=== PATIENT | female | born 1975 | race Caucasian/White ===

== ENCOUNTER → 2021-11-03 18:01 | Outpatient (CLI) | payer OTHER, SELFPAY ==
[2021-11-03 18:42] LABS: Amphetamine/Metha Screen,Urine Negative ng/ml (<1000)
[2021-11-03 18:45] LABS: Barbiturates Screen,Urine Negative ng/ml (<200); Benzodiazepines Screen,Urine Negative ng/ml (<200)
[2021-11-03 18:46] LABS: Cannabinoid Screen,Urine Positive ng/ml (<50)
[2021-11-03 18:47] LABS: Cocaine Screen,Urine Negative ng/ml (<300)
[2021-11-03 18:48] LABS: Alanine Aminotransferase 31 U/L (12-78); Albumin Level 4.3 g/dl (3.5-5.0); Albumin/Globulin Ratio 1.5 (1.1-1.8); Alkaline Phosphatase 75 U/L (38-126); Anion Gap 14.6 mEq/L (5-15); Aspartate Amino Transferase 37 U/L (14-36); Bilirubin,Total 0.3 mg/dl (0.2-1.3); Blood Urea Nitrogen 6 mg/dl (7-17); Calcium 9.2 mg/dl (8.4-10.2); Carbon Dioxide 29 mmol/L (22.0-30.0); Chloride 100 mmol/L (98-107); Chol/HDL Ratio 5.5 (1-3.5); Cholesterol 264 mg/dl (140-200); Estimated Glomerular Filt Rate 171 ml/min (>60); GFR (African American) 207 ML/MIN (>60); Globulin 2.9 g/dL (1.3-3.2); Glucose 158 mg/dl (74-100); HDL Cholesterol 48 mg/dl (40-60); Methadone Screen,Urine Negative ng/ml (<300); Potassium 3.6 mmoL/L (3.5-5.1); Sodium 140 mmol/L (136-145); Total Protein,Serum 7.2 g/dl (6.3-8.2); Triglycerides 273 mg/dl (30-150); VLDL Cholesterol 55 mg/dL (0-40)
[2021-11-03 18:49] LABS: Opiate Screen,Urine Negative ng/ml (<300); Phencyclidine Screen,Urine Negative ng/ml (<25)
[2021-11-03 18:50] LABS: Basophils # 0.1 K/mm3 (0-0.2); Basophils % 1.1 % (0.1-2.0); Eosinophils # 0.3 K/mm3 (0.0-0.4); Eosinophils % 3.3 % (0.1-12.0); Hematocrit 49.5 % (37.0-47.0); Hemoglobin 16.6 g/dL (12.2-16.2); Lymphocytes % 24.6 % (10-50); Mean Corpuscular HGB Conc 33.5 g/dL (31.8-35.4); Mean Corpuscular Hemoglobin 31.2 pg (27.0-31.2); Mean Corpuscular Volume 93.1 fl (81-99); Mean Platelet Volume 10.1 fl (7.4-10.4); Monocytes # 0.4 K/mm3 (0.1-1.0); Monocytes % 4.6 % (1.7-9.3); Neutrophils # 5.3 K/mm3 (1.8-7.8); Neutrophils % 66.3 % (37.0-80.0); Platelet Count 345 K/mm3 (142-424); Red Blood Count 5.31 M/mm3 (4.20-5.40); Red Cell Distribution Width 13.5 % (11.5-17.5)
[2021-11-03 19:00] LABS: Direct LDL Cholesterol 184.13 mg/dL (100-129)
[2021-11-03 19:06] LABS: 25-OH Vitamin D, Total 37.6 ng/mL (30-100)
[2021-11-03 19:07] LABS: T4 (Thyroxine) 9.2 ug/dl (5.53-11.0)
[2021-11-03 19:20] LABS: Thyroid Stimulating Hormone 1.43 uIU/mL (0.465-4.68)
[2021-11-03 19:44] LABS: Hemoglobin A1C 8.4 % (4.0-6.0)
[2021-11-05 11:18] LABS: C-Peptide 4.1 ng/mL (1.1-4.4)
== END ==
PROVIDERS: Visit Provider Nurse Practitioner Family
DX: E11.9 Type 2 diabetes mellitus without complications (principal); M79.2 Neuralgia and neuritis, unspecified; F32.A Depression, unspecified; Z79.4 Long term (current) use of insulin; Z79.899 Other long term (current) drug therapy; E66.9 Obesity, unspecified; Z68.33 Body mass index [BMI] 33.0-33.9, adult
CPT/HCPCS: 80053; 80061; 80305; 82043; 82306; 83036; 84436; 84443; 84681; 85025

== ENCOUNTER → 2021-12-02 06:23 | Outpatient (CLI) | payer OTHER, SELFPAY ==
--- NOTE | 2021-12-02 06:25 | CA_ITS ---
APPROVED REPORT EXAM: Comprehensive 2D, Doppler, and color-flow Echocardiogram Correctional Case Records Supervisor: Dawn Mcmillan RVT Ht: 5 ft 3 in Wt: 193lbs BSA: 1.90 BP: 145/98 mmHg Indications: CP,CAD,ABN EKG,DM,HERNANDEZ,FATIGUE,HLD,HTN,HX COVID 07/29 TDS 2D Dimensions LVOT 2.00 cm (M/F) 1.5-2.5 LA Volume 53.30 mL LA Volume Index 28.05 mL/m2 (M/F) 16-34 M-Mode Dimensions LA Diam 4.54 cm (1.9-4.0) LVDd 5.21 cm (3.5-5.7) Ao Diam 2.99 cm (2.0-3.7) LVDs 3.04 cm (3.5-5.7) IVSd 0.95 cm (0.6-1.1) PWd 1.41 cm (0.6-1.1) EF (Teich) 72.20% FS 41.70% EDV (Teich) 130.10 mL TAPSE 2.06 (<1.7) ESV (Teich) 36.20 mL LV Diastology E Decel Time 213.00 (160-240 msec) E/A Ratio 2.1 MED E' 5.40 (< 7 cm/sec) E'/MED E' Ratio 19.98 (>14) LAT E' 8.40 (<10 cm/sec) E/LAT E' Ratio 12.85 (>14) Aortic Valve AO Peak GR. 7.10 mmHg Mitral Valve MV E Max Cash. 108.00 (40-130 cm/s) MV A Velocity 51.00 (40-130 cm/s) E/A Ratio 2.10 MV Decel. Time 213.00 (160-240 ms) MV PHT 62.00 ms Pulmonary Valve PV Peak Velocity 93.00 (50-150 cm/s) Left Ventricle Left atrium is moderately enlarged, left ventricle is normal size, mild concentric left ventricular hypertrophy, there is reduced left ventricular systolic function, visually estimated ejection fraction approximately 30 to 35%, there is marked hypokinesis involving mid to distal septum, anterior, anterior apical and apical wall, endocardial surfaces are poorly visualized, grade 2 diastolic dysfunction seen with tissue Doppler evidence of raise left atrial pressure. Right Ventricle Right atrium and right ventricle are qualitatively mildly enlarged with normal contractility. Aortic Valve Aortic valve is minimally thickened and fibrosed, there is no aortic stenosis or aortic insufficiency. Mitral Valve Mitral valve leaflets are minimally thickened, there is mild mitral regurgitation. Tricuspid Valve Tricuspid grossly normal, there is mild tricuspid regurgitation. Tricuspid regurgitation jet velocity is inadequate for calculation of the right ventricular systolic pressure. Pulmonic Valve Pulmonic valve is poorly visualized. Great Vessels Aortic root is normal size. Inferior vena cava is mildly dilated without significant inspiratory collapse. Pericardium No significant pericardial effusion noted. Conclusion 1. Moderately enlarged left atrium, normal left ventricular size, mild concentric left ventricular hypertrophy, visually estimated ejection fraction approximately 30 to 35% with multiple segmental wall motion abnormality described above, grade 2 diastolic dysfunction seen with tissue Doppler evidence of raise left atrial pressure. 2. Mild mitral and tricuspid regurgitation. 3. No significant pericardial effusion noted. 4. Inferior vena cava is mildly dilated without significant inspiratory collapse. Electronically signed by : Kenneth Blandon MD 12/03/2021 15:03:30
--- NOTE | 2021-12-02 06:25 | NM_ITS ---
APPROVED REPORT Exam: Nuclear Stress Test Indication: CAD, 2 STENTS, H/O PR, HTN, D.M., HYPERLIPIDEMIA, TOB USE, FM HX., C.P., SOB, FATIGUE Patient Location: Outpatient Stress Tech: Paige Jesus NE Tech:Taniya Wang, CONGT RT(R)(N) Ht: 5 ft 3 in Wt: 190 lbs Bra Size: 40D HR: 79 bpm BP: 142/91 mmHg BSA: 1.89 m2 BMI: 33.6 History: CAD, 2 STENTS, H/O PR, HTN, D.M., HYPERLIPIDEMIA, TOB USE, FM HX., C.P., SOB, FATIGUE Procedure: Patient received a 0.4 mg of intravenous Lexiscan, resting heart rate 79 bpm, resting blood pressure 142/91 mmHg, with Lexiscan maximum heart rate achived was 112 bpm which is Less than 85 % of the maximum predicted heart rate and blood pressure was 163/105 mmHg. CHEST TIGHTNESS Electrocardiogram Resting electrocardiogram shows sinus rhythm, with Lexiscan there is less than 1.[address] segment depression noted from the baseline EKG. The EKG portion of the Lexiscan is nondiagnostic. Cardiac Stress and Resting SPECT Images: Cardiac Stress and Resting SPECT images were obtained using technetium 99m Myoview 30.8 mCi stress and 10.07 mCi at rest. Gated SPECT for analysis of segmental wall motion and calculation of the ejection fraction also done. Prone images were also obtained. Cardiac stress and resting SPECT images show a large area of fixed defect involving the anterior, anterior apical, apical and anteroseptal wall in a fixed pattern consistent with extensive area of myocardial scarring without significant arina-infarct ischemia. Computer derived ejection fraction of 35% with marked hypokinesis involving the anterior, anterior apical, apex and anteroseptal wall. Right ventricle is mildly enlarged with normal contractility. Conclusion: 1. The EKG portion of the Lexiscan is nondiagnostic. 2. Scintigraphic evidence of extensive myocardial scarring as described above, without significant arina-infarct ischemia, computer derived ejection fraction 35% with segmental wall motion abnormality described above, right ventricle is mildly enlarged with normal contractility. 3. Abnormal Lexiscan Myoview study. Electronically signed by : Kenneth Blandon MD 12/03/2021 09:38:35
--- NOTE | 2021-12-02 06:25 | CA_ITS ---
APPROVED REPORT Exam: Pharmacologic Technologist: Tanika Trujillo, Ht: 5 ft 3 in Wt: 193 lbs BSA: 1.90 m2 HR: 79 bpm BP: 142/91 mmHg Rhythm: NSR, OLD SEPTAL LA, ST-T ABN INFERIORLY AND LATERALLY Medical History Medical History: HTN, Hyperlipidemia, Diabetes Medications: Amlodipine,,,,, Aspirin,,,,, Metformin,,,,, Trazadone,,,,, Gabapentin,,,,, SyMBICORT,,,,, CloPIdogrel,,,,, PaROXETINE,,,,, Tizanidine,,,,, Atrovent,,,,, Ergocalciferol,,,,, ICOSAPENT,,,,, Allergies: ATORVASTATIN, PRAVASTATIN, ROSUVASTATIN Cardiac Risk Factors: HTN, Hyperlipidemia, Diabetes , FHX of CAD, Smoking Stress Test Details Test: LEXISCAN HR Resting HR: 83 bpm Max Heart Rate (APMHR): 172.040410 bpm Max HR Achieved: 113 bpm Target HR (85% APMHR): 146.470172 bpm % of APMHR: 65.70 Recovery HR: 90 bpm BP Resting BP: 142/91 mmHg Max BP: 168/106 mmHg Recovery BP: 145.0/91.0 mmHg ECG Resting ECG: NSR, OLD SEPTAL LA, ST-T ABN INFERIORLY AND LATERALLY Clinical Exercise duration: 04:02 min Highest Stage Achieved: Stress ECG Conclusion PT HAD SOA, AND CHEST TIGHTNESS, MALAISE AND NAUSEA. AMINOPHYLLINE 100 MG SLOW IV. PT FEELING BETTER AT 3 MINUTE RECOVERY. BACK TO BASELINE AT 7 MINUTE RECOVERY. MILD EXAGGERATION OF BASELINE ABNS. NON-DIAGNOSTIC LEXISCAN STRESS. MYOVIEW IMAGES REPORTED SEPARATELY. Test Summary RECOVERY 05:00 . . 85 . . . . Stage 1 01:00 . . 107 . . . . Stage 2 01:00 . . 113 . 163/105 . . Stage 3 01:00 . . 102 . . . . Stage 4 01:00 . . 102 . 168/105 . . Stage 4 01:02 . . 102 . 168/105 . Stop exercise at 04:02 RECOVERY 01:00 . . 95 . . . . RECOVERY 02:00 . . 96 . . . . RECOVERY 03:00 . . 82 . . . . RECOVERY 04:00 . . 88 . . . . RECOVERY 05:00 . . 85 . . . . RECOVERY 06:00 . . 79 . 142/ 95 . . RECOVERY 07:00 . . 90 . 145/ 91 . . RECOVERY 07:22 . . 76 . 145/ 91 . . Electronically signed by : Kenneth Blandon MD 12/03/2021 09:22:50
== END ==
PROVIDERS: PCP Nurse Practitioner Family; Visit Provider Urology
DX: R06.00 Dyspnea, unspecified (principal); I25.10 Atherosclerotic heart disease of native coronary artery without angina pectoris; I10 Essential (primary) hypertension; E11.9 Type 2 diabetes mellitus without complications; E78.5 Hyperlipidemia, unspecified; J44.9 Chronic obstructive pulmonary disease, unspecified; F17.200 Nicotine dependence, unspecified, uncomplicated; R94.31 Abnormal electrocardiogram [ECG] [EKG]; Z78.9 Other specified health status; Z79.4 Long term (current) use of insulin
CPT/HCPCS: 78452; 93017; 93306; A9502; J0280; J2785

== ENCOUNTER → 2021-12-08 09:41 | Outpatient (CLI) | payer OTHER, SELFPAY | PROVIDERS: PCP Nurse Practitioner Family; Visit Provider Physician Assistant | DX: R00.2 Palpitations (principal) | CPT/HCPCS: 93270 ==

== ENCOUNTER → 2021-12-20 12:29 | Outpatient (CLI) | payer OTHER, SELFPAY ==
[2021-12-20 12:45] LABS: Microscopic, Urine URINE MICROSCOPIC (MICROSCOPIC)
[2021-12-20 13:15] LABS: Basophils # 0.1 K/mm3 (0-0.2); Basophils % 1.5 % (0.1-2.0); Eosinophils # 0.3 K/mm3 (0.0-0.4); Eosinophils % 3.8 % (0.1-12.0); Hematocrit 42.9 % (37.0-47.0); Hemoglobin 14.5 g/dL (12.2-16.2); Lymphocytes # 1.9 K/mm3 (0.7-4.5); Lymphocytes % 25.9 % (10-50); Mean Corpuscular HGB Conc 33.7 g/dL (31.8-35.4); Mean Corpuscular Hemoglobin 31.3 pg (27.0-31.2); Mean Corpuscular Volume 92.8 fl (81-99); Mean Platelet Volume 8.6 fl (7.4-10.4); Monocytes # 0.3 K/mm3 (0.1-1.0); Monocytes % 4.2 % (1.7-9.3); Neutrophils # 4.7 K/mm3 (1.8-7.8); Neutrophils % 64.6 % (37.0-80.0); Platelet Count 291 K/mm3 (142-424); Red Blood Count 4.62 M/mm3 (4.20-5.40); Red Cell Distribution Width 14.5 % (11.5-17.5); White Blood Count 7.3 K/mm3 (4.8-10.8)
[2021-12-20 13:54] LABS: Appearance,Urine CLEAR (Clear); Bilirubin,Urine Negative (Negative); Blood, Urine Negative (Negative); Color,Urine YELLOW (Yellow); Glucose,Urine (UA) Negative (Negative); Ketones,Urine Negative (Negative); Leukocyte Esterase,Urine Negative (Negative); Nitrate,Urine Negative (Negative); Protein,Urine 2+ (Negative); Specific Gravity, Urine >= 1.030 (1.005-1.030); Urobilinogen,Urine 0.2 EU/dl (0.2)
[2021-12-20 14:05] LABS: Creatinine,Urine Random 109 mg/dL (Not Estab.)
[2021-12-20 14:07] LABS: Albumin Level 3.8 g/dl (3.5-5.0); Anion Gap 12.1 mEq/L (5-15); Blood Urea Nitrogen 9 mg/dl (7-17); Carbon Dioxide 26 mmol/L (22.0-30.0); Chloride 104 mmol/L (98-107); Estimated Glomerular Filt Rate 170 ml/min (>60); GFR (African American) 206 ML/MIN (>60); Glucose 173 mg/dl (74-100); Phosphorous 4.3 mg/dl (2.5-4.5); Potassium 4.1 mmoL/L (3.5-5.1); Sodium 138 mmol/L (136-145)
[2021-12-20 14:08] LABS: Anion Gap 10.1 mEq/L (5-15); Blood Urea Nitrogen 9 mg/dl (7-17); Calcium 8.9 mg/dl (8.4-10.2); Carbon Dioxide 26 mmol/L (22.0-30.0); Chloride 105 mmol/L (98-107); Estimated Glomerular Filt Rate 170 ml/min (>60); GFR (African American) 206 ML/MIN (>60); Glucose 174 mg/dl (74-100); Potassium 4.1 mmoL/L (3.5-5.1); Sodium 137 mmol/L (136-145)
[2021-12-20 14:19] LABS: Intact Parathyroid Hormone 45.4 pg/mL (7.5-53.5)
[2021-12-20 14:25] LABS: 25-OH Vitamin D, Total 42.2 ng/mL (30-100)
[2021-12-20 16:27] LABS: Bacteria,Urine Trace /lpf
== END ==
PROVIDERS: PCP Internal Medicine Nephrology; Visit Provider Physician Assistant
DX: R06.00 Dyspnea, unspecified (principal); I25.10 Atherosclerotic heart disease of native coronary artery without angina pectoris; I10 Essential (primary) hypertension; E11.9 Type 2 diabetes mellitus without complications; E78.5 Hyperlipidemia, unspecified; F17.200 Nicotine dependence, unspecified, uncomplicated; R94.31 Abnormal electrocardiogram [ECG] [EKG]; Z72.0 Tobacco use; Z95.5 Presence of coronary angioplasty implant and graft; Z79.4 Long term (current) use of insulin
CPT/HCPCS: 36415; 80048; 80069; 81001; 82043; 82306; 82570; 83970; 84155; 85025

== ENCOUNTER → 2021-12-22 10:56 | Outpatient (CLI) | payer OTHER, SELFPAY ==
--- NOTE | 2021-12-22 10:57 | CA_ITS ---
FINAL REPORT TECHNIQUE: Color Doppler, duplex Doppler and compression sonography of the right lower extremity venous system was performed. CLINICAL HISTORY: pain and swelling right lower leg. Patient states she was walking 12/19/21 when she heard a pop. She states the pain started in her lower calf but has moved to her right groin. She notes edema when it's not elevated. Diabetes, HTN, hx PR, smoker. FINDINGS: There is no evidence of deep venous thrombosis from the level of the groin to the calf. The veins are patent and compressible. Note is made of a moderate right popliteal cyst measuring 3.1 x 1.1 cm. IMPRESSION: No evidence of deep venous thrombosis right lower extremity. Moderate right popliteal cyst. Reviewed, Interpreted and Dictated by Jose Knox III, MD Transcribed by Kriss Nguyen Authenticated by Jose Knox III, MD on 12/22/2021 01:24:15 PM [facility]
--- NOTE | 2021-12-22 11:09 | XR_ITS ---
FINAL REPORT CLINICAL HISTORY: pain swelling right lower leg FINDINGS: Two views of the right tibia-fibula demonstrate no acute fracture or dislocation. The joint spaces appear normal. The visualized bony structures are well aligned. There is soft tissue swelling of the ankle. IMPRESSION: Swelling with no acute bony abnormality. Reviewed, Interpreted and Dictated by Jose Knox III, MD Transcribed by Chay Hoover Authenticated by Jose Knox III, MD on 12/22/2021 12:23:53 PM [facility]
== END ==
PROVIDERS: PCP Nurse Practitioner Family; Visit Provider Physician Assistant
DX: M79.604 Pain in right leg (principal); M79.89 Other specified soft tissue disorders
CPT/HCPCS: 73590; 93971

== ENCOUNTER → 2021-12-27 12:33 | Outpatient (POV) | payer OTHER, SELFPAY | PROVIDERS: Visit Provider Internal Medicine Nephrology | DX: Z00.00 Encounter for general adult medical examination without abnormal findings (principal) ==

== ENCOUNTER 2021-12-29 13:15 | Observation (INO) | payer OTHER, SELFPAY ==
--- NOTE | 2021-12-29 13:38 | P.PN_ITS ---
Subjective Date: 12/29/21 Time: 13:38 Interval history: Patient was seen in cardiology clinic today and admitted to the hospital. Progress Note: A&P (1) Dyspnea Status: Acute (2) LV dysfunction Status: Acute (3) Angina pectoris Status: Acute (4) Systolic CHF Status: Acute (5) Abnormal electrocardiography Status: Chronic (6) CAD (coronary artery disease) Status: Chronic (7) Stented coronary artery Status: Chronic (8) Tobacco dependence syndrome Status: Chronic (9) Hyperlipidemia Status: Chronic (10) Hypertension Status: Chronic (11) Diabetes mellitus Status: Chronic (12) Abnormal stress test Status: Acute (13) Ischemic cardiomyopathy Status: Acute Assessment and Plan for All Diagnoses:: Pt here for 2-3 wk fu on CAD. Event monitor showed SR with PVCs. Has had cp & pressure with activity. improves with rest. see HPI. CP occurs multiples times a day. she states she does not feel well. extremely fatigued. SOB with activity. improved with rest CAD is present. had stents placed in 2017 at [facility]. states she worse a life vest and EF improved. she took life vest off once EF improved. BP is high today. COPD is present. Managed by PCP LDL in 10/2021 was 184. LDL goal<55. No statin therapy. intolerant to statins. She has tried lipitor, crestor and pravastatin. Joint pain/muscle. ZAIRA is present and doesn't use her CPAP. Tobacco user. tobacco cessation advised. Cardiomyopathy is present 30-35% on recent echo. DM is present. A1c: 8.4. Uncontrolled. Managed by PCP. EKG is NSR, septal infarct, age undetermined, rate is 75 bpm. Plan: Admit to the hospital for [facility]. C in the morning. Better BP control. Increase Coreg to 12.5 mg PO BIID for better BP control. Stop Lisinopril. Start Entresto 97/103 PO BID for CHF. Start Jardiance 10 mg daily for CHF. Life vest due to severe LV dysfunction. Pt is at increased risk for sudden cardiac due to severe LV dysfunction. Will order life vest. CXR Full labs
--- NOTE | 2021-12-29 13:42 | XR_ITS ---
FINAL REPORT CLINICAL HISTORY: chest pain FINDINGS: The heart size is normal. The mediastinum is normal. There is mild scarring in the lung bases. There is subtle density in the right lung base. There are no pleural effusions. There is no pneumothorax. There is no osseous abnormality. IMPRESSION: Subtle density in the right lung base could be due to a small focus of pneumonia. Recommend follow-up PA and lateral chest x-ray. Reviewed, Interpreted and Dictated by López Dick MD Transcribed by Chay Hoover Authenticated by López Dick MD on 12/29/2021 03:52:45 PM [facility]
[2021-12-29 13:47] VITALS: BP 186/112; PULSE 80; RESP 14; TEMP 36.7; O2SAT 96; BMI 35.1
[2021-12-29 14:10] LABS: Basophils # 0.1 K/mm3 (0-0.2); Basophils % 1.4 % (0.1-2.0); Eosinophils # 0.4 K/mm3 (0.0-0.4); Eosinophils % 4.9 % (0.1-12.0); Hematocrit 42.9 % (37.0-47.0); Hemoglobin 14.2 g/dL (12.2-16.2); Lymphocytes # 1.9 K/mm3 (0.7-4.5); Lymphocytes % 21.8 % (10-50); Mean Corpuscular HGB Conc 33.2 g/dL (31.8-35.4); Mean Corpuscular Hemoglobin 31.4 pg (27.0-31.2); Mean Corpuscular Volume 94.7 fl (81-99); Mean Platelet Volume 8.7 fl (7.4-10.4); Monocytes # 0.3 K/mm3 (0.1-1.0); Monocytes % 3.8 % (1.7-9.3); Neutrophils % 68.1 % (37.0-80.0); Platelet Count 289 K/mm3 (142-424); Red Blood Count 4.53 M/mm3 (4.20-5.40); Red Cell Distribution Width 14.7 % (11.5-17.5); White Blood Count 8.9 K/mm3 (4.8-10.8)
[2021-12-29 14:27] LABS: Chloride 105 mmol/L (98-107); Potassium 3.8 mmoL/L (3.5-5.1); Sodium 137 mmol/L (136-145)
[2021-12-29 14:29] LABS: Coronavirus 19, PCR Not Detected (NotDetected); Influenza A, PCR Not Detected (NotDetected); Influenza B, PCR Not Detected (NotDetected)
[2021-12-29 14:29] LABS: Alanine Aminotransferase 25 U/L (12-78); Aspartate Amino Transferase 29 U/L (14-36); Bilirubin,Unconjugated 0.2 mg/dL (0.0-1.1); Blood Urea Nitrogen 8 mg/dl (7-17); Creatinine Clearance Estimated 244 mL/min (50-200); Estimated Glomerular Filt Rate 170 ml/min (>60); GFR (African American) 206 ML/MIN (>60)
[2021-12-29 14:30] LABS: Albumin Level 3.6 g/dl (3.5-5.0); Alkaline Phosphatase 71 U/L (38-126); Anion Gap 9.8 mEq/L (5-15); Bilirubin,Direct 0.2 mg/dl (0.0-0.4); Bilirubin,Indirect 0.3 mg/dL (0.0-0.9); Bilirubin,Total 0.5 mg/dl (0.2-1.3); Calcium 8.1 mg/dl (8.4-10.2); Carbon Dioxide 26 mmol/L (22.0-30.0); Glucose 157 mg/dl (74-100); Total Protein,Serum 6.3 g/dl (6.3-8.2)
--- NOTE | 2021-12-29 14:42 | P.CONPHA_ITS ---
[facility] Pharmacy VTE Monitoring - Patient Demographics Admission date: 12/29/21 Report Date: 12/29/21 Time: 14:42 Allergies/Adverse Reactions: Patient Allergies atorvastatin [From Lipitor] Adverse Reaction (Severe, Verified 12/29/21 12:03) pravastatin Adverse Reaction (Severe, Verified 12/29/21 12:03) rosuvastatin [From Crestor] Adverse Reaction (Severe, Verified 12/29/21 12:03) Height: 1.6 m Weight: 89.896 kg Patient Problems: Current Active Problems Abnormal stress test (Acute) Ischemic cardiomyopathy (Acute) LV dysfunction (Acute) Angina pectoris (Acute) Systolic CHF (Acute) Dyspnea (Acute) Abnormal electrocardiography (Chronic) CAD (coronary artery disease) (Chronic) Stented coronary artery (Chronic) Tobacco dependence syndrome (Chronic) Hyperlipidemia (Chronic) Hypertension (Chronic) Diabetes mellitus (Chronic) - VTE Risk Labs: VTE Related Lab Results Hgb 14.2 g/dL (12.2-16.2) 12/29/21 13:56 Hct 42.9 % (37.0-47.0) 12/29/21 13:56 Plt Count 289 K/mm3 (142-424) 12/29/21 13:56 BUN 8 mg/dl (7-17) 12/29/21 13:56 Creatinine 0.40 mg/dl (0.52-1.04) L 12/29/21 13:56 Estimated Creat Clear 244 mL/min (50-200) 12/29/21 13:56 - Prophylaxis VTE Prophylaxis Ordered?: Yes Types of VTE Prophylaxis: TEDS Knee High Location of Applied Device: Bilateral Lower Extremeties
[2021-12-29 14:45] LABS: Troponin I < 0.01 ng/ml (0.00-0.034)
[2021-12-29 15:01] LABS: Thyroid Stimulating Hormone 1.86 uIU/mL (0.465-4.68)
[2021-12-29 15:02] VITALS: PULSE 80
[2021-12-29 15:56] LABS: Free T4 (Free Thyroxine) 0.96 ng/dl (0.78-2.19)
[2021-12-29 16:00] VITALS: BP 159/111; PULSE 78; RESP 16; TEMP 36.7; O2SAT 96
[2021-12-29 20:00] VITALS: BP 138/91; PULSE 60; PULSE 67; RESP 16; TEMP 36.7; O2SAT 97
--- NOTE | 2021-12-29 20:15 | HMH.HP ---
*Admission Date: 12/29/21 *Chief complaint: Chest Pain *History of present illness: 46-year-old female patient admitted from cardiology clinic with reports of chest pain several times a day occurring for several weeks. She is also complaining of extreme fatigue shortness of breath with activity that improves with rest and a history of coronary artery disease and COPD. She also carries a diagnosis of ZAIRA but does not use a CPAP she is a smoker and tobacco cessation has been discussed multiple times and stressed. She did have stents placed in 2017 at [facility] in [facility] she also reports wearing a LifeVest for decreased ejection fraction and wanted improved LifeVest was discontinued. [facility] History I have reviewed the patient's past medical history: Yes Medical History: Reports:: Anxiety, Asthma, Congestive Heart Failure, Depression, Diabetes Mellitus Type 2, Hyperlipidemia, Hypertension, Myocardial Infarction Denies:: Cancer, Diabetes Mellitus Type 1, MRSA *Have you ever received a pneumonia vaccine?: No *Have you received a flu vaccine this season?: No Other Medical History: Reports: Other Laterality Cases: Right: Other Other Surgeries: Yes: Cardiac Surgery, Coronary Stent, Hernia Repair, Other Amputation: No Fractures: No - *Social History Last grade of school completed: Advanced degree Smoking Status: Current every day smoker Tobacco Type: cigarettes # Packs/Day (cigarettes): 1 Alcohol Intake: never Alcohol Intake Frequency:: holidays/special occasions only *Occupational Status:: unemployed Housing: house Household Members: family, children *Travel in the last 8 weeks: None - Psychiatric History Pschychiatric History:: Reports:: Anxiety, Depression Family Hx:: No significant family history Review of Systems - Review of Systems Review of systems:: pertinent systems reviewed and negative unless documented below - Constitutional Reports fatigue, Denies body ache(s) - Eyes Denies blurry vision, Denies double vision - ENT Denies ear discharge, Denies facial pain - *Cardiovascular Reports chest pain, Reports chest pain at rest, Reports chest pain with activity, Reports shortness of breath, Reports shortness of breath with activity - *Respiratory Reports shortness of breath, Reports shortness of breath with activity - *Gastrointestinal Reports abdominal pain, Denies change in bowel habits - *Musculoskeletal Denies abnormal walking, Denies body aches - Integumentary/Breasts Denies excessive hair growth, Denies yellowing of the skin - *Neurologic Reports dizziness, Denies confusion, Denies seizure-like activity - Psychiatric Denies lack of enjoyment, Denies confusion - Endocrine Denies cold intolerance, Denies excessive sweating - Hematologic/Lymphatic Denies easy bleeding, Denies easy bruising - Allergic/Immunologic Denies GI upset with certain foods, Denies wheezing Meds Home Medications Medication Instructions Recorded Confirmed Type budesonide-formoterol HFA 160 2 puff INHALATION BID 11/03/21 12/29/21 History mcg-4.5 mcg/actuation aerosol inhaler cetirizine 10 mg tablet 10 mg PO DAILY tab 11/03/21 12/29/21 History clopidogrel 75 mg tablet 75 mg PO DAILY 11/03/21 12/29/21 History ergocalciferol (vitamin D2) 1,250 1,250 mcg PO WEEKLY cap 11/03/21 12/29/21 History mcg (50,000 unit) capsule insulin glargine 100 unit/mL 15 ml SQ HS 11/03/21 12/29/21 History subcutaneous solution trazodone 100 mg tablet 150 mg PO HSP PRN tab 11/03/21 12/29/21 History aspirin 81 mg tablet,delayed 81 mg PO DAILY #30 tab 11/11/21 12/29/21 Rx release icosapent ethyl 1 gram capsule 2 g PO BID 11/24/21 12/29/21 History furosemide 20 mg tablet 20 mg PO DAILY #30 tab 12/08/21 12/29/21 Rx spironolactone 25 mg tablet 25 mg PO DAILY #30 tab 12/08/21 12/29/21 Rx gabapentin 300 mg capsule 300 mg PO BID #60 cap 12/10/21 12/29/21 Rx tiotropium bromide 18 mcg capsule 1 cap INHA
[2021-12-30] VITALS (23 sets, daily range): BP systolic 130–159; BP diastolic 81–101; PULSE 70–90; RESP 14–18; TEMP 36.9–37.1; O2SAT 88–98; BMI 34.6
--- NOTE | 2021-12-30 | IR_ITS ---
APPROVED REPORT Patient Location: Inpatient [employer]s Sales Associate: VAISHNAVI Danielson RT (R) PROCEDURES Left heart catheterization Left ventriculogram Selective coronary INDICATION Coronary artery disease, History of coronary stenting, Unstable angina Informed consent was obtained prior to the procedure. COMPLICATIONS None Estimated Blood Loss: Less than 10 mls TECHNIQUE One percent lidocaine was used to anesthetize the left groin. The left femoral artery was accessed via the Seldinger technique. A 4-Botswanan sheath was placed in the left femoral artery. The JL-4 and JR-4 catheter was also used to perform left heart catheterization left ventriculogram and selective coronary angiogram. At the end of the procedure the patient was transferred to the post-op holding area in stable condition for arterial sheath removal. ANGIOGRAPHIC RESULTS The left main artery Normal The left anterior descending artery Has a stent in the proximal segment which is widely patent free of in-stent restenosis with excellent proximal distal transitioning. A large diagonal artery is widely patent The circumflex artery Is a non-dominant system has proximal 10 to 20% stenosis followed by a long 20% stenosis which extends into a large first obtuse marginal artery. The second obtuse marginal artery is 2 mm in diameter and has an ostial 60% stenosis The right coronary artery Is a dominant vessel and has mild ostial luminal irregularities and distal 10% luminal regularities The ASHER ventriculogram reveals Preserved at 55-60 The left ventricular end-diastolic pressure 20 mmHg IMPRESSION Patent coronary arteries as described above Preserved ejection fraction Borderline elevated LVEDP PLAN 1. Medical management Electronically signed by : Sean Pina MD 12/30/2021 13:25:37
--- NOTE | 2021-12-30 05:40 | PC.NURSE ---
pt has rested well throughout shift, no complaints of pain or discomfort, no episodes of chest pain, no change from previous assessment, pt is ambulatory independently in room SOb does occur with exertion but normal respiratory effort returns with rest, vss, will continue to monitor at this time
[2021-12-30 06:44] LABS: Basophils # 0.1 K/mm3 (0-0.2); Eosinophils # 0.4 K/mm3 (0.0-0.4)
[2021-12-30 06:49] LABS: Anion Gap 10.8 mEq/L (5-15); Blood Urea Nitrogen 9 mg/dl (7-17); Carbon Dioxide 30 mmol/L (22.0-30.0); Chloride 103 mmol/L (98-107); Chol/HDL Ratio 8.7 (1-3.5); Cholesterol 297 mg/dl (140-200); Creatinine Clearance Estimated 241 mL/min (50-200); Estimated Glomerular Filt Rate 170 ml/min (>60); GFR (African American) 206 ML/MIN (>60); Glucose 220 mg/dl (74-100); HDL Cholesterol 34 mg/dl (40-60); Potassium 3.8 mmoL/L (3.5-5.1); Sodium 140 mmol/L (136-145)
[2021-12-30 07:00] LABS: Direct LDL Cholesterol 141.33 mg/dL (100-129)
[2021-12-30 07:14] LABS: Triglycerides 716 mg/dl (30-150)
[2021-12-30 07:22] LABS: Eosinophils % 4.9 % (0.1-12.0); Lymphocytes # 1.8 K/mm3 (0.7-4.5); Lymphocytes % 24.4 % (10-50); Mean Corpuscular HGB Conc 32.5 g/dL (31.8-35.4); Mean Corpuscular Hemoglobin 30.8 pg (27.0-31.2); Mean Corpuscular Volume 94.7 fl (81-99); Mean Platelet Volume 8.9 fl (7.4-10.4); Monocytes # 0.3 K/mm3 (0.1-1.0); Monocytes % 4.5 % (1.7-9.3); Neutrophils # 4.9 K/mm3 (1.8-7.8); Neutrophils % 65.1 % (37.0-80.0); Platelet Count 314 K/mm3 (142-424); Red Blood Count 5.39 M/mm3 (4.20-5.40); Red Cell Distribution Width 14.6 % (11.5-17.5); White Blood Count 7.5 K/mm3 (4.8-10.8)
[2021-12-30 09:13] LABS: Hemoglobin 16.6 g/dL (12.2-16.2)
--- NOTE | 2021-12-30 09:27 | HMH.PHAINT ---
home medication list verified using list from cardiology office and outpatient pharmacy
--- NOTE | 2021-12-30 10:26 | HMH.PNCARD ---
Subjective Date: 12/30/21 Time: 10:26 Principal diagnosis: Angina, Cardiomyopathy Interval history: 46-year-old white female in bed in no acute distress. Denies any further chest pain, pressure or tightness overnight. Questions regarding cardiac cath and LifeVest answered. Exam Vital signs and Labs for Last 24 Hours: Temp Pulse Resp BP Pulse Ox 98.5 F 78 16 135/86 94 L 12/30/21 08:00 12/30/21 08:00 12/30/21 08:00 12/30/21 08:00 12/30/21 08:00 Laboratory Results - last 24 hr 12/29/21 13:56: WBC 8.9, RBC 4.53, Hgb 14.2, Hct 42.9, MCV 94.7, MCH 31.4 H, MCHC 33.2, RDW 14.7, Plt Count 289, MPV 8.7, Neut % (Auto) 68.1, Lymph % (Auto) 21.8, Hickman % (Auto) 3.8, Eos % (Auto) 4.9, Baso % (Auto) 1.4, Neut # (Auto) 6.0, Lymph # (Auto) 1.9, Hickman # (Auto) 0.3, Eos # (Auto) 0.4, Baso # (Auto) 0.1 12/29/21 13:56: Sodium 137, Potassium 3.8, Chloride 105, Carbon Dioxide 26, Anion Gap 9.8, BUN 8, Creatinine 0.40 L, Estimated Creat Clear 244, Estimated GFR 170, Est GFR ( Amer) 206, Glucose 157 H, Calcium 8.1 L, Total Bilirubin 0.5, Direct Bilirubin 0.2, Conjugated Bilirubin 0.0, Indirect Bilirubin 0.3, Unconjugated Bilirubin 0.2, AST 29, ALT 25, Alkaline Phosphatase 71, Troponin I < 0.01, Total Protein 6.3, Albumin 3.6, TSH 1.86 12/29/21 13:56: Free T4 0.96 12/29/21 14:15: SARS-CoV-2 (PCR) Not detected, Influenza A Untype (PCR) Not detected, Influenza Type B (PCR) Not detected 12/30/21 06:20: WBC 7.5, RBC 5.39, Hgb 16.6 H D, Hct 51.0 H, MCV 94.7, MCH 30.8, MCHC 32.5, RDW 14.6, Plt Count 314, MPV 8.9, Neut % (Auto) 65.1, Lymph % (Auto) 24.4, Hickman % (Auto) 4.5, Eos % (Auto) 4.9, Baso % (Auto) 1.0, Neut # (Auto) 4.9, Lymph # (Auto) 1.8, Hickman # (Auto) 0.3, Eos # (Auto) 0.4, Baso # (Auto) 0.1 12/30/21 06:20: Sodium 140, Potassium 3.8, Chloride 103, Carbon Dioxide 30, Anion Gap 10.8, BUN 9, Creatinine 0.40 L, Estimated Creat Clear 241, Estimated GFR 170, Est GFR ( Amer) 206, Glucose 220 H D, Calcium 9.0, Triglycerides 716 H, Cholesterol 297 H, LDL Cholesterol Direct 141.33 H, HDL Cholesterol 34 L, Cholesterol/HDL Ratio 8.7 H I & O for Last 24 hours: Intake & Output 12/27/21 12/28/21 12/29/21 12/30/21 11:59 11:59 11:59 11:59 Intake Total 240 / 240 Output Total 100 / 100 Balance 140 / 140 Weight 195 lb 6 oz - Constitutional no acute distress - *Routine Respiratory Exam Present: CTA bilaterally - *Routine Cardiovascular Exam Present: RRR Progress Note: A&P (1) Dyspnea Status: Acute (2) LV dysfunction Status: Acute (3) Angina pectoris Status: Acute (4) Systolic CHF Status: Acute (5) Abnormal electrocardiography Status: Chronic (6) CAD (coronary artery disease) Status: Chronic (7) Stented coronary artery Status: Chronic (8) Tobacco dependence syndrome Status: Chronic (9) Hyperlipidemia Status: Chronic (10) Hypertension Status: Chronic (11) Diabetes mellitus Status: Chronic (12) Abnormal stress test Status: Acute (13) Ischemic cardiomyopathy Status: Acute Assessment and Plan for All Diagnoses:: 1. Angina pectoris with known prior HI and ischemic cardiomyopathy, will proceed with left heart catheterization today. Continue aspirin and Plavix 2. Ischemic cardiomyopathy with ejection fraction of 30-35%, LifeVest ordered. Continue Coreg, Entresto, Lasix and spironolactone. 3. Hypertension 4. Hyperlipidemia, on Repatha therapy as patient is intolerant to statin therapy. LDL still 141 with triglycerides over 700. 5. Diabetes mellitus, per PCP Further recommendations pending cardiac cath results.
--- NOTE | 2021-12-30 16:34 | PC.NURSE ---
maico has done well. dressing to groin and r wrist are c/d/i. no complaints. slightly drowsy. per md may go home after life vest
--- NOTE | 2021-12-30 17:28 | HMH.DCSUM ---
General - General Admission date:: 12/29/21 Discharge date: 12/30/21 HPI HPI: 46-year-old female patient admitted from cardiology clinic with reports of chest pain several times a day occurring for several weeks. She is also complaining of extreme fatigue shortness of breath with activity that improves with rest and a history of coronary artery disease and COPD. She also carries a diagnosis of ZAIRA but does not use a CPAP she is a smoker and tobacco cessation has been discussed multiple times and stressed. She did have stents placed in 2017 at [facility] in [facility] she also reports wearing a LifeVest for decreased ejection fraction and wanted improved LifeVest was discontinued. Hospital Course Hospital Course: 12/30/2021 cardiac catheterization: ANGIOGRAPHIC RESULTS The left main artery Normal The left anterior descending artery Has a stent in the proximal segment which is widely patent free of in-stent restenosis with excellent proximal distal transitioning. A large diagonal artery is widely patent The circumflex artery Is a non-dominant system has proximal 10 to 20% stenosis followed by a long 20% stenosis which extends into a large first obtuse marginal artery. The second obtuse marginal artery is 2 mm in diameter and has an ostial 60% stenosis The right coronary artery Is a dominant vessel and has mild ostial luminal irregularities and distal 10% luminal regularities The ASHER ventriculogram reveals Preserved at 55-60 The left ventricular end-diastolic pressure 20 mmHg IMPRESSION Patent coronary arteries as described above Preserved ejection fraction Borderline elevated LVEDP PLAN 1. Medical management Electronically signed by : Sean Pina MD Cardiology seen and recommends: Will proceed with Life Vest for cardiomyopathy. Continue GDMT with entresto 24/26 mg 4 tabs twice daily, coreg 12.5 mg twice daily, lasix 20 mg daily, spironolactone 25 mg daily and jardiance 10 mg daily. Continue dual antiplatelet therapy with aspirin 81 mg daily and Plavix 75 mg daily OK for discharge home when Life Vest has been approved and fitted. Follow-up in our office in 1 to 2 weeks. 46-year-old female patient sitting up in bed resting quietly after some minor chest pain earlier this morning she has been pain-free the rest of the day and denies shortness of breath. Discussed discharge home patient is agreement with this and denies any further questions/complaints/concerns. Current oxygenation 96% on room air PLAN: 1. We will discharge home today 2. LifeVest fitting 3. Follow-up in cardiology in 1 week 4. Follow-up with PCP in 1 week Objective Vital signs: Temp Pulse Resp BP Pulse Ox 98.7 F 70 18 159/101 H 97 12/30/21 14:10 12/30/21 16:55 12/30/21 16:55 12/30/21 16:55 12/30/21 16:55 no acute distress - *Routine HEENT Exam Head: Present: normocephalic Eye: Present: EOMI ENT: Present: mucous membranes moist - *Routine Neck Exam Present: trachea midline. Absent: tracheal deviation - *Routine Respiratory Exam Present: CTA bilaterally. Absent: accessory muscle use - *Routine Cardiovascular Exam Present: RRR - *Routine Abdominal Exam Present: soft, normoactive bowel sounds. Absent: tenderness, firm - *Routine Extremities Exam Present: edema, full ROM, pulses intact. Absent: cyanosis, clubbing - *Routine Skin Exam Present: intact, dry. Absent: cyanosis, erythema - *Routine Neurological Exam Present: alert, oriented X3. Absent: motor deficit - Routine Psychiatric Exam Present: normal affect, normal thought process. Absent: auditory hallucinations Results Labs on day of discharge: Labs from last 24 hours 12/30/21 12/30/21 06:20 06:20 WBC 7.5 RBC 5.39 Hgb 16.6 H D Hct 51.0 H MCV 94.7 MCH 30.8 MCHC 32.5 RDW 14.6 Plt Count 314 MPV 8.9 Neut % (Auto) 65.1 Lymph % (Auto) 24.4 Mon
[2021-12-30 20:34] LABS: POC Glucose,Bedside 165 (70-110)
[2021-12-30 20:34] LABS: POC Glucose,Bedside 172 (70-110)
== END 2021-12-30 18:20 | disposition home or self-care (01) ==
PROVIDERS: Admitting Provider Internal Medicine; PCP Emergency Medicine; Visit Provider Emergency Medicine
DX: I50.22 Chronic systolic (congestive) heart failure (principal); Z20.822 Contact with and (suspected) exposure to COVID-19; I25.110 Atherosclerotic heart disease of native coronary artery with unstable angina pectoris; Z95.5 Presence of coronary angioplasty implant and graft; J44.9 Chronic obstructive pulmonary disease, unspecified; I11.0 Hypertensive heart disease with heart failure; E78.5 Hyperlipidemia, unspecified; F17.210 Nicotine dependence, cigarettes, uncomplicated; E11.9 Type 2 diabetes mellitus without complications; Z79.4 Long term (current) use of insulin; Z79.899 Other long term (current) drug therapy; I25.5 Ischemic cardiomyopathy
CPT/HCPCS: G0379; 36415; 71045; 80048; 80061; 80076; 82962; 84439; 84443; 84484; 85025; 93458; 99152; C1725; C1769; C9803; G0378; J1644; Q9967; U0003; U0005

== ENCOUNTER 2022-01-12 14:14 | Outpatient (RCR) | payer OTHER, SELFPAY | END 2022-01-12 15:00 | disposition home or self-care (01) | LOC: PT 14:14 | PROVIDERS: PCP Nurse Practitioner Family; Visit Provider Orthopaedic Surgery | DX: M25.561 Pain in right knee (principal); M23.91 Unspecified internal derangement of right knee | CPT/HCPCS: 97760 ==

== ENCOUNTER 2022-01-24 09:49 | Outpatient (RCR) | payer OTHER, SELFPAY ==
--- NOTE | 2022-01-24 11:03 | HMH.PTOPEV ---
PT Outpatient Evaluation Rehab PT Outpatient Evaluation Start: 01/24/22 09:59 Freq: Status: Active Protocol: Document 01/24/22 10:43 MARIA DEL ROSARIO (Rec: 01/24/22 11:02 PHORMARIA D [id number]) Electronically Signed By Eliu Monk, PT 01/24/22 10:43 Outpatient Therapy Subjective History Subjective History Pt is 46 yowf who presents with c/o R knee pain x ~ 1 mo. She reports, I was walking at home and I felt a pop all of a sudden and it hurt so bad I couldn't hardly walk anymore. She also c/o pain throughout the R LE from posterior hip distally prior to this episode. She c/o increased swelling, although there is minimal edema today. She reports pain is worse with any WBing and towards the end of the day. She has PMH of anxiety, depression, asthma, CHF, CAD with stents, MS, HTN, HL. ZAIRA. Chief Complaint Pain,Stiff,Swelling,Gives out/ Unstable Symptom Type Ache,Sharp,Stabbing Symptoms Relieved By Rest/Positioning,Ice Symptoms Aggravated By Physical Activity,Twisting Prior Functional Limitations None Current Functional Limitations Sleeping,Standing,Sitting, Squatting,Recreation Activity, Walking,Stairs,Bending/ Stooping Symptom Description Constant but Variable Level of pain today (0-10) 4 Pain scale - at its worst (0-10) 10 Hip/Knee Eval Gait Observation General Gait Pattern Observation Antalgic Gait,Decrease Stride Lngth (R) Palpation Tenderness right Knee Palpation Finding Tenderness Knee Palpation Overall Comment tendern throughout 3/4, worse popliteal and medial jt 4/4 MMT Hip Flexion Strength Grade 3 Fair Hip Abduction Strength Grade 3 Fair Hip Adduction Strength Grade 3 Fair Hip Extension Strength Grade 3 Fair Knee Extension Strength Grade 3 Fair Knee Flexion Strength Grade 3 Fair ROM Knee Extension Active Range of Motion ( 0 degrees) Knee Extension Passive Range of Motion ( 0 degrees) Knee Flexion Active Range of Motion ( 0-70 degrees) Knee Flexion Passive Range of Motion ( 0-135 degrees) Knee
== END 2022-01-24 09:55 | disposition home or self-care (01) ==
LOC: PT 09:49
PROVIDERS: PCP Nurse Practitioner Family; Visit Provider Orthopaedic Surgery
DX: M25.561 Pain in right knee (principal)
CPT/HCPCS: 97010; 97014; 97110; 97163; G0283

== ENCOUNTER → 2022-01-24 13:33 | Outpatient (CLI) | payer OTHER, SELFPAY ==
--- NOTE | 2022-01-24 13:37 | MR_ITS ---
FINAL REPORT CLINICAL HISTORY: knee pain. medial sided knee pain [id number]. bakers cyst. knee instability. no recent injury or trauma. FINDINGS: Multiplanar MR imaging of the right knee was performed without contrast. The medial and lateral menisci are intact without evidence of meniscal tear. The anterior and posterior cruciate ligaments are intact. The medial collateral ligament and lateral ligamentous complex are intact. The patellar and quadriceps tendons are intact. There is no evidence of fracture. There is mild medial compartment chondromalacia. A small joint effusion is seen. The musculature is intact. There is a moderate popliteal cyst. IMPRESSION: Mild medial compartment chondromalacia. Small joint effusion with moderate popliteal cyst. Reviewed, Interpreted and Dictated by Jose Knox III, MD Transcribed by Chay Hoover Authenticated by Jose Knox III, MD on 01/24/2022 04:05:58 PM [facility]
== END ==
PROVIDERS: PCP Nurse Practitioner Family; Visit Provider Orthopaedic Surgery
DX: M25.569 Pain in unspecified knee (principal)
CPT/HCPCS: 73721

== ENCOUNTER → 2022-04-26 13:27 | Outpatient (CLI) | payer OTHER, SELFPAY ==
--- NOTE | 2022-04-26 13:28 | CA_ITS ---
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: Annamarie Manrique CRT Ht: 5 ft 3 in Wt: 199lbs BSA: 1.93 BP: 131/85 mmHg Indications: Diabetes, Dyspnea, CAD, Hyperlipidemia, Hypertension/HDD, stent, chf, cm 2D Dimensions LVOT 1.73 cm (M/F) 1.5-2.5 LA Volume 41.90 mL LA Volume Index 21.70 mL/m2 (M/F) 16-34 M-Mode Dimensions RVDd 2.81 cm (0.9-2.6) LA Diam 4.38 cm (1.9-4.0) LVDd 6.02 cm (3.5-5.7) Ao Diam 3.41 cm (2.0-3.7) LVDs 4.43 cm (3.5-5.7) IVSd 1.12 cm (0.6-1.1) PWd 0.69 cm (0.6-1.1) EF (Teich) 50.90% FS 26.40% EDV (Teich) 181.40 mL TAPSE 1.88 (<1.7) ESV (Teich) 89.10 mL LV Diastology E Decel Time 170.00 (160-240 msec) E/A Ratio 1.41 MED E' 6.40 (< 7 cm/sec) MED A' 6.40 cm/s E'/MED E' Ratio 14.03 (>14) LAT E' 6.00 (<10 cm/sec) LAT A' 6.00 cm/s E/LAT E' Ratio 14.97 (>14) Aortic Valve AO Peak GR. 6.50 mmHg Mitral Valve MV A Velocity 64.00 (40-130 cm/s) E/A Ratio 1.41 MV Decel. Time 170.00 (160-240 ms) Pulmonary Valve PV Peak Velocity 202.00 (50-150 cm/s) Tricuspid Valve TR P. Velocity 255.00 cm/s RAP Estimate 10.00 mmHg RVSP 36.10 mmHg Left Ventricle Left atrium is mildly enlarged, left ventricle is normal size mild concentric left ventricular hypertrophy, estimated ejection fraction approximately 40%, there is marked hypokinesis involving mid to distal septum anterior, anterior apical wall. Grade 2 diastolic dysfunction seen with tissue Doppler evidence of raise left atrial pressure. Right Ventricle Right atrium and right ventricle are normal size and contractility. Aortic Valve Aortic valve is thickened and calcified without aortic stenosis or aortic insufficiency. Mitral Valve Mitral valve grossly normal, there is trace mitral regurgitation. Tricuspid Valve Tricuspid valve grossly normal, there is trace tricuspid regurgitation, tricuspid regurgitation jet velocity is inadequate for calculation of the right ventricular systolic pressure. Pulmonic Valve Pulmonic valve is poorly visualized. Great Vessels Aortic root is normal size. Inferior vena cava is poorly visualized. Pericardium No significant pericardial effusion noted. Conclusion 1. Mildly enlarged atrium, normal left ventricular size, mild concentric left ventricular hypertrophy, estimated ejection fraction 40% with segmental wall motion abnormality described above, grade 2 diastolic dysfunction seen with tissue Doppler evidence of raise left atrial pressure. 2. Trace mitral and tricuspid regurgitation. 3. No significant pericardial effusion. 4. Inferior vena cava is poorly visualized. Electronically signed by : Kenneth Blandon MD 04/26/2022 20:55:59
== END ==
PROVIDERS: PCP Internal Medicine; Visit Provider Nurse Practitioner Family
DX: R06.00 Dyspnea, unspecified (principal); I50.22 Chronic systolic (congestive) heart failure; I11.0 Hypertensive heart disease with heart failure; E11.9 Type 2 diabetes mellitus without complications; E78.2 Mixed hyperlipidemia; I25.118 Atherosclerotic heart disease of native coronary artery with other forms of angina pectoris; I25.5 Ischemic cardiomyopathy; F17.200 Nicotine dependence, unspecified, uncomplicated; R94.31 Abnormal electrocardiogram [ECG] [EKG]; Z95.5 Presence of coronary angioplasty implant and graft
CPT/HCPCS: 93306

== ENCOUNTER → 2022-09-12 12:17 | Outpatient (POV) | payer OTHER, SELFPAY | PROVIDERS: Visit Provider Internal Medicine Nephrology | DX: Z00.00 Encounter for general adult medical examination without abnormal findings (principal) ==

== ENCOUNTER → 2022-09-12 13:10 | Outpatient (CLI) | payer OTHER, SELFPAY ==
[2022-09-12 14:03] LABS: Creatinine,Urine Random 93 mg/dL (Not Estab.)
[2022-09-12 14:19] LABS: Microalbumin/Creatinine Ratio 255.5
[2022-09-12 15:13] LABS: Alanine Aminotransferase 20 U/L (12-78); Albumin Level 4.3 g/dl (3.5-5.0); Alkaline Phosphatase 76 U/L (38-126); Aspartate Amino Transferase 26 U/L (14-36); Bilirubin,Direct 0.1 mg/dl (0.0-0.4); Bilirubin,Indirect 0.2 mg/dL (0.0-0.9); Bilirubin,Total 0.3 mg/dl (0.2-1.3); Bilirubin,Unconjugated 0.2 mg/dL (0.0-1.1); Chol/HDL Ratio 7.2 (1-3.5); Cholesterol 273 mg/dl (140-200); HDL Cholesterol 38 mg/dl (40-60); Total Protein,Serum 7.1 g/dl (6.3-8.2); Triglycerides 364 mg/dl (30-150); VLDL Cholesterol 73 mg/dL (0-40)
[2022-09-12 15:16] LABS: Anion Gap 13.7 mEq/L (5-15); Blood Urea Nitrogen 7 mg/dl (7-17); Carbon Dioxide 27 mmol/L (22.0-30.0); Chloride 101 mmol/L (98-107); Estimated Glomerular Filt Rate 107 ml/min (>60); GFR (African American) 129 ML/MIN (>60); Glucose 126 mg/dl (74-100); Phosphorous 4.1 mg/dl (2.5-4.5); Potassium 3.7 mmoL/L (3.5-5.1); Sodium 138 mmol/L (136-145)
[2022-09-12 15:24] LABS: Direct LDL Cholesterol 169.27 mg/dL (100-129)
== END ==
PROVIDERS: Internal Medicine Nephrology; PCP Nurse Practitioner Family; Visit Provider Physician Assistant
DX: R55 Syncope and collapse (principal); I25.118 Atherosclerotic heart disease of native coronary artery with other forms of angina pectoris; I10 Essential (primary) hypertension; I25.5 Ischemic cardiomyopathy; E78.2 Mixed hyperlipidemia; F17.200 Nicotine dependence, unspecified, uncomplicated; Z95.5 Presence of coronary angioplasty implant and graft
CPT/HCPCS: 36415; 80048; 80061; 80069; 80076; 82043; 82570; 84100

== ENCOUNTER 2022-10-19 09:27 | Outpatient (RCR) | payer OTHER, SELFPAY | END 2022-10-19 09:30 | disposition home or self-care (01) | LOC: PT 09:27 | PROVIDERS: PCP Nurse Practitioner Family; Visit Provider Nurse Practitioner Family | DX: M62.81 Muscle weakness (generalized) (principal) | CPT/HCPCS: 97163 ==

== ENCOUNTER → 2022-10-20 09:50 | Outpatient (CLI) | payer OTHER, SELFPAY ==
--- NOTE | 2022-10-20 09:54 | US_ITS ---
FINAL REPORT CLINICAL HISTORY: CLAUDICATION,REST PAIN,DM,HLD,HTN,CAD,EX SMOKER FINDINGS: COMPLETE ANKLE/BRACHIAL INDICES BILATERAL Ankle brachial indices were obtained. The right RICHARD is 1.2. The left RICHARD is 1.2. IMPRESSION: ABIs are within normal limits bilaterally. Reviewed, Interpreted and Dictated by Jose Knox III, MD Transcribed by Daisy Workman Authenticated and [facility]
== END ==
PROVIDERS: PCP Nurse Practitioner Family; Visit Provider Nurse Practitioner
DX: I25.118 Atherosclerotic heart disease of native coronary artery with other forms of angina pectoris (principal); I10 Essential (primary) hypertension; E11.9 Type 2 diabetes mellitus without complications; E78.2 Mixed hyperlipidemia; F17.200 Nicotine dependence, unspecified, uncomplicated; I25.5 Ischemic cardiomyopathy; Z79.4 Long term (current) use of insulin; Z95.5 Presence of coronary angioplasty implant and graft; I70.213 Atherosclerosis of native arteries of extremities with intermittent claudication, bilateral legs
CPT/HCPCS: 93923

== ENCOUNTER 2022-11-07 10:00 | Outpatient (RCR) | payer OTHER, SELFPAY ==
--- NOTE | 2022-10-26 10:57 | HMH.OTOPEV ---
OT Inpatient Evaluation Rehab OT Outpatient Eval Start: 10/26/22 10:40 Freq: Status: Active Protocol: Document 10/26/22 10:40 RMARSHALL (Rec: 10/26/22 10:57 [id number] E-signed By Tyler Hidalgo, OT Outpatient Therapy Subjective History Subjective History Pt is a 46 year old female who reports to therapy for initial evaluation to right UE . Pt reports she injured her right elbow in 2011 by falling down a flight of stairs. She is unable to recall the specific injury, but she reports it was not fractured. The injury required surgery immediately after. Since this injury, pt has had pain, weakness, and numbness down right arm into her hand that has progressivley become worse . Pt is right hand dominant. Recently her right hand has began preet into a fist at night time and she is only able to extend digis completely in normal range of motion with wrist in flexion. 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 She has full range of motion of all joints, but observable atrophy of muscle in hand and forearm. Pt also showed a decrease in fine motor coordination/skills after completion of 9 hole peg test. Pt will continue to be seen by OT in order to address all deficits in RUE. 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
== END 2022-11-07 10:05 | disposition home or self-care (01) ==
LOC: OT 10:00
PROVIDERS: PCP Nurse Practitioner Family; Visit Provider Nurse Practitioner Family
DX: M62.81 Muscle weakness (generalized) (principal); M79.601 Pain in right arm
CPT/HCPCS: 97110; 97140; 97166; 97530

== ENCOUNTER → 2022-12-19 08:41 | Outpatient (CLI) | payer OTHER, SELFPAY ==
--- NOTE | 2022-12-19 09:06 | XR_ITS ---
FINAL REPORT CLINICAL HISTORY: ulcer FINDINGS: RIGHT FOOT 3 views of the right foot were obtained. There is no acute fracture or dislocation. There are mild degenerative changes. Visualized joint spaces are normally aligned. Soft tissues are unremarkable. Calcaneal spurs are noted. IMPRESSION: No acute bony abnormality. Reviewed, Interpreted and Dictated by Jose Knox III, MD Transcribed by Sierra Rossi Authenticated and [facility]
--- NOTE | 2022-12-19 09:06 | XR_ITS ---
FINAL REPORT CLINICAL HISTORY: ulcer of foot FINDINGS: LEFT FOOT Three views of the left foot demonstrate no acute fracture or dislocation. The visualized joint spaces are normally aligned. There are calcaneal spurs. The soft tissues are unremarkable. IMPRESSION: No acute bony abnormality. Reviewed, Interpreted and Dictated by Jose Knox III, MD Transcribed by Sierra Rossi Authenticated and [facility]
[2022-12-19 09:35] LABS: Basophils # 0.1 K/mm3 (0-0.2); Basophils % 0.7 % (0.1-2.0); Eosinophils # 0.4 K/mm3 (0.0-0.4); Eosinophils % 3.6 % (0.1-12.0); Hematocrit 47.1 % (37.0-47.0); Hemoglobin 15.3 g/dL (12.2-16.2); Lymphocytes # 2.2 K/mm3 (0.7-4.5); Lymphocytes % 22.3 % (10-50); Mean Corpuscular HGB Conc 32.4 g/dL (31.8-35.4); Mean Corpuscular Hemoglobin 30.5 pg (27.0-31.2); Mean Platelet Volume 8.4 fl (7.4-10.4); Monocytes # 0.5 K/mm3 (0.1-1.0); Monocytes % 5.2 % (1.7-9.3); Neutrophils # 6.7 K/mm3 (1.8-7.8); Neutrophils % 68.2 % (37.0-80.0); Platelet Count 354 K/mm3 (142-424); Red Blood Count 5.01 M/mm3 (4.20-5.40); Red Cell Distribution Width 14.5 % (11.5-17.5); White Blood Count 9.8 K/mm3 (4.8-10.8)
[2022-12-19 09:54] LABS: Alanine Aminotransferase 17 U/L (12-78); Albumin Level 4.1 g/dl (3.5-5.0); Albumin/Globulin Ratio 1.6 (1.1-1.8); Alkaline Phosphatase 63 U/L (38-126); Anion Gap 9.5 mEq/L (5-15); Aspartate Amino Transferase 20 U/L (14-36); Bilirubin,Total 0.4 mg/dl (0.2-1.3); Blood Urea Nitrogen 13 mg/dl (7-17); Calcium 8.9 mg/dl (8.4-10.2); Carbon Dioxide 34 mmol/L (22.0-30.0); Chloride 99 mmol/L (98-107); Estimated Glomerular Filt Rate 131 ml/min (>60); GFR (African American) 159 ML/MIN (>60); Globulin 2.6 g/dL (1.3-3.2); Glucose 126 mg/dl (74-100); Potassium 3.5 mmoL/L (3.5-5.1); Sodium 139 mmol/L (136-145); Total Protein,Serum 6.7 g/dl (6.3-8.2)
[2022-12-19 09:59] LABS: C-Reactive Protein 3.5 mg/L (0-4)
[2022-12-19 12:57] LABS: Erythrocyte Sedimentation Rate 18 mm/hr (0-20)
== END ==
PROVIDERS: PCP Nurse Practitioner Family; Visit Provider Nurse Practitioner Family
DX: Z79.4 Long term (current) use of insulin; E11.621 Type 2 diabetes mellitus with foot ulcer; L97.529 Non-pressure chronic ulcer of other part of left foot with unspecified severity; L97.519 Non-pressure chronic ulcer of other part of right foot with unspecified severity
CPT/HCPCS: 36415; 73630; 80053; 85025; 85651; 86140

== ENCOUNTER → 2022-12-20 08:40 | Outpatient (CLI) | payer OTHER, SELFPAY ==
--- NOTE | 2022-12-20 08:49 | XR_ITS ---
FINAL REPORT CLINICAL HISTORY: left 3rd toe callus, wound FINDINGS: Multiple views of the left toes were obtained. There is no acute fracture. There is no dislocation. There are no acute soft tissue abnormalities. IMPRESSION: No acute process. Reviewed, Interpreted and Dictated by Jose Knox III, MD Transcribed by Chay Hoover Authenticated and [facility]
== END ==
PROVIDERS: PCP Nurse Practitioner Family; Visit Provider Nurse Practitioner Family
DX: E11.628 Type 2 diabetes mellitus with other skin complications; L97.529 Non-pressure chronic ulcer of other part of left foot with unspecified severity
CPT/HCPCS: 73660

== ENCOUNTER 2023-01-03 14:00 | Outpatient (RCR) | payer OTHER, SELFPAY | END 2023-01-03 15:00 | disposition home or self-care (01) | LOC: OT 14:00 | PROVIDERS: PCP Nurse Practitioner Family; Visit Provider Nurse Practitioner Family | DX: G83.21 Monoplegia of upper limb affecting right dominant side (principal) | CPT/HCPCS: 97110; 97140; 97166; 97530 ==

== ENCOUNTER → 2023-04-06 14:36 | Outpatient (CLI) | payer OTHER, SELFPAY | PROVIDERS: PCP Nurse Practitioner Family; Visit Provider Nurse Practitioner Family | DX: R06.02 Shortness of breath (principal) | CPT/HCPCS: 94060; 94618; 94726; 94729 ==

== ENCOUNTER → 2023-04-24 09:31 | Outpatient (CLI) | payer OTHER, SELFPAY ==
[2023-04-24 09:45] LABS: Microscopic, Urine URINE MICROSCOPIC (MICROSCOPIC)
[2023-04-24 10:02] LABS: Basophils % 0.4 % (0.1-2.0); Eosinophils # 0.4 K/mm3 (0.0-0.4); Eosinophils % 5.2 % (0.1-12.0); Hematocrit 44.3 % (37.0-47.0); Hemoglobin 14.5 g/dL (12.2-16.2); Lymphocytes # 1.8 K/mm3 (0.7-4.5); Lymphocytes % 23.6 % (10-50); Mean Corpuscular HGB Conc 32.6 g/dL (31.8-35.4); Mean Corpuscular Hemoglobin 30.2 pg (27.0-31.2); Mean Corpuscular Volume 92.7 fl (81-99); Mean Platelet Volume 8.8 fl (7.4-10.4); Monocytes # 0.3 K/mm3 (0.1-1.0); Monocytes % 4.2 % (1.7-9.3); Neutrophils # 5.2 K/mm3 (1.8-7.8); Neutrophils % 66.8 % (37.0-80.0); Platelet Count 316 K/mm3 (142-424); Red Blood Count 4.78 M/mm3 (4.20-5.40); Red Cell Distribution Width 13.2 % (11.5-17.5); White Blood Count 7.8 K/mm3 (4.8-10.8)
[2023-04-24 10:26] LABS: Microalbumin/Creatinine Ratio 75.3
[2023-04-24 10:28] LABS: Creatinine,Urine Random 145 mg/dL (Not Estab.)
[2023-04-24 10:49] LABS: Appearance,Urine CLEAR (Clear); Bacteria,Urine Trace /lpf; Bilirubin,Urine Negative (Negative); Blood, Urine Negative (Negative); Color,Urine YELLOW (Yellow); Glucose,Urine (UA) Negative (Negative); Ketones,Urine Negative (Negative); Leukocyte Esterase,Urine Negative (Negative); Nitrate,Urine Negative (Negative); PH,Urine 5.5 (5.0-8.5); Protein,Urine TRACE (Negative); Specific Gravity, Urine >= 1.030 (1.005-1.030); Squamous Epithelial Cell,Urine Occasional #/hpf (0-5); Urobilinogen,Urine 0.2 EU/dl (0.2); WBC,Urine Occasional #/hpf (0-3)
[2023-04-24 10:51] LABS: Albumin Level 4.3 g/dl (3.5-5.0); Anion Gap 10.9 mEq/L (5-15); Blood Urea Nitrogen 16 mg/dl (7-17); Calcium 9.4 mg/dl (8.4-10.2); Carbon Dioxide 31 mmol/L (22.0-30.0); Chloride 101 mmol/L (98-107); Estimated Glomerular Filt Rate 106 ml/min (>60); GFR (African American) 129 ML/MIN (>60); Glucose 179 mg/dl (74-100); Potassium 3.9 mmoL/L (3.5-5.1); Sodium 139 mmol/L (136-145)
[2023-04-24 11:08] LABS: 25-OH Vitamin D, Total 44.4 ng/mL (30-100)
[2023-04-24 11:27] LABS: Intact Parathyroid Hormone 49.9 pg/mL (7.5-53.5)
== END ==
PROVIDERS: PCP Nurse Practitioner Family; Visit Provider Nurse Practitioner
DX: R80.9 Proteinuria, unspecified (principal)
CPT/HCPCS: 36415; 80069; 81001; 82043; 82306; 82570; 83970; 84155; 85025

== ENCOUNTER → 2023-04-24 12:28 | Outpatient (POV) | payer OTHER, SELFPAY | PROVIDERS: Visit Provider Nurse Practitioner | DX: Z00.00 Encounter for general adult medical examination without abnormal findings (principal) ==

== ENCOUNTER → 2023-06-29 10:15 | Outpatient (CLI) | payer OTHER, SELFPAY ==
--- NOTE | 2023-06-29 10:24 | XR_ITS ---
FINAL REPORT CLINICAL HISTORY: Low back pain COMPARISON: None FINDINGS: 3 views of the lumbar spine were obtained. There is no evidence of fracture or dislocation. There is minimal anterior osteophyte formation. Disc spaces are preserved. Vertebrae are normal in height. There is moderate facet sclerosis in the lower lumbar spine. IMPRESSION: No acute bony abnormality. Reviewed, Interpreted and Dictated by López Dick MD Transcribed by Janessa Rm Authenticated and [facility]
--- NOTE | 2023-06-29 10:50 | XR_ITS ---
FINAL REPORT CLINICAL HISTORY: Right ankle pain COMPARISON: None FINDINGS: RIGHT ANKLE 3 views of the right ankle were obtained. There is no acute fracture or dislocation. There is a moderate plantar spur. The mortise is intact. Visualized joint spaces are normally aligned. Soft tissues are unremarkable. IMPRESSION: No acute bony abnormality. Reviewed, Interpreted and Dictated by López Dick MD Transcribed by Janessa Rm Authenticated and [facility]
[2023-06-29 14:16] LABS: Thyroid Stimulating Hormone 2.26 uIU/mL (0.465-4.68)
[2023-06-29 14:51] LABS: Vitamin B12 491 pg/mL (239-931)
[2023-06-29 14:55] LABS: Folate 8.73 ng/mL
== END ==
PROVIDERS: PCP Nurse Practitioner Family; Visit Provider Nurse Practitioner Family
DX: E11.9 Type 2 diabetes mellitus without complications (principal); E66.9 Obesity, unspecified; M21.371 Foot drop, right foot; M54.50 Low back pain, unspecified; R29.6 Repeated falls; G89.29 Other chronic pain; M25.371 Other instability, right ankle; M25.571 Pain in right ankle and joints of right foot; Z68.34 Body mass index [BMI] 34.0-34.9, adult; Z79.4 Long term (current) use of insulin
CPT/HCPCS: 36415; 72100; 73610; 82607; 82746; 84443

== ENCOUNTER → 2023-07-06 10:05 | Outpatient (CLI) | payer OTHER, SELFPAY ==
[2023-07-06 11:16] LABS: Anion Gap 14.2 mEq/L (5-15); Blood Urea Nitrogen 14 mg/dl (7-17); Calcium 9.6 mg/dl (8.4-10.2); Carbon Dioxide 28 mmol/L (22.0-30.0); Chloride 100 mmol/L (98-107); Estimated Glomerular Filt Rate 106 ml/min (>60); GFR (African American) 129 ML/MIN (>60); Glucose 136 mg/dl (74-100); Potassium 4.2 mmoL/L (3.5-5.1); Sodium 138 mmol/L (136-145)
== END ==
PROVIDERS: PCP Nurse Practitioner Family; Visit Provider Nurse Practitioner Family
DX: R06.09 Other forms of dyspnea (principal); R60.9 Edema, unspecified; R07.89 Other chest pain
CPT/HCPCS: 36415; 80048

== ENCOUNTER → 2023-07-25 13:21 | Outpatient (CLI) | payer MEDICARE, OTHER, SELFPAY ==
[2023-07-25 14:21] LABS: Basophils # 0.1 K/mm3 (0-0.2); Basophils % 0.8 % (0.1-2.0); Eosinophils # 0.5 K/mm3 (0.0-0.4); Eosinophils % 5.8 % (0.1-12.0); Hematocrit 43.7 % (37.0-47.0); Hemoglobin 15.1 g/dL (12.2-16.2); Lymphocytes # 2.6 K/mm3 (0.7-4.5); Lymphocytes % 29.3 % (10-50); Mean Corpuscular HGB Conc 34.5 g/dL (31.8-35.4); Mean Corpuscular Hemoglobin 33.7 pg (27.0-31.2); Mean Corpuscular Volume 97.6 fl (81-99); Mean Platelet Volume 9.1 fl (7.4-10.4); Monocytes # 0.4 K/mm3 (0.1-1.0); Monocytes % 4.2 % (1.7-9.3); Neutrophils # 5.4 K/mm3 (1.8-7.8); Neutrophils % 59.9 % (37.0-80.0); Platelet Count 290 K/mm3 (142-424); Red Blood Count 4.48 M/mm3 (4.20-5.40); Red Cell Distribution Width 13.4 % (11.5-17.5)
[2023-07-25 14:34] LABS: Chloride 100 mmol/L (98-107); Sodium 141 mmol/L (136-145)
[2023-07-25 14:37] LABS: Alanine Aminotransferase 31 U/L (12-78); Albumin Level 4.1 g/dl (3.5-5.0); Alkaline Phosphatase 59 U/L (38-126); Aspartate Amino Transferase 29 U/L (14-36); Bilirubin,Direct 0.2 mg/dl (0.0-0.4); Bilirubin,Total 0.2 mg/dl (0.2-1.3); Blood Urea Nitrogen 13 mg/dl (7-17); Calcium 9.5 mg/dl (8.4-10.2); Carbon Dioxide 29 mmol/L (22.0-30.0); Cholesterol 228 mg/dl (140-200); Estimated Glomerular Filt Rate 106 ml/min (>60); GFR (African American) 129 ML/MIN (>60); Glucose 214 mg/dl (74-100); Total Protein,Serum 6.9 g/dl (6.3-8.2)
[2023-07-25 14:38] LABS: Chol/HDL Ratio 6.2 (1-3.5); HDL Cholesterol 37 mg/dl (40-60); Magnesium 1.7 mg/dl (1.6-2.3)
[2023-07-25 14:43] LABS: Triglycerides 520 mg/dl (30-150)
[2023-07-25 14:49] LABS: Direct LDL Cholesterol 109.64 mg/dL (100-129)
[2023-07-25 15:09] LABS: Thyroid Stimulating Hormone 0.75 uIU/mL (0.465-4.68)
[2023-07-25 18:25] LABS: Free T4 (Free Thyroxine) 0.87 ng/dl (0.78-2.19)
== END ==
PROVIDERS: PCP Nurse Practitioner Family; Visit Provider Internal Medicine
DX: I10 Essential (primary) hypertension (principal)
CPT/HCPCS: 36415; 80048; 80061; 80076; 83735; 84439; 84443; 85025

== ENCOUNTER 2023-08-24 15:00 | Outpatient (RCR) | payer MEDICARE, OTHER, SELFPAY ==
--- NOTE | 2023-07-26 16:26 | HMH.PTOPEV ---
PT Outpatient Evaluation Rehab PT Outpatient Evaluation Start: 07/25/23 14:24 Freq: Status: Active Protocol: Document 07/25/23 14:29 ANAY (Rec: 07/25/23 14:44 ANAY [id number]) E-signed By Luke Carreon, PT Outpatient Therapy Subjective History Subjective History Patient is a 47 year old female presenting to outpatient PT with reports of R foot/ankle pain with associated foot drop. 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 Symptom onset progressive since 2018. She reports approx 15 falls over the past 6 months secondary to foot drop. She ambulates into clinic with ankle brace providing DF support. Patient is lacking volitional movement in eversion, with trace volitional movement in DF. Comorbidities include hx of AL, diabetes, HTN, HL and multipl hernias. New diagnosis of cancer in past 12 No months? Chief Complaint Pain,Stiff,Gives out/Unstable, Paresthesia,Weakness Symptom Type Ache,Sharp,Numbness,Tingling Symptoms Relieved By Rest/Positioning,Prescription Meds Symptoms Aggravated By Standing,Physical Activity, Walking Prior Functional Limitations None Current Functional Limitations Housework,Dressing,Driving, Standing,Recreation Activity, Walking,Stairs,Balance Symptom Description Intermittent Level of pain today (0-10) 0 Pain scale - at its best (0-10) 0 Pain scale - at its worst (0-10) 5 Ankle/Foot Eval Gait Observation General Gait Pattern Observation Decrease Weight Bear (R) Palpation Tenderness right Ankle/Foot Palpation Findings Tenderness Ankle/Foot Palpation Overall Comment peroneal and anterior tib mm 2 /4 ROM Ankle/Foot Dorsiflexion w/Knee Extended -6 Active Range Motion (degrees) Ankle/Foot Plantar Flexion Active Range WNL of Motion (degrees) Ankle/Foot Eversion Active Range of -15-0--10 Motion (degrees) Ankle/Foot Inversion Active Range of WNL Motion (degrees) Great Toe Metatarsophalangeal Extension WNL Active Range Motion (degrees) Great Toe Metatarsophalangeal Flexion -15 Active Range of Motion (degrees) Great Toe ROM Limitations Soft Tissue Tightness,Muscle Weakness MMT Ankle Dorsiflexion Strength Grade 3- Fair- Ankle Plantarflexion Strength Grade 4- Good- Foot Eversion Strength Grade 2 Poor Foot Inversion Strength Grade 4- Good- Special Tests Ankle Anterior Drawer Test Negative Right Talar Tilt Test Negative Right Foot Interdigital Neuroma Test Negative Right Neuro tests decrease sensation to monofilament Yes Lower Extremity Functional Index Activities Today, do you or would you have any difficulty at all with: a.Any of your usual work, housework or Quite a bit of difficulty school activities b. Your usual hobbies, recreational or Quite a bit of difficulty sporting activities c. Getting into or out of the bath Quite a bit of difficulty d. Walking between rooms Moderate difficulty e. Putting on your shoes or socks Moderate difficulty f. Squatting Moderate difficulty g. Lifting an object, like a bag of Extreme difficulty or unable groceries from the floor to perform activity h. Performing light activities around Moderate difficulty your home i. Performing heavy activities around Quite a bit of difficulty your home j. Getting into or out of a car Moderate difficulty k. Walking 2 blocks Extreme difficulty or unable to perform activity l. Walking a mile Extreme difficulty or unable to perform activity m. Going up or down 10 stairs (about 1 Extreme difficulty or unable flight of stairs) to perform activity n. Standing for 1 hour Extreme difficulty or unable to perform activity o. Sitting for 1 hour No difficulty p. Running on even ground Extreme difficulty or unable to perform activity q. Running on uneven ground Extreme difficulty or unable to perform activity r. Making sharp turns while running fast Extreme difficulty or unable to perform activity s. Hopping Extreme difficulty or unable to perform activity t. Rolling over in bed No difficulty LEFI Score Lower Extremity Functional Index Score 22 Outpatient Therapy Assessment Impairments Problems/Impairmments Palpation Tenderness,Impaired Range of Motion,Impaired Strength,Impaired Gait Pattern ,Impaired Walking,Impaired Standing,Impaired Driving, Impaired Household Care, Impaired Stair Climbing, Impaired Incline Stepping, Impaired Stepping on Uneven Surface,Impaired Balance, Subjective C/O Pain Prognosis Rehab Potential Fair Clinical Impression Consistent with Diagnosis Yes Consistent with R foot drop Short Term Goals Number of Weeks 2 Decrease Subjective C/O Pain Yes: 12/16 at worst Patient to be Ind w/ HEP Yes Linotypist Goals Number of Weeks 4-6 Decreased Palpation Tenderness Yes: 1/ Increase Range of Motion Yes: 50% WNL DF/EV Increase Strength Yes: 3+/5 DF/EV Increase Ability to Walk Yes: 30 min without difficulty Increase Ability to Stand Yes: Improve Ability For Household Care Yes Improve Balance Yes: 10 sec SLS Decrease Subjective C/O Pain Yes: 1 at worst Outpatient Therapy Plan of Care Treatment Plan May Include Therapeutic Exercise Including Home Yes Exercise Program Manual Therapy Techniques Yes Neuromuscular Re-education Yes Therapeutic Activities to Return to Yes Previous Functional/Work Level Gait Training Yes ADL/Self Care Education Yes Dry Needling Yes Thermal Modalities Yes Electrical Stimulation Yes Ultrasound/Phonophoresis Yes Iontophoresis Yes Orthotics/Bracing/Splinting Yes Vasopneumatic Compression Pump Yes Massage Yes Eval/Re-Eval Yes Aquatic Therapy Yes Frequency Times per week 2 Duration Number of Weeks 4-6 Addendums This patient is a candidate for social No or vocational rehab? Patient/Guardian verbally acknowledges Yes understanding of treatment program and consents to further treatment? Patient/Guardian verbally acknowledges Yes understanding of diagnosis, prognosis and goals for treatment? Eval Complexity PT Charges 04320 - Moderate Complexity Shoulder/Elbow Eval Shoulder Objective Measurements Elbow Objective Measurements PHYSICIAN CERTIFICATION: I certify the specified therapy services for Sondra Yanes are required, authorized, and reviewed every 30 days.
== END 2023-08-24 16:15 | disposition home or self-care (01) ==
LOC: PT 15:00
PROVIDERS: PCP Nurse Practitioner Family; Visit Provider Nurse Practitioner Family
DX: M21.371 Foot drop, right foot (principal); M25.571 Pain in right ankle and joints of right foot; M25.371 Other instability, right ankle; R29.898 Other symptoms and signs involving the musculoskeletal system
CPT/HCPCS: 97110; 97163; 97530; 97535

== ENCOUNTER 2023-09-24 20:29 | Emergency (ER) | payer MEDICARE, OTHER, SELFPAY ==
[2023-09-24 20:42] VITALS: BP 117/71; PULSE 64; RESP 16; TEMP 36.8; O2SAT 97; BMI 32.5
--- NOTE | 2023-09-24 20:48 | XR_ITS ---
PROCEDURE INFORMATION: Exam: XR Right Foot Exam date and time: 09/24/2023 9:06 PM Age: 47 years old Clinical indication: Pain; Foot; Right; Additional info: Fall with injury to lateral foot TECHNIQUE: Imaging protocol: Radiologic exam of the right foot. Views: 3 or more views. COMPARISON: CR XR FOOT WT BEARING RT 3V 12/19/2022 9:15 AM FINDINGS: Bones/joints: Normal. No acute fracture identified. Heel spurs re-identified. Soft tissues: Normal. IMPRESSION: No acute findings.
[2023-09-24 21:00] LABS: Basophils # 0.1 K/mm3 (0-0.2); Basophils % 0.8 % (0.1-2.0); Eosinophils # 0.4 K/mm3 (0.0-0.4); Eosinophils % 4.1 % (0.1-12.0); Hematocrit 43.3 % (37.0-47.0); Hemoglobin 14.3 g/dL (12.2-16.2); Lymphocytes # 2.8 K/mm3 (0.7-4.5); Lymphocytes % 28.6 % (10-50); Mean Corpuscular HGB Conc 33.1 g/dL (31.8-35.4); Mean Corpuscular Hemoglobin 31.7 pg (27.0-31.2); Mean Corpuscular Volume 95.8 fl (81-99); Mean Platelet Volume 8.8 fl (7.4-10.4); Monocytes # 0.5 K/mm3 (0.1-1.0); Neutrophils # 5.9 K/mm3 (1.8-7.8); Neutrophils % 61.5 % (37.0-80.0); Platelet Count 299 K/mm3 (142-424); Red Blood Count 4.52 M/mm3 (4.20-5.40); Red Cell Distribution Width 13.4 % (11.5-17.5); White Blood Count 9.6 K/mm3 (4.8-10.8)
[2023-09-24 21:01] LABS: Chloride 104 mmol/L (98-107); Sodium 137 mmol/L (136-145)
[2023-09-24 21:02] LABS: Potassium 4.5 mmoL/L (3.5-5.1)
[2023-09-24 21:04] LABS: Alanine Aminotransferase 28 U/L (12-78); Alkaline Phosphatase 65 U/L (38-126); Aspartate Amino Transferase 33 U/L (14-36); Bilirubin,Total 0.4 mg/dl (0.2-1.3); Blood Urea Nitrogen 15 mg/dl (7-17); Creatinine Clearance Estimated 149 mL/min (50-200); Estimated Glomerular Filt Rate 106 ml/min (>60); GFR (African American) 129 ML/MIN (>60)
[2023-09-24 21:05] LABS: Albumin Level 4.2 g/dl (3.5-5.0); Albumin/Globulin Ratio 1.3 (1.1-1.8); Anion Gap 10.5 mEq/L (5-15); Calcium 8.9 mg/dl (8.4-10.2); Carbon Dioxide 27 mmol/L (22.0-30.0); Globulin 3.3 g/dL (1.3-3.2); Glucose 182 mg/dl (74-100); Total Protein,Serum 7.5 g/dl (6.3-8.2)
[2023-09-24 21:30] VITALS: BP 104/60; PULSE 61; O2SAT 97
--- NOTE | 2023-09-24 21:32 | XR_ITS ---
PROCEDURE INFORMATION: Exam: XR Right Tibia and Fibula Exam date and time: 09/24/2023 9:36 PM Age: 47 years old Clinical indication: Pain; Lower leg; Right; Additional info: Proximal fib apin after fall TECHNIQUE: Imaging protocol: Radiologic exam of the right tibia and fibula. Views: 2 views. COMPARISON: CR XR TIBIA FIBULA RT 2V 12/22/2021 11:11 AM FINDINGS: Bones/joints: Normal. No acute fracture identified. Soft tissues: Normal. IMPRESSION: No acute findings.
--- NOTE | 2023-09-24 21:32 | XR_ITS ---
PROCEDURE INFORMATION: Exam: XR Right Ankle Exam date and time: 09/24/2023 9:35 PM Age: 47 years old Clinical indication: Pain; Ankle; Right; Additional info: Lateral mal pain TECHNIQUE: Imaging protocol: Radiologic exam of the right ankle. Views: 3 or more views. COMPARISON: CR XR ANKLE WT BEARING RT MIN 3V 06/29/2023 10:51 AM FINDINGS: Bones/joints: Normal. No acute fracture identified. Soft tissues: Normal. IMPRESSION: No acute findings.
--- NOTE | 2023-09-24 21:34 | HMH.EDGENADL ---
Discharge Plan Disposition Patient Disposition: Home, Self-Care Chief Complaint: Extremity Injury, Lower Prescriptions Prescriptions: No Action budesonide-formoterol [Symbicort] 160-4.5 mcg/actuation HFA aerosol inhaler 2 puff INHALATION BID Qty: 10.2 0RF omeprazole 20 mg capsule,delayed release(DR/EC) 20 mg PO DAILY Patient Comments: TAKE 1 CAPSULE BY MOUTH EVERY DAY Rexulti 1 mg tablet 1 mg PO DAILY furosemide 40 mg tablet 40 mg PO DAILY Qty: 90 3RF spironolactone 50 mg tablet 50 mg PO DAILY Qty: 90 3RF ranolazine 1,000 mg tablet extended release 12 hr 1,000 mg PO BID Qty: 180 3RF ergocalciferol (vitamin D2) 1,250 mcg (50,000 unit) capsule 1,250 mcg PO .TWICE A WEEK Patient Comments: TAKE ONE (1) CAPSULE (50 000 UNIT) BY ORAL ROUTE TWICE WEEKLY cetirizine 10 mg tablet 10 mg PO DAILY Lantus U-100 Insulin 100 unit/mL solution 40 units SQ HS clopidogrel 75 mg tablet 75 mg PO DAILY Qty: 90 3RF Ozempic 0.25 mg or 0.5 mg(2 mg/1.5 mL) pen injector 0.5 mg SQ WEEKLY Patient Comments: INJECT 0.25 MG EVERY WEEK FOR FOUR (4) WEEKS BY SUBCUTANEOUS ROUTE THEN INCREASE TO 0.5 MG WEEKLY vilazodone 40 mg tablet 40 mg PO DAILY gabapentin 300 mg capsule 400 mg PO TID cyanocobalamin (vitamin B-12) 1,000 mcg/mL solution 1,000 mcg IM QMONTH Rexulti 0.5 mg tablet 1 mg PO DAILY evolocumab 140 mg/mL pen injector 140 mg SQ .[id number] Nexlizet 180-10 mg tablet 1 tab PO DAILY trazodone 150 mg tablet 150 mg PO Patient Comments: TAKE ONE (1) TABLET EVERY DAY BY ORAL ROUTE AT BEDTIME. Linzess 145 mcg capsule 145 mcg PO DAILY Spiriva with HandiHaler 18 mcg capsule, w/inhalation device See Rx Instructions .ROUTE .COMPLEX Qty: 30 0RF Dose Instruction: INHALE CONTENTS OF ONE CAPSULE VIA HANDIHALER ONCE DAILY FOR COPD Rx Instructions: INHALE CONTENTS OF ONE CAPSULE VIA HANDIHALER ONCE DAILY FOR COPD carvedilol 25 mg tablet See Rx Instructions .ROUTE .COMPLEX Qty: 180 1RF Dose Instruction: TAKE 1 TABLET BY MOUTH TWICE DAILY GIVE WITH FOOD (MEAL/SNACK) Rx Instructions: TAKE 1 TABLET BY MOUTH TWICE DAILY GIVE WITH FOOD (MEAL/SNACK) Entresto 97-103 mg tablet See Rx Instructions .ROUTE .COMPLEX Qty: 180 1RF Dose Instruction: Take 1 tablet by mouth twice daily Rx Instructions: Take 1 tablet by mouth twice daily metformin 500 MG tablet extended release 24 hr 500 mg PO BID Referrals Follow up/Referrals: Jaden Cheek APRN [Primary Care Provider] - See instructions Activity Restrictions/Add. Instructions Additional Instructions/Restrictions: Call your family doctor to establish care for this visit to the emergency department and schedule follow-up within 48 hours to ensure improvement. If you have any worsening of your condition or any other concerning signs or symptoms, return to the emergency department or your primary care doctor for further evaluation. Clinical Impressions Clinical Impression: Inversion sprain of right ankle Qualifiers: Encounter type: initial encounter Qualified Code(s): S93.401A - Sprain of unspecified ligament of right ankle, initial encounter Discharge ED Provider: Robert Howard General Adult HPI General Chief complaint: Extremity Injury, Lower Stated complaint: 09/21/2023 fell ao Right foot pain Time Seen by Provider: 09/24/23 21:11 Mode of Arrival: Wheelchair Source of Information: Patient Limitations: No Limitations Description of Symptoms (Recalled from ER Triage Doc. by RN): 47 yo female with recent history of drop foot to RLE states that she fell morning, injuring her right foot. Noted bruising present to lateral side of foot, and an abrasion that is now scabbed. History of Present Illness HPI narrative: 47-year-old female no relevant medical history presenting with ankle pain afte
--- NOTE | 2023-09-24 22:22 | PC.NURSE ---
Applied ZACHARY wrap to right ankle per provider. Attempted to ambulate patient. Patient was able to stand, with minimal weight bearing. Patient reports that the pain increases and she is concerned she will fall attempting to ambulate.
[2023-09-24 22:42] VITALS: BP 110/70; PULSE 70; RESP 17; TEMP 36.7; O2SAT 96
== END 2023-09-24 22:44 | disposition home or self-care (01) ==
PROVIDERS: Emergency Provider Emergency Medicine; PCP Nurse Practitioner Family
DX: S93.401A Sprain of unspecified ligament of right ankle, initial encounter (principal); W10.8XXA Fall (on) (from) other stairs and steps, initial encounter; I25.10 Atherosclerotic heart disease of native coronary artery without angina pectoris; E11.621 Type 2 diabetes mellitus with foot ulcer; E78.5 Hyperlipidemia, unspecified; I10 Essential (primary) hypertension; L97.501 Non-pressure chronic ulcer of other part of unspecified foot limited to breakdown of skin
CPT/HCPCS: 73590; 73610; 73630; 80053; 85025; 90471; 90714; 96374; 99285

== ENCOUNTER 2023-10-31 14:29 | Outpatient (CLI) | payer MEDICARE, OTHER, SELFPAY ==
--- NOTE | 2023-10-31 14:29 | MR_ITS ---
FINAL REPORT CLINICAL HISTORY: Ankle Sprain/Instability. LATERAL SIDED ANKLE PAIN COMPARISON: None FINDINGS: Multiplanar MR imaging of the right ankle was performed without contrast. The bony structures are intact without evidence of fracture, bone bruise or marrow edema. No osteochondral lesion is identified. The ligaments are intact without evidence of injury. The flexor and extensor tendons are intact. The posterior plantar aponeurosis is intact. A moderate plantar calcaneal spur is present. No significant joint effusion is seen. The musculature is intact. There is mild soft tissue swelling surrounding the ankle. IMPRESSION: Moderate sized plantar calcaneal spur. Mild soft tissue swelling ankle. Reviewed, Interpreted and Dictated by López Dick MD Transcribed by Ksenia Miller Authenticated and [facility]
== END 2023-10-31 23:59 ==
LOC: RAD 14:29
PROVIDERS: PCP Nurse Practitioner Family; Visit Provider Podiatrist
DX: G89.29 Other chronic pain (principal); M21.371 Foot drop, right foot; M25.371 Other instability, right ankle; M25.571 Pain in right ankle and joints of right foot; S93.401A Sprain of unspecified ligament of right ankle, initial encounter
CPT/HCPCS: 73721

== ENCOUNTER 2023-11-27 08:38 | Outpatient (CLI) | payer MEDICARE, OTHER, SELFPAY ==
[2023-11-27 08:46] LABS: Microscopic, Urine URINE MICROSCOPIC (MICROSCOPIC)
[2023-11-27 09:02] LABS: Hematocrit 41.7 % (37.0-47.0); Hemoglobin 13.9 g/dL (12.2-16.2); Mean Corpuscular HGB Conc 33.5 g/dL (31.8-35.4); Mean Corpuscular Hemoglobin 32.3 pg (27.0-31.2); Mean Corpuscular Volume 96.6 fl (81-99); Platelet Count 278 K/mm3 (142-424); Red Blood Count 4.32 M/mm3 (4.20-5.40); White Blood Count 8.9 K/mm3 (4.8-10.8)
[2023-11-27 09:50] LABS: Chloride 100 mmol/L (98-107); Sodium 139 mmol/L (136-145)
[2023-11-27 09:51] LABS: Albumin Level 3.9 g/dl (3.5-5.0); Sodium 139 mmol/L (136-145)
[2023-11-27 09:53] LABS: Blood Urea Nitrogen 7 mg/dl (7-17); Carbon Dioxide 37 mmol/L (22.0-30.0); Estimated Glomerular Filt Rate 131 ml/min (>60); GFR (African American) 158 ML/MIN (>60); Phosphorous 4.4 mg/dl (2.5-4.5)
[2023-11-27 09:54] LABS: Blood Urea Nitrogen 7 mg/dl (7-17); Calcium 8.9 mg/dl (8.4-10.2); Calcium 9.1 mg/dl (8.4-10.2); Carbon Dioxide 37 mmol/L (22.0-30.0); Estimated Glomerular Filt Rate 131 ml/min (>60); GFR (African American) 158 ML/MIN (>60); Glucose 140 mg/dl (74-100)
[2023-11-27 10:29] LABS: Appearance,Urine CLEAR (Clear); Bilirubin,Urine Negative (Negative); Blood, Urine Negative (Negative); Color,Urine YELLOW (Yellow); Glucose,Urine (UA) Negative (Negative); Ketones,Urine Negative (Negative); Leukocyte Esterase,Urine Negative (Negative); Nitrate,Urine Negative (Negative); Protein,Urine 1+ (Negative); Specific Gravity, Urine >= 1.030 (1.005-1.030); Urobilinogen,Urine 0.2 EU/dl (0.2)
[2023-11-27 10:32] LABS: Microalbumin/Creatinine Ratio 58.2
[2023-11-27 10:50] LABS: Creatinine,Urine Random 261 mg/dL (Not Estab.)
[2023-11-27 12:07] LABS: Bacteria,Urine Trace /lpf
== END 2023-11-27 23:59 ==
PROVIDERS: Nurse Practitioner; PCP Nurse Practitioner Family; Visit Provider Nurse Practitioner Family
DX: R42 Dizziness and giddiness (principal); R80.9 Proteinuria, unspecified
CPT/HCPCS: 36415; 80048; 80069; 81001; 82043; 82570; 84155; 85014; 85018; 85048; 85049

== ENCOUNTER 2023-12-01 12:20 | Outpatient (POV) | payer MEDICARE, OTHER, SELFPAY | END 2023-12-01 23:59 | disposition home or self-care (01) | LOC: SC 12:21 | PROVIDERS: Visit Provider Nurse Practitioner | DX: Z00.00 Encounter for general adult medical examination without abnormal findings (principal) ==

== ENCOUNTER 2023-12-04 08:38 | Outpatient (CLI) | payer MEDICARE, OTHER, SELFPAY ==
[2023-12-04 09:48] LABS: Chloride 102 mmol/L (98-107); Potassium 3.6 mmoL/L (3.5-5.1); Sodium 139 mmol/L (136-145)
[2023-12-04 09:51] LABS: Blood Urea Nitrogen 7 mg/dl (7-17); Estimated Glomerular Filt Rate 131 ml/min (>60); GFR (African American) 158 ML/MIN (>60)
[2023-12-04 09:52] LABS: Anion Gap 2.6 mEq/L (5-15); Calcium 9.3 mg/dl (8.4-10.2); Carbon Dioxide 38 mmol/L (22.0-30.0); Glucose 142 mg/dl (74-100)
== END 2023-12-04 23:59 ==
LOC: LAB 08:40
PROVIDERS: Internal Medicine; PCP Nurse Practitioner Family; Visit Provider Physician Assistant
DX: R06.00 Dyspnea, unspecified (principal)
CPT/HCPCS: 36415; 80048

== ENCOUNTER 2024-01-16 09:18 | Outpatient (CLI) | payer MEDICARE, OTHER, SELFPAY ==
--- NOTE | 2024-01-16 09:18 | NM_ITS ---
FINAL REPORT TECHNIQUE: Sequential anterior images were obtained after the ingestion of 2 whole eggs, 2 pieces of toast, and water radiolabeled with 0.54 mCi technetium 99M sulfur colloid. CLINICAL HISTORY: evaluate cause of nausea and bloating 9:30AM 0.54 MCI TC SULFUR COLLOID INJ INTO 2 WHOLE EGGS, 2 PC OF TOAST AND WATER COMPARISON: None FINDINGS: GASTRIC EMPTYING SCAN Static images show normal emptying of the stomach into the small bowel. Based on the time activity curve, the estimated half-emptying time is abnormally prolonged at 157 minutes. IMPRESSION: Abnormally prolonged gastric emptying study which can be seen with gastroparesis or gastric outlet obstruction. Reviewed, Interpreted and Dictated by Jose Knox III, MD Transcribed by Janessa Rm Authenticated and [facility]
[2024-01-16] MEDS: TC99M SULF.COLLOID;1 DOSE (UP TO 20 MCI) IV (09:33)
== END 2024-01-16 23:59 ==
LOC: RAD 09:18
PROVIDERS: PCP Nurse Practitioner Family; Visit Provider Nurse Practitioner
DX: R11.14 Bilious vomiting; R10.13 Epigastric pain; R14.0 Abdominal distension (gaseous)
CPT/HCPCS: 78264; A9541

== ENCOUNTER 2024-01-18 12:29 | Outpatient (CLI) | payer MEDICARE, OTHER, SELFPAY ==
--- NOTE | 2024-01-18 | CA_ITS ---
APPROVED REPORT EXAM: Comprehensive 2D, Doppler, and color-flow Echocardiogram Brick Pointer: Frida Singh RT(R) Ht: 5 ft 3 in Wt: 173lbs BSA: 1.82 BP: 145/83 mmHg Indications: SOB, CAD, Abn EKG, HTN, hyperlipidemia, frequent falls, ischemic CM, EF 40% 04/2022, CHF Echo Enhancing Agent Indication: Endocardial border delineation Agent(s) / Amount(s) Used: Definity 2 cc 2D Dimensions LA Volume 37.90 mL LA Volume Index 20.82 mL/m2 (M/F) 16-34 EF AP4 56.20 % GL Strain -18.2 % M-Mode Dimensions RVDd 2.11 cm (0.9-2.6) LA Diam 4.20 cm (1.9-4.0) LVDd 5.58 cm (3.5-5.7) LVDs 4.19 cm (3.5-5.7) IVSd 1.22 cm (0.6-1.1) PWd 1.00 cm (0.6-1.1) EF (Teich) 48.80% FS 24.90% EDV (Teich) 152.40 mL ESV (Teich) 78.10 mL LV Diastology E Decel Time 243 (160-240 msec) E/A Ratio 1.2 Mitral Valve MV E Max Cash. 96.0 (40-130 cm/s) MV A Velocity 83.0 (40-130 cm/s) E/A Ratio 1.15 MV PHT 71.0 ms Left Ventricle The left ventricle is normal size. Left ventricular systolic function is mildly reduced. There is normal left ventricular wall thickness. There is severe hypokinesis of the mid to distal inferior septal, septal, and anteroseptal LV zhang, as well as the LV apex. Diastolic function is indeterminate. LVEF is 40-45%. Right Ventricle The right ventricle is normal size. The right ventricular systolic function is normal. Atria The left atrium size is normal. The right atrium size is normal. There is no Doppler evidence of interatrial shunt. Aortic Valve The aortic valve is mildly thickened. There is no aortic valvular stenosis. No aortic regurgitation is present. Mitral Valve The mitral valve is mildly thickened. No evidence of mitral valve stenosis. Mild mitral regurgitation. Tricuspid Valve The tricuspid valve leaflets are thin and pliable. Trace tricuspid regurgitation. RVSP is normal. Pulmonic Valve The pulmonary valve is normal in structure. Trace pulmonic regurgitation. Great Vessels The aortic root is normal in size. The ascending aorta is normal in size. The IVC is not well-visualized. Pericardium There is no pericardial effusion. Other Information Study Quality: Fair Conclusion Mild reduction in LV systolic function (LVEF 40-45%). Severe hypokinesis of the mid to distal inferior septal, septal, and anteroseptal LV zhang, as well as the LV apex. Mild MR. Electronically signed by : Emma Duarte MD 01/21/2024 01:39:46
[2024-01-18] MEDS: DEFINITY US ECHO CONTRAST 2ML INJ 2 MG IV (13:20)
== END 2024-01-18 23:59 ==
LOC: RT 12:29
PROVIDERS: PCP Nurse Practitioner Family; Visit Provider Physician Assistant
DX: R06.02 Shortness of breath (principal); I25.10 Atherosclerotic heart disease of native coronary artery without angina pectoris
CPT/HCPCS: 93306; Q9957

== ENCOUNTER 2024-02-08 10:50 | Outpatient (CLI) | payer MEDICARE, OTHER, SELFPAY ==
[2024-02-08 11:31] LABS: Basophils # 0.1 K/mm3 (0-0.2); Basophils % 0.9 % (0.1-2.0); Eosinophils # 0.8 K/mm3 (0.0-0.4); Eosinophils % 10.1 % (0.1-12.0); Hematocrit 43.5 % (37.0-47.0); Hemoglobin 14.4 g/dL (12.2-16.2); Lymphocytes # 2.1 K/mm3 (0.7-4.5); Lymphocytes % 25.2 % (10-50); Mean Corpuscular HGB Conc 33.1 g/dL (31.8-35.4); Mean Corpuscular Hemoglobin 31.7 pg (27.0-31.2); Mean Corpuscular Volume 95.9 fl (81-99); Mean Platelet Volume 8.9 fl (7.4-10.4); Monocytes # 0.3 K/mm3 (0.1-1.0); Neutrophils % 59.9 % (37.0-80.0); Platelet Count 272 K/mm3 (142-424); Red Blood Count 4.54 M/mm3 (4.20-5.40); Red Cell Distribution Width 14.1 % (11.5-17.5); White Blood Count 8.3 K/mm3 (4.8-10.8)
[2024-02-08 12:18] LABS: Alanine Aminotransferase 14 U/L (12-78); Albumin Level 3.9 g/dl (3.5-5.0); Alkaline Phosphatase 64 U/L (38-126); Anion Gap 5.3 mEq/L (5-15); Aspartate Amino Transferase 22 U/L (14-36); Bilirubin,Direct 0.1 mg/dl (0.0-0.4); Bilirubin,Indirect 0.2 mg/dL (0.0-0.9); Bilirubin,Total 0.3 mg/dl (0.2-1.3); Bilirubin,Unconjugated 0.2 mg/dL (0.0-1.1); Blood Urea Nitrogen 10 mg/dl (7-17); Calcium 9.5 mg/dl (8.4-10.2); Carbon Dioxide 33 mmol/L (22.0-30.0); Chloride 105 mmol/L (98-107); Chol/HDL Ratio 5.5 (1-3.5); Cholesterol 289 mg/dl (140-200); Estimated Glomerular Filt Rate 131 ml/min (>60); GFR (African American) 158 ML/MIN (>60); Glucose 107 mg/dl (74-100); HDL Cholesterol 53 mg/dl (40-60); Magnesium 1.8 mg/dl (1.6-2.3); Potassium 4.3 mmoL/L (3.5-5.1); Sodium 139 mmol/L (136-145); Total Protein,Serum 6.4 g/dl (6.3-8.2)
[2024-02-08 12:29] LABS: Direct LDL Cholesterol 153.09 mg/dL (100-129); Triglycerides 607 mg/dl (30-150)
[2024-02-08 12:35] LABS: Free T4 (Free Thyroxine) 0.89 ng/dl (0.78-2.19)
[2024-02-08 12:48] LABS: Thyroid Stimulating Hormone 1.67 uIU/mL (0.465-4.68)
== END 2024-02-08 23:59 | disposition home or self-care (01) ==
LOC: LAB 10:51
PROVIDERS: PCP Nurse Practitioner Family; Visit Provider Physician Assistant
DX: E11.9 Type 2 diabetes mellitus without complications (principal); Z79.4 Long term (current) use of insulin; I10 Essential (primary) hypertension; E78.2 Mixed hyperlipidemia; I25.118 Atherosclerotic heart disease of native coronary artery with other forms of angina pectoris; I50.22 Chronic systolic (congestive) heart failure; I25.5 Ischemic cardiomyopathy; Z79.899 Other long term (current) drug therapy
CPT/HCPCS: 36415; 80048; 80061; 80076; 83735; 84439; 84443; 85025

== ENCOUNTER 2024-04-10 07:32 | Day surgery (SDC) | payer MEDICARE, MEDICAID, SELFPAY ==
[2024-04-05 10:37] VITALS: BMI 30.5
[2024-04-10 08:02] VITALS: BP 106/71; PULSE 70; RESP 18; TEMP 36.1; O2SAT 97
--- NOTE | 2024-04-10 08:08 | P.PNANES_ITS ---
[facility] Disclaimer: The information contained in this section may have been updated after the patient was seen, as this information can be updated by other users. Medical History Edema Obesity Frequent falls Right foot drop Low back pain Diabetic ulcer of foot associated with diabetes mellitus due to underlying condition, limited to breakdown of skin Hypertriglyceridemia Dyspnea Abnormal electrocardiography CAD (coronary artery disease) Tobacco dependence syndrome Hyperlipidemia Nerve pain Tobacco use Hypertension Diabetes mellitus Fatigue Anxiety Depression Surgical History History of hernia surgery History of tubal ligation Stented coronary artery Family History Other No significant family history Social History Smoking Status: Unknown if ever smoked alcohol intake: never substance use type: marijuana current occupational status: disabled Travel in the last 8 weeks: None household members: family and children housing: house caffeine: No [facility] Anesthesia Checklist Patient Identification Patient Identification: Arm Band and Verbal (Name & ) Structural Data Admitted From: Home Planned Operative Procedure/s: EGD Consent for Planned Operative Procedure(s) Verified: Yes Verified Documents: Surgical Consent NPO Status Verified Time NPO: 00:00 Additional verifications Anesthesia Reactions: No Airway Assessment Mallampati Score:: Class II C-Spine Mobility Assessed: Yes TMJ Mobility Assessed: Yes Dentition: Poor Dentition Neurological Assessment Level of Consciousness: Awake Hx Seizures: No Numbness or tingling in extremities: No Anesthesia Plan Anesthesia Risk discussed: Yes Anesthesia Plan: Verified ASA Class: III Anesthesia Type: MAC
[2024-04-10 08:19] LABS: POC Glucose,Bedside 128 (70-110)
[2024-04-10 09:18] VITALS: O2SAT 97
--- NOTE | 2024-04-10 09:33 | HMH.SCOPE ---
Procedure: Date: 04/10/24 Patient Date of :: 1975 Procedure Performed:: EGD,Bx's and dilation Indications:: Nausea/vomiting, history of ulcer, dysphagia Performing Provider:: Archana Campbell MD Referring Provider:: Hue Campbell APRN Sedation:: Propofol Procedure:: The gastroscope was gently passed through the incisoral orifice into the oral cavity and under direct visualization the esophagus was intubated. The endoscope was passed down the esophagus, through the stomach, and into the duodenum. Color, texture, mucosa, and anatomy of the esophagus, stomach, and duodenum were carefully examined with the scope. Findings:: Oropharynx: normal Esophagus: normal, dilated with 56F bougie EG Junction: intact at 40 cm Cardia: normal Fundus: normal Body: Large amount of retained food material noted, biopsied for h.pylori Antrum: normal Duodenal bulb: normal Duodenum (second and third portion): normal Impression: Severe gastroparesis with large amount of retained food material Empiric therapy for dysphagia performed Specimens:: Gastric Recommendations:: May benefit from gastric pacing therapy or evaluation at a speciality center Complications:: None Estimated blood obtained (mL): 0 Colonoscopy Component Colonoscopy Component Was a colonoscopy performed during today's procedure?: No
[2024-04-10 09:38] VITALS: BP 100/60; PULSE 64; RESP 16; TEMP 36.1; O2SAT 93
[2024-04-10 09:48] VITALS: BP 80/50; PULSE 61; RESP 16; O2SAT 96
[2024-04-10 09:58] VITALS: BP 91/61; PULSE 62; RESP 16; O2SAT 98
[2024-04-10 10:08] VITALS: BP 93/57; PULSE 63; RESP 16; O2SAT 98
== END 2024-04-10 10:15 | disposition home or self-care (01) ==
LOC: OUTP 07:35
PROVIDERS: PCP Nurse Practitioner Family; Visit Provider Internal Medicine Gastroenterology
PROC: 0DJ08ZZ Inspection of Upper Intestinal Tract, Via Natural or Artificial Opening Endoscopic (ICD-10-PCS; CPT 43235; principal; 2024-04-10 09:00)
DX: R13.10 Dysphagia, unspecified (principal); E11.8 Type 2 diabetes mellitus with unspecified complications; Z79.84 Long term (current) use of oral hypoglycemic drugs; R11.2 Nausea with vomiting, unspecified; K31.84 Gastroparesis; Z87.11 Personal history of peptic ulcer disease
CPT/HCPCS: 43239; 43450; 82962; 88305

== ENCOUNTER 2024-07-09 13:21 | Outpatient (CLI) | payer MEDICARE, MEDICAID, SELFPAY ==
[2024-07-09 15:09] VITALS: BMI 32.3
== END 2024-07-09 23:59 | disposition home or self-care (01) ==
LOC: DIETICIAN 13:21
PROVIDERS: PCP Nurse Practitioner Family; Visit Provider Nurse Practitioner Family
DX: M79.671 Pain in right foot (principal)
CPT/HCPCS: 97802

== ENCOUNTER 2024-08-10 11:18 | Outpatient (CLI) | payer MEDICARE, MEDICAID, SELFPAY ==
[2024-08-10 11:33] LABS: Basophils # 0.1 K/mm3 (0-0.2); Eosinophils # 0.5 K/mm3 (0.0-0.4); Eosinophils % 5.4 % (0.1-12.0); Hematocrit 43.3 % (37.0-47.0); Hemoglobin 14.5 g/dL (12.2-16.2); Lymphocytes # 2.1 K/mm3 (0.7-4.5); Lymphocytes % 24.3 % (10-50); Mean Corpuscular HGB Conc 33.4 g/dL (31.8-35.4); Mean Corpuscular Hemoglobin 32.1 pg (27.0-31.2); Mean Corpuscular Volume 96.1 fl (81-99); Monocytes # 0.5 K/mm3 (0.1-1.0); Monocytes % 6.2 % (1.7-9.3); Neutrophils # 5.5 K/mm3 (1.8-7.8); Platelet Count 228 K/mm3 (142-424); Red Cell Distribution Width 13.5 % (11.5-17.5); White Blood Count 8.7 K/mm3 (4.8-10.8)
[2024-08-10 11:56] LABS: Albumin Level 4.3 g/dl (3.5-5.0); Chloride 108 mmol/L (98-107)
[2024-08-10 11:57] LABS: Potassium 4.9 mmoL/L (3.5-5.1); Sodium 140 mmol/L (136-145)
[2024-08-10 11:59] LABS: Alanine Aminotransferase 21 U/L (12-78); Alkaline Phosphatase 46 U/L (38-126); Anion Gap 11.9 mEq/L (5-15); Aspartate Amino Transferase 23 U/L (14-36); Bilirubin,Direct 0.2 mg/dl (0.0-0.4); Bilirubin,Indirect 0.3 mg/dL (0.0-0.9); Bilirubin,Total 0.5 mg/dl (0.2-1.3); Bilirubin,Unconjugated 0.2 mg/dL (0.0-1.1); Blood Urea Nitrogen 15 mg/dl (7-17); Carbon Dioxide 25 mmol/L (22.0-30.0); Cholesterol 237 mg/dl (140-200); Estimated Glomerular Filt Rate 106 ml/min (>60); GFR (African American) 128 ML/MIN (>60); Total Protein,Serum 7.2 g/dl (6.3-8.2)
[2024-08-10 12:00] LABS: Calcium 9.6 mg/dl (8.4-10.2); Chol/HDL Ratio 5.4 (1-3.5); Glucose 164 mg/dl (74-100); HDL Cholesterol 44 mg/dl (40-60); Magnesium 1.8 mg/dl (1.6-2.3)
[2024-08-10 12:02] LABS: Triglycerides 443 mg/dl (30-150)
[2024-08-10 12:11] LABS: Direct LDL Cholesterol 117.65 mg/dL (100-129)
[2024-08-10 12:17] LABS: Free T4 (Free Thyroxine) 0.75 ng/dl (0.78-2.19)
[2024-08-10 12:30] LABS: Thyroid Stimulating Hormone 0.59 uIU/mL (0.465-4.68)
== END 2024-08-10 23:59 | disposition home or self-care (01) ==
LOC: LAB 11:20
PROVIDERS: PCP Nurse Practitioner Family; Visit Provider Physician Assistant
DX: I25.5 Ischemic cardiomyopathy (principal); I25.118 Atherosclerotic heart disease of native coronary artery with other forms of angina pectoris; E78.2 Mixed hyperlipidemia; I10 Essential (primary) hypertension; E11.9 Type 2 diabetes mellitus without complications; Z79.4 Long term (current) use of insulin; Z72.0 Tobacco use
CPT/HCPCS: 36415; 80048; 80061; 80076; 83735; 84439; 84443; 85025

== ENCOUNTER 2024-09-26 17:34 | Emergency (ER) | payer MEDICARE, MEDICAID, SELFPAY ==
[2024-09-26 18:03] LABS: Microscopic, Urine URINE MICROSCOPIC (MICROSCOPIC)
--- NOTE | 2024-09-26 18:03 | CT_ITS ---
PROCEDURE INFORMATION: Exam: CT Abdomen And Pelvis With Contrast Exam date and time: 09/26/2024 6:50 PM Age: 48 years old Clinical indication: Abdominal pain; Generalized; Additional info: Abdominal pain pain/flank pain hematuria TECHNIQUE: Imaging protocol: Computed tomography of the abdomen and pelvis with contrast. Radiation optimization: All CT scans at this facility use at least one of these dose optimization techniques: automated exposure control; mA and/or kV adjustment per patient size (includes targeted exams where dose is matched to clinical indication); or iterative reconstruction. Contrast material: ISOVUE; Contrast volume: 75 ml; Contrast route: IV; COMPARISON: NM GASTRIC EMPTYING STUDY 01/16/2024 9:30 AM FINDINGS: Liver: Hepatomegaly, measuring 20.0 cm in craniocaudal axis. No focal liver lesions. Gallbladder and biliary ducts: Status post cholecystectomy. No intra- or extra-hepatic biliary ductal dilatation. Pancreas: Unremarkable. Spleen: Punctate calcifications in the spleen compatible with chronic sequelae of prior granulomatous disease. No splenomegaly. Adrenal glands: Well-circumscribed 1.2 cm left adrenal nodule composed entirely of macroscopic fat consistent with benign myelolipoma. No follow-up necessary. Kidneys and ureters: Single non-obstructing stone in the left kidney. No other renal or ureteral stones. No hydronephrosis. Non-specific bilateral symmetric perinephric fat stranding noted. Renal nephrograms are normal and symmetric. Stomach and bowel: Unremarkable. Appendix: Appendix is visualized and is normal. Intraperitoneal space: Large volume intraperitoneal fat. No evidence of encapsulated intraperitoneal mass head no free fluid. No pneumoperitoneum. Vasculature: Unremarkable. Lymph nodes: Unremarkable. Urinary bladder: Bladder is decompressed, limiting evaluation. Reproductive: Unremarkable. Bones/joints: Variant transitional lumbosacral anatomy with partial sacralization of L5. No evidence of acute osseous abnormality. Soft tissues: Unremarkable. IMPRESSION: 1. No acute findings in the abdomen or pelvis. 2. Single non-obstructing stone in the left kidney. 3. Hepatomegaly. 4. 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
--- NOTE | 2024-09-26 18:05 | ED_ITS ---
Discharge Plan Disposition Patient Disposition: Home, Self-Care Condition: Good Prescriptions Prescriptions: New nitrofurantoin monohyd/m-cryst [Macrobid] 100 mg capsule 100 mg PO BID 5 Days Qty: 10 0RF Rx Instructions: must administer with a meal/food No Action budesonide-formoterol [Symbicort] 160-4.5 mcg/actuation HFA aerosol inhaler 2 puff INHALATION BID Qty: 10.2 0RF spironolactone 50 mg tablet 50 mg PO DAILY Qty: 90 3RF buspirone 15 mg tablet 15 mg PO BID Patient Comments: TAKE 1/2 TABLET BY MOUTH TWICE DAILY metoclopramide HCl [Reglan] 5 mg tablet 5 mg PO QACHS Qty: 120 0RF Atrovent HFA 17 mcg/actuation HFA aerosol inhaler 2 puff inhalation QID Patient Comments: INHALE TWO (2) PUFFS BY MOUTH FOUR (4) TIMES DAILY Linzess 145 mcg capsule 145 mcg PO DAILY Patient Comments: TAKE ONE (1) CAPSULE EVERY DAY BY ORAL ROUTE FOR 30 DAYS. dapagliflozin propanediol [Farxiga] 5 mg tablet 5 mg PO ONCE Patient Comments: TAKE ONE (1) TABLET EVERY DAY BY ORAL ROUTE. ergocalciferol (vitamin D2) 1,250 mcg (50,000 unit) capsule 1,250 mcg PO .TWICE A WEEK Patient Comments: TAKE ONE (1) CAPSULE (50 000 UNIT) BY ORAL ROUTE TWICE WEEKLY cetirizine 10 mg tablet 10 mg PO DAILY cyanocobalamin (vitamin B-12) 1,000 mcg/mL solution 1,000 mcg IM QMONTH trazodone 150 mg tablet 150 mg PO NEEDED PRN (Reason: Sleep) Patient Comments: TAKE ONE (1) TABLET EVERY DAY BY ORAL ROUTE AT BEDTIME. gabapentin 400 mg capsule 400 mg PO DAILY escitalopram oxalate 20 mg tablet 20 mg PO DAILY bacitracin 500 unit/gram ointment topical Patient Comments: APPLY ONE (1) APPLICATION TWICE A DAY BY TOPICAL ROUTE FOR 7 DAYS. Acidophilus-Pectin 75 million cell -100 mg capsule PO Patient Comments: TAKE ONE (1) TABLET EVERY DAY BY ORAL ROUTE FOR 10 DAYS. Spiriva with HandiHaler 18 mcg capsule, w/inhalation device See Rx Instructions .ROUTE .COMPLEX Qty: 30 0RF Dose Instruction: INHALE CONTENTS OF ONE CAPSULE VIA HANDIHALER ONCE DAILY FOR COPD Rx Instructions: INHALE CONTENTS OF ONE CAPSULE VIA HANDIHALER ONCE DAILY FOR COPD Entresto 97-103 mg tablet See Rx Instructions .ROUTE .COMPLEX Qty: 180 1RF Dose Instruction: Take 1 tablet by mouth twice daily Rx Instructions: Take 1 tablet by mouth twice daily clopidogrel 75 mg tablet See Rx Instructions .ROUTE .COMPLEX Qty: 90 3RF Dose Instruction: Take 1 tablet by mouth once daily Rx Instructions: Take 1 tablet by mouth once daily carvedilol 25 mg tablet See Rx Instructions .ROUTE .COMPLEX Qty: 180 3RF Dose Instruction: TAKE 1 TABLET BY MOUTH TWICE DAILY GIVE WITH FOOD (MEAL/SNACK) Rx Instructions: TAKE 1 TABLET BY MOUTH TWICE DAILY GIVE WITH FOOD (MEAL/SNACK) amlodipine 5 mg tablet See Rx Instructions .ROUTE .COMPLEX Qty: 90 3RF Dose Instruction: Take 1 tablet by mouth once daily Rx Instructions: Take 1 tablet by mouth once daily furosemide 40 mg tablet 40 mg PO DAILY Qty: 90 3RF ranolazine 1,000 mg tablet extended release 12 hr 1,000 mg PO BID Qty: 180 3RF Patient Comments: TAKE 1 TABLET BY MOUTH TWICE DAILY Repatha SureClick 140 mg/mL pen injector See Rx Instructions .ROUTE .COMPLEX Qty: 2 2RF Dose Instruction: INJECT 140 MG SUBCUTANEOUSLY ONCE EVERY 2 WEEKS Rx Instructions: INJECT 140 MG SUBCUTANEOUSLY ONCE EVERY 2 WEEKS metformin 500 MG tablet extended release 24 hr 500 mg PO BID Referrals Follow up/Referrals: Jaden Cheek APRN [Primary Care Provider] - See instructions Activity Restrictions/Add. Instructions Additional Instructions/Restrictions: Return to the emergency department any worsening signs or symptoms follow-up with primary care provider. Please take antibiotic as prescribed. For chronic lumbar spine pain utilize at home pain medications. Clinical Impressions Clinical Impression: Hematuria, Back pain Instructions Patient Instructions: DI for Low Back Pain, DI for Urinary Tract Infection (UTI) Print Language Print Language: Welsh Discharge ED Provider: Victor Hugo Renteria General Adult HPI <LIDA Potter - Last Filed: 09/26/24 20:33> General Chief complaint: Back Pain/Injury Stated complaint: sent by phy-blood in urine Time Seen by Provider: 09/26/24 17:57 Mode of Arrival: Ambulatory Source of Information: Patient Limitations: No Limitations History of Present Illness HPI narrative: 48-year-old female presents to the emergency department with some lower back pain/flank pain that started this morning accompanied with some hematuria that started this morning. Accompanied with some decreased urination, patient was seen by her family doctor today and was instructed to come to the emergency department for CT scan and blood work to make sure I do not have a kidney stone . Patient denies any fever, chest pain, shortness of breath, cough congestion sore throat, admits to nausea no vomiting, denies any constipation diarrhea, denies any other urinary type symptomatology. Other past medical history consistent with hypertension, hyperlipidemia, vitamin B12 deficiency, type 2 diabetes, coronary artery disease, CHF, gastroparesis, diabetic peripheral neuropathy. She denies any history of tobacco use, uses occasional marijuana, denies any alcohol or other drug use Onset (ago): hour(s) Related Data Home Medications ?Medication ?Instructions ?Recorded ?Confirmed cetirizine 10 mg tablet 10 mg PO DAILY allergies 11/03/21 08/14/24 ergocalciferol (vitamin D2) 1,250 1,250 mcg PO .TWICE A WEEK 11/03/21 08/14/24 mcg (50,000 unit) capsule Supplement metformin 500 mg tablet,extended 500 mg PO BID Diabetes 12/29/21 08/14/24 release 24 hr cyanocobalamin (vitamin B-12) 1,000 mcg IM QMONTH 05/11/23 08/14/24 1,000 mcg/mL injection solution trazodone 150 mg tablet 150 mg PO NEEDED PRN Sleep 06/27/23 08/14/24 escitalopram oxalate 20 mg tablet 20 mg PO DAILY 12/28/23 08/14/24 gabapentin 400 mg capsule 400 mg PO DAILY 12/28/23 08/14/24 Lactobacillus acidophilus 75 cap PO 05/09/24 08/14/24 million cell-pectin 100 mg capsule (Acidophilus-Pectin) bacitracin 500 unit/gram topical topical 05/09/24 08/14/24 ointment buspirone 15 mg tablet 15 mg PO BID 07/01/24 08/14/24 dapagliflozin propanediol 5 mg 5 mg PO ONCE 08/12/24 08/14/24 tablet (Farxiga) ipratropium bromide 17 2 puff inhalation QID 08/12/24 08/14/24 mcg/actuation HFA aerosol inhaler (Atrovent HFA) linaclotide 145 mcg capsule 145 mcg PO DAILY 08/12/24 08/14/24 (Linzess) Previous Rx's ?Medication ?Instructions ?Recorded budesonide-formoterol HFA 160 2 puff inhalation BID COPD #10.2 01/10/22 mcg-4.5 mcg/actuation aerosol grams inhaler (Symbicort) tiotropium bromide 18 mcg capsule See Rx Instructions .Route 01/31/22 with inhalation device (Spiriva .COMPLEX #30 caps with HandiHaler) sacubitril 97 mg-valsartan 103 mg See Rx Instructions .Route 10/04/23 tablet (Entresto) .COMPLEX #180 tabs clopidogrel 75 mg tablet See Rx Instructions .Route 11/09/23 .COMPLEX #90 tabs carvedilol 25 mg tablet See Rx Instructions .Route 11/30/23 .COMPLEX #180 tabs spironolactone 50 mg tablet 50 mg PO DAILY #90 tabs 02/08/24 amlodipine 5 mg tablet See Rx Instructions .Route 04/03/24 .COMPLEX #90 tabs furosemide 40 mg tablet 40 mg PO DAILY #90 tabs 06/25/24 ranolazine 1,000 mg 1,000 mg PO BID #180 tabs 06/25/24 tablet,extended release,12 hr metoclopramide HCl 5 mg tablet 5 mg PO QACHS #120 tabs 07/01/24 (Reglan) evolocumab 140 mg/mL subcutaneous See Rx Instructions .Route 07/24/24 pen injector (Repjackiea Zaid) .COMPLEX #2 mL nitrofurantoin 100 mg PO BID 5 days #10 caps 09/26/24 monohydrate/macrocrystals 100 mg capsule (Macrobid) Allergies Allergy/AdvReac Type Severity Reaction Status Date / Time atorvastatin (From Lipitor) AdvReac Severe Verified 08/14/24 09:52 isosorbide AdvReac Severe Headache Verified 08/14/24 09:52 pravastatin AdvReac Severe Verified 08/14/24 09:52 rosuvastatin (From Crestor) AdvReac Severe Verified 08/14/24 09:52 semaglutide (From Ozempic) AdvReac Severe Verified 08/14/24 09:52 COUNT INCLUDES THE [facility] <LIDA Potter - Last Filed: 09/26/24 20:33> COUNT INCLUDES THE [facility] Disclaimer: The information contained in this section may have been updated after the patient was seen, as this information can be updated by other users. Medical History Gastroparesis Edema Obesity Frequent falls 10/31/23- recent fall, was seen in ER and had MRI Right foot, no fx, only soft tissue swelling noted. Right foot drop Low back pain Diabetic ulcer of foot associated with diabetes mellitus due to underlying condition, limited to breakdown of skin Hypertriglyceridemia Dyspnea Abnormal electrocardiography CAD (coronary artery disease) Tobacco dependence syndrome Hyperlipidemia Nerve pain Tobacco use Hypertension Diabetes mellitus Fatigue Anxiety Depression Surgical History History of hernia surgery History of tubal ligation Stented coronary artery Family History Other No significant family history Social History Smoking Status: Current some day smoker tobacco type: cigarettes packs per day: 1 alcohol intake: never substance use type: marijuana current occupational status: disabled Travel in the last 8 weeks: None household members: family and children housing: house caffeine: No Have you lived/traveled outside US in past 30 days?: No Contact w/someone who lives/traveled outside US past 30 days?: No Exposure to someone with infectious disease in past 14 days?: No Do you have a fever (greater than 100.4 F or 38 C)?: No Have you tested positive for COVID-19: No Exposed to someone with COVID-19 in past 14 days?: No Do you have a sore throat?: No Do you have a cough?: No Do you have any weakness?: No Do you have any diarrhea?: No Are you experiencing any unusual bleeding?: No Do you have any muscle aches/pain?: No Do you have any abdominal pain?: No Are you experiencing loss of taste or smell?: No Other Medical History Have you received the Flu Vaccine for this season: No Have you received the Pneumonia Vaccine: Yes <LIDA Potter - Last Filed: 09/26/24 20:33> ROS Obtained: Yes All systems reviewed & no additional complaints except as documented Physical Exam <LIDA Potter - Last Filed: 09/26/24 20:33> General General appearance: alert and in no apparent distress Head Head exam: atraumatic and normocephalic Eye Eye exam: Present PERRL and EOMI ENT ENT exam: Present mucous membranes moist Neck Neck exam: Present normal inspection Chest Chest inspection: Present normal inspection and symmetric chest wall rise Respiratory Respiratory exam: Present normal lung sounds bilaterally; Absent respiratory distress, wheezes or stridor Cardiovascular Cardiovascular exam: Present regular rate and normal rhythm Abdominal Exam Abdominal exam: Present soft, distention, tenderness and normal bowel sounds; Absent guarding, rebound or rigidity Extremities Exam Extremities exam: Present normal inspection Back Exam Back exam: Present CVA tenderness (R) and CVA tenderness (L) Comment: Mild CVA tenderness noted bilaterally Neurological Exam Neurological exam: Present alert and oriented X3 Psychiatric Psychiatric exam: Present normal affect Skin Skin exam: Present warm and dry Medical Decision Making <LIDA Potter - Last Filed: 09/26/24 20:33> Medical Records Medical records reviewed: Yes I reviewed the patient's medical records. Screening: Per USPSTF and CDC recommendations, given the prevalence of disease in our region, it is our hospital?s policy to screen for HIV and viral Hepatitis for all patients aged 18 and over and those with ongoing risk factors. Kurt Inquiry Pt receiving controlled substance: No Kurt was queried for this patient: No Vital Signs: 09/26/24 18:10 09/26/24 20:35 Temperature 98.0 F 97.8 F Temperature Source Oral Pulse Rate 80 Pulse Rate [Radial] 76 Respiratory Rate 18 16 Blood Pressure 114/98 H Blood Pressure [Right Arm] 121/52 L Blood Pressure Mean [Right Arm] 75 Blood Pressure Source [Right Arm] Automatic Cuff Blood Pressure Position [Right Arm] Sitting 02 Sat by Pulse Oximetry 97 Oxygen Delivery Method Room Air Room Air Lab Data Lab results reviewed: Yes I reviewed the patient's lab results. Lab Results 09/26/24 17:58: Urine Color Yellow, Urine Appearance Clear, Urine pH 6.0, Ur Specific [place] 1.020, Urine Protein Negative, Urine Glucose (UA) Negative, Urine Ketones Negative, Urine Blood 2+ A, Urine Nitrate Negative, Urine Bilirubin Negative, Urine Urobilinogen 0.2, Ur Leukocyte Esterase Negative, Urine RBC None, Urine WBC 5-10, Ur Squamous Epith Cells 3-5, Urine Bacteria 3+, Hyaline Casts 3-5 09/26/24 18:10: WBC 9.1, RBC 4.10 L, Hgb 12.9, Hct 38.0, MCV 92.7, MCH 31.5 H, MCHC 33.9, RDW 12.6, Plt Count 273, MPV 10.4, Neut % (Auto) 57.9, Lymph % (Auto) 28.7, [place] % (Auto) 4.8, Eos % (Auto) 7.3, Baso % (Auto) 0.5, Neut # (Auto) 5.3, Lymph # (Auto) 2.6, [place] # (Auto) 0.4, Eos # (Auto) 0.7 H, Baso # (Auto) 0.1, S odium 134 L, Potassium 3.8, Chloride 99, Carbon Dioxide 30, Anion Gap 8.8, BUN 18 H, Creatinine 0.70, Estimated Creat Clear 135, Estimated GFR 89, Est GFR ( Amer) 107, Glucose 258 H, Calcium 9.1, Total Bilirubin 0.3, AST 32, ALT 26, Alkaline Phosphatase 45, Total Protein 6.9, Albumin 4.1, Globulin 2.8, Albumin/Globulin Ratio 1.5, Lipase 149, HIV Ag/Ab Combo Qual Negative 09/26/24 18:10 09/26/24 18:10 Orders (Tests/Meds): ED MEDICATIONS Discontinued Medications Generic Name Dose Route Start Last Admin Trade Name Freq PRN Reason Stop Dose Admin Iopamidol 75 ml 09/26/24 18:49 09/26/24 18:50 Iopamidol-370 (76%);100ml Bottle IV 09/26/24 18:50 75 ml ONCE ONE Administration Ketorolac Tromethamine 15 mg 09/26/24 18:04 09/26/24 18:15 Ketorolac 30mg/Ml Vial IV 09/26/24 18:05 15 mg ONCE ONE Administration Ondansetron HCl 4 mg 09/26/24 18:04 09/26/24 18:15 Ondansetron 4mg/2ml Vial IV 09/26/24 18:05 4 mg ONCE ONE Administration Sodium Chloride 10 ml 09/26/24 18:49 09/26/24 18:50 Sodium Chloride 0.9% 10ml Syr (Rad Only) IV 09/26/24 18:50 10 ml ONCE ONE Administration ORDERS Category Date Time Status CT abdomen pelvis w con Stat Cat Scan 09/26/24 18:03 Completed Complete Blood Count Auto Diff Stat Lab 09/26/24 18:10 Completed Comprehensive Metabolic Panel Stat Lab 09/26/24 18:10 Completed HIV Combo Stat Lab 09/26/24 18:10 Completed Hep C Ab with Reflex to RNA Stat Lab 09/26/24 18:10 Received Lipase Stat Lab 09/26/24 18:10 Completed Urinalysis and Microscopic Stat Lab 09/26/24 17:58 Completed Urine Culture Stat Micro 09/26/24 17:58 Received Medical Decision Narrative: 48-year-old female presents to the emergency department with back pain hematuria bilateral flank pain, differential diagnose include but not limited to acute UTI, pyelonephritis, malignancy, urinary outflow obstruction, nephrolithiasis, ureterolithiasis. Discussed patient case with attending physician Dr. Renteria Obtain basic laboratory studies lipase urinalysis, will give 15 mg IV Toradol and 4 mg IV Zofran for nausea obtain CT abdomen pelvis with contrast for further evaluate/characterization. Urinalysis notable for 2+ hematuria nitrite some negative leukocyte esterase. CBC unremarkable. CMP notable for minimal hyponatremia 134, lipase normal limits. Reviewed the patient's CT abdomen pelvis with contrast on the corresponding radiologic report no acute findings in the abdomen pelvis single nonobstructing stone in the left kidney, hepatomegaly, variant transitional lumbosacral anatomy with partial sacralization of L5. 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 Will prescribe patient Macrobid antibiotic for UTI prophylaxis, with 3+ bacteria, and hematuria. Patient did follow with PCP as directed, return to the emerged part with any worsening signs or symptoms, patient voiced understanding of current treatment plan/discharge plan, patient is aware about her chronic lumbar spine disease. Patient voiced understanding of the current treatment plan/discharge plan. <Victor Hugo Renteria MD - Last Filed: 09/27/24 01:02> Vital Signs: 09/26/24 18:10 09/26/24 20:35 Temperature 98.0 F 97.8 F Temperature Source Oral Pulse Rate 80 Pulse Rate [Radial] 76 Respiratory Rate 18 16 Blood Pressure 114/98 H Blood Pressure [Right Arm] 121/52 L Blood Pressure Mean [Right Arm] 75 Blood Pressure Source [Right Arm] Automatic Cuff Blood Pressure Position [Right Arm] Sitting 02 Sat by Pulse Oximetry 97 Oxygen Delivery Method Room Air Room Air Lab Data Lab Results 09/26/24 17:58: Urine Color Yellow, Urine Appearance Clear, Urine pH 6.0, Ur Specific [place] 1.020, Urine Protein Negative, Urine Glucose (UA) Negative, Urine Ketones Negative, Urine Blood 2+ A, Urine Nitrate Negative, Urine Bilirubin Negative, Urine Urobilinogen 0.2, Ur Leukocyte Esterase Negative, Urine RBC None, Urine WBC 5-10, Ur Squamous Epith Cells 3-5, Urine Bacteria 3+, Hyaline Casts 3-5 09/26/24 18:10: WBC 9.1, RBC 4.10 L, Hgb 12.9, Hct 38.0, MCV 92.7, MCH 31.5 H, MCHC 33.9, RDW 12.6, Plt Count 273, MPV 10.4, Neut % (Auto) 57.9, Lymph % (Auto) 28.7, [place] % (Auto) 4.8, Eos % (Auto) 7.3, Baso % (Auto) 0.5, Neut # (Auto) 5.3, Lymph # (Auto) 2.6, [place] # (Auto) 0.4, Eos # (Auto) 0.7 H, Baso # (Auto) 0.1, S odium 134 L, Potassium 3.8, Chloride 99, Carbon Dioxide 30, Anion Gap 8.8, BUN 18 H, Creatinine 0.70, Estimated Creat Clear 135, Estimated GFR 89, Est GFR ( Amer) 107, Glucose 258 H, Calcium 9.1, Total Bilirubin 0.3, AST 32, ALT 26, Alkaline Phosphatase 45, Total Protein 6.9, Albumin 4.1, Globulin 2.8, Albumin/Globulin Ratio 1.5, Lipase 149, HIV Ag/Ab Combo Qual Negative Orders (Tests/Meds): ED MEDICATIONS Discontinued Medications Generic Name Dose Route Start Last Admin Trade Name Freq PRN Reason Stop Dose Admin Iopamidol 75 ml 09/26/24 18:49 09/26/24 18:50 Iopamidol-370 (76%);100ml Bottle IV 09/26/24 18:50 75 ml ONCE ONE Administration Ketorolac Tromethamine 15 mg 09/26/24 18:04 09/26/24 18:15 Ketorolac 30mg/Ml Vial IV 09/26/24 18:05 15 mg ONCE ONE Administration Ondansetron HCl 4 mg 09/26/24 18:04 09/26/24 18:15 Ondansetron 4mg/2ml Vial IV 09/26/24 18:05 4 mg ONCE ONE Administration Sodium Chloride 10 ml 09/26/24 18:49 09/26/24 18:50 Sodium Chloride 0.9% 10ml Syr (Rad Only) IV 09/26/24 18:50 10 ml ONCE ONE Administration ORDERS Category Date Time Status CT abdomen pelvis w con Stat Cat Scan 09/26/24 18:03 Completed Complete Blood Count Auto Diff Stat Lab 09/26/24 18:10 Completed Comprehensive Metabolic Panel Stat Lab 09/26/24 18:10 Completed HIV Combo Stat Lab 09/26/24 18:10 Completed Hep C Ab with Reflex to RNA Stat Lab 09/26/24 18:10 Received Lipase Stat Lab 09/26/24 18:10 Completed Urinalysis and Microscopic Stat Lab 09/26/24 17:58 Completed Urine Culture Stat Micro 09/26/24 17:58 Received Medical Decision Narrative: 48-year-old female presents to the emergency department with back pain hematuria bilateral flank pain, differential diagnose include but not limited to acute UTI, pyelonephritis, malignancy, urinary outflow obstruction, nephrolithiasis, ureterolithiasis. Discussed patient case with attending physician Dr. Renteria Obtain basic laboratory studies lipase urinalysis, will give 15 mg IV Toradol and 4 mg IV Zofran for nausea obtain CT abdomen pelvis with contrast for further evaluate/characterization. Urinalysis notable for 2+ hematuria nitrite some negative leukocyte esterase. CBC unremarkable. CMP notable for minimal hyponatremia 134, lipase normal limits. Reviewed the patient's CT abdomen pelvis with contrast on the corresponding radiologic report no acute findings in the abdomen pelvis single nonobstructing stone in the left kidney, hepatomegaly, variant transitional lumbosacral anatomy with partial sacralization of L5. 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 Will prescribe patient Macrobid antibiotic for UTI prophylaxis, with 3+ bacteria, and hematuria. Patient did follow with PCP as directed, return to the emerged part with any worsening signs or symptoms, patient voiced understanding of current treatment plan/discharge plan, patient is aware about her chronic lumbar spine disease. Patient voiced understanding of the current treatment plan/discharge plan. I was consulted by the ELAINA, and we discussed the complexity of the problems being addressed.I approved the treatment and management plan for this patient?s care in the Emergency Department, thus performing a substantive portion of the medical decision making.Signed, Victor Hugo Renteria MD Critical Care <LIDA Potter - Last Filed: 09/26/24 20:33> Critical Care Time Critical Care Time: No
[2024-09-26 18:10] VITALS: BP 121/52; PULSE 76; RESP 18; TEMP 36.7; O2SAT 97; BMI 33.6
[2024-09-26 18:12] LABS: Appearance,Urine CLEAR (Clear); Bilirubin,Urine Negative (Negative); Blood, Urine 2+ (Negative); Color,Urine YELLOW (Yellow); Glucose,Urine (UA) Negative (Negative); Ketones,Urine Negative (Negative); Leukocyte Esterase,Urine Negative (Negative); Nitrate,Urine Negative (Negative); Protein,Urine Negative (Negative); Urobilinogen,Urine 0.2 EU/dl (0.2)
[2024-09-26] MEDS: ONDANSETRON 4MG/2ML VIAL 4 MG IV (18:15)
[2024-09-26] MEDS: KETOROLAC 30MG/ML VIAL 15 MG IV (18:15)
[2024-09-26 18:30] LABS: Albumin Level 4.1 g/dl (3.5-5.0); Chloride 99 mmol/L (98-107); Potassium 3.8 mmoL/L (3.5-5.1); Sodium 134 mmol/L (136-145)
[2024-09-26 18:32] LABS: White Blood Count 9.1 K/mm3 (4.8-10.8)
[2024-09-26 18:33] LABS: Alanine Aminotransferase 26 U/L (12-78); Albumin/Globulin Ratio 1.5 (1.1-1.8); Alkaline Phosphatase 45 U/L (38-126); Anion Gap 8.8 mEq/L (5-15); Aspartate Amino Transferase 32 U/L (14-36); Bilirubin,Total 0.3 mg/dl (0.2-1.3); Blood Urea Nitrogen 18 mg/dl (7-17); Carbon Dioxide 30 mmol/L (22.0-30.0); Creatinine Clearance Estimated 135 mL/min (50-200); Estimated Glomerular Filt Rate 89 ml/min (>60); GFR (African American) 107 ML/MIN (>60); Globulin 2.8 g/dL (1.3-3.2); Lipase 149 U/L (23-300); Total Protein,Serum 6.9 g/dl (6.3-8.2)
[2024-09-26 18:34] LABS: Calcium 9.1 mg/dl (8.4-10.2); Glucose 258 mg/dl (74-100)
[2024-09-26 18:35] LABS: Basophils % 0.5 % (0.1-2.0); Eosinophils % 7.3 % (0.1-12.0); Hemoglobin 12.9 g/dL (12.2-16.2); Lymphocytes % 28.7 % (10-50); Mean Corpuscular HGB Conc 33.9 g/dL (31.8-35.4); Mean Corpuscular Hemoglobin 31.5 pg (27.0-31.2); Mean Corpuscular Volume 92.7 fl (81-99); Mean Platelet Volume 10.4 fl (7.4-10.4); Monocytes % 4.8 % (1.7-9.3); Neutrophils # 5.3 K/mm3 (1.8-7.8); Neutrophils % 57.9 % (37.0-80.0); Platelet Count 273 K/mm3 (142-424); Red Cell Distribution Width 12.6 % (11.5-17.5)
[2024-09-26 18:36] LABS: Basophils # 0.1 K/mm3 (0-0.2); Eosinophils # 0.7 K/mm3 (0.0-0.4); Lymphocytes # 2.6 K/mm3 (0.7-4.5); Monocytes # 0.4 K/mm3 (0.1-1.0)
[2024-09-26 18:39] LABS: Bacteria,Urine 3+ /lpf
--- NOTE | 2024-09-26 18:47 | PC.NURSE ---
PT TO CT
[2024-09-26] MEDS: SODIUM CHLORIDE 0.9% 10ML SYR (RAD ONLY) 10 ML IV (18:50)
[2024-09-26] MEDS: IOPAMIDOL-370 (76%);100ML BOTTLE 75 ML IV (18:50)
[2024-09-26 20:35] VITALS: BP 114/98; PULSE 80; RESP 16; TEMP 36.6; O2SAT 98
[2024-09-26 20:48] LABS: HIV Combo NEGATIVE (Negative)
[2024-09-28 07:09] LABS: HCV Ab Non Reactive (Non Reactive)
== END 2024-09-26 20:40 | disposition home or self-care (01) ==
PROVIDERS: Physician Assistant; Emergency Provider Emergency Medicine; PCP Nurse Practitioner Family
DX: R31.9 Hematuria, unspecified (principal); M54.50 Low back pain, unspecified; R10.9 Unspecified abdominal pain; R39.12 Poor urinary stream
CPT/HCPCS: 74177; 80053; 81001; 83690; 85025; 86803; 87086; 87389; 96374; 96375; 99285; J1885; J2405; Q9967

== ENCOUNTER 2024-10-23 10:21 | Outpatient (CLI) | payer MEDICARE, MEDICAID, SELFPAY ==
[2024-10-23 10:29] LABS: Microscopic, Urine URINE MICROSCOPIC (MICROSCOPIC)
[2024-10-23 10:44] LABS: Basophils % 0.6 % (0.1-2.0); Eosinophils # 0.4 K/mm3 (0.0-0.4); Eosinophils % 6.4 % (0.1-12.0); Hematocrit 36.4 % (37.0-47.0); Hemoglobin 12.4 g/dL (12.2-16.2); Lymphocytes # 1.7 K/mm3 (0.7-4.5); Lymphocytes % 25.8 % (10-50); Mean Corpuscular HGB Conc 34.1 g/dL (31.8-35.4); Mean Corpuscular Hemoglobin 31.4 pg (27.0-31.2); Mean Corpuscular Volume 92.2 fl (81-99); Mean Platelet Volume 10.6 fl (7.4-10.4); Monocytes # 0.3 K/mm3 (0.1-1.0); Neutrophils # 4.2 K/mm3 (1.8-7.8); Neutrophils % 61.8 % (37.0-80.0); Platelet Count 194 K/mm3 (142-424); Red Blood Count 3.95 M/mm3 (4.20-5.40); Red Cell Distribution Width 12.8 % (11.5-17.5); White Blood Count 6.8 K/mm3 (4.8-10.8)
[2024-10-23 11:36] LABS: Appearance,Urine CLOUDY (Clear); Blood, Urine Negative (Negative); Color,Urine DARK YELLOW (Yellow); Glucose,Urine (UA) 1+ (Negative); Ketones,Urine TRACE (Negative); Leukocyte Esterase,Urine Negative (Negative); Nitrate,Urine Negative (Negative); Protein,Urine 1+ (Negative); Specific Gravity, Urine >= 1.030 (1.005-1.030); Urobilinogen,Urine 0.2 EU/dl (0.2)
[2024-10-23 11:38] LABS: Bilirubin,Urine Negative (Negative)
[2024-10-23 11:39] LABS: Chloride 97 mmol/L (98-107)
[2024-10-23 11:40] LABS: Albumin Level 3.8 g/dl (3.5-5.0); Potassium 4.2 mmoL/L (3.5-5.1); Sodium 135 mmol/L (136-145)
[2024-10-23 11:42] LABS: Blood Urea Nitrogen 14 mg/dl (7-17); Estimated Glomerular Filt Rate 106 ml/min (>60); GFR (African American) 128 ML/MIN (>60)
[2024-10-23 11:43] LABS: Anion Gap 9.2 mEq/L (5-15); Carbon Dioxide 33 mmol/L (22.0-30.0); Glucose 234 mg/dl (74-100); Phosphorous 3.4 mg/dl (2.5-4.5)
[2024-10-23 11:49] LABS: Creatinine,Urine Random 191 mg/dL (Not Estab.)
[2024-10-23 12:15] LABS: Bacteria,Urine Trace /lpf
== END 2024-10-23 23:59 | disposition home or self-care (01) ==
LOC: LAB 10:22
PROVIDERS: PCP Nurse Practitioner Family; Visit Provider Nurse Practitioner
DX: R80.9 Proteinuria, unspecified (principal); E78.5 Hyperlipidemia, unspecified; I10 Essential (primary) hypertension
CPT/HCPCS: 36415; 80069; 81001; 82043; 82570; 84156; 85025

== ENCOUNTER 2024-11-13 06:00 | Day surgery (SDC) | payer MEDICARE, MEDICAID, SELFPAY ==
[2024-11-11 13:33] VITALS: BMI 35.2
[2024-11-13 06:21] LABS: Urine Pregnancy, HCG Qual. Negative (Negative)
[2024-11-13 06:26] VITALS: BP 127/78; PULSE 86; RESP 18; TEMP 36.1; O2SAT 94
[2024-11-13 06:46] LABS: POC Glucose,Bedside 198 (70-110)
--- NOTE | 2024-11-13 06:52 | EXP.ANES.CKL ---
[facility] Disclaimer: The information contained in this section may have been updated after the patient was seen, as this information can be updated by other users. Medical History Urinary tract infection Sleep apnea History of COVID-19 Irritable bowel syndrome (IBS) Gastroparesis Edema Obesity Frequent falls Right foot drop Low back pain Diabetic ulcer of foot associated with diabetes mellitus due to underlying condition, limited to breakdown of skin Hypertriglyceridemia Dyspnea Abnormal electrocardiography CAD (coronary artery disease) Tobacco dependence syndrome Hyperlipidemia Nerve pain Tobacco use Hypertension Diabetes mellitus Fatigue Anxiety Depression Surgical History History of surgery on arm History of cholecystectomy History of hernia surgery History of tubal ligation Stented coronary artery Family History Other No significant family history Social History Smoking Status: Current some day smoker tobacco type: cigarettes packs per day: 1 alcohol intake: never substance use type: marijuana current occupational status: disabled Travel in the last 8 weeks: None household members: family and children housing: house caffeine: No Have you lived/traveled outside [place] in past 30 days?: No Contact w/someone who lives/traveled outside US past 30 days?: No Exposure to someone with infectious disease in past 14 days?: No Do you have a fever (greater than 100.4 F or 38 C)?: No Have you tested positive for COVID-19: No Exposed to someone with COVID-19 in past 14 days?: No Do you have a sore throat?: No Do you have a cough?: No Do you have any weakness?: No Do you have any diarrhea?: No Are you experiencing any unusual bleeding?: No Do you have any muscle aches/pain?: No Do you have any abdominal pain?: No Are you experiencing loss of taste or smell?: No [facility] Anesthesia Checklist Patient Identification Patient Identification: Arm Band and Family Structural Data Admitted From: Home Planned Operative Procedure/s: EGD Consent for Planned Operative Procedure(s) Verified: Yes NPO Status Verified Time NPO: 00:00 Additional verifications Patient : No Anesthesia Reactions: No Hx Blood Transfusions: No Blood Transfusion Reaction: No Cephalosporin Allergy: No Previous Colonoscopy: Yes Airway Assessment Mallampati Score:: Class II C-Spine Mobility Assessed: Yes TMJ Mobility Assessed: Yes Dentition: Poor Dentition Neurological Assessment Level of Consciousness: Awake, Alert, Appropriate and Follows Commands Hx Seizures: No Numbness or tingling in extremities: No Anesthesia Plan Anesthesia Risk discussed: Yes ASA Class: III Anesthesia Type: MAC Preoperative Comments Pre-Operative Comments: History of Mi and stent, 2017. Hypertension. Difficult swallowing. Allergic to Stattins. NIDDM plan on insulin pump tomorrow.
[2024-11-13] MEDS: LACTATED RINGERS 1000ML 1,000 ML 50 ML IV (06:56)
--- NOTE | 2024-11-13 07:39 | P.HP_ITS ---
History of Present Illness *Admission Date: 11/13/24 *Reason for visit:: Dysphagia/gastroparesis *History of present illness: Mrs. Yanes is a 48-year-old female who is here for diagnostic/therapeutic EGD with symptoms of dysphagia and history of gastroparesis. The examination is deemed medically necessary for EGD. The patient has been seen, interviewed and examined prior to the procedure by both myself and the anesthesia provider. [facility] Disclaimer: The information contained in this section may have been updated after the patient was seen, as this information can be updated by other users. Medical History (Updated 11/13/24 @ 07:41 by Timo Reilly II, MD) Urinary tract infection Sleep apnea History of COVID-19 Irritable bowel syndrome (IBS) Gastroparesis Edema Obesity Frequent falls Right foot drop Low back pain Diabetic ulcer of foot associated with diabetes mellitus due to underlying condition, limited to breakdown of skin Hypertriglyceridemia Dyspnea Abnormal electrocardiography CAD (coronary artery disease) Tobacco dependence syndrome Hyperlipidemia Nerve pain Tobacco use Hypertension Diabetes mellitus Fatigue Anxiety Depression Surgical History History of surgery on arm History of cholecystectomy History of hernia surgery History of tubal ligation Stented coronary artery Family History Other No significant family history Social History Smoking Status: Current some day smoker tobacco type: cigarettes packs per day: 1 alcohol intake: never substance use type: marijuana current occupational status: disabled Travel in the last 8 weeks: None household members: family and children housing: house caffeine: No Have you lived/traveled outside US in past 30 days?: No Contact w/someone who lives/traveled outside US past 30 days?: No Exposure to someone with infectious disease in past 14 days?: No Do you have a fever (greater than 100.4 F or 38 C)?: No Have you tested positive for COVID-19: No Exposed to someone with COVID-19 in past 14 days?: No Do you have a sore throat?: No Do you have a cough?: No Do you have any weakness?: No Do you have any diarrhea?: No Are you experiencing any unusual bleeding?: No Do you have any muscle aches/pain?: No Do you have any abdominal pain?: No Are you experiencing loss of taste or smell?: No Other Medical History Have you received the Flu Vaccine for this season: No Have you received the Pneumonia Vaccine: Yes Review of Systems Review of Systems Review of systems (narrative): Negative *Cardiovascular Comments: Negative *Gastrointestinal Comments: Negative *Genitourinary Comments: Negative *Musculoskeletal Comments: Negative *Neurologic Comments: Negative Meds Home Medications and Allergies Home Medications ?Medication ?Instructions ?Recorded ?Confirmed ?Type cetirizine 10 mg tablet 10 mg PO DAILY allergies 11/03/21 11/13/24 History ergocalciferol (vitamin D2) 1,250 1,250 mcg PO .TWICE A WEEK 11/03/21 11/13/24 History mcg (50,000 unit) capsule Supplement metformin 500 mg tablet,extended 500 mg PO BID Diabetes 12/29/21 11/13/24 History release 24 hr budesonide-formoterol HFA 160 2 puff inhalation BID COPD #10.2 01/10/22 11/13/24 Rx mcg-4.5 mcg/actuation aerosol grams inhaler (Symbicort) tiotropium bromide 18 mcg capsule See Rx Instructions .Route 01/31/22 11/13/24 Rx with inhalation device (Spiriva .COMPLEX #30 caps with HandiHaler) cyanocobalamin (vitamin B-12) 1,000 mcg IM QMONTH 05/11/23 11/13/24 History 1,000 mcg/mL injection solution trazodone 150 mg tablet 150 mg PO NEEDED PRN Sleep 06/27/23 11/13/24 History carvedilol 25 mg tablet See Rx Instructions .Route 11/30/23 11/13/24 Rx .COMPLEX #180 tabs escitalopram oxalate 20 mg tablet 20 mg PO DAILY 12/28/23 11/13/24 History gabapentin 400 mg capsule 400 mg PO DAILY 12/28/23 11/13/24 History spironolactone 50 mg tablet 50 mg PO DAILY #90 tabs 02/08/24 11/13/24 Rx Lactobacillus acidophilus 75 1 cap PO DAILY 05/09/24 11/13/24 History million cell-pectin 100 mg capsule (Acidophilus-Pectin) furosemide 40 mg tablet 40 mg PO DAILY #90 tabs 06/25/24 11/13/24 Rx ranolazine 1,000 mg 1,000 mg PO BID #180 tabs 06/25/24 11/13/24 Rx tablet,extended release,12 hr metoclopramide HCl 5 mg tablet 5 mg PO QACHS #120 tabs 07/01/24 11/13/24 Rx (Reglan) evolocumab 140 mg/mL subcutaneous See Rx Instructions .Route 07/24/24 11/13/24 Rx pen injector (Repatha SureClick) .COMPLEX #2 mL ipratropium bromide 17 2 puff inhalation QID 08/12/24 11/13/24 History mcg/actuation HFA aerosol inhaler (Atrovent HFA) sacubitril 97 mg-valsartan 103 mg See Rx Instructions .Route 10/04/24 11/13/24 Rx tablet (Entresto) .COMPLEX #180 tabs buspirone 15 mg tablet 15 mg PO TID 10/08/24 11/13/24 History linaclotide 290 mcg capsule 290 mcg PO DAILY #90 caps 10/08/24 11/13/24 Rx (Linzess) ezetimibe 10 mg tablet (Zetia) 10 mg PO DAILY #90 tabs 10/23/24 11/13/24 Rx insulin syringe-needle U-100 1 mL #50 ea 10/23/24 11/13/24 History 27 gauge x 5/8 (Insulin Syringe MicroFine) omeprazole 40 mg capsule,delayed 40 mg PO DAILY 10/23/24 11/13/24 History release clopidogrel 75 mg tablet See Rx Instructions .Route 11/04/24 11/13/24 Rx .COMPLEX #90 tabs New Prescriptions to Start Prescriptions: Allergies Allergy/AdvReac Type Severity Reaction Status Date / Time atorvastatin (From Lipitor) AdvReac Severe Unknown Verified 11/13/24 06:23 allergy reaction isosorbide AdvReac Severe Headache Verified 11/13/24 06:23 pravastatin AdvReac Severe Joint Pain Verified 11/13/24 06:23 rosuvastatin (From Crestor) AdvReac Severe Joint Pain Verified 11/13/24 06:23 semaglutide (From Ozempic) AdvReac Severe Other Verified 11/13/24 06:23 Exam Data for Last 24 hours Vital signs and Labs for Last 24 Hours: Temp Pulse Resp BP Pulse Ox O2 Del Method 97.0 F L 86 18 127/78 94 L Room Air 11/13/24 06:26 11/13/24 06:26 11/13/24 06:26 11/13/24 06:26 11/13/24 06:26 11/13/24 06:26 Laboratory Results - last 24 hr 11/13/24 06:15: Urine HCG, Qual Negative 11/13/24 06:37: POC Glucose 198 H I & O for Last 24 hours: Intake & Output 11/10/24 11/11/24 11/12/24 11/13/24 23:59 23:59 23:59 23:59 Weight 199 lb 0.004 oz *Routine HEENT Exam Head: Present normocephalic Eye: Present EOMI and PERRL ENT: Present mucous membranes moist *Routine Neck Exam Neck: Present supple *Routine Respiratory Exam Respiratory: Present CTA bilaterally *Routine Cardiovascular Exam Cardiovascular: Present RRR *Routine Abdominal Exam Abdominal: Present soft and normoactive bowel sounds; Absent tenderness *Routine Rectal Exam Rectal:: deferred *Routine Genitalia Exam Genitalia:: deferred *Routine Extremities Exam Extremities: Absent cyanosis, clubbing or edema *Routine Skin Exam Skin: Present warm; Absent rash *Routine Neurological Exam Neurological: Present alert and oriented X3 Assessment and Plan *Assessment and plan (1) Dysphagia: Status: Acute Qualifiers: Dysphagia type: esophageal phase Qualified Code(s): R13.19 - Other dysphagia Category: Medical Code(s): R13.10 - Dysphagia, unspecified (2) Gastroparesis: Status: Acute Category: Medical Code(s): K31.84 - Gastroparesis Plan A/P: 1. Dysphagia and gastroparesis is the preprocedural diagnosis. The patient will be anesthetized/sedated using MAC sedation. The patient has been seen and examined. Cardiac and lung assessment prior to the examination is stable. Proceed with planned diagnostic upper endoscopy
[2024-11-13 07:40] VITALS: O2SAT 95
--- NOTE | 2024-11-13 07:43 | P.PCN_ITS ---
[facility] Procedure Note Date: 11/13/24 Time: 07:53 Procedure Note:: Upper Endoscopy Procedure Report: Esophagogastroduodenoscopy with cold biopsies and TTS balloon dilation Endoscopost: Timo Reilly II, MD Referring Physician: TERRELL Castro Date of Procedure: November 13, 2024 Equipment: Olympus GIF 190 standard upper endoscope Sedation: MAC sedation Indications: Mrs. Yanes is a 48-year-old female with constant globus sensation and some dysphagia to both liquids and solids. The patient does have a history of gastroparesis. She does have diabetes and her hemoglobin A1c was just over 6. She was using Gimoti but did not like the taste. She was switched to oral metoclopramide. She also has chronic constipation and is on Linzess 145 mcg daily. She reports bloating, belching, nausea and early satiety. She reports epigastric and some retrosternal chest discomfort. She did have an EGD with Archana Campbell MD. This was in April 2024. There was a large amount of retained food material in the stomach. Dilation was performed with savory to 56 Ethiopian. Procedure: Prior to the procedure, a history and physical exam was performed, and patient's medications and allergies were reviewed. The risks, benefits and alternatives of the sedation and procedure were discussed with the patient. All questions were answered and informed consent was obtained. The patient was brought to the procedure room. Patient identification and proposed procedure were verified by the physician and the nurse. The patient was placed in a left lateral decubitus position and the scope was passed under direct vision. Throughout the procedure, the patient's blood pressure, pulse, and oxygen saturations were monitored continuously. The upper GI endoscopy was accomplished without difficulty. The patient tolerated the procedure well. Findings: The scope was passed directly into the upper esophagus and advanced to the third portion of the duodenum. The post bulbar duodenum, ampulla and duodenal bulb were normal with normal mucosa and conniventes. The scope was withdrawn through a normal duodenal bulb and pylorus into the stomach. There was moderate bile reflux with mild to moderate linear reactive gastropathy of the antrum and body. The remainder of the body and fundus were normal. Upon retroflexion there was no hiatal hernia.. The scope was then withdrawn into the esophagus. There was no evidence of reflux esophagitis, Saba's, Schatzki's ring, corrugation, furrowing or inlet patch. There were strong tertiary contractions and evidence of moderate esophageal dysmotility. The entire esophagus was dilated to 20 mm/60 Ethiopian with a TTS hydrostatic balloon. There was minor resistance at the cricopharyngeus. The remainder of the esophageal mucosa was normal. Impression: 1. Cricopharyngeal spasm status post dilation to 20 mm 2. Nonerosive GERD with moderate esophageal dysmotility 3. Bile reflux with moderate linear reactive gastropathy Plan: I will follow-up the biopsies. The patient does have functional dyspepsia and functional GERD with esophageal dysmotility and cricopharyngeal spasm. Most of her symptoms of dyspepsia are related to and driven by lower intestinal gas pressure gradients/high gas pressure buildup resulting in backflow of bile and peptic fluid from the duodenum into the stomach (duodenal reflux). This gas production (carbon dioxide, hydrogen, methane, etc.) from the lower intestinal tract is the byproduct of colonic bacterial fermentation. This colonic fermentation occurs when there is more carbohydrate (dietary starches, sugars and high residue plant fiber) substrate that does not get digested (in the middle or small intestine) or occurs when there is colonic fecal buildup and colonic bacterial overgrowth. This indeed leads to bloating and the gas pressure buildup with gas pressure gradients that do drive backflow and dyspepsia. I will discuss additional treatment options. I would recommend adding Iberogast twice daily. I do feel that she would benefit from global prokinetic (i.e. prucalopride (Motegrity)).
[2024-11-13 07:56] VITALS: BP 114/68; PULSE 82; RESP 15; TEMP 36.6; O2SAT 92
[2024-11-13 08:06] VITALS: BP 109/64; PULSE 78; RESP 16; O2SAT 94
[2024-11-13 08:16] VITALS: BP 109/67; PULSE 77; RESP 16; O2SAT 92
[2024-11-13 08:26] VITALS: BP 107/68; PULSE 76; RESP 16; O2SAT 94
== END 2024-11-13 08:41 | disposition home or self-care (01) ==
PROVIDERS: PCP Nurse Practitioner Family; Visit Provider Internal Medicine Gastroenterology
PROC: 0DJ08ZZ Inspection of Upper Intestinal Tract, Via Natural or Artificial Opening Endoscopic (ICD-10-PCS; CPT 43239; principal; 2024-11-13 07:30)
DX: R13.19 Other dysphagia (principal); K31.84 Gastroparesis; K59.04 Chronic idiopathic constipation; K31.9 Disease of stomach and duodenum, unspecified; K21.9 Gastro-esophageal reflux disease without esophagitis; K22.4 Dyskinesia of esophagus; J38.5 Laryngeal spasm; E11.621 Type 2 diabetes mellitus with foot ulcer; Z79.84 Long term (current) use of oral hypoglycemic drugs; Z72.0 Tobacco use
CPT/HCPCS: 43239; 43249; 81025; 82962; C1726; J7120

== ENCOUNTER 2024-12-06 12:55 | Emergency (ER) | payer MEDICARE, MEDICAID, SELFPAY ==
[2024-12-06] VITALS (29 sets, daily range): BP systolic 83–114; BP diastolic 46–79; PULSE 60–72; RESP 11–21; TEMP 36.6; O2SAT 95–99; BMI 34.1
--- NOTE | 2024-12-06 12:57 | ECG_ITS ---
APPROVED REPORT Exam: Resting ECG HR:60 bpm ECG Measurements Heart Rate 60 AXES WV 173 P 58 QRSd 122 QRS -16 QT 452 T 110 QTc 452 Conclusion SINUS RHYTHM SEPTAL MYOCARDIAL INFARCTION , PROBABLY OLD [40+ ms Q WAVE IN V1/V2] MODERATE T-WAVE ABNORMALITY, CONSIDER LATERAL ISCHEMIA [-0.1+ mV T-WAVE IN I/aVL/V5/V6] No STEMI Electronically signed by : ESHA WANG, 12/06/2024 15:20:05
--- NOTE | 2024-12-06 13:01 | PC.NURSE ---
Blood drawn and sent to lab
--- NOTE | 2024-12-06 13:09 | CT_ITS ---
FINAL REPORT CLINICAL HISTORY: recent trauma (fall Sat), L sided pain, presyncope COMPARISON: None FINDINGS: CTA HEAD TECHNIQUE: Thin section axial CT with contrast with 3D MIP reconstruction This study was performed with techniques to keep radiation doses as low as reasonably achievable, (ALARA). Individualized dose reduction techniques using automated exposure control or adjustment of mA and/or kV according to the patient''s size were employed. FINDINGS: No aneurysm is seen. Major intracranial vessels are patent without significant stenosis. . IMPRESSION: Unremarkable This study was performed using automated techniques to achieve radiation exposure as low as reasonably achievable Reviewed, Interpreted and Dictated by Doug Cazares MD Transcribed by Ksenia Miller Authenticated and [facility]
--- NOTE | 2024-12-06 13:09 | CT_ITS ---
FINAL REPORT CLINICAL HISTORY: recent trauma (fall Sat), L sided pain, presyncope COMPARISON: None FINDINGS: Axial images through the pelvis were performed by computed tomography. Sagittal and coronal reconstruction images were performed. This study was performed with techniques to keep radiation doses as low as reasonably achievable (ALARA). Individualized dose reduction techniques using automated exposure control or adjustment of mA and/or kV according to the patient's size were employed. No fracture is identified. Mild degenerative changes are present in the sacroiliac joints. There are moderate degenerative changes in the hips bilaterally. There is no obvious soft tissue abnormality such as intramuscular hemorrhage identified. IMPRESSION: Mild degenerative changes in the sacroiliac joints and the hips bilaterally. No acute process is identified. Reviewed, Interpreted and Dictated by Doug Cazares MD Transcribed by Ksenia Miller Authenticated and [facility]
--- NOTE | 2024-12-06 13:09 | XR_ITS ---
FINAL REPORT CLINICAL HISTORY: fall, pain FINDINGS: RIGHT TIBIA FIBULA Two views were obtained. There is no fracture or dislocation. The joint spaces appear normal. No soft tissue abnormality is identified. IMPRESSION: No acute process. Reviewed, Interpreted and Dictated by Doug Cazares MD Transcribed by Daisy Workman Authenticated and [facility]
--- NOTE | 2024-12-06 13:09 | CT_ITS ---
FINAL REPORT TECHNIQUE: Thin section axial CT with contrast with multiplanar reconstruction This study was performed with techniques to keep radiation doses as low as reasonably achievable, (ALARA). Individualized dose reduction techniques using automated exposure control or adjustment of mA and/or kV according to the patient's size were employed. CLINICAL HISTORY: recent trauma (fall Sat), L sided pain, presyncope COMPARISON: None FINDINGS: Pulmonary vessels enhance in normal fashion without evidence of embolism. Thoracic aorta shows no dissection or aneurysm. No pulmonary infiltrate is present. There is a 4 mm right lower lobe nodule best seen on image #71 of series 5. There is also a 5 mm left lower lobe nodule best seen on image #70 of series 5. Multiple old calcified granulomas are present as well. There is no evidence of pulmonary contusion, pneumothorax, or hemothorax. No mediastinal or hilar adenopathy is present. No rib fractures are identified. IMPRESSION: No acute intrathoracic abnormality is identified. 2 lower lobe noncalcified nodules are present, as well as multiple calcified granulomas. Favor that these represent granulomatous disease, however correlation with 6-month chest CT follow-up is suggested. Reviewed, Interpreted and Dictated by Doug Cazares MD Transcribed by Ksenia Miller Authenticated and [facility]
--- NOTE | 2024-12-06 13:09 | CT_ITS ---
FINAL REPORT TECHNIQUE: Noncontrast exam. Coronal and sagittal reconstructions obtained and reviewed. This study was performed with techniques to keep radiation doses as low as reasonably achievable, (ALARA). Individualized dose reduction techniques using automated exposure control or adjustment of mA and/or kV according to the patient''s size were employed. CLINICAL HISTORY: recent trauma (fall Sat), L sided pain, presyncope COMPARISON: none FINDINGS: No abnormal density is seen. Ventricles are normal. There is no hemorrhage. No mass effect is seen. Bone windows show no evidence of fracture. IMPRESSION: No acute findings Reviewed, Interpreted and Dictated by Doug Cazares MD Transcribed by Janessa Rm Authenticated and [facility]
--- NOTE | 2024-12-06 13:09 | CT_ITS ---
FINAL REPORT TECHNIQUE: Thin section axial images were obtained through the abdomen and pelvis after contrast injection per CT angiogram protocol. Multiplanar reconstruction images were obtained from the axial data. This exam was performed with techniques to keep radiation dose as low as reasonably achievable. This includes automated exposure control, adjustment of the MA and KVP, and iterative reconstruction technique. CLINICAL HISTORY: recent trauma (fall Sat), L sided pain, presyncope COMPARISON: None FINDINGS: CTA: No abdominal aortic aneurysm or aortic dissection. The celiac axis, superior mesenteric artery, and inferior mesenteric artery are patent without stenosis. There is 60% stenosis of the right renal artery. The left renal artery is widely patent. The common iliac arteries and visualized portions of the internal and external iliac arteries are patent. No significant stenosis. NONVASCULAR: The gallbladder has been surgically resected. There is fatty infiltration of the liver. The solid abdominal organs are otherwise without acute abnormality. The GI tract is without acute abnormality. There is mild adenopathy in the gregoria hepatis, nonspecific, the largest measuring up to 10 mm in size. No lymphadenopathy or free fluid is otherwise noted. The uterus and ovaries are unremarkable in appearance. No acute osseous abnormality. IMPRESSION: No acute intra-abdominal vascular abnormality is identified. Reviewed, Interpreted and Dictated by Doug Cazares MD Transcribed by Ksenia Miller Authenticated and [facility]
--- NOTE | 2024-12-06 13:09 | CT_ITS ---
FINAL REPORT CLINICAL HISTORY: recent trauma (fall Sat), L sided pain, presyncope COMPARISON: None FINDINGS: CT LUMBAR SPINE TECHNIQUE: Thin section axial CT with sagittal and coronal reconstructions This study was performed with techniques to keep radiation doses as low as reasonably achievable, (ALARA). Individualized dose reduction techniques using automated exposure control or adjustment of mA and/or kV according to the patient's size were employed. FINDINGS: No fracture is present. Alignment is normal. No bony canal stenosis is seen. Advanced facet arthropathy is present at the L4-5 and L5-S1 levels. IMPRESSION: Negative CT evaluation of the lumbar spine for acute bony injury. This study was performed using automated techniques to achieve radiation exposure as low as reasonably achievable Reviewed, Interpreted and Dictated by Doug Cazares MD Transcribed by Ksenia Miller Authenticated and [facility]
--- NOTE | 2024-12-06 13:09 | CT_ITS ---
FINAL REPORT CLINICAL HISTORY: recent trauma (fall Sat), L sided pain, presyncope COMPARISON: None FINDINGS: CT THORACIC SPINE TECHNIQUE: Thin section axial CT with sagittal and coronal reconstructions This study was performed with techniques to keep radiation doses as low as reasonably achievable, (ALARA). Individualized dose reduction techniques using automated exposure control or adjustment of mA and/or kV according to the patient's size were employed. FINDINGS: No fracture is present. Alignment is normal. Mild diffuse degenerative disc disease is present. IMPRESSION: Mild degenerative disc disease without acute bony abnormality. Reviewed, Interpreted and Dictated by Doug Cazares MD Transcribed by Ksenia Miller Authenticated and [facility]
--- NOTE | 2024-12-06 13:09 | CT_ITS ---
FINAL REPORT CLINICAL HISTORY: recent trauma (fall Sat), L sided pain, presyncope COMPARISON: None FINDINGS: CT NECK ANGIO, WITHOUT AND WITH CONTRAST TECHNIQUE: Thin section axial CT with contrast with multiplanar 3D MIP reconstruction. This study was performed with techniques to keep radiation doses as low as reasonably achievable, (ALARA). Individualized dose reduction techniques using automated exposure control or adjustment of mA and/or kV according to the patient's size were employed. NASCET criteria and technique was utilized during interpretation. FINDINGS: Aortic arch: Arch shows no significant narrowing. Great vessel origins are widely patent. Right carotid: No significant stenosis is seen of the cervical common or internal carotid artery. Left carotid: No significant stenosis is seen of the cervical common or internal carotid artery. Vertebrals: The vertebral arteries are codominant. No significant stenosis is present. IMPRESSION: No significant stenosis of the cervical carotid arteries This study was performed using automated techniques to achieve radiation exposure as low as reasonably Reviewed, Interpreted and Dictated by Doug Cazares MD Transcribed by Ksenia Miller Authenticated and [facility]
--- NOTE | 2024-12-06 13:09 | XR_ITS ---
FINAL REPORT CLINICAL HISTORY: fall, pain FINDINGS: RIGHT FEMUR Two views were obtained. There is no fracture or dislocation. There are mild degenerative changes of the right hip. No soft tissue abnormality is identified. IMPRESSION: No acute process. Reviewed, Interpreted and Dictated by Doug Cazares MD Transcribed by Daisy Workman Authenticated and . [facility]
--- NOTE | 2024-12-06 13:09 | XR_ITS ---
FINAL REPORT CLINICAL HISTORY: fall, pain FINDINGS: RIGHT KNEE Three views were obtained. There is no fracture or dislocation. The joint spaces appear normal. No soft tissue abnormality is identified. IMPRESSION: No acute process. Reviewed, Interpreted and Dictated by Doug Cazares MD Transcribed by Daisy Workman Authenticated and [facility]
--- NOTE | 2024-12-06 13:15 | PC.NURSE ---
RT aware of VBG in lab
[2024-12-06 13:17] LABS: Basophils % 0.6 % (0.1-2.0); Eosinophils # 0.2 K/mm3 (0.0-0.4); Eosinophils % 2.7 % (0.1-12.0); Hematocrit 35.1 % (37.0-47.0); Hemoglobin 11.7 g/dL (12.2-16.2); Lymphocytes # 1.7 K/mm3 (0.7-4.5); Lymphocytes % 23.7 % (10-50); Mean Corpuscular HGB Conc 33.3 g/dL (31.8-35.4); Mean Corpuscular Hemoglobin 31.6 pg (27.0-31.2); Mean Corpuscular Volume 94.9 fl (81-99); Mean Platelet Volume 10.8 fl (7.4-10.4); Monocytes # 0.5 K/mm3 (0.1-1.0); Monocytes % 6.7 % (1.7-9.3); Neutrophils # 4.6 K/mm3 (1.8-7.8); Neutrophils % 65.7 % (37.0-80.0); Platelet Count 212 K/mm3 (142-424); Red Cell Distribution Width 13.4 % (11.5-17.5); White Blood Count 7.1 K/mm3 (4.8-10.8)
[2024-12-06 13:21] LABS: VBG Base Excess -6.2 mmol/L (-2.4-2.3); VBG HCO3 21.2 mmol/L (23-30); VBG Oxygen Saturation 65.4 % (50-70); VBG PH 7.24 mmol/L (7.31-7.41); VBG PO2 36.5 mmol/L (28-40); VBG Total CO2 22.8 mmol/L (23-27)
[2024-12-06 13:22] LABS: Lactate Venous 2.5 mmol/L (0.4-2.0); VBG PCO2 50.5 mmol/L (35-51)
--- NOTE | 2024-12-06 13:22 | CT_ITS ---
FINAL REPORT TECHNIQUE: Thin section axial CT with sagittal reconstruction without contrast This study was performed with techniques to keep radiation doses as low as reasonably achievable, (ALARA). Individualized dose reduction techniques using automated exposure control or adjustment of mA and/or kV according to the patient's size were employed. CLINICAL HISTORY: fall on Monday COMPARISON: None FINDINGS: CT CERVICAL SPINE: No fracture is seen. Alignment is normal. No obvious bony spinal canal stenosis is present. There is mild degenerative disc disease present at the C6-7 level. IMPRESSION: No fracture or malalignment Reviewed, Interpreted and Dictated by Doug Cazares MD Transcribed by Ksenia Miller Authenticated and [facility]
--- NOTE | 2024-12-06 13:24 | PC.NURSE ---
aware of vbg results
[2024-12-06 13:25] LABS: Alanine Aminotransferase 22 U/L (12-78); Albumin/Globulin Ratio 1.5 (1.1-1.8); Alkaline Phosphatase 47 U/L (38-126); Anion Gap 5.2 mEq/L (5-15); Aspartate Amino Transferase 28 U/L (14-36); Bilirubin,Total 0.3 mg/dl (0.2-1.3); Blood Urea Nitrogen 20 mg/dl (7-17); Calcium 8.2 mg/dl (8.4-10.2); Carbon Dioxide 24 mmol/L (22.0-30.0); Chloride 111 mmol/L (98-107); Creatinine Clearance Estimated 119 mL/min (50-200); Estimated Glomerular Filt Rate 76 ml/min (>60); GFR (African American) 92 ML/MIN (>60); Globulin 2.7 g/dL (1.3-3.2); Glucose 173 mg/dl (74-100); Lipase 101 U/L (23-300); Sodium 134 mmol/L (136-145); Total Protein,Serum 6.7 g/dl (6.3-8.2)
[2024-12-06 13:27] LABS: Potassium 6.2 mmoL/L (3.5-5.1)
--- NOTE | 2024-12-06 13:27 | PC.NURSE ---
K= 6.2 Notified Rn and
[2024-12-06 13:30] LABS: Activated Partial Thrombo Time 23.8 seconds (22.8-30.6); INR 0.94 (0.9-1.1); Prothrombin Time 10.6 seconds (10.1-12.5)
--- NOTE | 2024-12-06 13:34 | PC.NURSE ---
PT TO CT
[2024-12-06 13:37] LABS: Troponin I < 0.01 ng/ml (0.00-0.034)
[2024-12-06] MEDS: ACETAMINOPHEN 1,000MG/100ML VIAL 1000 MG IV (13:38)
[2024-12-06] MEDS: KETOROLAC 30MG/ML VIAL 15 MG IV (13:38)
[2024-12-06] MEDS: LACTATED RINGERS 1000ML 1,000 ML 999 ML IV (13:38)
[2024-12-06 13:41] LABS: T4 (Thyroxine) 5.6 ug/dl (5.53-11.0)
[2024-12-06] MEDS: 0.9 % SODIUM CHLORIDE 50 ML VIAL 100 ML IV (13:48)
[2024-12-06] MEDS: IOPAMIDOL-370 (76%);100ML BOTTLE 160 ML IV (13:48)
[2024-12-06] MEDS: SODIUM CHLORIDE 0.9% 10ML SYR (RAD ONLY) 10 ML IV (13:49)
--- NOTE | 2024-12-06 13:52 | ED_ITS ---
Discharge Plan Disposition Patient Disposition: Home, Self-Care Chief Complaint: Syncope Prescriptions Prescriptions: No Action budesonide-formoterol [Symbicort] 160-4.5 mcg/actuation HFA aerosol inhaler 2 puff INHALATION BID Qty: 10.2 0RF spironolactone 50 mg tablet 50 mg PO DAILY Qty: 90 3RF metoclopramide HCl [Reglan] 5 mg tablet 5 mg PO QACHS Qty: 120 0RF buspirone 15 mg tablet 15 mg PO TID Rx Instructions: Take 1 tablet by mouth three times a day Atrovent HFA 17 mcg/actuation HFA aerosol inhaler 2 puff inhalation QID Patient Comments: INHALE TWO (2) PUFFS BY MOUTH FOUR (4) TIMES DAILY Linzess 290 mcg capsule 290 mcg PO DAILY Qty: 90 3RF ergocalciferol (vitamin D2) 1,250 mcg (50,000 unit) capsule 1,250 mcg PO DIRECTED Patient Comments: TAKE ONE (1) CAPSULE (50 000 UNIT) BY ORAL ROUTE TWICE WEEKLY Rx Instructions: 1 capsule by mouth twice weekly cyanocobalamin (vitamin B-12) 1,000 mcg/mL solution 1,000 mcg SQ QMONTH trazodone 150 mg tablet 150 mg PO HSP PRN (Reason: Sleep) Patient Comments: TAKE ONE (1) TABLET EVERY DAY BY ORAL ROUTE AT BEDTIME. gabapentin 400 mg capsule 400 mg PO TID escitalopram oxalate 20 mg tablet 20 mg PO DAILY (DME) Insulin Syringe MicroFine 1 mL 27 gauge x 5/8 syringe See Rx Instructions .ROUTE .MEDSUPPLY Qty: 50 Patient Comments: USE DIRECTED WITH B-12 INJECTION Rx Instructions: As directed omeprazole 40 mg capsule,delayed release(DR/EC) 40 mg PO DAILY Patient Comments: TAKE ONE (1) CAPSULE BY MOUTH EVERY DAY ezetimibe [Zetia] 10 mg tablet 10 mg PO DAILY Qty: 90 3RF furosemide 40 mg tablet 40 mg PO DAILY Qty: 90 3RF ranolazine 1,000 mg tablet extended release 12 hr 1,000 mg PO BID Qty: 180 3RF Patient Comments: TAKE 1 TABLET BY MOUTH TWICE DAILY prucalopride [Motegrity] 2 mg tablet 2 mg PO DAILY Qty: 30 12RF Rx Instructions: Please take 1 tablet p.o. daily metformin 1,000 mg tablet extended release 24hr 1,000 mg PO BID Patient Comments: TAKE ONE (1) TABLET BY MOUTH TWICE DAILY albuterol sulfate 2.5 mg /3 mL (0.083 %) solution for nebulization 2.5 mg inhalation Q6HP PRN (Reason: Shortness Of Breath Or Wheezing) Patient Comments: USE ONE (1) VIAL (3ML) BY NEBULIZATION NEEDED EVERY SIX (6) HOURS nitroglycerin 0.4 mg Tablet, Sublingual 0.4 mg SUBLINGUAL Q5M PRN (Reason: Chest Pain) Rx Instructions: do not exceed 3 doses per episode insulin lispro [Humalog U-100 Insulin] 100 unit/mL solution See Rx Instructions .ROUTE .COMPLEX Patient Comments: INJECT ONE (1) SLIDING SCALE DOSE BY SUBCUTANEOUS ROUTE. MAX OF 80 UNITS PER DAY Rx Instructions: INJECT ONE (1) SLIDING SCALE DOSE BY SUBCUTANEOUS ROUTE. MAX OF 80 UNITS PER DAY albuterol sulfate [Ventolin HFA] 90 mcg/actuation Hfa Aerosol Inhaler 2 puff INHALATION Q4HP PRN (Reason: Shortness Of Breath Or Wheezing) fluticasone propionate 50 mcg/actuation spray,suspension 1 spray INTRANASAL DAILY Patient Comments: INHALE ONE (1) SPRAY IN EACH NOSTRIL BY INTRANASAL ROUTE ONCE DAILY carvedilol 25 mg tablet 25 mg PO BID Rx Instructions: TAKE ONE (1) TABLET BY MOUTH TWICE DAILY WITH FOOD clopidogrel 75 mg tablet 75 mg PO DAILY Rx Instructions: Take 1 tablet by mouth once daily tiotropium bromide [Spiriva with HandiHaler] 18 mcg capsule, w/inhalation device 1 cap inhalation DAILY Rx Instructions: INHALE CONTENTS OF ONE CAPSULE VIA HANDIHALER ONCE DAILY FOR COPD sacubitril-valsartan [Entresto] 97-103 mg tablet 1 tab PO BID Rx Instructions: Take 1 tablet by mouth twice daily Repatha SureClick 140 mg/mL pen injector 140 mg SQ DIRECTED Rx Instructions: INJECT 140 MG SUBCUTANEOUSLY ONCE EVERY 2 WEEKS Referrals Follow up/Referrals: Jaden Cheek APRN [Primary Care Provider] - See instructions Activity Restrictions/Add. Instructions Additional Instructions/Restrictions: Hold spironolactone until following up with cardiology Try to get an appointment to see cardiology within 1 week for repeat labs and evaluation Continue taking Lasix as prescribed Call your family doctor to establish care for this visit to the emergency department and schedule follow-up within 48 hours to ensure improvement. If you have any worsening of your condition or any other concerning signs or symptoms, return to the emergency department or your primary care doctor for further evaluation. Clinical Impressions Clinical Impression: Hypotension, Hyperkalemia, Pre-syncope, General weakness, Left flank pain, Pain in right leg Instructions Patient Instructions: DI for Syncope in Adults (Fainting), DI for Syncope in Children (Fainting) Print Language Print Language: Icelandic Discharge ED Provider: Robert Howard General Adult HPI <Shraddha López, - Last Filed: 12/06/24 15:10> General Chief complaint: Syncope Stated complaint: POSS STEMI Time Seen by Provider: 12/06/24 13:00 Mode of Arrival: EMS Source of Information: Patient, EMS and Medical Record Limitations: No Limitations Description of Symptoms (Recalled from ER Triage Doc. by RN): Pt brought to ER by [facility] d/t possible STEMI per EKG @ Jaden Cheek's office. Pt states she has been feeling weak, and felt like I might pass out . States she recently fell and She c/o L flank side pain. She is diabetic and her Glucose has been approx 200 t/o the day. Currently FSBG is 196. States she has taken all of her morning medications today. States, I don't really know what happened. I really did have a choice, they just brought me here . Denies any chest pain. She does have a hx of CAD, CHF, DM, and COPD. History of Present Illness HPI narrative: This patient is a 49-year-old female with a history of gastroparesis, chronic constipation, diabetes, prior diabetic foot infection, ischemic cardiomyopathy, CAD, tobacco dependence, hypertension, depression/anxiety presenting to the emergency department for evaluation with concern for near syncope. According to [facility], they were called for a possible diabetic emergency at [facility]. There, they were told that an EKG was obtained that was sent to Dr. Pina and confirmed STEMI. They obtained an EKG that they noted was not concerning for STEMI. They note the patient never complained of chest pain or shortness of breath. Patient states that the last thing she remembers was going [facility] when she suddenly feel that she is going to pass out. She states that the person she was with drove her to the clinic for evaluation, and she was so out of it and weak that she was not able to do anything. She notes she Feeling like she was going to pass out. She states she has had some pain in the left side of her back/ribs after a fall that happened on Monday. She also has had right leg pain after a fall. She denies any other concerns recently, such as recent illnesses. She does take aspirin and Plavix but denies use of anticoagulation otherwise. Patient received aspirin prior to arrival. Related Data Home Medications ?Medication ?Instructions ?Recorded ?Confirmed ergocalciferol (vitamin D2) 1,250 1,250 mcg PO DIRECTED Supplement 11/03/21 12/06/24 mcg (50,000 unit) capsule cyanocobalamin (vitamin B-12) 1,000 mcg SQ QMONTH 05/11/23 12/06/24 1,000 mcg/mL injection solution trazodone 150 mg tablet 150 mg PO HSP PRN Sleep 06/27/23 12/06/24 escitalopram oxalate 20 mg tablet 20 mg PO DAILY 12/28/23 12/06/24 gabapentin 400 mg capsule 400 mg PO TID 12/28/23 12/06/24 ipratropium bromide 17 2 puff inhalation QID 08/12/24 12/06/24 mcg/actuation HFA aerosol inhaler (Atrovent HFA) buspirone 15 mg tablet 15 mg PO TID 10/08/24 12/06/24 insulin syringe-needle U-100 1 mL #50 ea 10/23/24 12/06/24 27 gauge x 5/8 (Insulin Syringe MicroFine) omeprazole 40 mg capsule,delayed 40 mg PO DAILY 10/23/24 12/06/24 release albuterol sulfate 2.5 mg/3 mL 2.5 mg inhalation Q6HP PRN 12/06/24 12/06/24 (0.083 %) solution for nebulization Shortness Of Breath Or Wheezing albuterol sulfate 90 mcg/actuation 2 puff inhalation Q4HP PRN 12/06/24 12/06/24 aerosol inhaler (Ventolin HFA) Shortness Of Breath Or Wheezing carvedilol 25 mg tablet 25 mg PO BID 12/06/24 12/06/24 clopidogrel 75 mg tablet 75 mg PO DAILY 12/06/24 12/06/24 evolocumab 140 mg/mL subcutaneous 140 mg SQ DIRECTED 12/06/24 12/06/24 pen injector (Preeti Mar) fluticasone propionate 50 1 spray intranasal DAILY 12/06/24 12/06/24 mcg/actuation nasal spray,suspension insulin lispro 100 unit/mL See Rx Instructions .Route .COMPLEX 12/06/24 12/06/24 subcutaneous solution (Humalog U-100 Insulin) metformin 1,000 mg tablet,extended 1,000 mg PO BID 12/06/24 12/06/24 release 24hr (osmotic) nitroglycerin 0.4 mg sublingual 0.4 mg sublingual Q5M PRN Chest 12/06/24 12/06/24 tablet Pain sacubitril 97 mg-valsartan 103 mg 1 tab PO BID 12/06/24 12/06/24 tablet (Entresto) tiotropium bromide 18 mcg capsule 1 cap inhalation DAILY Copd 12/06/24 12/06/24 with inhalation device (Spiriva with HandiHaler) Previous Rx's ?Medication ?Instructions ?Recorded budesonide-formoterol HFA 160 2 puff inhalation BID COPD #10.2 01/10/22 mcg-4.5 mcg/actuation aerosol grams inhaler (Symbicort) spironolactone 50 mg tablet 50 mg PO DAILY #90 tabs 02/08/24 furosemide 40 mg tablet 40 mg PO DAILY #90 tabs 06/25/24 ranolazine 1,000 mg 1,000 mg PO BID #180 tabs 06/25/24 tablet,extended release,12 hr metoclopramide HCl 5 mg tablet 5 mg PO QACHS #120 tabs 07/01/24 (Reglan) linaclotide 290 mcg capsule 290 mcg PO DAILY #90 caps 10/08/24 (Linzess) ezetimibe 10 mg tablet (Zetia) 10 mg PO DAILY #90 tabs 10/23/24 prucalopride 2 mg tablet 2 mg PO DAILY #30 tabs 11/13/24 (Motegrity) Allergies Allergy/AdvReac Type Severity Reaction Status Date / Time atorvastatin (From Lipitor) AdvReac Severe Unknown Verified 12/05/24 09:53 allergy reaction isosorbide AdvReac Severe Headache Verified 12/05/24 09:53 pravastatin AdvReac Severe Joint Pain Verified 12/05/24 09:53 rosuvastatin (From Crestor) AdvReac Severe Joint Pain Verified 12/05/24 09:53 semaglutide (From Ozempic) AdvReac Severe Other Verified 12/05/24 09:53 PFSH <Shraddha López DO - Last Filed: 12/06/24 15:10> PFS Disclaimer: The information contained in this section may have been updated after the patient was seen, as this information can be updated by other users. Medical History Urinary tract infection Sleep apnea History of COVID-19 Irritable bowel syndrome (IBS) Gastroparesis Edema Obesity Frequent falls Right foot drop Low back pain Diabetic ulcer of foot associated with diabetes mellitus due to underlying condition, limited to breakdown of skin Hypertriglyceridemia Dyspnea Abnormal electrocardiography CAD (coronary artery disease) Tobacco dependence syndrome Hyperlipidemia Nerve pain Tobacco use Hypertension Diabetes mellitus Fatigue Anxiety Depression Surgical History History of surgery on arm History of cholecystectomy History of hernia surgery History of tubal ligation Stented coronary artery Family History Other No significant family history Social History Smoking Status: Current some day smoker tobacco type: cigarettes packs per day: 1 alcohol intake: never substance use type: marijuana current occupational status: disabled Travel in the last 8 weeks: None household members: family and children housing: house caffeine: No Have you lived/traveled outside [place] in past 30 days?: No Contact w/someone who lives/traveled outside US past 30 days?: No Exposure to someone with infectious disease in past 14 days?: No Do you have a fever (greater than 100.4 F or 38 C)?: No Have you tested positive for COVID-19: No Exposed to someone with COVID-19 in past 14 days?: No Do you have a sore throat?: No Do you have a cough?: No Do you have any weakness?: No Do you have any diarrhea?: No Are you experiencing any unusual bleeding?: No Do you have any muscle aches/pain?: No Do you have any abdominal pain?: No Are you experiencing loss of taste or smell?: No Other Medical History Have you received the Flu Vaccine for this season: No Have you received the Pneumonia Vaccine: Yes <Shraddha López DO - Last Filed: 12/06/24 15:10> ROS Obtained: Yes All systems reviewed & no additional complaints except as documented Physical Exam <Shraddha López DO - Last Filed: 12/06/24 15:10> General General appearance: alert and obese Comment: Ill-appearing, tired appearing Head Head exam: atraumatic and normocephalic Eye Eye exam: Present normal appearance, PERRL and EOMI ENT ENT exam: Present normal exam, normal oropharynx, mucous membranes moist and normal external ear exam Neck Neck exam: Present normal inspection, full ROM and trachea midline; Absent tenderness Chest Chest inspection: Present symmetric chest wall rise and tenderness (Left side) Respiratory Respiratory exam: Present normal lung sounds bilaterally; Absent respiratory distress, wheezes, stridor or accessory muscle use Cardiovascular Cardiovascular exam: Present regular rate and normal rhythm Abdominal Exam Abdominal exam: Present soft and tenderness (Left side); Absent distention, guarding, rebound or rigidity Extremities Exam Extremities exam: Present tenderness (Tenderness to palpation of the right knee. Brace in place. All compartment soft, neurovascularly intact distally.) and normal capillary refill; Absent edema Back Exam Back exam: Present tenderness (Left side) Neurological Exam Neurological exam: Present alert, oriented X3, CN II-XII intact and other (Generally weak without focal deficit); Absent motor sensory deficit Psychiatric Psychiatric exam: Present normal affect and normal mood Skin Skin exam: Present warm and dry Medical Decision Making <Shraddha López DO - Last Filed: 12/06/24 15:10> Medical Records Medical records reviewed: Yes I reviewed the patient's medical records. Screening: Per USPSTF and CDC recommendations, given the prevalence of disease in our region, it is our hospital?s policy to screen for HIV and viral Hepatitis for all patients aged 18 and over and those with ongoing risk factors. Kurt Inquiry Pt receiving controlled substance: No Vital Signs: 12/06/24 12:55 12/06/24 13:00 12/06/24 13:10 Temperature 97.8 F Temperature Source Oral Pulse Rate 60 60 Pulse Rate [Orthostatic Lying Left Radial] Pulse Rate [Orthostatic Sitting Left] Pulse Rate [Orthostatic Standing Left] Pulse Rate [Right] 61 Respiratory Rate 15 18 18 Blood Pressure 85/62 L 98/55 L Blood Pressure [Orthostatic Lying Left Arm] Blood Pressure [Orthostatic Sitting Left Arm] Blood Pressure [Orthostatic Standing Left Arm] Blood Pressure [Right Arm] 84/55 L Blood Pressure Mean [Right Arm] 64 Blood Pressure Source [Right Arm] Automatic Cuff 02 Sat by Pulse Oximetry 98 99 99 Oxygen Delivery Method Room Air Room Air 12/06/24 13:20 12/06/24 13:30 12/06/24 14:16 Temperature Temperature Source Pulse Rate 62 60 65 Pulse Rate [Orthostatic Lying Left Radial] Pulse Rate [Orthostatic Sitting Left] Pulse Rate [Orthostatic Standing Left] Pulse Rate [Right] Respiratory Rate 18 21 11 L Blood Pressure 88/55 L 83/54 L 104/63 L Blood Pressure [Orthostatic Lying Left Arm] Blood Pressure [Orthostatic Sitting Left Arm] Blood Pressure [Orthostatic Standing Left Arm] Blood Pressure [Right Arm] Blood Pressure Mean [Right Arm] Blood Pressure Source [Right Arm] 02 Sat by Pulse Oximetry 99 99 96 Oxygen Delivery Method Room Air Room Air Room Air 12/06/24 14:20 12/06/24 14:30 12/06/24 14:43 Temperature Temperature Source Pulse Rate 64 63 62 Pulse Rate [Orthostatic Lying Left Radial] Pulse Rate [Orthostatic Sitting Left] Pulse Rate [Orthostatic Standing Left] Pulse Rate [Right] Respiratory Rate 17 17 18 Blood Pressure 90/57 L 88/46 L 90/61 L Blood Pressure [Orthostatic Lying Left Arm] Blood Pressure [Orthostatic Sitting Left Arm] Blood Pressure [Orthostatic Standing Left Arm] Blood Pressure [Right Arm] Blood Pressure Mean [Right Arm] Blood Pressure Source [Right Arm] 02 Sat by Pulse Oximetry 98 98 97 Oxygen Delivery Method Room Air Room Air Room Air 12/06/24 14:45 12/06/24 14:54 12/06/24 14:55 Temperature Temperature Source Pulse Rate 64 69 70 Pulse Rate [Orthostatic Lying Left Radial] Pulse Rate [Orthostatic Sitting Left] Pulse Rate [Orthostatic Standing Left] Pulse Rate [Right] Respiratory Rate 16 19 21 Blood Pressure 107/66 L 89/51 L 102/60 L Blood Pressure [Orthostatic Lying Left Arm] Blood Pressure [Orthostatic Sitting Left Arm] Blood Pressure [Orthostatic Standing Left Arm] Blood Pressure [Right Arm] Blood Pressure Mean [Right Arm] Blood Pressure Source [Right Arm] 02 Sat by Pulse Oximetry 98 98 98 Oxygen Delivery Method Room Air Room Air Room Air 12/06/24 14:57 12/06/24 15:00 12/06/24 15:00 Temperature Temperature Source Pulse Rate 69 63 Pulse Rate [Orthostatic Lying Left Radial] 70 Pulse Rate [Orthostatic Sitting Left] 69 Pulse Rate [Orthostatic Standing Left] 66 Pulse Rate [Right] Respiratory Rate 15 15 Blood Pressure 87/51 L 95/62 L Blood Pressure [Orthostatic Lying Left Arm] 89/51 L Blood Pressure [Orthostatic Sitting Left Arm] 102/60 L Blood Pressure [Orthostatic Standing Left Arm] 87/51 L Blood Pressure [Right Arm] Blood Pressure Mean [Right Arm] Blood Pressure Source [Right Arm] 02 Sat by Pulse Oximetry 97 97 Oxygen Delivery Method Room Air Room Air 12/06/24 15:15 12/06/24 15:30 12/06/24 15:45 Temperature Temperature Source Pulse Rate 69 60 60 Pulse Rate [Orthostatic Lying Left Radial] Pulse Rate [Orthostatic Sitting Left] Pulse Rate [Orthostatic Standing Left] Pulse Rate [Right] Respiratory Rate 16 15 12 Blood Pressure 106/73 L 90/60 L 90/54 L Blood Pressure [Orthostatic Lying Left Arm] Blood Pressure [Orthostatic Sitting Left Arm] Blood Pressure [Orthostatic Standing Left Arm] Blood Pressure [Right Arm] Blood Pressure Mean [Right Arm] Blood Pressure Source [Right Arm] 02 Sat by Pulse Oximetry 96 98 97 Oxygen Delivery Method Room Air Room Air Room Air 12/06/24 16:00 12/06/24 16:15 12/06/24 16:30 Temperature Temperature Source Pulse Rate 70 72 66 Pulse Rate [Orthostatic Lying Left Radial] Pulse Rate [Orthostatic Sitting Left] Pulse Rate [Orthostatic Standing Left] Pulse Rate [Right] Respiratory Rate 15 18 13 Blood Pressure 98/65 L 102/62 L 108/71 L Blood Pressure [Orthostatic Lying Left Arm] Blood Pressure [Orthostatic Sitting Left Arm] Blood Pressure [Orthostatic Standing Left Arm] Blood Pressure [Right Arm] Blood Pressure Mean [Right Arm] Blood Pressure Source [Right Arm] 02 Sat by Pulse Oximetry 95 97 97 Oxygen Delivery Method Room Air Room Air 12/06/24 16:45 12/06/24 17:00 12/06/24 17:15 Temperature Temperature Source Pulse Rate 62 67 65 Pulse Rate [Orthostatic Lying Left Radial] Pulse Rate [Orthostatic Sitting Left] Pulse Rate [Orthostatic Standing Left] Pulse Rate [Right] Respiratory Rate 14 13 15 Blood Pressure 114/79 110/73 106/72 L Blood Pressure [Orthostatic Lying Left Arm] Blood Pressure [Orthostatic Sitting Left Arm] Blood Pressure [Orthostatic Standing Left Arm] Blood Pressure [Right Arm] Blood Pressure Mean [Right Arm] Blood Pressure Source [Right Arm] 02 Sat by Pulse Oximetry 98 97 97 Oxygen Delivery Method Room Air 12/06/24 17:30 12/06/24 17:45 12/06/24 18:00 Temperature Temperature Source Pulse Rate 68 66 61 Pulse Rate [Orthostatic Lying Left Radial] Pulse Rate [Orthostatic Sitting Left] Pulse Rate [Orthostatic Standing Left] Pulse Rate [Right] Respiratory Rate 12 12 15 Blood Pressure 111/76 102/65 L 99/62 L Blood Pressure [Orthostatic Lying Left Arm] Blood Pressure [Orthostatic Sitting Left Arm] Blood Pressure [Orthostatic Standing Left Arm] Blood Pressure [Right Arm] Blood Pressure Mean [Right Arm] Blood Pressure Source [Right Arm] 02 Sat by Pulse Oximetry 96 97 98 Oxygen Delivery Method Room Air Room Air Room Air 12/06/24 18:15 Temperature Temperature Source Pulse Rate 64 Pulse Rate [Orthostatic Lying Left Radial] Pulse Rate [Orthostatic Sitting Left] Pulse Rate [Orthostatic Standing Left] Pulse Rate [Right] Respiratory Rate 14 Blood Pressure 109/70 L Blood Pressure [Orthostatic Lying Left Arm] Blood Pressure [Orthostatic Sitting Left Arm] Blood Pressure [Orthostatic Standing Left Arm] Blood Pressure [Right Arm] Blood Pressure Mean [Right Arm] Blood Pressure Source [Right Arm] 02 Sat by Pulse Oximetry 97 Oxygen Delivery Method Room Air Lab Data Lab results reviewed: Yes I reviewed the patient's lab results. Lab Results 12/06/24 13:00: WBC 7.1, RBC 3.70 L, Hgb 11.7 L, Hct 35.1 L, MCV 94.9, MCH 31.6 H, MCHC 33.3, RDW 13.4, Plt Count 212, MPV 10.8 H, Neut % (Auto) 65.7, Lymph % (Auto) 23.7, [place] % (Auto) 6.7, Eos % (Auto) 2.7, Baso % (Auto) 0.6, Neut # (Auto) 4.6, Lymph # (Auto) 1.7, [place] # (Auto) 0.5, Eos # (Auto) 0.2, Baso # (Auto) 0.0, PT 10.6, INR 0.94, APTT 23.8, Sodium 134 L, Potassium 6.2 H*, C hloride 111 H, Carbon Dioxide 24, Anion Gap 5.2, BUN 20 H, Creatinine 0.80, Estimated Creat Clear 119, Estimated GFR 76, Est GFR ( Amer) 92, Glucose 173 H, Calcium 8.2 L, Magnesium 1.3 L, Total Bilirubin 0.3, AST 28, ALT 22, Alkaline Phosphatase 47, Total Creatine Kinase 50, Troponin I < 0.01, NT-Pro-B Natriuret Pep 88.1, Total Protein 6.7, Albumin 4.0, Globulin 2.7, Albumin/Globulin Ratio 1.5, Lipase 101, TSH 1.52, Thyroxine (T4) 5.6 12/06/24 13:21: VBG pH 7.24 L, VBG pCO2 50.5, VBG pO2 36.5, VBG HCO3 21.2 L, VBG Total CO2 22.8 L, VBG O2 Saturation 65.4, VBG Base Excess -6.2 L, VBG Lactic Acid 2.5 H 12/06/24 14:50: Urine Color Yellow, Urine Appearance Clear, Urine pH 6.0, Ur Specific [place] 1.020, Urine Protein Negative, Urine Glucose (UA) Trace, Urine Ketones Negative, Urine Blood Negative, Urine Nitrate Negative, Urine Bilirubin Negative, Urine Urobilinogen 0.2, Ur Leukocyte Esterase Negative, Urine RBC Occasional, Urine WBC Occasional, Ur Squamous Epith Cells 3-5, Urine Bacteria Trace 12/06/24 16:00: Potassium 5.6 H, Troponin I < 0.01 12/06/24 13:00 12/06/24 16:00 Orders (Tests/Meds): ED MEDICATIONS Generic Name Dose Route Start Last Admin Trade Name Freq PRN Reason Stop Dose Admin Sodium Chloride 10 ml 12/06/24 13:47 12/06/24 13:49 Sodium Chloride 0.9% 10ml Syr (Rad Only) IV 01/05/25 13:46 10 ml NEEDED PRN Administration Maintain IV Site Discontinued Medications Generic Name Dose Route Start Last Admin Trade Name Jeanne PRN Reason Stop Dose Admin Acetaminophen 1,000 mg 12/06/24 13:27 12/06/24 13:38 Acetaminophen 1,000mg/100ml Vial IV 12/06/24 13:28 1,000 mg ONCE ONE Administration Dextrose 50 ml 12/06/24 13:43 12/06/24 14:34 Dextrose 50% 50ml Syringe (Crash Cart) IVP 12/06/24 13:44 50 ml ONCE ONE Administration Lactated Ringer's 1,000 mls @ 999 mls/hr 12/06/24 13:27 12/06/24 13:38 Lactated Ringer's 1000 Ml Bag IV 12/06/24 14:27 999 mls/hr .Q1H1M ONE Administration Calcium Gluconate/Sodium Chloride 2 gm in 100 mls @ 50 mls/hr 12/06/24 13:43 12/06/24 14:35 Calcium Gluconate 2,000mg/100ml Nacl Premix IV 12/06/24 15:42 50 mls/hr ONCE ONE Administration Insulin Human Regular 10 unit 12/06/24 13:43 12/06/24 14:35 Insulin Human Regular 100 Units/Ml 10ml Vial IVP 12/06/24 13:44 10 unit ONCE ONE Administration Iopamidol 160 ml 12/06/24 13:47 12/06/24 13:48 Iopamidol-370 (76%);100ml Bottle IV 12/06/24 13:48 160 ml ONCE ONE Administration Ketorolac Tromethamine 15 mg 12/06/24 13:27 12/06/24 13:38 Ketorolac 30mg/Ml Vial IV 12/06/24 13:28 15 mg ONCE ONE Administration Magnesium Oxide 800 mg 12/06/24 17:14 12/06/24 17:29 Magnesium Oxide 400mg Tablet PO 12/06/24 17:15 800 mg ONCE ONE Administration Sodium Chloride 100 ml 12/06/24 13:47 12/06/24 13:48 0.9 % Sodium Chloride 50 Ml Vial IV 12/06/24 13:48 100 ml ONCE ONE Administration Sodium Zirconium Cyclosilicate 10 gm 12/06/24 16:33 12/06/24 16:43 Lokelma 5gm Packet PO 12/06/24 16:34 10 gm ONCE ONE Administration ORDERS Category Date Time Status CT angio abdomen pelvis Stat Cat Scan 12/06/24 13:[address] angio chest PE protocol Stat Cat Scan 12/06/24 13:[address] angio head Stat Cat Scan 12/06/24 13:[address] angio neck Stat Cat Scan 12/06/24 13:[address] bony pelvis Stat Cat Scan 12/06/24 13:[address] cervical spine wo con Stat Cat Scan 12/06/24 13:[address] head/brain wo con Stat Cat Scan 12/06/24 13:[address] lumbar spine wo con Stat Cat Scan 12/06/24 13:[address] thoracic spine wo con Stat Cat Scan 12/06/24 13:09 Completed Femur XR right 2 views [XR femur RT 2V] Stat Exams 12/06/24 13:09 Completed Knee XR right 3 views [XR knee RT 3V] Stat Exams 12/06/24 13:09 Completed Tibia/fibula XR right 2 views [XR tibia fibula RT 2V] Exams 12/06/24 13:09 Completed Stat BNP [NT Pro Brain Natriuretic Pep.] Stat Lab 12/06/24 13:00 Completed CK [Creatine Kinase] Stat Lab 12/06/24 13:00 Completed Complete Blood Count Auto Diff Stat Lab 12/06/24 13:00 Completed Comprehensive Metabolic Panel Stat Lab 12/06/24 13:00 Completed Lipase Stat Lab 12/06/24 13:00 Completed MAG [Magnesium] Stat Lab 12/06/24 13:00 Completed PT INR [Prothrombin Time INR] Stat Lab 12/06/24 13:00 Completed PTT [Activated Partial Thrombo Time] Stat Lab 12/06/24 13:00 Completed Potassium Stat Lab 12/06/24 16:00 Completed T4 (Thyroxine) Stat Lab 12/06/24 13:00 Completed TSH [Thyroid Stimulating Hormone] Stat Lab 12/06/24 13:00 Completed Trop I [Troponin I] Stat Lab 12/06/24 13:00 Completed Troponin I Q3H Lab 12/06/24 16:00 Completed Troponin I Q3H Lab 12/06/24 19:15 Ordered UA [Urinalysis and Microscopic] Stat Lab 12/06/24 14:50 Completed Blood Culture Stat Micro 12/06/24 13:30 Received VBG [Venous Blood Gas] Stat RT 12/06/24 13:21 Completed ECG Data Tracing #1: I reviewed this ECG and interpreted as documented below: Normal sinus rhythm with a ventricular of [address]/T wave changes without acute STEMI. QTc of 452 ms. ECG initial impression date: 12/06/24 ECG initial impression time: 12:58 Medical Decision Narrative: In summary, this patient is a 49-year-old female presenting to the Emergency Department for evaluation of near syncope, general weakness, left side/flank pain after a fall that happened Monday, right leg pain. Possible STEMI noted in clinic, but I do not see STEMI on EKG provided to me. She arrives ill- appearing, hypotensive, nonspecific EKG changes without acute STEMI. differential diagnoses considered include but are not limited to traumatic injuries from a fall, hemorrhagic shock, rhabdomyolysis, electrolyte derangements, dehydration, DKA, HHS, ACS, dysrhythmia, PE. Ruling out the most morbid conditions drove assessment. It should be noted patient's history includes morbid obesity, tobacco dependence, hypertension, diabetes, hyperlipidemia, ischemic cardiomyopathy which likely are not at goal therapy. This complicates all aspects of care by increasing patient's risk for morbidity. I reviewed patient's past medical records and noted previous podiatry evaluations for diabetic footcare as well as previous cardiology evaluations for CAD and ischemic cardiomyopathy. Most recent echo from 01/2024 showed EF of 40 to 45% with severe hypokinesis in the mid to distal inferior septal and anteroseptal LV zhang as well as the LV apex. Patient arrives ill-appearing, hypotensive, nonspecific EKG changes but no acute STEMI as stated above. She is generally weak without focal neurologic deficits. She does have pain on her left side/flank after fall that happened several days ago as well as of her right lower extremity. No obvious concerns for compartment syndrome, cardiopulmonary and abdominal exams are otherwise benign. Workup included trauma CT scans as well as broad lab evaluation to evaluate for infectious, metabolic, cardiac causes of symptoms. Given concern for reported STEMI at PCP office, I did discuss the case with Dr. Pina and Dr. Bernardo who advised no STEMI and no indication for emergent cath as of right now. Patient already received aspirin prior to arrival. Labs were obtained that demonstrated hyperkalemia with a potassium of 6.2 as well as metabolic acidosis and mildly elevated lactic. Kidney function normal. She has mild anemia but no indication for transfusion at this time. Glucose is 173. For the hyperkalemia, administered a bolus of IV fluids as well as IV insulin and dextrose. I also administered calcium gluconate for cardiac membrane stabilization. I independently interpreted CT scans and x-rays prior to the radiologist read and noted no obvious acute fracture.. Please see their read for final interpretation. On reassessment, patient had some improvement after administration of IV fluids and interventions above. She remained slightly hypotensive and bradycardic but blood pressure is slightly improving with fluids. She is orthostatic. She is on beta-alejandro. She has isolated hyperkalemia and metabolic acidosis with mildly elevated lactic. I was discussing with her to try and determine the etiology, she has not taken any extra beta-blockers and has had no recent medication changes. She is on spironolactone which is potassium sparing, so this could contribute. She does note chronically poor oral intake in the setting of gastroparesis, and she does note it has been a little bit worse than normal lately. No significant losses with diarrhea. Ultimately, I advised her that we often admit patients with hyperkalemia for cardiac monitoring because it can lead to cardiac dysrhythmias and even . I advised the safest option is to be admitted for monitoring, she is not sure if she would want to be admitted at this time. She was to see how she feels after IV fluids finish and after her IV insulin/dextrose. Given this, patient care signed out to the oncoming provider, Dr. Howard. <Robert Howard MD - Last Filed: 12/06/24 18:34> Vital Signs: 12/06/24 12:55 12/06/24 13:00 12/06/24 13:10 Temperature 97.8 F Temperature Source Oral Pulse Rate 60 60 Pulse Rate [Orthostatic Lying Left Radial] Pulse Rate [Orthostatic Sitting Left] Pulse Rate [Orthostatic Standing Left] Pulse Rate [Right] 61 Respiratory Rate 15 18 18 Blood Pressure 85/62 L 98/55 L Blood Pressure [Orthostatic Lying Left Arm] Blood Pressure [Orthostatic Sitting Left Arm] Blood Pressure [Orthostatic Standing Left Arm] Blood Pressure [Right Arm] 84/55 L Blood Pressure Mean [Right Arm] 64 Blood Pressure Source [Right Arm] Automatic Cuff 02 Sat by Pulse Oximetry 98 99 99 Oxygen Delivery Method Room Air Room Air 12/06/24 13:20 12/06/24 13:30 12/06/24 14:16 Temperature Temperature Source Pulse Rate 62 60 65 Pulse Rate [Orthostatic Lying Left Radial] Pulse Rate [Orthostatic Sitting Left] Pulse Rate [Orthostatic Standing Left] Pulse Rate [Right] Respiratory Rate 18 21 11 L Blood Pressure 88/55 L 83/54 L 104/63 L Blood Pressure [Orthostatic Lying Left Arm] Blood Pressure [Orthostatic Sitting Left Arm] Blood Pressure [Orthostatic Standing Left Arm] Blood Pressure [Right Arm] Blood Pressure Mean [Right Arm] Blood Pressure Source [Right Arm] 02 Sat by Pulse Oximetry 99 99 96 Oxygen Delivery Method Room Air Room Air Room Air 12/06/24 14:20 12/06/24 14:30 12/06/24 14:43 Temperature Temperature Source Pulse Rate 64 63 62 Pulse Rate [Orthostatic Lying Left Radial] Pulse Rate [Orthostatic Sitting Left] Pulse Rate [Orthostatic Standing Left] Pulse Rate [Right] Respiratory Rate 17 17 18 Blood Pressure 90/57 L 88/46 L 90/61 L Blood Pressure [Orthostatic Lying Left Arm] Blood Pressure [Orthostatic Sitting Left Arm] Blood Pressure [Orthostatic Standing Left Arm] Blood Pressure [Right Arm] Blood Pressure Mean [Right Arm] Blood Pressure Source [Right Arm] 02 Sat by Pulse Oximetry 98 98 97 Oxygen Delivery Method Room Air Room Air Room Air 12/06/24 14:45 12/06/24 14:54 12/06/24 14:55 Temperature Temperature Source Pulse Rate 64 69 70 Pulse Rate [Orthostatic Lying Left Radial] Pulse Rate [Orthostatic Sitting Left] Pulse Rate [Orthostatic Standing Left] Pulse Rate [Right] Respiratory Rate 16 19 21 Blood Pressure 107/66 L 89/51 L 102/60 L Blood Pressure [Orthostatic Lying Left Arm] Blood Pressure [Orthostatic Sitting Left Arm] Blood Pressure [Orthostatic Standing Left Arm] Blood Pressure [Right Arm] Blood Pressure Mean [Right Arm] Blood Pressure Source [Right Arm] 02 Sat by Pulse Oximetry 98 98 98 Oxygen Delivery Method Room Air Room Air Room Air 12/06/24 14:57 12/06/24 15:00 12/06/24 15:00 Temperature Temperature Source Pulse Rate 69 63 Pulse Rate [Orthostatic Lying Left Radial] 70 Pulse Rate [Orthostatic Sitting Left] 69 Pulse Rate [Orthostatic Standing Left] 66 Pulse Rate [Right] Respiratory Rate 15 15 Blood Pressure 87/51 L 95/62 L Blood Pressure [Orthostatic Lying Left Arm] 89/51 L Blood Pressure [Orthostatic Sitting Left Arm] 102/60 L Blood Pressure [Orthostatic Standing Left Arm] 87/51 L Blood Pressure [Right Arm] Blood Pressure Mean [Right Arm] Blood Pressure Source [Right Arm] 02 Sat by Pulse Oximetry 97 97 Oxygen Delivery Method Room Air Room Air 12/06/24 15:15 12/06/24 15:30 12/06/24 15:45 Temperature Temperature Source Pulse Rate 69 60 60 Pulse Rate [Orthostatic Lying Left Radial] Pulse Rate [Orthostatic Sitting Left] Pulse Rate [Orthostatic Standing Left] Pulse Rate [Right] Respiratory Rate 16 15 12 Blood Pressure 106/73 L 90/60 L 90/54 L Blood Pressure [Orthostatic Lying Left Arm] Blood Pressure [Orthostatic Sitting Left Arm] Blood Pressure [Orthostatic Standing Left Arm] Blood Pressure [Right Arm] Blood Pressure Mean [Right Arm] Blood Pressure Source [Right Arm] 02 Sat by Pulse Oximetry 96 98 97 Oxygen Delivery Method Room Air Room Air Room Air 12/06/24 16:00 12/06/24 16:15 12/06/24 16:30 Temperature Temperature Source Pulse Rate 70 72 66 Pulse Rate [Orthostatic Lying Left Radial] Pulse Rate [Orthostatic Sitting Left] Pulse Rate [Orthostatic Standing Left] Pulse Rate [Right] Respiratory Rate 15 18 13 Blood Pressure 98/65 L 102/62 L 108/71 L Blood Pressure [Orthostatic Lying Left Arm] Blood Pressure [Orthostatic Sitting Left Arm] Blood Pressure [Orthostatic Standing Left Arm] Blood Pressure [Right Arm] Blood Pressure Mean [Right Arm] Blood Pressure Source [Right Arm] 02 Sat by Pulse Oximetry 95 97 97 Oxygen Delivery Method Room Air Room Air 12/06/24 16:45 12/06/24 17:00 12/06/24 17:15 Temperature Temperature Source Pulse Rate 62 67 65 Pulse Rate [Orthostatic Lying Left Radial] Pulse Rate [Orthostatic Sitting Left] Pulse Rate [Orthostatic Standing Left] Pulse Rate [Right] Respiratory Rate 14 13 15 Blood Pressure 114/79 110/73 106/72 L Blood Pressure [Orthostatic Lying Left Arm] Blood Pressure [Orthostatic Sitting Left Arm] Blood Pressure [Orthostatic Standing Left Arm] Blood Pressure [Right Arm] Blood Pressure Mean [Right Arm] Blood Pressure Source [Right Arm] 02 Sat by Pulse Oximetry 98 97 97 Oxygen Delivery Method Room Air 12/06/24 17:30 12/06/24 17:45 12/06/24 18:00 Temperature Temperature Source Pulse Rate 68 66 61 Pulse Rate [Orthostatic Lying Left Radial] Pulse Rate [Orthostatic Sitting Left] Pulse Rate [Orthostatic Standing Left] Pulse Rate [Right] Respiratory Rate 12 12 15 Blood Pressure 111/76 102/65 L 99/62 L Blood Pressure [Orthostatic Lying Left Arm] Blood Pressure [Orthostatic Sitting Left Arm] Blood Pressure [Orthostatic Standing Left Arm] Blood Pressure [Right Arm] Blood Pressure Mean [Right Arm] Blood Pressure Source [Right Arm] 02 Sat by Pulse Oximetry 96 97 98 Oxygen Delivery Method Room Air Room Air Room Air 12/06/24 18:15 Temperature Temperature Source Pulse Rate 64 Pulse Rate [Orthostatic Lying Left Radial] Pulse Rate [Orthostatic Sitting Left] Pulse Rate [Orthostatic Standing Left] Pulse Rate [Right] Respiratory Rate 14 Blood Pressure 109/70 L Blood Pressure [Orthostatic Lying Left Arm] Blood Pressure [Orthostatic Sitting Left Arm] Blood Pressure [Orthostatic Standing Left Arm] Blood Pressure [Right Arm] Blood Pressure Mean [Right Arm] Blood Pressure Source [Right Arm] 02 Sat by Pulse Oximetry 97 Oxygen Delivery Method Room Air Lab Data Lab Results 12/06/24 13:00: WBC 7.1, RBC 3.70 L, Hgb 11.7 L, Hct 35.1 L, MCV 94.9, MCH 31.6 H, MCHC 33.3, RDW 13.4, Plt Count 212, MPV 10.8 H, Neut % (Auto) 65.7, Lymph % (Auto) 23.7, [place] % (Auto) 6.7, Eos % (Auto) 2.7, Baso % (Auto) 0.6, Neut # (Auto) 4.6, Lymph # (Auto) 1.7, [place] # (Auto) 0.5, Eos # (Auto) 0.2, Baso # (Auto) 0.0, PT 10.6, INR 0.94, APTT 23.8, Sodium 134 L, Potassium 6.2 H*, C hloride 111 H, Carbon Dioxide 24, Anion Gap 5.2, BUN 20 H, Creatinine 0.80, Estimated Creat Clear 119, Estimated GFR 76, Est GFR ( Amer) 92, Glucose 173 H, Calcium 8.2 L, Magnesium 1.3 L, Total Bilirubin 0.3, AST 28, ALT 22, Alkaline Phosphatase 47, Total Creatine Kinase 50, Troponin I < 0.01, NT-Pro-B Natriuret Pep 88.1, Total Protein 6.7, Albumin 4.0, Globulin 2.7, Albumin/Globulin Ratio 1.5, Lipase 101, TSH 1.52, Thyroxine (T4) 5.6 12/06/24 13:21: VBG pH 7.24 L, VBG pCO2 50.5, VBG pO2 36.5, VBG HCO3 21.2 L, VBG Total CO2 22.8 L, VBG O2 Saturation 65.4, VBG Base Excess -6.2 L, VBG Lactic Acid 2.5 H 12/06/24 14:50: Urine Color Yellow, Urine Appearance Clear, Urine pH 6.0, Ur Specific [place] 1.020, Urine Protein Negative, Urine Glucose (UA) Trace, Urine Ketones Negative, Urine Blood Negative, Urine Nitrate Negative, Urine Bilirubin Negative, Urine Urobilinogen 0.2, Ur Leukocyte Esterase Negative, Urine RBC Occasional, Urine WBC Occasional, Ur Squamous Epith Cells 3-5, Urine Bacteria Trace 12/06/24 16:00: Potassium 5.6 H, Troponin I < 0.01 Orders (Tests/Meds): ED MEDICATIONS Generic Name Dose Route Start Last Admin Trade Name Frejanae PRN Reason Stop Dose Admin Sodium Chloride 10 ml 12/06/24 13:47 12/06/24 13:49 Sodium Chloride 0.9% 10ml Syr (Rad Only) IV 01/05/25 13:46 10 ml NEEDED PRN Administration Maintain IV Site Discontinued Medications Generic Name Dose Route Start Last Admin Trade Name Freq PRN Reason Stop Dose Admin Acetaminophen 1,000 mg 12/06/24 13:27 12/06/24 13:38 Acetaminophen 1,000mg/100ml Vial IV 12/06/24 13:28 1,000 mg ONCE ONE Administration Dextrose 50 ml 12/06/24 13:43 12/06/24 14:34 Dextrose 50% 50ml Syringe (Crash Cart) IVP 12/06/24 13:44 50 ml ONCE ONE Administration Lactated Ringer's 1,000 mls @ 999 mls/hr 12/06/24 13:27 12/06/24 13:38 Lactated Ringer's 1000 Ml Bag IV 12/06/24 14:27 999 mls/hr .Q1H1M ONE Administration Calcium Gluconate/Sodium Chloride 2 gm in 100 mls @ 50 mls/hr 12/06/24 13:43 12/06/24 14:35 Calcium Gluconate 2,000mg/100ml Nacl Premix IV 12/06/24 15:42 50 mls/hr ONCE ONE Administration Insulin Human Regular 10 unit 12/06/24 13:43 12/06/24 14:35 Insulin Human Regular 100 Units/Ml 10ml Vial IVP 12/06/24 13:44 10 unit ONCE ONE Administration Iopamidol 160 ml 12/06/24 13:47 12/06/24 13:48 Iopamidol-370 (76%);100ml Bottle IV 12/06/24 13:48 160 ml ONCE ONE Administration Ketorolac Tromethamine 15 mg 12/06/24 13:27 12/06/24 13:38 Ketorolac 30mg/Ml Vial IV 12/06/24 13:28 15 mg ONCE ONE Administration Magnesium Oxide 800 mg 12/06/24 17:14 12/06/24 17:29 Magnesium Oxide 400mg Tablet PO 12/06/24 17:15 800 mg ONCE ONE Administration Sodium Chloride 100 ml 12/06/24 13:47 12/06/24 13:48 0.9 % Sodium Chloride 50 Ml Vial IV 12/06/24 13:48 100 ml ONCE ONE Administration Sodium Zirconium Cyclosilicate 10 gm 12/06/24 16:33 12/06/24 16:43 Lokelma 5gm Packet PO 12/06/24 16:34 10 gm ONCE ONE Administration ORDERS Category Date Time Status CT angio abdomen pelvis Stat Cat Scan 12/06/24 13:[address] angio chest PE protocol Stat Cat Scan 12/06/24 13:[address] angio head Stat Cat Scan 12/06/24 13:[address] angio neck Stat Cat Scan 12/06/24 13:[address] bony pelvis Stat Cat Scan 12/06/24 13:[address] cervical spine wo con Stat Cat Scan 12/06/24 13:[address] head/brain wo con Stat Cat Scan 12/06/24 13:[address] lumbar spine wo con Stat Cat Scan 12/06/24 13:[address] thoracic spine wo con Stat Cat Scan 12/06/24 13:09 Completed Femur XR right 2 views [XR femur RT 2V] Stat Exams 12/06/24 13:09 Completed Knee XR right 3 views [XR knee RT 3V] Stat Exams 12/06/24 13:09 Completed Tibia/fibula XR right 2 views [XR tibia fibula RT 2V] Exams 12/06/24 13:09 Completed Stat BNP [NT Pro Brain Natriuretic Pep.] Stat Lab 12/06/24 13:00 Completed CK [Creatine Kinase] Stat Lab 12/06/24 13:00 Completed Complete Blood Count Auto Diff Stat Lab 12/06/24 13:00 Completed Comprehensive Metabolic Panel Stat Lab 12/06/24 13:00 Completed Lipase Stat Lab 12/06/24 13:00 Completed MAG [Magnesium] Stat Lab 12/06/24 13:00 Completed PT INR [Prothrombin Time INR] Stat Lab 12/06/24 13:00 Completed PTT [Activated Partial Thrombo Time] Stat Lab 12/06/24 13:00 Completed Potassium Stat Lab 12/06/24 16:00 Completed T4 (Thyroxine) Stat Lab 12/06/24 13:00 Completed TSH [Thyroid Stimulating Hormone] Stat Lab 12/06/24 13:00 Completed Trop I [Troponin I] Stat Lab 12/06/24 13:00 Completed Troponin I Q3H Lab 12/06/24 16:00 Completed Troponin I Q3H Lab 12/06/24 19:15 Ordered UA [Urinalysis and Microscopic] Stat Lab 12/06/24 14:50 Completed Blood Culture Stat Micro 12/06/24 13:30 Received VBG [Venous Blood Gas] Stat RT 12/06/24 13:21 Completed Medical Decision Narrative: In summary, this patient is a 49-year-old female presenting to the Emergency Department for evaluation of near syncope, general weakness, left side/flank pain after a fall that happened Monday, right leg pain. Possible STEMI noted in clinic, but I do not see STEMI on EKG provided to me. She arrives ill- appearing, hypotensive, nonspecific EKG changes without acute STEMI. differential diagnoses considered include but are not limited to traumatic injuries from a fall, hemorrhagic shock, rhabdomyolysis, electrolyte derangements, dehydration, DKA, HHS, ACS, dysrhythmia, PE. Ruling out the most morbid conditions drove assessment. It should be noted patient's history includes morbid obesity, tobacco dependence, hypertension, diabetes, hyperlipidemia, ischemic cardiomyopathy which likely are not at goal therapy. This complicates all aspects of care by increasing patient's risk for morbidity. I reviewed patient's past medical records and noted previous podiatry evaluations for diabetic footcare as well as previous cardiology evaluations for CAD and ischemic cardiomyopathy. Most recent echo from 01/2024 showed EF of 40 to 45% with severe hypokinesis in the mid to distal inferior septal and anteroseptal LV zhang as well as the LV apex. Patient arrives ill-appearing, hypotensive, nonspecific EKG changes but no acute STEMI as stated above. She is generally weak without focal neurologic deficits. She does have pain on her left side/flank after fall that happened several days ago as well as of her right lower extremity. No obvious concerns for compartment syndrome, cardiopulmonary and abdominal exams are otherwise benign. Workup included trauma CT scans as well as broad lab evaluation to evaluate for infectious, metabolic, cardiac causes of symptoms. Given concern for reported STEMI at PCP office, I did discuss the case with Dr. Pina and Dr. Bernardo who advised no STEMI and no indication for emergent cath as of right now. Patient already received aspirin prior to arrival. Labs were obtained that demonstrated hyperkalemia with a potassium of 6.2 as well as metabolic acidosis and mildly elevated lactic. Kidney function normal. She has mild anemia but no indication for transfusion at this time. Glucose is 173. For the hyperkalemia, administered a bolus of IV fluids as well as IV insulin and dextrose. I also administered calcium gluconate for cardiac membrane stabilization. I independently interpreted CT scans and x-rays prior to the radiologist read and noted no obvious acute fracture.. Please see their read for final interpretation. On reassessment, patient had some improvement after administration of IV fluids and interventions above. She remained slightly hypotensive and bradycardic but blood pressure is slightly improving with fluids. She is orthostatic. She is on beta-alejandro. She has isolated hyperkalemia and metabolic acidosis with mildly elevated lactic. I was discussing with her to try and determine the etiology, she has not taken any extra beta-blockers and has had no recent medication changes. She is on spironolactone which is potassium sparing, so this could contribute. She does note chronically poor oral intake in the setting of gastroparesis, and she does note it has been a little bit worse than normal lately. No significant losses with diarrhea. Ultimately, I advised her that we often admit patients with hyperkalemia for cardiac monitoring because it can lead to cardiac dysrhythmias and even . I advised the safest option is to be admitted for monitoring, she is not sure if she would want to be admitted at this time. She was to see how she feels after IV fluids finish and after her IV insulin/dextrose. Given this, patient care signed out to the oncoming provider, Dr. Howard. Lee: I assumed primary responsibility for this patient after signout from previous physician. Independent interpretation of patient's workup shortly after handoff, EKG independently interpreted and patient has ventricular rate of 60 in sinus rhythm. She does have T wave inversions in anterior, lateral and inferior leads. No reciprocal elevations. RI interval is 173, QRS is 122, QTc 452. Normal axis. Patient's hematologic workup was also independently interpreted nonactionable CBC. Coags are normal. VBG with mild metabolic acidosis with pH 7.24/bicarb 21/CO2 50 and lactate 2.5. Patient's chemistry consistent with mild hyponatremia and hyperkalemia with normal kidney function. Hypomagnesemia, this was repleted with 800 mg p.o. Patient was also given Lokelma for hyperkalemia. Patient's troponin and BNP negative. Independent interpretation of trauma scans after fall, negative for any acute traumatic pathology in the head, neck, chest abdomen or pelvis or thoracic/lumbar spines. Patient was placed in observation beginning at 3 PM in order to rule out evolving ID with delta troponins and determine need for admission versus home- going. The patient was provided serial exams, cardiac monitoring, meds, fluids while awaiting results. Independent interpretation of results demonstrated decreasing potassium, 5.6. On reevaluation, patient feeling much better, states that she wants to go home. At this time, I feel patient is appropriate for discharge. Total observation time 3.5 hours. Prolonged discussion had with patient. I recommended that she hold her spironolactone until following up with cardiology. Close return precautions were discussed. I did consider sending patient home with Lokelma, but I feel that I would be treating the side effect of 1 medication with another medication and did not feel this was appropriate. Because patient at baseline without signs or symptoms of clinical decompensation, deemed appropriate for discharge. Results were relayed to patient who voiced understanding and were agreeable to outpatient management and follow up. I discussed my clinical impression with patient and answered all questions. At this time, the evidence for any other entities in the differential is insufficient to warrant any further testing or ED observation. This was explained as well. Advisory was given that persistent or worsening symptoms require further evaluation. I confirmed the understanding of this discussion. Critical Care <Shraddha López, DO - Last Filed: 12/06/24 15:10> Critical Care Time Critical Care Time: Yes Attestation: On 12/06/24, the high probability of a clinically significant, sudden or life threatening deterioration of the following system(s) required my full and direct attention, intervention and personal management. The time I documented below is in addition to time spent performing reported procedures but includes the following listed in this critical care notation. Total Time Total Critical Care Time: 40
[2024-12-06 13:54] LABS: Thyroid Stimulating Hormone 1.52 uIU/mL (0.465-4.68)
[2024-12-06 14:05] LABS: NT Pro Brain Natriuretic Pep. 88.1 pg/mL (0-125)
--- NOTE | 2024-12-06 14:15 | PC.NURSE ---
pt back from CT
[2024-12-06 14:28] LABS: Creatine Kinase 50 U/L (30-135)
[2024-12-06] MEDS: DEXTROSE 50% 50ML SYRINGE (CRASH CART) 50 ML IVP (14:34)
[2024-12-06] MEDS: CALCIUM GLUC IN NACL, ISO-OSM 2 GM/100 ML BAG IV (14:35)
[2024-12-06] MEDS: INSULIN HUMAN REGULAR 100 UNITS/ML 10ML VIAL 10 UNIT IVP (14:35)
[2024-12-06 14:56] LABS: Appearance,Urine CLEAR (Clear); Bilirubin,Urine Negative (Negative); Blood, Urine Negative (Negative); Color,Urine YELLOW (Yellow); Glucose,Urine (UA) TRACE (Negative); Ketones,Urine Negative (Negative); Leukocyte Esterase,Urine Negative (Negative); Nitrate,Urine Negative (Negative); Protein,Urine Negative (Negative); Urobilinogen,Urine 0.2 EU/dl (0.2)
[2024-12-06 14:57] LABS: Microscopic, Urine URINE MICROSCOPIC (MICROSCOPIC)
[2024-12-06 16:30] LABS: Magnesium 1.3 mg/dl (1.6-2.3)
[2024-12-06] MEDS: LOKELMA 5GM PACKET 10 GM PO (16:43)
[2024-12-06 17:06] LABS: Troponin I < 0.01 ng/ml (0.00-0.034)
--- NOTE | 2024-12-06 17:13 | PC.NURSE ---
Called Lab, s/w Marco, to let him Dr. Howard placed new order for Stat Potassium and it is ok to run it on the 2nd troponin green top sent at 1600.
[2024-12-06 17:21] LABS: WBC,Urine Occasional #/hpf (0-3)
[2024-12-06 17:22] LABS: Reflex Lactic Add Lactic Reflex
[2024-12-06 17:22] LABS: Bacteria,Urine Trace /lpf; RBC,Urine Occasional #/hpf (0-3)
[2024-12-06] MEDS: MAGNESIUM OXIDE 400MG TABLET 800 MG PO (17:29)
--- NOTE | 2024-12-06 17:44 | PC.NURSE ---
Angella in Lab called to notify of potassium of 6.2. Verified they used blood collected at 1600, unfortunately they used initial green top collected at 1300. States they will run on appropriate sample and re-release. Dr Howard notified of this delay.
[2024-12-06 18:01] LABS: Potassium 5.6 mmoL/L (3.5-5.1)
--- NOTE | 2024-12-06 18:30 | PC.NURSE ---
K+ 5.6 PT NAME AND R/V. DR FATIMA NOTIFIED
== END 2024-12-06 18:46 | disposition home or self-care (01) ==
PROVIDERS: Emergency Medicine; Emergency Provider Emergency Medicine; PCP Nurse Practitioner Family
DX: R55 Syncope and collapse (principal); E87.5 Hyperkalemia; I95.9 Hypotension, unspecified; R41.82 Altered mental status, unspecified; R53.1 Weakness; M79.604 Pain in right leg; M54.9 Dorsalgia, unspecified; R07.81 Pleurodynia; R10.9 Unspecified abdominal pain; F17.210 Nicotine dependence, cigarettes, uncomplicated
CPT/HCPCS: 70450; 70496; 70498; 71275; 72125; 72128; 72131; 72192; 73552; 73562; 73590; 74174; 80053; 81001; 82550; 82803; 83690; 83735; 83880; 84132; 84436; 84443; 84484; 85025; 85610; 85730; 87040; 93005; 96361; 96374; 96375; 99291; J0131; J1885; J7120; Q9967

== ENCOUNTER 2025-02-04 10:04 | Outpatient (CLI) | payer MEDICARE, SELFPAY ==
--- OUTSIDE RECORDS SUMMARY | 2025-02-04 10:06 | XMS_ITS | Continuity of Care Document ---
Author Organization SALEEM HERRERA [facility] Address [address] [place] [address] Care Team Providers Care Program Mgr Name Role Phone ELIAS MANE Primary Care Provider Assessment No assessment recorded. Plan of Treatment Reminders Order Date Submit Date Provider Last Modified By Organization Details Last Modified Time Details Appointments None recorded. Lab None recorded. Referral None recorded. Procedures None recorded. Surgeries None recorded. Imaging LDCT, chest, for lung cancer screening 2024 025 chaka Wang (Centralized Scheduling), [address] [facility] , [place], [address], 5 15:59:30 Medication Orders cefdinir 300 mg capsule [address]24 [address], [address], 5 16:17:48 Lactobacill us acidophilus 1 billion cell tablet 2024 [address], [address], 5 14:37:47 Mucus Relief ER 600 mg tablet, extended release 2024 025 [address], [address], 14:37:47 montelukast 10 mg tablet 2024 Ebonie morrisflako n42 [address], [place], [address], 14:37:47 Patient TargetsNo targets recorded. Patient Instructions Encounter Date Encounter Id Patient Instructions Last Modified By Organization Details Last Modified Time 12/12/2024 [id number] Continue Symbicort, Spiriva, albuterol nebs or albuterol Q 4 p.r.n., Mucinex b.i.d., singular, pep flutter valve, and incentive spirometry. She is also on Atrovent 2 puffs in the evening. Continued tobacco cessation. Add Omnicef 300 mg p.o. b.i.d. for acute bronchitis and acute sinusitis for 7 days, probiotic 1 p.o. daily for 10 days. LDCT scan of chest in 1 year or approximately December 18, 2024 Return to clinic January 2025. [email or web address] Not available 12/12/2024 14:17:29 Reason for Referral None Reported. Results Created Date Observation Date Name Description Value Unit Range Abnormal Flag Note LastModifiedBy Organization Detail LastModifiedTime 12/26/1912/25/2024 LDCT, chest , for lung cance r scree [facility] Name: JESUS IYER ND CO A [facility] Phys: Elza hill MD, [place] [address] : 1975 Age: 49 Sex: F Acct: [id number] Loc: G.CT PHONE #: Exam Date: 2024 Status : DEP CLI FAX #: [phone] Rad# [id number] Unit# [id number] Admit Date: 2024 EXAMS: CPT CODE: [id number] 911 CT CHEST LDCT LUNG SCREEN G0297 EXAM: CT LUNG LOW DOSE FOR LUNG CANCER SCREEN [facility] INDICA TION: Female , 49 years old. SCREEN ING FORMER SMOKER QUIT 1 YEAR AGO WITH 33 PLUS PACK YEARS; NEEDS CT TO SCREEN FOR LUNG CA COMPAR NARDA: December 19, 2023 TECHNI QUE: A low dose helica l CT CHEST was perfor med on a multi- detect or scanne r. The chest was studie d in helica l mode with prospe ctive recons tructi ons Unless otherw ise specif ied, incide ntal findin gs do not requir e michelle potts imagin g follow -up Automa delroy exposu re contro l, adjust ment of the mA and/or kV accord ing to patien t size, and/or iterat quirino recons tructi on. Unless otherw ise specif ied, incide ntal findin gs do not requir e michelle potts imagin g follow -up. [id number] . Mosleey l and sagitt al MIPS were recons tructe d from the axial images . NOTE: This study was perfor med for the specif ic purpos es of lung cancer screen ing and is not an altern ative to diagno stic chest CT. Patien t presum ed to meet [address] lung screen Total DLP: 131 mGYcm FINDIN GS: LUNG PARENC HYMA Nodule s/lung masses : there is a calcif ied right lower lung granul adriano. There is a stable 2.5 mm left lower lung nodule on series 4 image 152. Anothe r stable left lower lung nodule on image 136 is seen measur ing 5 mm. A few other tiny stable lung nodule s are also presen t. Anothe r of these nodule s includ es a right lower lung nodule measur ing 5 mm on image 143. Emphys shaan/fi brosis : Mild centri lobula r emphys shaan, upper lobe predom inant Airway s diseas e: No visibl e endobr onchia l nodule . OTHER ANATOM IC REGION S Lymph Nodes: There is no signif icant adenop athy. Pleura : There is no pleura l effusi on. Cardia c: Heart size normal . Perica rdium normal . OTHER FINDIN GS: Moseley ry stents are noted. IMPRES JAMIL: Lung Cancer Screen ing: LungRA DS Catego ry 2 Benign Based on imagin g featur es or indole nt behavi or. Recomm end 12-mon screen ing LDCT PAGE 1 Signed Report (FIONA NUED) [facility] Medica l Ce Name: JESUS IYER ND A [address] [place], [place] [address]a [facility] [address] Phys: Elza hill MD, [place] [address] : 1975 Age: 49 Sex: F Acct: [id number] Loc: G.CT PHONE #: Exam Date: 2024 Status : DEP CLI FAX #: [phone] Rad# [id number] Unit# [id number] Admit Date: 2024 EXAMS: CPT CODE: [id number] 911 CT CHEST LDCT LUNG SCREEN G0 Full Lung-R ADS 2021 summar y docume nt publis hed Novemb er 2021 can be found at https: //[email or web address] s/RADS /Lung- RADS/L kika-RA 2.p f Electr onical ly signed by: Farooq Singh MD 2024 07:01 PM EDT RP Workst ation: ARHWRS 15PRR Electr onical ly Signed by FAROOQ SINGH on 2024 at 1839 Report ed and signed by: Robert SINGH CC: Breanne hill M.D.; Carmelo Mane APRN Dictat ed Date/T edis: 2024 (1838) Techno logist : FERMÍN Faria Transc ribed Date/T edis: 2024 (1838) Transc riptio nist: DR.BAT ORDAZ Electr onic Signat ure Date/T edis: 2024 (1838) Printe d Date/T edis: 2024 (2018) BATCH NO: N/A PAGE 2 Signed Report CC'ed Logic: Orderi ng Provid er: ELZA ANANDRE Y Attend ing Provid er: ELZA ANANDRE Y Referr ing Provid er: ELZA ANANDRE Y Consul ting Provid er: ALHAJI Verduzco [address], [place], [address], 12/30/2024 15:59:29 01/16/2012/23/2024 LDCT, chest , for lung cance r scree salazar No observ ation record ed. chakamary Rickywroberto (Centralized Scheduling) [address] [place] [address] [place], [address], 01/15/2025 10:45:59 01/21/2012/23/2024 LDCT, chest , for lung cance r scree salazar No observ ation record ed. cynthia Garcíawview (Centralized Scheduling) [address] [place] [address] [place], [address], 01/20/2025 11:40:40 Result Notes None recorded. Problems Name Problem SNOMED Code Status Onset Date Resolution Date Notes Provider Name and Address Organization Details Recorded Time Cyst of ovary 82961146 Active Jina [place], [place] [facility] & [place] 2 10:17:17 Myocardial ischemia 160081647 Active 2017 Jina [place], [place] [facility] - [facility] & [place] 2 10:17:17 Intramural leiomyoma of uterus 86581589 Active 2016 Jina [place], [place] [facility] & [place] 2 10:17:17 Hypertrigly ceridemia 434840183 Active 2020 Jina ke[place], [place] [facility] [place] [facility] & [place] 2 10:17:18 Blood in urine 90884379 Active Jina [place], [place] [facility] - [facility] & [place] 2 10:17:18 Depressive disorder 19405926 Active Amara Casey null, [place] - [facility] - [facility] & [place] 2 10:18:51 Diverticuli tis 118402914 Active 2016 Jina [place]ating, [place] [facility] & [place] 2 10:17:18 Chronic heart disease 841343716 Active 2018 SALEEM Zapien LPNT Jill [facility] & [place] 2 10:17:18 Pain in pelvis 18866992 Active [facility]ALEEM Zapien [facility] & [place] 2 10:17:18 Myocardial infarction 27857492 Active 2018 SALEEM Zapien LP[facility] Jill [facility] & [place] 2 10:17:18 Cigarette smoker 74983047 Active 2016 [facility]ALEEM [facility]apien [facility] & [place] 2 10:17:18 Polycystic ovaries Active SALEEM Zapien [facility] Jill [facility] & [place] 2 10:17:18 Clostridium difficile diarrhea 9043216158545 Active SALEEM Zapien LP[facility] Jill [facility] & [place] 2 10:17:18 Long-term drug therapy Active 2019 SALEEM Zapien [facility] Jill [facility] & [place] 2 10:17:18 Dysmenorrhe a 825124258 Active 2016 SALEEM Zapien LP[facility] Jill [facility] & [place] 2 10:17:18 Atypical squamous cells of undetermine d significanc e on cervical Papanicolao u smear 876092644 Active 2005 SALEEM Zapien [facility] Jill [facility] & [place] 2 10:17:18 Amenorrhea 36632685 Active 2005 SALEEM Zapien [facility] - [facility] & [place] 2 10:17:18 Thrombophle bitis 78708197 Active SALEEM Zapien - [facility] - [facility] & [place] 2 10:17:18 Typical angina 599523269 Active SALEEM Zapien LP[facility] - [facility] & [place] 2 10:17:18 Temporomand ibular joint disorder 46950343 Active 2010 SALEEM Zapien LP[facility] - [place] & [place] 2 10:17:18 Menorrhagia 009098275 Active 2016 SALEEM Zapien - [facility] - [place] & [place] 2 10:17:18 Exposure to SARS-CoV-2 Active 2019 Jina keating, [place] - [facility] - [place] & [place] 2 10:17:18 Essential hypertensio n 16527939 Active Jina keating, [place] - [facility] - [place] & [place] 2 10:17:18 Osteoporosi s 33419773 Active 2016 Jina keating, [place] - [facility] - [place] & [place] 2 10:17:18 Smoker 40067150 Active 2020 SALEEM Zapien - [place] - [place] & [place] 2 10:17:18 Diabetes mellitus 17852274 Active 2005 SALEEM Zapien - [facility] - [place] & [place] 2 10:17:18 Long-term current use of insulin 177358261 Active 2019 SALEEM Zapien - [facility] - [place] & [place] 2 10:17:18 Polyp of corpus uteri 70684618 Active 2016 SALEEM Zapien - LP[facility] - & [place] 2 10:17:18 Chronic obstructive pulmonary disease 92371128 Active 2019 Amara [place]ating, [place] - [facility] - [facility] & [place] 2 10:18:51 Suspected COVID-19 699924889 Active 2020 Jina [place] - [facility] - [place] & [place] 2 10:17:18 Hypercholes terolemia 22746099 Active Jina keating, [place] - [facility] - [place] & [place] 2 10:17:18 Hyperlipide kira 93835534 Active 2020 Jina [place] [facility] - [place] & [place] 2 10:17:18 Body mass index 30+ - obesity 431289739 Active 2016 SALEEM Zapien - [facility] - [place] & [place] 2 10:17:18 Anxiety 03324598 Active Jina Nguyen null[place] [facility] - [place] & [place] 2 10:17:18 History of cardiac catheteriza tion 5351474474564 0 Active Jina [place] & [place] 2 10:17:18 Menopausal syndrome 719760721 Active Jina [place] & [place] 2 10:17:18 Benign esophageal stricture 430063954 Active 2021 Amara Casey [place] - [place] & [place] 2 10:18:51 Gastro-esop hageal reflux disease with esophagitis 577972388 Active 2021 Amara [place] & [place] 2 10:18:51 Dysphagia 01820159 Active 2021 Amara [place] - [place] & [place] 2 10:18:51 Irritable bowel syndrome characteriz ed by constipatio n 510458994 Active 2021 Amara [place] - [place] & [place] 2 10:18:51 Gastric ulcer 907114207 Active 2021 Amara [place] - [place] & [place] 2 10:18:51 Recurrent major depression 69538617 Active Amara [place] - [place] & [place] 2 10:18:51 Preinfarcti on syndrome 8569105 Active Amara [place] - [place] & [place] 2 10:18:51 Cardiovascu lar stress test abnormal 149317712 Active Amara [place] - [place] & [place] 2 10:18:51 Chest pain 77604917 Active Amara [place] - [place] & [place] 2 10:18:51 Chronic post-trauma tic stress disorder 115923830 Active Amara [place] - [place] & [place] 2 10:18:51 Right upper quadrant pain 196514459 Active 2021 Americo Salazar MD [address] [place] [address],Michelle te [address] [place] [address], [phone], [place] - [facility] - [place] & [place] 2 13:05:46 Gastropares is syndrome 085914727 Active 2022 Americo Salazar MD [address] [place] [address],Michelle te [address] [place] [address], [phone], [place] [facility] - [place] & [place] 3 06:40:23 Gastritis 5434609 Active 2022 Americo Salazar MD [address] [place] [address],Michelle te [address] [place] [address], [phone], [place] [facility] - [facility] & [place] 3 06:40:49 Mild intermitten t asthma 020100473 Active 2022 Cisco Durant MD [address] [place] [address],Michelle te [address] [place] [address], [phone], [place] - [facility] - [facility] & [place] 3 23:08:15 Chronic bronchitis 41620198 Active 2022 Cisco Durant MD [address] [place] [address],Michelle te [address] [place] [address], [phone], [place] - [facility] - [facility] & [place] 3 09:11:24 Acute bronchitis 65301068 Active 2023 Crystal Earlywine null[place] - [place] & [place] 4 11:10:11 Mild persistent asthma 461448289 Active 2023 Cisco Durant MD [address] [place] [address],Michelle te [address] [place] [address], [phone], [place] [facility] - [facility] & [place] 4 09:22:42 Problem Notes None recorded. Procedures Surgical History Date Name Laterality Status Provider Name and Address Organization Details Recorded Time 10/25/19 23 Gastric emptying imag study completed Cruz Roy [place] - [facility] - [place] & [place] 11/01/2022 12:43:55 09/21/20 endoscopy and biopsy of upper gastrointestinal tract completed Mary HERRERA - [place] & [place] 10/31/2022 10:25:25 07/08/20 22 EGD/Endoscopy completed Cruz HERRERA - [place] & [place] 09/08/2022 12:54:54 10/09/19 Colonoscopy completed Cruz HERRERA - [place] & [place] 07/08/2022 14:21:55 ultrasonography of liver completed Mary HERRERA - [place] & [place] 10/31/2022 10:19:02 Hernia Repair completed Jina HERRERA - [place] & [place] 07/05/2022 08:05:31 cardiac catheterization completed Jina HERRERA - [place] & [place] 07/05/2022 08:05:45 colposcopy completed Jina HERRERA - [place] & [place] 07/05/2022 08:06:04 Cholecystectomy completed Jina HERRERA - [place] & [place] 07/05/2022 08:06:16 salpingo-oophorecto my completed Jina HERRERA - [place] & [place] 07/05/2022 08:06:48 Imaging Results None recorded. Procedure Notes None recorded. Medical Equipment None Reported. Allergies Allergen ID Allergen Name Allergen Category Reaction Reaction Severity Criticality Documentation Date Start Date Code Code System Note Provider Name and Address Organization Details Recorded Time 39135 lamotrigi ne medicatio n Not available Not available Not available 07/05/20222019 68944 RxNorm SALEEM Robins [facility] - [place] & [place] 10:18:44 91764 Lamictal medicatio n Not available Not available Not available 07/05/20222008 52104 2 RxNorm SALEEM Zapien - [facility] - [place] & [place] 2 08:12:37 Medications Name Sig Start Date Stop Date Status Note LastModified by Organization Details LastModified Time glmp (rr) cream active Not Available Not Available Not Available cyclobenzap rine 10 mg tablet take 1 tablet (10 mg) by oral route 2 times per day for 30 days 11/06 completed Not Available Not Available Not Available amoxicillin 500 mg capsule take 1 capsule (500 mg) by oral route every 12 hours for 10 days 08/27 completed Not Available Not Available Not Available furosemide 40 mg tablet TAKE ONE (1) TABLET BY MOUTH EVERY DAY active Not Available Not Available No t Available medroxyprog esterone 10 mg tablet TAKE ONE TABLET EVERY NIGHT AT BEDTIME ON FIRST 10 DAYS OF JULY, OCTOBER, JANUARY, AND APRIL. 12/29 completed Not Available Not Available Not Available atorvastati n 40 mg tablet 40 mg by oral route. 03/02 completed Not Available Not Available Not Available metformin 500 mg tablet Take one tablet by mouth twice daily 11/06 completed Not Available Not Available Not Available promethazin e-DM 6.25 mg-15 mg/5 mL oral syrup take 5 millilite rs by oral route every 6 hours as needed for 5 days 04/16 completed Not Available Not Available Not Available carvedilol 25 mg tablet TAKE ONE (1) TABLET BY MOUTH TWICE DAILY WITH FOOD 01/20 completed Not Available Not Available Not Available nystatin 100,000 unit/mL oral suspension 02/12 completed Not Available Not Available Not Available clonidine HCl 0.1 mg tablet Take 2 tablets every day by oral route. 09/29 completed Not Available Not Available Not Available carvedilol 6.25 mg tablet take 1 tablet (6.25 mg) by oral route 2 times per day with food for 7 days 02/16 completed Not Available Not Available Not Available prednisone 10 mg tablet TAKE 1 TABLET BY MOUTH TWICE DAILY 12/29 completed Not Available Not Available Not Available doxycycline hyclate 100 mg capsule TAKE ONE (1) CAPSULE TWICE A DAY BY ORAL ROUTE FOR FIVE (5) DAYS. 05/15 completed Not Available Not Available Not Available paroxetine 10 mg tablet TAKE 1 TABLET BY MOUTH EVERY DAY 05/17 completed Not Available Not Available Not Available carvedilol 12.5 mg tablet TAKE ONE (1) TABLET BY MOUTH TWICE DAILY WITH FOOD active Not Available Not Available No t Available Effexor XR 75 mg capsule,ext ended release take 1 capsule (75 mg) by oral route once daily for 30 days 07/15 completed Not Available Not Available Not Available Zyrtec-D 5 mg-120 mg tablet,exte nded release take 1 tablet by oral route 2 times per day for 10 days 09/17 completed Not Available Not Available Not Available tizanidine 2 mg tablet TAKE ONE (1) TO TWO (2) TABLETS BY MOUTH EVERY EIGHT (8) HOURS NEEDED 02/16 completed Not Available Not Available Not Available clindamycin HCl 300 mg capsule TAKE ONE CAPSULE BY MOUTH THREE TIMES A DAY 12/12 completed Not Available Not Available Not Available albuterol sulfate 2.5 mg/3 mL (0.083 %) solution for nebulizatio n INHALE THREE (3) ML EVERY FOUR (4) HOURS BY NEBULIZAT ION ROUTE DIRECTED FOR 30 DAYS. active Not Available Not Available No t Available etodolac 300 mg capsule take 1 capsule (300 mg) by oral route 3 times per day with food for 30 days 05/07 completed Not Available Not Available Not Available BD SafetyGlide Syringe 3 mL 25 x 5/8 USE DIRECTED WITH B-12 active Not Available Not Available No t Available trazodone 50 mg tablet TAKE ONE (1) TABLET EVERY DAY BY ORAL ROUTE AT BEDTIME. 10/29 completed Not Available Not Available Not Available Carafate 1 gram tablet 02/13 completed Not Available Not Available Not Available cetirizine 10 mg tablet TAKE 1 TABLET BY MOUTH EVERY DAY 05/17 completed Not Available Not Available Not Available lisinopril 20 mg-hydrochl orothiazide 12.5 mg tablet Take 1 tablet every day by oral route for 30 days. 07/24 completed Not Available Not Available Not Available azithromyci n 250 mg tablet TAKE 2 TABLETS TODAY THEN TAKE 1 TABLET DAILY FOR THE NEXT 4 DAYS 07/26 completed Not Available Not Available Not Available glyburide 5 mg tablet Take 1 tablet every day by oral route. 07/11 completed Not Available Not Available Not Available pravastatin 40 mg tablet TAKE 1 TABLET BY MOUTH EVERY DAY 05/11 /2022 completed Not Available Not Available Not Available ibuprofen 800 mg tablet 2 po at start of menses, then one po q6h prn 05/07 completed Not Available Not Available Not Available fluconazole 150 mg tablet TAKE ONE (1) TABLET BY MOUTH EVERY OTHER DAY FOR THREE (3) DOSES 06/09 completed Not Available Not Available Not Available benzonatate 200 mg capsule Take 1 capsule 3 times a day by oral route. 02/12 completed Not Available Not Available Not Available metoprolol succinate ER 50 mg tablet,exte nded release 24 hr Take 50 mg by oral route. 08/01 completed Not Available Not Available Not Available Vicodin 5 mg-500 mg tablet 1 po q 8hrs prn 05/25 completed Not Available Not Available Not Available albuterol sulfate 1.25 mg/3 mL solution for nebulizatio n Inhale 3 mL by inhalatio n route. 08/21 completed Not Available Not Available Not Available cephalexin 250 mg capsule TAKE TWO CAPSULES BY MOUTH TWICE DAILY FOR SEVEN DAYS 12/12 completed Not Available Not Available Not Available hydrocodone 5 mg-acetamin ophen 325 mg tablet TAKE ONE (1) TABLET TWICE A DAY BY ORAL ROUTE FOR TWO (2) DAYS, FOR ANKLE PAIN. 12/29 completed Not Available Not Available Not Available prazosin 1 mg capsule TAKE 1 CAPSULE BY MOUTH EVERY DAY AT BEDTIME 07/25 completed Not Available Not Available Not Available Claritin 10 mg tablet take 1 tablet (10 mg) by oral route once daily for 30 days 05/25 completed Not Available Not Available Not Available ondansetron HCl 8 mg tablet Take 1 tablet every 8 hours by oral route. 07/24 completed Not Available Not Available Not Available Avelox 400 mg tablet take 1 tablet (400 mg) by oral route once daily for 7 days 03/16 completed Not Available Not Available Not Available fluconazole 200 mg tablet take 1 tablet (200 mg) by oral route once daily for 5 days 04/17 completed Not Available Not Available Not Available meloxicam 15 mg tablet take 1 tablet (15 mg) by oral route once daily for 30 days 09/02 completed Not Available Not Available Not Available promethazin e 12.5 mg tablet take 1 tablet (12.5 mg) by oral route every 6 hours as needed 04/12 completed Not Available Not Available Not Available lisinopril 20 mg tablet Take 20 mg by oral route. 08/01 completed Not Available Not Available Not Available ondansetron HCl 4 mg tablet 4 mg by oral route. 02/26 completed Not Available Not Available Not Available prednisone 20 mg tablet TAKE ONE (1) TABLET TWICE A DAY BY ORAL ROUTE FOR THREE (3) DAYS. 04/29 completed Not Available Not Available Not Available isosorbide mononitrate ER 30 mg tablet,exte nded release 24 hr Take 1 tablet every day by oral route. 02/12 completed Not Available Not Available Not Available gabapentin 400 mg capsule TAKE ONE (1) CAPSULE THREE (3) TIMES A DAY BY ORAL ROUTE FOR 30 DAYS. active Not Available Not Available No t Available sertraline 100 mg tablet Take 1 tablet every day by oral route. 02/12 completed Not Available Not Available Not Available simvastatin 10 mg tablet 20 mg by oral route. 04/25 completed Not Available Not Available Not Available Ziac 5 mg-6.25 mg tablet take 1 tablet by oral route once daily for 30 days 08/19 completed Not Available Not Available Not Available glipizide ER 5 mg tablet, extended release 24 hr take 2 tablets (10 mg) by oral route once daily with breakfast for 30 days 02/19 completed Not Available Not Available Not Available Lantus U-100 Insulin 100 unit/mL subcutaneou s solution INJECT 40 UNITS DAILY. INCREASE TWO (2) UNITS EVERY THREE (3) DAYS UNTIL FASTING SUGARS ARE 150. DONT EXCEED 60U DAILY. 02/16 completed Not Available Not Available Not Available Insulin Syringe MicroFine 1 mL 27 gauge x 5/8 USE DIRECTED WITH B-12 INJECTION active Not Available Not Available No t Available promethazin e 6.25 mg-codeine 10 mg/5 mL syrup take 5 millilite rs by oral route every 6 hours as needed, not to exceed 30 mL in 24 hours for 7 days 02/14 completed Not Available Not Available Not Available bacitracin 500 unit/gram topical ointment APPLY ONE (1) APPLICATI ON TWICE A DAY BY TOPICAL ROUTE FOR 7 DAYS. active Not Available Not Available No t Available penicillin V potassium 500 mg tablet TAKE ONE (1) TABLET EVERY 12 HOURS BY ORAL ROUTE FOR 10 DAYS. 07/08 completed Not Available Not Available Not Available Nexium 40 mg capsule,del ayed release take 1 capsule (40 mg) by oral route once daily 02/13 completed Not Available Not Available Not Available potassium chloride ER 10 mEq tablet,exte nded release Take 1 tablet every day by oral route. 02/12 completed Not Available Not Available Not Available metronidazo le 500 mg tablet TAKE ONE (1) TABLET TWICE A DAY BY MOUTH FOR 7 DAYS. 06/09 completed Not Available Not Available Not Available clopidogrel 75 mg tablet TAKE ONE (1) TABLET BY MOUTH EVERY DAY active Not Available Not Available No t Available amlodipine 5 mg tablet TAKE 1 TABLET BY MOUTH ONCE DAILY active Not Available Not Available No t Available ciprofloxac in 500 mg tablet take 1 tablet (500 mg) by oral route 2 times per day for 7 days 06/28 completed Not Available Not Available Not Available peg-electro lyte solution 420 gram oral solution TAKE DIRECTED 06/09 completed Not Available Not Available Not Available omeprazole 40 mg capsule,del ayed release TAKE ONE (1) CAPSULE BY MOUTH EVERY DAY active Not Available Not Available No t Available Reglan 10 mg tablet take 1 tablet (10 mg) by oral route in morning and bedtime 08/29 completed Not Available Not Available Not Available aspirin 81 mg tablet,jennifer yed release 81 mg by oral route. 09/08 completed Not Available Not Available Not Available doxycycline monohydrate 100 mg tablet Take 1 tablet twice a day by oral route. 04/25 completed Not Available Not Available Not Available tramadol 50 mg tablet Take 1 tablet every 6 hours by oral route. 02/12 completed Not Available Not Available Not Available spironolact one 25 mg tablet TAKE 1 TABLET BY MOUTH ONCE DAILY FOR 90 DAYS 12/29 completed Not Available Not Available Not Available bupropion HCl SR 100 mg tablet,12 hr sustained-r elease 100 mg by oral route. 04/25 completed Not Available Not Available Not Available vancomycin 125 mg capsule 125 mg by oral route. 04/20 completed Not Available Not Available Not Available ondansetron 8 mg disintegrat ing tablet Place 1 tablet every 8 hours by transling ual route for 2 days. 04/30 completed Not Available Not Available Not Available Depo-Medrol 80 mg/mL suspension for injection Take 80 mg by injection route. 03/14 completed Not Available Not Available Not Available Aleve 220 mg tablet take 1 tablet (220 mg) by oral route every 8 hours as needed for 7 days 08/27 completed Not Available Not Available Not Available bupropion HCl 100 mg tablet take one tablet by mouth daily 03/29 completed Not Available Not Available Not Available isosorbide mononitrate ER 60 mg tablet,exte nded release 24 hr TAKE 1 TABLET BY MOUTH ONCE DAILY 09/08 completed Not Available Not Available Not Available ceftriaxone 1 gram solution for injection Take 1 g every day by injection route. 07/11 completed Not Available Not Available Not Available amoxicillin 875 mg tablet take 1 tablet (875 mg) by oral route every 12 hours for 10 days 11/29 completed Not Available Not Available Not Available Ziac 10 mg-6.25 mg tablet take 1 tablet by oral route once daily 09/01 completed Not Available Not Available Not Available metoclopram rachael 5 mg tablet TAKE 1 TABLET BY MOUTH BEFORE MEAL(S) AND AT BEDTIME active Not Available Not Available No t Available triamcinolo ne acetonide 0.025 % topical cream APPLY CREAM TOPICALLY TWICE DAILY 06/09 completed Not Available Not Available Not Available ascorbic acid (vitamin C) 500 mg tablet 500 mg by oral route. 02/04 completed Not Available Not Available Not Available Diflucan 100 mg tablet Take 1 tablet every day by oral route for 7 days. 02/09 completed Not Available Not Available Not Available trazodone 100 mg tablet TAKE ONE (1) TABLET NEEDED BY ORAL ROUTE AT BEDTIME. 12/29 completed Not Available Not Available Not Available Humalog U-100 Insulin 100 unit/mL subcutaneou s solution INJECT ONE (1) SLIDING SCALE DOSE BY SUBCUTANE OUS ROUTE. MAX OF 80 UNITS PER DAY active Not Available Not Available No t Available Ear Wax Removal Drops 6.5 % INSTILL FIVE (5) DROPS IN LEFT EAR TWICE DAILY FOR 5 DAYS active Not Available Not Available No t Available amlodipine 10 mg tablet TAKE 1 TABLET BY MOUTH EVERY DAY 02/12 completed Not Available Not Available Not Available benzonatate 100 mg capsule TAKE 1 CAPSULE BY MOUTH TWICE DAILY 08/01 completed Not Available Not Available Not Available simvastatin 5 mg tablet take 1 tablet (5 mg) by oral route once daily in the evening 09/14 completed Not Available Not Available Not Available doxycycline monohydrate 100 mg capsule TAKE 1 TABLET BY MOUTH TWICE DAILY 04/02 completed Not Available Not Available Not Available cephalexin 500 mg capsule TAKE ONE (1) CAPSULEBY ORAL ROUTE EVERY 12 HOURS FOR 10 DAYS 12/12 completed Not Available Not Available Not Available paroxetine 30 mg tablet TAKE ONE (1) TABLET BY MOUTH EVERY DAY 09/29 completed Not Available Not Available Not Available paroxetine 20 mg tablet Take 20 mg by oral route. 08/01 completed Not Available Not Available Not Available pantoprazol e 40 mg tablet,jennifer yed release TAKE 1 TABLET BY MOUTH EVERY DAY 11/01 completed Not Available Not Available Not Available simvastatin 20 mg tablet Take 1 tablet every day by oral route. 02/12 completed Not Available Not Available Not Available cyanocobala min (vit B-12) 1,000 mcg/mL injection solution INJECT ONE (1) ML SUBCUTANE OUSLY EVERY MONTH active Not Available Not Available No t Available trazodone 150 mg tablet TAKE ONE (1) TABLET EVERY DAY BY ORAL ROUTE AT BEDTIME. active Not Available Not Available No t Available oseltamivir 75 mg capsule Take 1 capsule twice a day by oral route. 11/06 completed Not Available Not Available Not Available metformin 1,000 mg tablet TAKE ONE (1) TABLET BY MOUTH TWICE DAILY FOR 30 DAYS active Not Available Not Available No t Available Lincocin 300 mg/mL injection solution Take 1 mL by injection route. 03/14 completed Not Available Not Available Not Available clotrimazol e-betametha sone 1 %-0.05 % topical cream APPLY TO THE AFFECTED AND SURROUNDI NG AREAS OF SKIN BY TOPICAL ROUTE 2 TIMES PER DAY IN THE MORNING AND EVENING UNTIL CLEAR 04/02 completed Not Available Not Available Not Available Effexor XR 150 mg capsule,ext ended release take 1 capsule (150 mg) by oral route once daily for 30 days 05/07 completed Not Available Not Available Not Available lisinopril 10 mg tablet TAKE ONE (1) TABLET(S) EVERY DAY BY ORAL ROUTE. 02/03 completed Not Available Not Available Not Available promethazin e 25 mg tablet take 1 tablet by oral route every 6 hours as needed 02/13 completed Not Available Not Available Not Available polymyxin B sulfate 10,000 unit-trimet hoprim 1 mg/mL eye drops INSTILL 1 DROP INTO AFFECTED EYE(S) BY OPHTHALMI C ROUTE EVERY 6 HOURS 02/09 completed Not Available Not Available Not Available metoprolol tartrate 50 mg tablet 25 mg by oral route. 03/02 completed Not Available Not Available Not Available hydrochloro thiazide 12.5 mg capsule TAKE 1 CAPSULE BY MOUTH ONCE DAILY 06/22 completed Not Available Not Available Not Available ibuprofen 200 mg tablet 800 mg by oral route. 04/25 completed Not Available Not Available Not Available nitroglycer in 0.4 mg sublingual tablet TAKE 1 TABLET BY SUBLINGUA L ROUTE EVERY FIVE (5) MINUTES FOR THREE (3) DOSES AND CALL 911 active Not Available Not Available No t Available lisinopril 30 mg tablet TAKE ONE (1) TABLET EVERY DAY BY ORAL ROUTE. 09/29 completed Not Available Not Available Not Available ascorbic acid (vitamin C) ER 500 mg capsule,ext ended release 500 mg by oral route. 10/24 completed Not Available Not Available Not Available docusate sodium 100 mg capsule 100 mg by oral route. 04/25 completed Not Available Not Available Not Available gabapentin 300 mg capsule TAKE ONE (1) CAPSULE BY MOUTH TWICE DAILY 11/01 completed Not Available Not Available Not Available buspirone 7.5 mg tablet TAKE 1 TABLET BY MOUTH TWICE DAILY 05/17 completed Not Available Not Available Not Available omeprazole 20 mg capsule,del ayed release TAKE 1 CAPSULE BY MOUTH EVERY DAY 08/01 completed Not Available Not Available Not Available diclofenac sodium 75 mg tablet,jennifer yed release take 1 tablet (75 mg) by oral route 2 times per day for 30 days 06/24 completed Not Available Not Available Not Available montelukast 10 mg tablet TAKE ONE (1) TABLET EVERY DAY BY ORAL ROUTE DIRECTED FOR 30 DAYS. active Not Available Not Available No t Available pravastatin 20 mg tablet TAKE 1 TABLET BY MOUTH EVERY DAY 07/28 completed Not Available Not Available Not Available lisinopril 5 mg tablet TAKE ONE TABLET DAILY 05/17 completed Not Available Not Available Not Available mupirocin 2 % topical ointment APPLY A SMALL AMOUNT TO THE AFFECTED AREA BY TOPICAL ROUTE THREE (3) TIMES PER DAY active Not Available Not Available No t Available [place] 10 mg-325 mg tablet Take one every 6 h prn 08/27 completed Not Available Not Available Not Available furosemide 20 mg tablet TAKE 1 TABLET BY MOUTH ONCE DAILY 07/26 completed Not Available Not Available Not Available gabapentin 100 mg capsule TAKE 1 CAPSULE BY MOUTH TWICE DAILY 02/16 completed Not Available Not Available Not Available albuterol 90 mcg/actuati on aerosol inhaler inhale 1 puff by inhalatio n route every 4 hours as needed for 30 days 06/16 completed Not Available Not Available Not Available ergocalcife rol (vitamin D2) 1,250 mcg (50,000 unit) capsule TAKE ONE (1) CAPSULE BY MOUTH TWICE WEEKLY active Not Available Not Available No t Available nystatin 100,000 unit/gram topical powder APPLY TO THE AFFECTED AREA(S) BY TOPICAL ROUTE TWO (2) TIMES PER DAY 12/29 completed Not Available Not Available Not Available dexamethaso ne sodium phosphate 4 mg/mL injection solution Inject 1 mL every day by intramusc ular route. 07/11 completed Not Available Not Available Not Available Nasonex 50 mcg/actuati on [place] spray 2 sprays in each nostril by intranasa l route once daily for 7 days 12/16 completed Not Available Not Available Not Available Tylenol-Cod eine #3 300 mg-30 mg tablet take 1 tablet by oral route every 6 hours as needed 04/12 completed Not Available Not Available Not Available ibuprofen 600 mg tablet 03/29 completed Not Available Not Available Not Available cefuroxime axetil 500 mg tablet Take 1 tablet every 12 hours by oral route. 03/14 completed Not Available Not Available Not Available polyethylen e glycol 3350 17 gram/dose oral powder TAKE 17 GRAMS (ONE CAPFUL) MIXED WITH 8 OZ. WATER JUICE SODA COFFEE OR TEA BY MOUTH EVERY DAY 05/17 completed Not Available Not Available Not Available levofloxaci n 500 mg tablet TAKE 1 TABLET BY MOUTH EVERY DAY 08/01 completed Not Available Not Available Not Available levofloxaci n 750 mg tablet TAKE ONE (1) TABLET EVERY DAY BY ORAL ROUTE FOR 7 DAYS. 09/29 completed Not Available Not Available Not Available methylpredn isolone 4 mg tablets in a dose pack TAKE DIRECTED 02/16 completed Not Available Not Available Not Available paroxetine 40 mg tablet TAKE ONE (1) TABLET BY MOUTH EVERY DAY 05/17 completed Not Available Not Available Not Available ketorolac 60 mg/2 mL intramuscul ar solution Inject 2 mL every day by intramusc ular route. 06/21 completed Not Available Not Available Not Available Percocet 5 mg-325 mg tablet 02/13 completed Not Available Not Available Not Available Lactobacill us rhamnosus GG 10 billion cell capsule 02/26 completed Not Available Not Available Not Available lisinopril 40 mg tablet TAKE 1 TABLET BY MOUTH EVERY DAY 02/16 completed Not Available Not Available Not Available ondansetron 4 mg disintegrat ing tablet PLACE ONE (1) TABLET EVERY 8 HOURS BY TRANSLING UAL ROUTE NEEDED FOR FOUR (4) DAYS, FOR NAUSEA. active Not Available Not Available No t Available cefdinir 300 mg capsule TAKE ONE (1) CAPSULE TWICE A DAY BY ORAL ROUTE DIRECTED FOR 7 DAYS. 01/20 completed Not Available Not Available Not Available Zofran 2 mg/mL intravenous solution give zofran 4 mg IM please 04/21 completed Not Available Not Available Not Available fluticasone propionate 50 mcg/actuati on nasal spray,suspe nsion INHALE ONE (1) SPRAY IN EACH NOSTRIL BY INTRANASA L ROUTE ONCE DAILY active Not Available Not Available No t Available metformin ER 500 mg tablet,exte nded release 24 hr TAKE ONE (1) TABLET BY MOUTH TWICE DAILY active Not Available Not Available No t Available sertraline 50 mg tablet TAKE ONE (1) TABLET EVERY DAY BY ORAL ROUTE. 02/21 completed Not Available Not Available Not Available isosorbide dinitrate 5 mg tablet Take one tablet three times a day 02/12 completed Not Available Not Available Not Available medroxyprog esterone 150 mg/mL intramuscul ar suspension 150 mg by intramusc . route. 10/24 completed Not Available Not Available Not Available doxycycline hyclate 100 mg tablet TAKE 1 TABLET BY MOUTH TWICE DAILY FOR 10 DAYS 02/16 completed Not Available Not Available Not Available dicyclomine 10 mg capsule Take 1 capsule 4 times a day by oral route for 14 days. 07/24 completed Not Available Not Available Not Available ipratropium bromide 0.02 % solution for inhalation Inhale 2.5 mL by inhalatio n route. 02/12 completed Not Available Not Available Not Available spironolact one 50 mg tablet TAKE ONE (1) TABLET BY MOUTH EVERY DAY active Not Available Not Available No t Available diazepam 5 mg tablet 02/12 completed Not Available Not Available Not Available amoxicillin 875 mg-potassiu m clavulanate 125 mg tablet TAKE ONE (1) TABLET BY ORAL ROUTE EVERY 12 HOURS FOR 10 DAYS 08/05 completed Not Available Not Available Not Available Ventolin HFA 90 mcg/actuati on aerosol inhaler INHALE TWO (2) PUFFS EVERY FOUR (4) HOURS NEEDED active Not Available Not Available No t Available buspirone 15 mg tablet TAKE ONE (1) TABLET THREE (3) TIMES A DAY BY ORAL ROUTE. active Not Available Not Available No t Available Benadryl 25 mg capsule take 1 capsule (25 mg) by oral route every 6 hours as needed for 5 days 10/12 completed Not Available Not Available Not Available Bactrim DS 800 mg-160 mg tablet take 1 tablet by oral route once daily for 10 days 05/19 completed Not Available Not Available Not Available Radha Ley 2 mg tablet take 1 tablet (2 mg) by oral route 3 times per day for 30 days 05/25 completed Not Available Not Available Not Available Vitamin D 50,000 unit capsule Take 1 capsule twice a week by oral route. 09/08 completed Not Available Not Available Not Available azithromyci n 500 mg tablet Take 1 tablet every day by oral route for 3 days. 01/17 completed Not Available Not Available Not Available escitalopra m 10 mg tablet TAKE ONE (1) TABLET EVERY DAY BY ORAL ROUTE. 01/01 completed Not Available Not Available Not Available escitalopra m 20 mg tablet TAKE ONE (1) TABLET EVERY DAY BY ORAL ROUTE. active Not Available Not Available No t Available ezetimibe 10 mg tablet TAKE ONE (1) TABLET BY MOUTH EVERY DAY active Not Available Not Available No t Available guaifenesin 400 mg tablet take 2 tablets by oral route 3 times a day for 7 days 08/27 completed Not Available Not Available Not Available Phenadoz 25 mg rectal suppository 03/29 completed Not Available Not Available Not Available aripiprazol e 5 mg tablet TAKE ONE (1) TABLET EVERY DAY BY ORAL ROUTE AT BEDTIME. 02/12 completed Not Available Not Available Not Available rosuvastati n 5 mg tablet 02/16 completed Not Available Not Available Not Available rosuvastati n 20 mg tablet TAKE 1 TABLET BY MOUTH EVERY DAY 04/02 completed Not Available Not Available Not Available rosuvastati n 40 mg tablet Take 40 mg by oral route. 08/01 completed Not Available Not Available Not Available bupropion HCl XL 150 mg 24 hr tablet, extended release Take 1 tablet every day by oral route. 11/06 completed Not Available Not Available Not Available metoprolol tartrate 25 mg tablet TAKE ONE-HALF TABLET BY MOUTH TWICE DAILY 04/02 completed Not Available Not Available Not Available Spiriva with HandiHaler 18 mcg and inhalation capsules Inhale 1 capsule every day by inhalatio n route as directed for 30 days. 2024 active Not Available Not Available Not Avai lable metformin ER 1,000 mg tablet,exte nded release 24hr (osmotic) TAKE ONE (1) TABLET BY MOUTH TWICE DAILY active Not Available Not Available No t Available nitrofurant oin monohydrate /macrocryst als 100 mg capsule TAKE 1 CAPSULE BY MOUTH TWICE DAILY WITH FOOD 12/12 completed Not Available Not Available Not Available Cymbalta 60 mg capsule,del ayed release take 1 capsule (60 mg) by oral route once daily 05/23 completed Not Available Not Available Not Available Cymbalta 30 mg capsule,del ayed release take 1 capsule (30 mg) by oral route daily 08/27 completed Not Available Not Available Not Available BD Integra Syringe 3 mL 25 gauge x 5/8 USE DIRECTED WITH B-12 active Not Available Not Available No t Available ketorolac 60 mg/2 mL intramuscul ar syringe give 60 mg Tordal IM please 07/24 completed Not Available Not Available Not Available fenofibrate micronized 145 mg tablet Take 1 tablet every day by oral route. 10/29 completed Not Available Not Available Not Available Lactobacill us acidophilus 1 billion cell tablet Take 1 tablet every day by oral route for 10 days. 2024 active Not Available Not Available Not Avai lable Lancets,Ult ra Thin use as directed for 30 days 06/22 completed Not Available Not Available Not Available Atrovent HFA 17 mcg/actuati on aerosol inhaler Inhale 2 puffs every day by inhalatio n route in the evening for 30 days. 2024 active Not Available Not Available Not Avai lable Mucinex D 60 mg-600 mg tablet,exte nded release Take 1 tablet twice a day by oral route. 03/14 completed Not Available Not Available Not Available Cipro 1 bid 01/12 completed Not Available Not Available Not Available Coreg 1 q day 09/02 completed Not Available Not Available Not Available Ceftin 1 bid 06/16 completed Not Available Not Available Not Available Diflucan 1 qd prn yeast infection 06/16 completed Not Available Not Available Not Available Augmentin 1 tid 01/07 completed Not Available Not Available Not Available Zestoretic 1 qd 05/08 completed Not Available Not Available Not Available Keflex 1 tid 06/17 completed Not Available Not Available Not Available Prilosec 1 bid 10/12 completed Not Available Not Available Not Available Biaxin 03/16 completed Not Available Not Available Not Available Robaxin 1 tid 06/16 completed Not Available Not Available Not Available Tenormin 1 qd 04/17 completed Not Available Not Available Not Available Cleocin 1 bid 01/07 completed Not Available Not Available Not Available Macrobid 1 bid 02/02 completed Not Available Not Available Not Available Levaquin 1 qd 04/12 completed Not Available Not Available Not Available Ziac 1 qd 04/27 completed Not Available Not Available Not Available Benicar HCT 03/05 completed Not Available Not Available Not Available ranolazine ER 500 mg tablet,exte nded release,12 hr TAKE 1 TABLET BY MOUTH TWICE DAILY 12/29 completed Not Available Not Available Not Available Zegerid 20 mg-1.1 gram capsule take 1 capsule (20 mg) by oral route once daily 06/19 completed Not Available Not Available Not Available aripiprazol e 2 mg tablet as direced 02/12 completed Not Available Not Available Not Available quetiapine 50 mg tablet TAKE ONE (1) TABLET EVERY DAY BY ORAL ROUTE AT BEDTIME. 02/21 completed Not Available Not Available Not Available fenofibrate nanocrystal lized 145 mg tablet TAKE ONE (1) TABLET BY MOUTH EVERY DAY 07/28 completed Not Available Not Available Not Available Janumet 50 mg-1,000 mg tablet Take 1 tablet twice a day by oral route. 10/22 completed Not Available Not Available Not Available Symbicort 160 mcg-4.5 mcg/actuati on HFA aerosol inhaler INHALE TWO (2) PUFFS BY MOUTH TWICE DAILY FOR COPD 2024 active Not Available Not Available Not Avai lable Symbicort 80 mcg-4.5 mcg/actuati on HFA aerosol inhaler INHALE TWO (2) PUFFS TWICE A DAY BY INHALATIO N ROUTE. 06/21 completed Not Available Not Available Not Available Lantus Solostar U-100 Insulin 100 unit/mL (3 mL) subcutaneou s pen INJECT SUBCUTANE OUSLY 40 UNITS EVERY DAY 12/29 completed Not Available Not Available Not Available ranolazine ER 1,000 mg tablet,exte nded release,12 hr TAKE ONE (1) TABLET BY MOUTH TWICE DAILY active Not Available Not Available No t Available fenofibrate 50 mg capsule 145 mg by oral route. 03/02 completed Not Available Not Available Not Available diclofenac 1 % topical gel APPLY TWO (2) GRAMS TO THE AFFECTED AREA(S) BY TOPICAL ROUTE TWO (2) TIMES PER DAY 12/29 completed Not Available Not Available Not Available metformin ER 1,000 mg 24 hr tablet,exte nded release (gastric reten.) TAKE ONE (1) TABLET BY MOUTH TWICE DAILY active Not Available Not Available No t Available CommonBond Blood Glucose System kit Please dispense lancets and glucose strips for daily FSBS 07/26 completed Not Available Not Available Not Available Onglyza 5 mg tablet take 1 tablet (5 mg) by oral route once daily for 21 days 08/29 completed Not Available Not Available Not Available Lactobacill us acidoph-L.b ulgaricus 1 million cell tablet TAKE ONE (1) TABLET EVERY DAY BY ORAL ROUTE FOR 10 DAYS. active Not Available Not Available No t Available Victoza 0.6 mg/0.1 mL (18 mg/3 mL) subcutaneou s pen injector inject 0.3 millilite r (1.8 mg) by subcutane ous route once daily for 30 days 02/14 completed Not Available Not Available Not Available Kombiglyze XR 5 mg-1,000 mg tablet,exte nded release take 1 tablet by oral route once daily with the evening meal 04/17 completed Not Available Not Available Not Available Caltrate 600 plus D 600 mg-10 mcg (400 unit) chewable tablet chew 1 tablet by oral route 2 times a day 02/13 completed Not Available Not Available Not Available Tradjenta 5 mg tablet TAKE ONE (1) TABLET EVERY DAY BY ORAL ROUTE. 02/12 completed Not Available Not Available Not Available Viibryd 10 mg tablet TAKE ONE (1) TABLET EVERY DAY BY ORAL ROUTE FOR 7 DAYS. 02/15 completed Not Available Not Available Not Available Viibryd 40 mg tablet TAKE ONE (1) TABLET EVERY DAY BY ORAL ROUTE. 12/29 completed Not Available Not Available Not Available vilazodone 20 mg tablet TAKE ONE (1) TABLET EVERY DAY BY ORAL ROUTE. 12/29 completed Not Available Not Available Not Available Brilinta 90 mg tablet Take 1 tablet twice a day by oral route. 02/12 completed Not Available Not Available Not Available OneTouch Verio test strips TAKE ONE (1) STRIP TWICE A DAY BY MISCELL. ROUTE. active Not Available Not Available No t Available Chantix Continuing Month Box 1 mg tablet Take 1 tablet twice a day by oral route. 04/19 completed Not Available Not Available Not Available Chantix Starting Month Box 0.5 mg (11)-1 mg (42) tablets in dose pack as directed by package 04/19 completed Not Available Not Available Not Available UltiCare Pen Needle 32 gauge x 32 USE DIRECTED TO INJECT LANTUS DAILY 12/29 completed Not Available Not Available Not Available hydrocodone 2.5 mg-acetamin ophen 325 mg tablet Take 1 tablet every 6 hours by oral route as needed. 02/03 completed Not Available Not Available Not Available Linzess 145 mcg capsule TAKE ONE (1) CAPSULE BY MOUTH EVERY DAY active Not Available Not Available No t Available Linzess 290 mcg capsule TAKE ONE (1) CAPSULE BY MOUTH EVERY DAY active Not Available Not Available No t Available Vascepa 1 gram capsule TAKE 2 CAPSULES BY MOUTH TWICE DAILY FOR CHOLESTER OL 02/12 completed Not Available Not Available Not Available PoDiaPN 35 mg-5 mg-2 mg-300 mg capsule take 1 capsule by oral route 2 times a day for 21 days 11/18 completed Not Available Not Available Not Available Farxiga 5 mg tablet TAKE ONE (1) TABLET EVERY DAY BY ORAL ROUTE. active Not Available Not Available No t Available guaifenesin ER 600 mg tablet, extended release 12 hr TAKE ONE (1) TABLET TWICE A DAY BY ORAL ROUTE DIRECTED FOR 30 DAYS. active Not Available Not Available No t Available Jardiance 10 mg tablet TAKE 1 TABLET BY MOUTH ONCE DAILY 11/01 completed Not Available Not Available Not Available dulaglutide 0.75 mg/0.5 mL subcutaneou s pen injector Inject 0.75 mg by sub-q route. 08/01 completed Not Available Not Available Not Available Spiriva Respimat 2.5 mcg/actuati on solution for inhalation 04/28 completed Not Available Not Available Not Available Acidophilus -Pectin 75 million cell-100 mg capsule TAKE ONE (1) TABLET EVERY DAY BY ORAL ROUTE FOR 10 DAYS. active Not Available Not Available No t Available Entresto 97 mg-103 mg tablet TAKE ONE (1) TABLET BY MOUTH TWICE DAILY active Not Available Not Available No t Available Rexulti 1 mg tablet TAKE ONE (1) TABLET EVERY DAY BY ORAL ROUTE. 12/29 completed Not Available Not Available Not Available Rexulti 0.5 mg tablet TAKE ONE (1) TABLET BY MOUTH EVERY DAY 12/29 completed Not Available Not Available Not Available Repatha SureClick 140 mg/mL subcutaneou s pen injector INJECT 140 MG SUBCUTANE OUSLY ONCE EVERY 2 WEEKS active Not Available Not Available No t Available Vraylar 1.5 mg capsule TAKE ONE (1) CAPSULE EVERY DAY BY ORAL ROUTE. 12/29 completed Not Available Not Available Not Available Mucus-ER MAX 1,200 mg tablet, extended release TAKE ONE (1) TABLET TWICE A DAY BY ORAL ROUTE. 12/12 completed Not Available Not Available Not Available Trintellix 10 mg tablet Take 1 tablet every day by oral route for 30 days. 02/12 completed Not Available Not Available Not Available Trelegy Ellipta 100 mcg-62.5 mcg-25 mcg powder for inhalation Inhale 1 puff every day by inhalatio n route as directed. 02/16 completed Not Available Not Available Not Available Qvar RediHaler 80 mcg/actuati on HFA breath activated aerosol INHALE TWO (2) PUFF(S) TWICE A DAY BY INHALATIO N ROUTE. 02/03 completed Not Available Not Available Not Available Ozempic 0.25 mg or 0.5 mg (2 mg/1.5 mL) subcutaneou s pen injector INJECT 0.25 MG EVERY WEEK FOR FOUR (4) WEEKS BY SUBCUTANE OUS ROUTE THEN INCREASE TO 0.5 MG WEEKLY 12/29 completed Not Available Not Available Not Available Dexcom G6 Electrical Troubleshooter USE DIRECTED 02/21 completed Not Available Not Available Not Available Dexcom G6 Transmitter device USE DIRECTED 02/21 completed Not Available Not Available Not Available BD Veo Insulin Syringe Ultra-Fine 1 mL 31 gauge x 15/64 USE DIRECTED 12/29 completed Not Available Not Available Not Available prucaloprid e 2 mg tablet TAKE 1 TABLET BY MOUTH EVERY DAY active Not Available Not Available No t Available OneTouch Delica Plus Lancet 33 gauge USE DIRECTED CHECKING BLOOD SUGAR THREE (3) TIMES DAILY 12/29 completed Not Available Not Available Not Available OneTouch Verio Reflect Meter USE DIRECTED active Not Available Not Available No t Available Nexlizet 180 mg-10 mg tablet TAKE 1 TABLET BY MOUTH ONCE DAILY active Not Available Not Available No t Available Dexcom G7 Sensor device USE DIRECTED PER 10 DAYS active Not Available Not Available No t Available Ozempic 0.25 mg or 0.5 mg (2 mg/3 mL) subcutaneou s pen injector INJECT 0.5MG SUBCUTANE OUSLY WEEKLY 12/29 completed Not Available Not Available Not Available Omnipod 5 G6-G7 Intro Kit(Gen 5) subcutaneou s cartridge and controller USE DIRECTED EVERY TWO (2) DAYS active Not Available Not Available No t Available Omnipod 5 G6-G7 Pods (Gen 5) subcutaneou s cartridge USE DIRECTED EVERY TWO (2) DAYS active Not Available Not Available No t Available Vitals Date Recorded Body height Body mass index (BMI) Body weight Oxygen saturation Oxygen saturation in Arterial blood by Pulse oximetry Respiratory rate Body temperature Systolic blood pressure Diastolic blood pressure Provider Name and Address Organization Details Last Updated DateTime 160.02 cm 36.1 kg/m2 03975.8 4 g 97 % 97 % 14 /min 97.7 [degF] 128 mm[Hg] 68 mm[Hg] [facility] & [place] 14:08:42 Date Recorded Heart rate Provider Name an d Address Organization Details Last Updated DateTime 12/12/2024 65 /min Cisco wolff MD [address] [place] [address],[address], [place], [address], [facility] - [place] & [place] 12/12/2024 14:19:02 Social History Question Answer Notes LastModified by Organizat ion Details LastModified Time Tobacco Smoking Status Former Smoker 1 PPD x 33 years Crystal Earlyvani null, [facility] & [place] 02/15/2023 10:00:00 Do You Have An Advance Directive? No [email or web address] Information not available 07/05/2022 What Is Your Level Of Alcohol Consumption? Occasional Information not available 07/08/2022 If You Are , What Was Your Level Of Alcohol Consumption Prior To ? Occasional [email or web address] Information not available 02/23/2023 Are You Blind Or Do You Have Difficulty Seeing? No Information not available 07/08/2022 What Is Your Level Of Caffeine Consumption? Moderate [email or web address] Information not available 02/23/2023 What Type Of Diet Are You Following? DIABETIC Low Salt [email or web address] Information not available 02/23/2023 Which Illicit Or Recreational Drugs Have You Used? Marijuana [email or web address] Information not available 02/23/2023 What Was The Date Of Your Most Recent Tobacco Screening? 07/04/2022 Information not available 07/08/2022 How Many Children Do You Have? 2 [email or web address] Information not available 02/23/2023 What Is Your Relationship Status? Single [email or web address] Information not available 02/23/2023 Do You Or Have You Ever Used Smokeless Tobacco? Never Used Smokeless Tobacco Information not available 07/08/2022 How Much Tobacco Do You Smoke? 1 PPD Information not available 07/08/2022 Do You Feel Stressed (tense, Restless, Nervous, Or Anxious, Or Unable To Sleep At Night)? [id number] Information not available 07/08/2022 Do You Use Any Illicit Or Recreational Drugs? Yes Information not available 07/08/2022 Sex: Female Functional Status Question Answer Note LastModified by Organizat ion Details LastModified Time What is your exercise level? Occasional Information not available 07/08/2022 Mental Status None recorded. Family History Relationship Description Onset Age of this Age Resolved Age Notes LastModified by Organization Details LastModified Time Maternal Grandmother Heart disease [email or web address] available 2021 14:16:03 Maternal Grandfather Familial prostate cancer Not available 2024 11:43:59 Medical History Condition Response Coronary Artery Disease Y Gout N None N Colon Cancer N Kidney Stones Y Hyperthyroidism N Kidney or Bladder Problems Y GI Problems Y Depression Y COPD Y Hypothyroidism N Osteoporosis/Osteopenia Y Diverticulitis/Diverticulosis Y Colon Polyps Y Heart Attack (CO) Y Anxiety Disorder Y Diabetes Y Obesity Y Bleeding Disorder N Arthritis Y Seizures/Epilepsy N Tuberculosis N Congestive Heart Failure (CHF) Y Hyperlipidemia Y Cancer N Back Problems Y Stroke N Asthma Y Sleep Apnea Y GERD/Reflux Y High Cholesterol Y Hepatitis N Cirrhosis N Liver Disease N Heart Disease Y Psychiatric/Mental Health Condition Y Headaches Y Hypertension Y Kidney Disease N Gynecological History Statement/Question Response Menses Monthly N Duration of Flow (days) 7 Current Control Method None Flow Moderate Date of LMP 06/17/2022 Sexually Active? N Obstetrics History GPAL:G 0 P 0 0 0 0 Immunizations Vaccine Type Date Status Note Provider Nam e and Address Organization Details Recorded Time influenza, unspecified formulation 9 completed Not Available [facility] 08/01/2022 13:43:53 Past Encounters Encounter ID Performer Location Encounter Start Date Encounter Closed Date Diagnosis/Indication Diagnosis SNOMED-CT Code Diagnosis ICD10 Code Diagnosis Note [id number] MD ANTON [facility] [address] [place] [address] 12/12/2024 13:51:37 12/12/2024 14:14:30 Chronic obstructive pulmonary disease 95829233 J44.9 Chronic bronchitis 84276 004 J42 Mild persi stent asthma 683295234 J45.30 Acute bronchitis 5607928 2 J20.9 Health Concerns Section Related Observation LastModified by Organization Detai ls LastModified Time None Recorded Concern Status LastModified by Organization Details LastModified Time None Recorded Payers Encounter Date Sequence Insurance Name Policy Number Policy Burnette Covered Member ID Burnette Member ID Guarantor Name 12/12/2024 1 [employer] - FFS/TRADITION AL Elen Yanes [id number] Elen Yanes 12/12/2024 2 [facility] - DUAL COMPLETE - DUAL ELIGIBLE - SNP (MEDICARE-MED ICAID REPLACEMENT HMO) [id number] Elen Yanes [id number] Elen Yanes Notes Date Note Type Note Provider Name and Address Organization Details Recorded Time 5 text/html 49-year-old female with history of obesity, fibromyalgia, decreased ejection fraction 45-50%, hypertension and diabetes. Patient had COVID-19 in July 2021.She voices no other cardiopulmonary complaints today. She denies fever, chills, night sweats, hemoptysis, pleurisy, chest pain, chest pressure, orthopnea, PND, syncope, palpitations or dizziness. Denies wheeze. She denies dyspnea.Temperature 97.7?? today.She complains of cough productive yellowish sputum and yellowish nasal drainage for 2 weeks. Denies fever, chills, night sweats, hemoptysis, pleurisy, chest pain, chest pressure, orthopnea, PND, syncope or palpitations. No known COVID or influenza exposure. She states she has lost weight due to diet modification and gastroparesis.Medications in the past have included Spiriva, prednisone, Omnicef, Symbicort, albuterol MDI, Atrovent and albuterol nebs, incentive spirometry, pep flutter valve, Mucinex and Singulair. She also has a history of COPD , gastroparesis and a history of tobacco abuse. She denies snoring or witnessed apneas.Modified Wells criteria 0. Buras of 0. The patient again was warned no driving motorized vehicles or operating heavy machinery while fatigued, sleepy or drowsy, she again voiced understanding. She does not get sleepy or fall asleep while driving. She has lost weight with diet modification and she again declines CPAP. I again told the patient untreated sleep apnea could result in immediate ill health, sickness, and , she again voiced understanding and declines CPAP. Dyspnea, timing with extreme exertion, and is minimal in severity. She denies fatigue, EDS or hypersomnia.She denies associated fever, chills, night sweats, hemoptysis, pleurisy, chest pain, orthopnea, PND, palpitations, dizziness or chest pressure.She voices no other cardiopulmonary complaints, no GI complaints, and no neurologic complaints. She has over 30 pack-year history of smoking, and she quit 2021 she states. She overall is doing really well since she quit smoking. She takes Atrovent 2 puffs once a day later in the evening. Rarely uses her albuterol inhaler or nebulizers.She voices no other cardiopulmonary complaints, no GI complaints, no neurologic complaints today.I went over most recent PFTs with the patient, I answered all of her questions, she voiced understanding and she had no further questions. alpha antitrypsin level is 144 PULMONARY FUNCTION TEST APRIL 24, 2024: FEV1 of 1.89 or 71 percent predicted, FVC of 2.52 or 76 percent predicted, FEV1 FVC ratio 75 percent, no improvement post bronchodilators. Chest x-ray November 21, 2022: No evidence of acute cardiopulmonary disease. Her previous spirometry done October 08, 2020 revealed an FEV1 of 1.86 or 66% predicted, FEV1 FVC ratio of 77%, FVC of 2.37 or 67% predicted. Chest x-ray done at [facility] August 2021 was unremarkable. Dyspnea with exertion, minimal in severity, unchanged. The patient declines any further pulmonary/thoracic diagnostic/therapeutic procedures at the present time for abnormalities noted on most recent CT scan of chest.In the past she has received Rocephin, Keflex and Omnicef per primary care doctor , Elias M[facility], with improvement. She is on Mucinex with improvement. She states she quit smoking. Most likely with chronic bronchitis, continue pep flutter valve use and incentive spirometry.She denies allergies/ adverse effects/drug interactions with Omnicef, she states she has had this in the past and has not had any problems and this does resolve her symptoms. LOW-DOSE CT SCAN OF CHEST DECEMBER 19, 2023 BELOW:COMPARISON: CT chest, 2021 and 03/03/2021TECHNIQUE: Low-dose protocol CT (LDCT) images of the chest are obtained from the lung apicesto the lung bases without intravenous contrast for lung cancer screening. P[employer]'s Auto mA automated exposure control was utilized for radiation dose reduction.Paitent Height: 63 inches Patient Weight: 187 poundsCTDI vol: 3.02 mGy DLP: 96.49 mGy*cmFINDINGS: Heart is normal in size status post coronary artery stenting. There is a trace anteriorpericardial effusion. There are granulomatous calcifications in the mediastinum and right hilumwithout pathologic intrathoracic lymphadenopathy. The thyroid gland is unremarkable.There is a stable small subpleural area of fibrosis in the mediastinal portion of the right middle lobe.There are bilateral pulmonary nodules, as marked, measuring 5 mm or less. These are unchangedfrom 2020. There is no new pulmonary nodule and the airways are patent. There are calcifiedgranulomas in the right lower lobe. There is no pleural fluid.The visualized upper abdominal structures are unremarkable. There is mild multilevel degenerativedisc disease of the mid to lower thoracic spine. There is no suspicious osseous lesionIMPRESSION:1. Bilateral pulmonary nodules measuring 5 mm or less. These are unchanged from 2020 and there isno new pulmonary nodule. Recommend annual low-dose screening CTLRCAT2 - BENIGN APPEARANCE OR [id number] - ANNUAL SCREENING IN 12 MONTHS*Recommendations for follow up/management of pulmonary nodules will be based on the [facility] criteriaTranscribed Date: 12/19/2023 4:42 PMTranscribed By: Kaitlin SinghferReported by: Kaitlin SinghferSigned by: Edwige SinghDateSigned: 024 4:42 CT CHEST DONE 2021 BELOW:COMPARISON: CTA chest, 03/03/2021TECHNIQUE: 2.5 mm axial images through the chest were obtained following rapid bolusadministration of IV contrast. This data was used to perform 2-D and 3-D MIP reconstructions inthe coronal and sagittal planes. GE's Auto mA automated exposure control was utilized forradiation dose reduction.FINDINGS: The heart is mildly enlarged status post coronary artery stenting. The pulmonaryarteries are well-opacified through their segmental level without filling defect. The subsegmentalvessels cannot be evaluated due to suboptimal opacificationThere are granulomatous calcifications in the mediastinum, right hilum, and right infrahilar region.There is a 9 mm borderline enlarged right hilar lymph node, decreased in size from prior. Thepreviously noted lymph node medial to the bronchus intermedius has also decreased in size. Thereis no pathologic intrathoracic lymphadenopathy.There are stable findings of mild air trapping. The left lower lobe nodules on images 55, 60, and 66are unchanged. There is a 5 mm right lower lobe nodule on image 68 which previously measured 6mm. There is linear atelectasis versus fibrosis in the medial segment of the right middle lobe, stable.The prior groundglass opacities have resolved. There is no new pulmonary nodule and the airwaysare patent.Granulomatous calcifications involve the spleen. There is a 1.1 x 1.2 cm celiac axis lymph node,unchanged. The visualized upper abdominal structures are otherwise unremarkable. There is mild tomoderate degenerative disc disease from T5/6 through T9/10IMPRESSION:1. No pulmonary embolism through the segmental arterial level2. Stable findings of mild air trapping without evidence of acute intrathoracic process3. Interval decrease in size in the mediastinal and right hilar lymphadenopathy, no longerpathologically enlarged4. Several nodules in both lower lobes, measuring 5 mm or less. These are unchanged from priorand therefore benign.*Recommendations for follow up/management of pulmonary nodules will be based on the [facility] criteriaNOTE: Any incidentally noted liver lesions equal to or less than 5 mm, cystic lesions in the kidneysless than 1 cm, and/or adrenal lesions equal to or less than 1 cm, generally are considered highlylikely to be benign and no additional evaluation is recommended, unless specifically mentioned inthe impression.Transcribed Date: 2021 1:09 PMTranscribed By: Edwige SinghReported by: Kaitlin SinghferSigned by: Edwige SinghDateSigned: 022 1:09 This note was completed using a dictation system. We do our best to minimize mistakes by this dictation system, but some dictation system mistakes cannot be identified. If something does not make sense and/ or appears in error please do not hesitate to contact our office. We can correct the record and/ or clarify for you.I went over most recent CT scan of chest December 2023 in detail with the patient, I answered all of the patient's questions, the patient voiced understanding and she had no further questions.She declines bronchoscopy, CT lung biopsy, and/or surgical biopsy / resection of abnormalities noted on most recent CT scan of chest, however she is in agreement to a repeat CT scan of chest December 2024.The patient declines any further pulmonary/thoracic diagnostic procedures at the present time for abnormalities noted on most recent CT scan of chest , however she is in agreement to a repeat CT scan of chest in 1 year or December 2024 , as per radiologist recommendations.Patient instructed to follow-up with primary care provider and/or clinical rn manager for coronary stents as well as trace anterior pericardial effusion as both of these could result in immediate ill health, sickness, and , she voiced understanding and stated she would. I gave her a copy of her most recent CT scan of chest to take her clinical rn manager Dr. Pina.The patient was warned no driving motorized vehicles or operating heavy machinery while fatigued, sleepy or drowsy, the patient voiced understanding and she stated she would not.Patient was instructed to read the side effect package profile very carefully on all medications prescribed, and to stop medications immediately and go to ER immediately if the patient has any problems, she voiced understanding. Patient was instructed to go over side effects /adverse effects / drug interactions with all of the prescribed and [id number] medications with her pharmacist, she again voiced understanding. The patient was instructed to go to ER if she does not improve or if she worsens, she again today voiced understanding.Side effects of Omnicef/ antibiotics were explained to the patient and include but not limited: , high blood pressure, anaphylaxis, headache, seizures, swelling, dizziness, fatigue, CO, CVA, life-threatening arrhythmia, increased risks of all infections with sepsis and , heartburn, depression, C difficile colitis with overwhelming infection, sepsis, , and with lifelong sickness and , also increased risks of yeast infection with sickness and , also nausea, vomiting, abdominal pain, diarrhea, shortness for breath , osteonecrosis of the hip with hip replacement etc., she voiced understanding and is in agreement to start on Omnicef.She was following up with her primary care provider tomorrow for a tick bite and a workup for Lyme disease, I will leave this up to her primary care provider if treatment is needed for this , she voiced understanding.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 I told her antibiotics certainly can increase risk of C diff and result in immediate ill health, lifelong sickness, and , she again voiced understanding.I told the patient I will be retiring February 2025, the patient voiced understanding.The patient was instructed to follow-up with their primary care provider and/or a graduate recruiter/sleep physician for all their future pulmonary needs/ issues/meds and all of their sleep needs/issues/meds, the patient voiced understanding. The patient was also instructed to follow-up with their primary care provider and/ or a graduate recruiter for all recommended future CT scans of the chest, the patient voiced understanding. I told the patient their lack of follow-up with recommended future CT scans of chest could result in future ill health, sickness, , the patient again voiced understanding.She voiced understanding of all the above. Cisco Durant MD [address], [place], [address], [facility] - [facility] & [place] 12/12/2024 14:20:21 OBGyn Episode No OBEpisode recorded.
[2025-02-04 10:51] LABS: Anion Gap 10.4 mEq/L (5-15); Blood Urea Nitrogen 16 mg/dl (7-17); Carbon Dioxide 32 mmol/L (22.0-30.0); Chloride 103 mmol/L (98-107); Estimated Glomerular Filt Rate 76 ml/min (>60); GFR (African American) 92 ML/MIN (>60); Glucose 149 mg/dl (74-100); Potassium 4.4 mmoL/L (3.5-5.1); Sodium 141 mmol/L (136-145)
== END 2025-02-04 23:59 | disposition home or self-care (01) ==
LOC: LAB 10:04
PROVIDERS: PCP Nurse Practitioner Family; Visit Provider Physician Assistant
DX: I95.9 Hypotension, unspecified (principal); I25.118 Atherosclerotic heart disease of native coronary artery with other forms of angina pectoris
CPT/HCPCS: 36415; 80048

== ENCOUNTER 2025-02-24 22:44 | Observation (INO) | payer MEDICARE, SELFPAY ==
[2025-02-25] VITALS (8 sets, daily range): BP systolic 93–125; BP diastolic 58–77; PULSE 68–75; RESP 16–18; TEMP 36.5–37.2; O2SAT 92–96; BMI 31.9; BMI 32.1
--- OUTSIDE RECORDS SUMMARY | 2025-02-25 00:12 | XMS_ITS | Continuity of Care Document ---
Author Organization SALEEM HERRERA [facility] & Ese, [facility] Address [address] [place] [address] Care Team Providers Care Software Systems Engineer Name Role Phone ELIAS MANE Primary Care Provider Assessment No assessment recorded. Plan of Treatment Reminders Order Date Submit Date Provider Last Modified By Organization Details Last Modified Time Details Appointments None recorded. Lab None recorded. Referral None recorded. Procedures None recorded. Surgeries None recorded. Imaging None recorded. Medication Orders montelukast 10 mg tablet 2024 [email or web address], [address], 5 12:03:11 Ventolin HFA 90 mcg/actuati on aerosol inhaler 2024 025 [email or web address], [address], 5 12:03:11 Symbicort 160 mcg-4.5 mcg/actuati on HFA aerosol inhaler 2024 025 [email or web address] n42 [facility] [address], [address], 5 12:03:11 albuterol sulfate 2.5 mg/3 mL (0.083 %) solution for nebulizatio n 2024 025 [email or web address] n42 [facility] [address] [place] [address], [address], 5 12:03:11 Atrovent HFA 17 mcg/actuati on aerosol inhaler 2024 025 [email or web address] n42 [facility], [address] [place] [address], [address], 5 12:03:11 Spiriva with HandiHaler 18 mcg and inhalation capsules 2024 025 [email or web address] n42 [facility], [address] [place] [address], [address], 5 12:03:11 Patient TargetsNo targets recorded. Patient Instructions Encounter Date Encounter Id Patient Instructions Last Modified By Organization Details Last Modified Time 01/20/2025 [id number] Continue Symbicort, Spiriva, albuterol nebs or albuterol Q 4 p.r.n., Mucinex b.i.d., singular, pep flutter valve, and incentive spirometry. She is also on Atrovent 2 puffs in the evening. Continued tobacco cessation. Previously added Omnicef 300 mg p.o. b.i.d. for acute bronchitis and acute sinusitis for 7 days, probiotic 1 p.o. daily for 10 days. 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 Results Created Date Observation Date Name Description Value Unit Range Abnormal Flag Note LastModifiedBy Organization Detail LastModifiedTime 12/26/1912/25/2024 LDCT, chest , for lung ernestoce r glendy lincoln [facility] Name: JESUS IYER ND LA A 9 Medica l [facility] [facility] Phys: Elza hill MD, Neftali [place] [facility] [place] [address] : 1975 Age: 49 Sex: F Acct: [id number] Loc: Rishabh.CT PHONE #: [phone] Exam Date: 2024 Status : DEP CLI FAX #: [phone] Rad# [id number] Unit# [id number] Admit Date: 2024 EXAMS: CPT CODE: [id number] CT CHEST LDCT LUNG SCREEN G0297 EXAM: CT LUNG LOW DOSE FOR LUNG CANCER SCREEN WO CONTRA [facility] INDICA TION: Female , 49 years [...] findin gs do not requir e michelle escuderoin g follow -up. [id number] . Moseley l and sagitt al MIPS were recons [...] LDCT PAGE 1 Signed Report (FIONA NUED) [facility] Name: JAYLON MAGAÑA,JESUS LA A [facility] Phys: Elza hill MD, [place] [address] : 1975 Age: 49 Sex: F Acct: [id number] Loc: G.CT PHONE #: Exam Date: 2024 Status : DEP CLI FAX #: [phone] Rad# [id number] Unit# [id number] Admit Date: 2024 EXAMS: CPT CODE: [id number] CT CHEST LDCT LUNG SCREEN G0297 Full Lung-R ADS 2021 summar y docume nt publis hed Novemb er 2021 can be found at https: //www. [email or web address] [email or web address] [email or web address]/AC R/File s/RADS /Lung- RADS/L kika-RA DS- 2.p f Electr onical ly signed by: Farooq Singh MD 2024 07:01 PM EDT RP Workst ation: ARHWRS 15PRR Electr onical ly Signed by FAROOQ SINGH on 2024 at 1839 Report ed and signed by: Robert SINGH CC: Breanne hill M.D.; Carmelo Mane APRN Dictat ed Date/T edis: 2024 (1838) Techno logist : FERMÍN Gray; EMILEE BELLNISH Y Transc ribed Date/T edis: 2024 (183) Transc riptio nist: SHE Electr onic Signat ure Date/T edis: 2024 (1838) Printe d Date/T edis: 2024 (2017) BATCH NO: N/A PAGE 2 Signed Report CC'ed Logic: Orderi ng Provid er: ELZA ANGELA Y Attend ing Provid er: ELZA ANGELA Y Referr ing Provid er: ELZA ANGELA Y Consul ting Provid er: ALHAJI Mercado [address] [place], [address], 12/30/2024 15:59:29 01/16/2012/23/2024 LDCT, chest , for lung cance r scree salazar No observ ation record ed. cynthia [place] (Centralized Scheduling) [address] [place] [address] [place], [address], 01/15/2025 10:45:59 01/21/20 25 12/23/2024 LDCT, chest , for lung cance r scree salazar No observ ation [facility] ed. [facility] [place] [facility]) [address] [place] [address] [place], [address], 01/20/2025 11:40:40 Result Notes None recorded. Problems Name Problem SNOMED Code Status Onset Date Resolution Date Notes Provider Name and Address Organization Details Recorded Time Cyst of ovary 66954422 Active SALEEM Zapien - [facility] - [place] & [place] 2 10:17:17 Myocardial ischemia 826961454 Active 2017 [facility] [place] 2 10:17:17 Intramural leiomyoma of uterus 69034617 Active 2016 SALEEM Zapien - LP[facility] - [place] & [place] 2 10:17:17 Hypertrigly ceridemia 191788003 Active 2020 SALEEM Zapien - LP[facility] - [place] & [place] 2 10:17:18 Blood in urine 07009044 Active SALEEM Zapien - LPNT - & [place] 2 10:17:18 Depressive disorder 01628950 Active SALEEM Robins - LP[facility] - [facility] & [place] 2 10:18:51 Diverticuli tis 646125111 Active 2016 SALEEM Zapien LP[facility] - [place] & [place] 2 10:17:18 Chronic heart disease 573804794 Active 2018 SALEEM Zapien - [facility] - [place] & [place] 2 10:17:18 Pain in pelvis 72293961 Active [facility]apien [facility] [place] 2 10:17:18 Myocardial infarction 15848525 Active 2018 SALEEM Zapien - LPNT - & [place] 2 10:17:18 Cigarette smoker 39970254 Active 2016 SALEEM Zapien LPNT - & [place] 2 10:17:18 Polycystic ovaries Active SALEEM Zapien LPNT - & [place] 2 10:17:18 Clostridium difficile diarrhea 0183444330533 Active SALEEM Zapien LPNT - & [place] 2 10:17:18 Long-term drug therapy Active 2019 [facility]apien [facility] [place] 2 10:17:18 Dysmenorrhe a 416319402 Active 2016 SALEEM Zapien - [facility] - [place] & [place] 2 10:17:18 Atypical squamous cells of undetermine d significanc e on cervical Papanicolao u smear 957292067 Active 2005 SALEEM Zapien [facility] [place] 2 10:17:18 Amenorrhea 54541717 Active 2005 SALEEM Zapien - LPNT - [facility] & [place] 2 10:17:18 Thrombophle bitis 66080126 Active Jina keating, [place] - LPNT - [place] & [place] 2 10:17:18 Typical angina 523042348 Active Jina keating [place] - LPNT - [place] & [place] 2 10:17:18 Temporomand ibular joint disorder 94957739 Active 2010 SALEEM Zapien - [facility] - [place] & [place] 2 10:17:18 Menorrhagia 737216838 Active 2016 SALEEM Zapien - LP[facility] - [place] & [place] 2 10:17:18 Exposure to SARS-CoV-2 Active 2019 SALEEM Zapien - [facility] - [place] & [place] 2 10:17:18 Essential hypertensio n 00404646 Active SALEEM Zapien - [facility] - [place] & [place] 2 10:17:18 Osteoporosi s 42687637 Active 2016 SALEEM Zapien - [facility] - [place] & [place] 2 10:17:18 Smoker 25272207 Active 2020 SALEEM Zapien - [facility] - [place] & [place] 2 10:17:18 Diabetes mellitus 19105803 Active 2005 SALEEM Zapien - [facility] - [place] & [place] 2 10:17:18 Long-term current use of insulin 822476744 Active 2019 Jina keating [place] - LPNT - [place] & [place] 2 10:17:18 Polyp of corpus uteri 56776352 Active 2016 SALEEM Zapien - LPNT - [place] & [place] 2 10:17:18 Chronic obstructive pulmonary disease 24417018 Active 2019 Amara Jacinto [place] - LP[facility] - [place] & [place] 2 10:18:51 Suspected COVID-19 000382276 Active 2020 SALEEM Zapien - [facility] - [place] & [place] 2 10:17:18 Hypercholes terolemia 06556124 Active Jina [place], [place] - LP[facility] - [place] & [place] 2 10:17:18 Hyperlipide kira 05756983 Active 2020 Jina Nguyen [place] - [place] - [place] & [place] 2 10:17:18 Body mass index 30+ - obesity 685181604 Active 2016 Jina Nguyen [place] - [place] - [place] & [place] 2 10:17:18 Anxiety 59476252 Active Jina Nguyen [place] - [facility] - [place] & [place] 2 10:17:18 History of cardiac catheteriza tion 4607862732975 0 Active Jina [place], [place] - LP[facility] - [place] & [place] 2 10:17:18 Menopausal syndrome 725851450 Active Jina [place]ating, [place] - [facility] - [place] & [place] 2 10:17:18 Benign esophageal stricture 413863909 Active 2021 Amara Casey null[place] - [place] - [place] & [place] 2 10:18:51 Gastro-esop hageal reflux disease with esophagitis 065299657 Active 2021 Amara Casey [place] - [place] - [place] & [place] 2 10:18:51 Dysphagia 89806673 Active 2021 Amara Casey [place] - [place] - [place] & [place] 2 10:18:51 Irritable bowel syndrome characteriz ed by constipatio n 722873027 Active 2021 Amara [place] - [place] - [place] & [place] 2 10:18:51 Gastric ulcer 166243647 Active 2021 Amara [place] - [place] - [place] & [place] 2 10:18:51 Recurrent major depression 63958457 Active Amara [place] - [place] - [place] & [place] 2 10:18:51 Preinfarcti on syndrome 4003732 Active Amara [place] - [place] - [place] & [place] 2 10:18:51 Cardiovascu lar stress test abnormal 724070543 Active Amara [place] - [place] - [place] & [place] 2 10:18:51 Chest pain 16077253 Active Amara [place] - [place] - [place] & [place] 2 10:18:51 Chronic post-trauma tic stress disorder 612360352 Active Amara [place] - [place] - [place] & [place] 2 10:18:51 Right upper quadrant pain 063468501 Active 2021 Americo Salazar MD [facility] [facility],Michelle te [address] [place] [address], [phone], [place] - [facility] - [place] & [place] 2 13:05:46 Gastropares is syndrome 617916055 Active 2022 Americo Salazar MD [address] [place] [address],Michelle te [address] [place] [address], [address], [place] - [facility] - [place] & [place] 3 06:40:23 Gastritis 7786242 Active 2022 Americo Salazar MD [address] [place] [address],Michelle te [address] [place] [address], [phone], [place] - [facility] - [place] & [place] 3 06:40:49 Mild intermitten t asthma 597110924 Active 2022 Cisco Durant MD [address] [place] [address],Michelle te [address] [place] [address], [address], [place] - [facility] - [place] & [place] 3 23:08:15 Chronic bronchitis 33098942 Active 2022 Cisco Durant MD [address] [place] [address],Michelle te [address] [place] [address], [phone], [place] - [facility] - [place] & [place] 3 09:11:24 Acute bronchitis 08034565 Active 2023 Crystal Earlywine null[place] - [place] - [place] & [place] 4 11:10:11 Mild persistent asthma 026711343 Active 2023 Cisco Durant MD [address] [place] [address],[address], [address] [facility] [place] SALEEM - JAMESNT - [place] & [place] 4 09:22:42 Problem Notes None recorded. Procedures Surgical History Date Name Laterality Status Provider Name and Address Organization Details Recorded Time 10/25/19 Gastric emptying imag study completed Cruz Mackenzieeri SALEEM - LPNT - [place] & [place] 11/01/2022 12:43:55 09/21/20 endoscopy and biopsy of upper gastrointestinal tract completed Mary Stevens SALEEM Melchor LPNT - [place] & [place] 10/31/2022 10:25:25 07/08/20 22 EGD/Endoscopy completed Cruz Patgieri SALEEM - JAMESNT - [place] & [place] 09/08/2022 12:54:54 10/09/19 22 Colonoscopy completed Cruz Patgieri SALEEM Melchor LP[facility] - [place] & [place] 07/08/2022 14:21:55 ultrasonography of liver completed Mary Rodney SALEEM Melchor LP[facility] - [place] & [place] 10/31/2022 10:19:02 Hernia Repair completed Jina Melchor LPNT - [place] & [place] 07/05/2022 08:05:31 cardiac catheterization completed Jinajess Nguyen SALEEM Melchor LP[facility] - [place] & [place] 07/05/2022 08:05:45 colposcopy completed Jinajess Nguyen SALEEM Melchor LP[facility] - [place] & [place] 07/05/2022 08:06:04 Cholecystectomy completed Jinajess Nguyen SALEEM Melchor LP[facility] - [place] & [place] 07/05/2022 08:06:16 salpingo-oophorecto my completed Jina MONGE - LPNT - [place] & [place] 07/05/2022 08:06:48 Imaging Results None recorded. Procedure Notes None recorded. Medical Equipment None Reported. Allergies Allergen ID Allergen Name Allergen Category Reaction Reaction Severity Criticality Documentation Date Start Date Code Code System Note Provider Name and Address Organization Details Recorded Time 57291 lamotrigi ne medicatio n Not available Not available Not available 07/05/20222019 49382 RxNorm Amara [place], [place] - LPNT [facility] & [place] 2 10:18:44 05282 Lamictal medicatio n Not available Not available Not available 07/05/20222008 11219 2 RxNorm Jina [place], [place] - LP[facility] & [place] 2 08:12:37 Medications Name Sig [...] tablet every 8 hours by oral route. 10/16 /2017 completed Not Available Not Available Not Available [...] Not Available Not Available Not Available carvedilol 3.125 mg tablet TAKE ONE (1) TABLET BY MOUTH TWICE DAILY MUST ADMINISTE R WITH MEAL/FOOD active Not Available Not Available No t Available ondansetron 8 mg disintegrat ing tablet [...] Not Available Not Available No t Available [place] 10 mg-325 mg tablet Take one every [...] Available Not Available Nasonex 50 mcg/actuati on [place] spray 2 sprays in each nostril by [...] completed Not Available Not Available Not Available Robinul Forte 2 mg tablet take 1 tablet (2 [...] active Not Available Not Available Not Avai Salma Uribe ra Thin use as directed for 30 [...] Not Available Not Available No t Available [employer] Blood Glucose System kit Please dispense lancets [...] Available UltiCare Pen Needle 32 gauge x USE DIRECTED TO INJECT LANTUS DAILY 12/29 [...] Available Not Available Not Available Dexcom G6 Artificial Flowers Supervisor USE DIRECTED 02/21 completed Not Available Not [...] height Body mass index (BMI) Body weight Body temperature Oxygen saturation Oxygen saturation in Arterial blood by Pulse oximetry Respiratory rate Systolic blood pressure Diastolic blood pressure Provider Name and Address Organization Details Last Updated DateTime 160.02 cm 34.4 kg/m2 80742.9 2 g 97.4 [degF] 98 % 98 % 12 /min 110 mm[Hg] 68 mm[Hg] Dawn MONGE [facility] & [place] 11:50:42 Date Recorded Heart rate Provider Name an d Address Organization Details Last Updated DateTime 01/20/2025 67 /min Cisco wolff MD [address] [place] [address],[address], [place], [address], SALEEM [facility] & [place] 01/20/2025 11:53:55 Social History Question Answer Notes LastModified by Organizat ion Details LastModified Time Tobacco Smoking Status Former Smoker 1 PPD x 33 years Dawn Dupree [facility], SALEEM [facility] & [place] 02/15/2023 10:00:00 Do You Have An Advance Directive? No [email or web address] Information not available 07/05/2022 If You Are , What Was Your Level Of Alcohol Consumption Prior To ? Occasional [email or web address] Information not available 02/23/2023 Are You Blind Or Do You Have Difficulty Seeing? No Information not available 07/08/2022 What Is Your Level Of Caffeine Consumption? Moderate Information not available 02/23/2023 What Type Of Diet Are You Following? DIABETIC Low Salt [email or web address] Information not available 02/23/2023 Which Illicit Or Recreational Drugs Have You Used? Marijuana [email or web address] Information not available 02/23/2023 What Was The Date Of Your Most Recent Tobacco Screening? 07/04/2022 Information not available 07/08/2022 How Many Children Do You Have? 2 [email or web address] Information not available 02/23/2023 What Is Your Relationship Status? Single [email or web address] Information not available 02/23/2023 How Much Tobacco Do You Smoke? 1 PPD Information not available 07/08/2022 Sex: Female Functional Status Question Answer Note LastModified by Organizat ion Details LastModified Time Do you use any illicit or recreational drugs? Yes Information not available 07/08/2022 What is your level of alcohol consumption? Occasional Information not available 07/08/2022 Do you or have you ever used smokeless tobacco? Never used smokeless tobacco Information not available 07/08/2022 What is your exercise level? Occasional Information not available 07/08/2022 Mental Status Question Answer Note LastModified by Organization D etails LastModified Time Do you feel stressed (tense, restless, nervous, or anxious, or unable to sleep at night)? [id number] Information not available 07/08/2022 Family History Relationship Description Onset Age of this Age Resolved Age Notes LastModified by Organization Details LastModified Time Maternal Grandmother Heart disease [email or web address] Not available 2021 14:16:03 Maternal Grandfather Familial prostate cancer Not available 2024 11:43:59 Medical History Condition Response Coronary Artery Disease Y None N Gout N Colon Cancer N Kidney Stones Y Hyperthyroidism N Kidney or Bladder Problems Y Depression Y COPD Y Hypothyroidism N GI Problems Y Osteoporosis/Osteopenia Y Diverticulitis/Diverticulosis Y Colon Polyps Y Heart Attack (LA) Y Anxiety Disorder Y Diabetes Y Obesity Y Bleeding Disorder N Arthritis Y Seizures/Epilepsy N Tuberculosis N Congestive Heart Failure (CHF) Y Hyperlipidemia Y Cancer N Back Problems Y Stroke N Asthma Y Sleep Apnea Y GERD/Reflux Y High Cholesterol Y Hepatitis N Cirrhosis N Liver Disease N Psychiatric/Mental Health Condition Y Heart Disease Y Headaches Y Hypertension Y Kidney Disease [...] influenza, unspecified formulation 9 completed Not Available [employer] 08/01/2022 13:43:53 Past Encounters Encounter ID Performer Location Encounter Start Date Encounter Closed Date Diagnosis/Indication Diagnosis SNOMED-CT Code Diagnosis ICD10 Code Diagnosis Note [id number] MD [facility] [address] [place] [address] [address] [place] [address] 01/20/2025 11:41:46 01/20/2025 11:54:11 Chronic obstructive pulmonary disease 69857498 J44.9 Chronic bronchitis 08505 004 J42 Mild persi stent asthma 514730617 J45.30 Health Concerns Section Related Observation LastModified by Organization Detai ls LastModified Time None Recorded Concern Status LastModified by Organization Details LastModified Time None Recorded Payers Encounter Date Sequence Insurance Name Policy Number Policy Burnette Covered Member ID Burnette Member ID Guarantor Name 01/20/2025 1 [place] [employer] - FFS/TRADITION AL Rhett Yanes [id number] Rhett Yanes 01/20/2025 2 [facility] - DUAL COMPLETE - DUAL ELIGIBLE - [place] (MEDICARE-MED ICAID REPLACEMENT HMO) [id number] Rhett Yanes [id number] [facility] Jess Yanes Notes Date Note Type Note Provider Name and Address Organization Details Recorded Time 5 text/html 49-year-old female with history of obesity, fibromyalgia, decreased ejection fraction 45-50%, hypertension and diabetes. Patient had COVID-19 in July 2021. She states she quit smoking 3 years ago. She does not vape.She voices no cardiopulmonary complaints today. She denies fever, chills, night sweats, hemoptysis, pleurisy, chest pain, chest pressure, cough, productive sputum,orthopnea, shortness of breath, PND, syncope, palpitations or dizziness. Denies wheeze. She denies dyspnea.Quality and context sputum is clear, thin, mucousy and rare. She has lost some weight with diet modifications she states.She denies fever, chills, night sweats, hemoptysis, pleurisy, [...] snoring or witnessed apneas.Modified [place] criteria 0. [place] of 1. She again was warned no driving motorized vehicles or operating heavy machinery while fatigued, sleepy or drowsy, she again voiced understanding. She does not get sleepy or fall asleep while driving. She has lost weight with diet modification and she declines CPAP. I again told the patient [...] Omnicef per primary care doctor , Elias Judd, with improvement. She is on Mucinex with improvement. She states she quit smoking. Most likely with chronic bronchitis, continue pep flutter valve use and incentive spirometry.She denies allergies/ adverse effects/drug interactions with Omnicef, she states she has had this in the past and has not had any problems and this does resolve her symptoms. CT SCAN OF CHEST DECEMBER 23, 2024 BELOW:Report DetailsPatient Name: RHETT YANESProcedureDate: 025Gender: Scooby of : 1975 Age 49 yearsPatient ID: [id number]: CT CHEST LDCT LUNG SCREENReferringPhysician: Francisco Durant TextEXAM: CT LUNG LOW DOSE FOR LUNG CANCER SCREEN WO CONTRASTCLINICAL INDICATION:Female, 49 years old. 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 NEEDS CT TO SCREEN FOR LUNGCACOMPARISON:December 19, 2023TECHNIQUE: A low dose helical CT CHEST was performed on a multi-detector scanner. The chestwas studied in helical mode with prospective reconstructionsUnless otherwise specified, incidental findings do not require dedicated imaging follow-upAutomated exposure control, adjustment of the mA and/or kV according to patient size,and/or iterative reconstruction. Unless otherwise specified, incidental findings do not requirededicated imaging follow-up. HM4003.Coronal and sagittal MIPS were reconstructed from the axial images.NOTE: This study was performed for the specific purposes of lung cancer screening and is not analternative to diagnostic chest CT.Patient presumed to meet [address] lung screenTotal DLP: 131 mGYcmFINDINGS:LUNG PARENCHYMANodules/lung masses: there is a calcified right lower lung granuloma. There is a stable 2.5 mm leftlower lung nodule on series 4 image 152. Another stable left lower lung nodule on image 136 is seenmeasuring 5 mm. A few other tiny stable lung nodules are also present. Another of these nodulesincludes a right lower lung nodule measuring 5 mm on image 143.Emphysema/fibrosis: Mild centrilobular emphysema, upper lobe predominantAirways disease: No visible endobronchial nodule.OTHER ANATOMIC REGIONSLymph Nodes: There is no significant adenopathy.Pleura: There is no pleural effusion.Cardiac: Heart size normal. Pericardium normal.OTHER FINDINGS: Coronary stents are noted. Name: RHETT YANES Account #:IMPRESSION:Lung Cancer Screening: LungRADS Category 2 Benign Based on imaging features or indolentbehavior. Recommend 12-month screening LDCTFull Lung-RADS 2021 summary document published August 2022 can be found [email or web address] ectronically signed by: Ernesto Singh MD 12/25/2024 07:01 PM EDT Workstation:[id number] anscribed Date: 12/25/2024 6:39 PMTranscribed By:Reported by: ERNESTO SINGHSigned by: ERNESTO SINGHDateSigned:12/26/19 6:39 LOW-DOSE CT SCAN OF CHEST DECEMBER 19, 2023 BELOW:COMPARISON: CT chest, 2021 and 03/03/2021TECHNIQUE: Low-dose protocol CT (LDCT) images of the chest are obtained from the lung apicesto the lung bases without intravenous contrast for lung cancer screening. KARALIT's Auto mA automated exposure control was utilized [...] mm or less. These are unchanged from 202 and there isno new pulmonary nodule. Recommend annual low-dose screening CTLRCAT2 - BENIGN APPEARANCE OR [id number] - ANNUAL SCREENING IN 12 MONTHS*Recommendations for follow up/management of pulmonary nodules will be based on the [facility] criteriaTranscribed Date: 12/19/2023 4:42 PMTranscribed By: Kaitlin SinghferReported by: Kaitlin SinghferSigned by: Edwige SinghDateSigned: 024 4:42 CT CHEST DONE 2021 BELOW:COMPARISON: CTA chest, 03/03/2021TECHNIQUE: 2.5 mm axial images through the chest were obtained following rapid bolusadministration of IV contrast. This data was used to perform 2-D and 3-D MIP reconstructions inthe coronal and sagittal planes. [employer] automated exposure control was utilized [...] pulmonary nodules will be based on the [facility] criteriaNOTE: Any incidentally noted liver lesions equal to or less than 5 mm, cystic lesions in the kidneysless than 1 cm, and/or adrenal lesions equal to or less than 1 cm, generally are considered highlylikely to be benign and no additional evaluation is recommended, unless specifically mentioned inthe impression.Transcribed Date: 2021 1:09 PMTranscribed By: Kaitlin SinghferReported by: Kaitlin SinghferSigned by: Edwige SinghDateSigned: 022 [...] most recent CT scan of chest December 2024 in detail with the patient, I answered all of the patient's questions, the patient voiced understanding and she had no further questions or concerns.She declines bronchoscopy, CT lung biopsy, and/or surgical biopsy / resection of abnormalities noted on most recent CT scan of chest December 2024, however she is in agreement to a repeat CT scan of chest December 2025 , as per radiologist recommendations. I gave her a copy of her most recent CT scan of chest December 2024 to take with her. 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 I gave her a copy of her most recent CT scan of chest to take her field inspector Dr. Pina.The patient was warned no driving motorized vehicles or operating heavy machinery while fatigued, sleepy or drowsy, she voiced understanding and she stated she would not.Patient was instructed to read the side effect package profile very carefully on all medications prescribed, and to stop medications immediately and go to ER immediately if the patient has any problems, she voiced understanding. Patient was instructed to go over side effects /adverse effects / drug interactions with all of the prescribed and [id number] medications with her pharmacist, she again voiced understanding. 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 I told her antibiotics certainly can increase risk of C diff and result in immediate ill health, lifelong sickness, and , she again voiced understanding.Side effects of inhalers/neblizers/Singul air were explained to the patient and include but not limited: , high blood pressure, anaphylaxis, headache, seizures, swelling, high blood sugars, muscle weakness, dizziness, fatigue, cataract formation, LA, CVA, life-threatening arrhythmia, osteoporosis, slow wound healing, increased risks of all infections with sepsis and , blurry vision with glaucoma and blindness, heartburn, depression, mood changes, aggressive behavior, psychosis, lelo, suicide ideations with actions and , rash, also increased risks of yeast infection with sickness and , also nausea, vomiting, abdominal pain, diarrhea, shortness for breath , osteonecrosis of the hip with hip replacement etc., she voiced understanding. I told the patient I will be retiring February 2025, the patient voiced understanding.The patient was instructed to follow-up with their primary care provider and/or a head girls golf coach/sleep physician for all their future pulmonary needs/ issues/meds and all of their sleep needs/issues/meds, the patient voiced understanding. The patient was also instructed to follow-up with their primary care provider and/ or a head girls golf coach for all recommended future CT scans of the chest, the patient voiced understanding. I told the patient their lack of follow-up with recommended future CT scans of chest could result in future ill health, sickness, , the patient again voiced understanding.She voiced understanding of all the above. Cisco Durant MD [address] [place] [address],[address], [place], [address], [place] - [facility] - [facility] 01/20/2025 12:04:05 OBGyn Episode No OBEpisode recorded.
--- OUTSIDE RECORDS SUMMARY | 2025-02-25 00:12 | XMS_ITS | Data Portability ---
Author Organization [place] - [facility] Address [address] [place] [address] Care Team Providers Care Nuclear Test Technician Name Role Phone JADEN MNAE Primary Care Provider Assessment No assessment recorded. Plan of Treatment Reminders Order Date Submit Date Provider Last Modified By Organization Details Last Modified Time Details Appointments None recorded. Lab alpha-1-ant itrypsin (aat), QN, serum 2023 024 [facility] (Registration ), [place], [address], 4 09:13:54 alpha-1-ant itrypsin (aat), QN, serum [address] (Registration ), [place], [address], 4 11:26:02 Referral None recorded. Procedures None recorded. Surgeries None recorded. Imaging LDCT, chest, for lung cancer screening 2024 [facility]25 [facility] ([facility]), [place], [address], 5 15:59:30 Medication Orders montelukast 10 mg tablet 2024 025 filomena christie [facility] - [address], [address], 5 12:03:11 Ventolin HFA 90 mcg/actuati on aerosol inhaler [email or web address] [place] [address], [address] [place] [address], [address], 5 12:03:11 Symbicort 160 mcg-4.5 mcg/actuati on HFA aerosol inhaler [email or web address], [address] [place] [address], [address], 5 12:03:11 albuterol sulfate 2.5 mg/3 mL (0.083 %) solution for nebulizatio n 2024 0[address], [address] [place] [address], [address], 5 12:03:11 Atrovent HFA 17 mcg/actuati on aerosol inhaler [address] [facility], [address] [place] [address], [address], 5 12:03:11 Spiriva with HandiHaler 18 mcg and inhalation capsules 2024 025 [facility], [address] [place] [address], [address], 5 12:03:11 cefdinir 300 mg capsule 2024 025 NICOLASA [facility], [address] [place] [address], [address], 5 16:17:48 Lactobacill us acidophilus 1 billion cell tablet 2024 025 arturoCU [employer]raisal Serviceso n[address], [address], 5 14:37:47 Mucus Relief ER 600 mg tablet, extended release 2024 [address] [place] [address], [address], 5 14:37:47 montelukast 10 mg tablet 2024 025 dianaFileTrek thompson2 [address], [address], 5 14:37:47 doxycycline hyclate 100 mg capsule 2023 [address], [address], 4 10:34:38 Lactobacill us acidophilus 1 billion cell tablet 2023 024 arturoCU Appraisal Servicespatrick [address], [address], 4 11:21:20 Patient TargetsNo targets recorded. Patient Instructions Encounter Date Encounter Id Patient Instructions Last Modified By Organization Details Last Modified Time 01/02/2024 [id number] complete PFT w/ post bronchodilator spirometry* NICOLASA Not available 04/24/2024 07:40:43 Alpha 1 antitrypsin level, and PFTs in 3 months. See her back in 4 months. Continue Symbicort, Spiriva, albuterol nebs or albuterol Q 4 p.r.n., Mucinex b.i.d., singular, pep flutter valve, and incentive spirometry. She is also on Atrovent 2 puffs in the evening. Continued tobacco cessation. CT scan of chest in 1 year or approximately December 18, 2024 RTC in 4 months. [email or web address] Not available 01/02/2024 11:56:32 04/29/2024 [id number] Alpha 1 antitrypsin level Add doxycycline 100 mg p.o. b.i.d. for 5 days and probiotic 1 p.o. daily for 10 days Continue Symbicort, Spiriva, albuterol nebs or albuterol Q 4 p.r.n., Mucinex b.i.d., singular, pep flutter valve, and incentive spirometry. She is also on Atrovent 2 puffs in the evening. Continued tobacco cessation. Return to clinic in 2-[address] scan of chest in 1 year or approximately December 18, 2024 [email or web address] Not available 04/29/2024 11:21:24 05/15/2024 [id number] Continue Symbicort, Spiriva, albuterol nebs or albuterol Q 4 p.r.n., Mucinex b.i.d., singular, pep flutter valve, and incentive spirometry. She is also on Atrovent 2 puffs in the evening. Continued tobacco cessation. CT scan of chest in 1 year or approximately December 18, 2024 Return to clinic in 6 months. Not available 05/15/2024 09:36:31 12/12/2024 [id number] Continue Symbicort, Spiriva, albuterol nebs or albuterol [...] 18, 2024 Return to clinic January 2025. [email or web address] Not available 12/12/2024 14:17:29 01/20/2025 [id number] Continue Symbicort, Spiriva, albuterol nebs or albuterol [...] December 2025 as per PCP or another care management associate [email or web address] Not available 01/20/2025 11:57:52 Reason for Referral None Reported. Results Created Date Observation Date Name Description Value Unit Range Abnormal Flag Note LastModifiedBy Organization Detail LastModifiedTime 04/29/20 24 04/29/2024 ALPHA 1 ANTIT RYPSI N note SEE NOTE Order ing Provi lorenza: Ernestina nolasco MD Not Available [address] [place], [address], 04/30/2024 09:13:54 04/29/20 24 04/29/2024 ALPHA 1 ANTIT RYPSI N alpha 1 antitrypsin 144 mg/dL 101-18 7 Perfo rmed At: CB, Lab[facility] [address] [place], [address] [address] [facility] Melina preston, PhD, Phone : [phone] Not Available [address] [place], [address], 04/30/2024 09:13:54 04/29/20 24 04/29/2024 ALPHA 1 ANTIT RYPSI N performing lab SEE NOTE LC2 - LABCO RP CLIEN T# [id number] [place] [address] Not Available [address] [place], [address], 04/30/2024 09:13:54 12/19/19 24 12/19/2023 LDCT, chest , for lung cance r scree salazar [facility] Medica l Ce Name: JESUS IYER ND A 989 fitaborate Phys: Elza hill MD, [place] [address] : 1975 Age: 48 Sex: F Acct: [id number] Loc: Rishabh.CT PHONE #: Exam Date: 2023 Status : REG CLI FAX #: Rad# [id number] Unit# [id number] Admit Date: 2023 EXAMS: CPT CODE: [id number] CT CHEST LDCT LUNG SCREEN G0297 LUNG CANCER SCREEN ING CHEST CT WITHOU T CONTRA ST, 024: CLINIC AL HISTOR Y: Asympt omatic 48-yea r-old female with 33-pac k-year histor y of tobacc o use presen ts for lung cancer screen ing. The patien t with smokin g 1 year ago and has a writte n order from a clinic flip obtain ed during a lung cancer screen ing counse ling and shared decisi on-jimbo ing visit. COMPAR NARDA: CT chest, 022 and 021 TECHNI QUE: Low-do se protoc ol CT (LDCT) images of the chest are obtain ed from the lung apices to the lung bases withou t intrav enous contra st for lung cancer screen ing. Syrmo's Auto mA automa delroy exposu re contro l was utiliz ed for radiat ion dose reduct ion. Paiten t Height : 63 inches Patien t Weight : 187 pounds CTDI vol: 3.02 mGy DLP: 96.49 mGy*cm FINDIN GS: Heart is normal in size status post kinney ry artery stenti ng. There is a trace anteri or perica rdial effusi on. There are granul omatou s calcif icatio ns in the medias tinum and right hilum withou t pathol ogic intrat horaci c lympha denopa thy. The thyroi d gland is unrema rkable . There is a stable small subple ural area of fibros is in the medias tinal portio n of the right middle lobe. There are bilate ral pulmon prosper nodule s, as marked , measur ing 5 mm or less. These are unchan ged from 2020. There is no new pulmon prosper nodule and the airway s are patent . There are calcif ied granul omas in the right lower lobe. There is no pleura l fluid. The visual ized upper abdomi nal struct ures are unrema rkable . There is mild multil evel degene rative disc diseas e of the mid to lower thorac ic spine. There is no suspic ious osseou s lesion IMPRES JAMIL: 1. Bilate ral pulmon prosper nodule s measur ing 5 mm or less. These are unchan ged from 2020 and there is no new pulmon prosper nodule . Recomm end annual low-do se screen ing CT LRCAT2 - BENIGN APPEAR ANCE OR BEHAVI OR LR1YR - ANNUAL SCREEN ING IN 12 MONTHS PAGE 1 Signed Report (FIONA NUKYLIE) [facility] Name: JESUS IYER ND MS DJO [employer] Phys: Elza hill MD, [place] [address] : 1975 Age: 48 Sex: F Acct: [id number] Loc: G.CT PHONE #: [phone] Exam Date: 2023 Status : REG CLI FAX #: Rad# [id number] Unit# [id number] Admit Date: 2023 EXAMS: CPT CODE: [id number] CT CHEST LDCT LUNG SCREEN G0297 *Recom mendat ions for follow up/man agemen t of pulmon prosper nodule s will be based on the [employer] criter ia Electr onical ly Signed by EDWARD ANDERSON MD on 2023 at 1642 Report ed and signed by: EDWARD ANDERSON MD CC: Breanne hill M.D.; Carmelo Mane SALESPERSON [employer] Dictat ed Date/T edis: 2023 (164) Techno logist : EMILEEEYAL SANZ Y Transc ribed Date/T edis: 2023 (1642) Transc riptio nist: DR.HAG CHIN olsen Signat ure Date/T edis: 2023 (164) Printe d Date/T edis: 2023 (1645) BATCH NO: N/A PAGE 2 Signed Report CC'ed Logic: Orderi ng Provid er: ELZA ANGELA Y Attend ing Provid er: ELZA ANGELA Y Referr ing Provid er: ELZA ANGELA Y Consul ting Provid er: ALHAJI Verduzco [address] [place], [address], 12/29/2023 12:01:42 01/02/20 24 12/19/2023 LDCT, chest , for lung cance r scree salazar No observ ation record ed. [address] (Centralized Scheduling) [address] [place] [address] [place], [address], 01/02/2024 09:35:55 04/24/20 24 04/24/2024 compl ete PFT w/ post [facility] hodil ator laurent metry * No observ ation record ed. [address] Central Scheduling [address] [place] [address] [place], [address], 04/24/2024 07:40:43 12/26/19 25 12/25/2024 LDCT, chest , for lung cance r scree salazar [facility] l Name: ANLALI MAGAÑAJESUS MS A [address] Phys: [place] [address] : 1975 Age: 49 Sex: F Acct: [id number] Loc: G.CT PHONE #: Exam Date: 2024 Status : DEP CLI FAX #: Rad# [id number] Unit# [id number] Admit Date: 2024 EXAMS: CPT CODE: [id number] CT CHEST LDCT LUNG SCREEN G0297 EXAM: CT LUNG LOW DOSE FOR LUNG CANCER SCREEN WO CONTRA ST CLINIC AL INDICA TION: Female , 49 years [...] ntal findin gs do not requir e dedica delroy imagin g follow -up Automa delroy exposu re contro l, adjust ment of the mA and/or kV accord ing to patien t size, and/or iterat quirino recons tructi on. Unless otherw ise specif ied, incide ntal findin gs do not requir e dedica delroy imagin g follow -up. [id number] . Kinney l and sagitt al MIPS were recons [...] Perica rdium normal . OTHER FINDIN GS: Kinney ry stents are noted. IMPRES JAMIL: Lung Cancer Screen ing: LungRA DS Catego ry 2 Benign Based on imagin g featur es or indole nt behavi or. Recomm end 12-mon th screen ing LDCT PAGE 1 Signed Report (FIONA NUKYLIE) [facility] Name: JESUS IYER ND A [address] [place], [place] [address]a [employer] Phys: [place] [address] : 1975 Age: 49 Sex: F Acct: [id number] Loc: G.CT PHONE #: Exam Date: 2024 Status : DEP CLI FAX #: Rad# [id number] Unit# [id number] Admit Date: 2024 EXAMS: CPT CODE: [id number] 911 CT CHEST LDCT LUNG SCREEN G0 Full Lung-R ADS 2021 summar y docume nt publis hed Novemb er 2021 can be found at https: //[email or web address] R/File s/RADS /Lung- RADS/L kika-RA DS 2.p f Electr onical ly signed by: Farooq Singh MD 2024 07:01 PM EDT RP Workst ation: ARHWRS 15PRR Electr onical ly Signed by FAROOQ SINGH on 2024 at 1839 Report ed and signed by: Robert SINGH CC: Breanne hill M.D.; Carmelo Mane APRN Dictat ed Date/T edis: 2024 (1838) Techno logist : FERMÍN SANZ Y Transc ribed Date/T edis: 2024 (1838) Transc riptio nist: DR.BAT ORDAZ Electr onic Signat ure Date/T edis: 2024 (1838) Printe d Date/T edis: 2024 (2017) BATCH NO: N/A PAGE 2 Signed Report CC'ed Logic: Orderi ng Provid er: ELZA ANGELA Y Attend ing Provid er: ELZA SON JEFFRE Y Referr ing Provid er: ELZA ANANDRE Y Consul ting Provid er: ALHAJI Verduzco [address] [place], [address], 12/30/2024 15:59:29 01/16/2012/23/2024 LDCT, chest , for lung cance r scree salazar No observ ation record ed. [facility] [place] ([facility]) [address] [place] [address] [place], [address], 01/15/2025 10:45:59 01/21/2012/23/2024 LDCT, chest , for lung cance r scree salazar No observ ation record ed. cynthia [place] (Centralized Scheduling) [address] [place] [address] [place], [address], 01/20/2025 11:40:40 Result Notes None recorded. Problems Name Problem SNOMED Code Status Onset Date Resolution Date Notes Provider Name and Address Organization Details Recorded Time Cyst of ovary 56719117 Active Jina [place]ating, [place] - [facility] - [place] & [place] 2 10:17:17 Myocardial ischemia 732909017 Active 2017 Jina [place] [facility] 2 10:17:17 Intramural leiomyoma of uterus 72940815 Active 2016 Jina [place] [facility] 2 10:17:17 Hypertrigly ceridemia 544278973 Active 2020 J[place], [place] [facility] & [place] 2 10:17:18 Blood in urine 52348141 Active Jina [place] [facility] & [place] 2 10:17:18 Depressive disorder 56465570 Active Amara Casey null[place] - [facility] - [facility] & [place] 2 10:18:51 Diverticuli tis 389607672 Active 2016 Jina [place] - [facility] & [place] 2 10:17:18 Chronic heart disease 369437676 Active 2018 SALEEM Zapien LPNT Jill [facility] & [place] 2 10:17:18 Pain in pelvis 28856709 Active [facility]ALEEM Zapien [facility] & [place] 2 10:17:18 Myocardial infarction 82815018 Active 2018 SALEEM Zapien [facility] Jill [facility] & [place] 2 10:17:18 Cigarette smoker 23257864 Active 2016 SALEEM Zapien [facility] Jill [facility] & [place] 2 10:17:18 Polycystic ovaries Active [facility]ALEEM [facility]apien [facility] & [place] 2 10:17:18 Clostridium difficile diarrhea 6221038193535 Active SALEEM Zapien [facility] Jill [facility] & [place] 2 10:17:18 Long-term drug therapy Active 2019 SALEEM Zapien [facility] Jill [facility] & [place] 2 10:17:18 Dysmenorrhe a 550675648 Active 2016 SALEEM Zapien [facility] Jill [facility] & [place] 2 10:17:18 Atypical squamous cells of undetermine d significanc e on cervical Papanicolao u smear 501434484 Active 2005 SALEEM [facility]apien [facility] & [place] 2 10:17:18 Amenorrhea 24407148 Active 2005 SALEEM Zapien [facility] & [place] 2 10:17:18 Thrombophle bitis 74070723 Active SALEEM Zapien [facility] - [facility] & [place] 2 10:17:18 Typical angina 438353022 Active SALEEM Zapien [facility] & [place] 2 10:17:18 Temporomand ibular joint disorder 56105319 Active 2010 SALEEM Zapien - [facility] - [facility] & [place] 2 10:17:18 Menorrhagia 446075316 Active 2016 SALEEM Zapien - [facility] - [facility] & [place] 2 10:17:18 Exposure to SARS-CoV-2 Active 2019 SALEEM Zapien - [facility] - & [place] 2 10:17:18 Essential hypertensio n 84478438 Active SALEEM Zapien - [facility] - [place] & [place] 2 10:17:18 Osteoporosi s 19217703 Active 2016 SALEEM Zapien - [facility] - & [place] 2 10:17:18 Smoker 90435684 Active 2020 SALEEM Zapien - [facility] - & [place] 2 10:17:18 Diabetes mellitus 85154232 Active 2005 SALEEM Zapien - [facility] - [facility] & [place] 2 10:17:18 Long-term current use of insulin 972451463 Active 2019 SALEEM Zapien - [facility] - & [place] 2 10:17:18 Polyp of corpus uteri 37073430 Active 2016 SALEEM Zapien - [facility] - & [place] 2 10:17:18 Chronic obstructive pulmonary disease 51465712 Active 2019 Amara [place]ALE[place] - [facility] - [facility] & [place] 2 10:18:51 Suspected COVID-19 289378586 Active 2020 Jina keating [place] - [facility] - & [place] 2 10:17:18 Hypercholes terolemia 13766690 Active Jina keating [place] - [facility] - & [place] 2 10:17:18 Hyperlipide kira 57814857 Active 2020 SALEEM Zapien - [facility] - & [place] 2 10:17:18 Body mass index 30+ - obesity 794643759 Active 2016 Jina Nguyen [place] [facility] & [place] 2 10:17:18 Anxiety 54801586 Active Jina [place] [facility] & [place] 2 10:17:18 History of cardiac catheteriza tion 5282942101471 0 Active Jina [place] [facility] & [place] 2 10:17:18 Menopausal syndrome 741323970 Active Jina [place] & [place] 2 10:17:18 Benign esophageal stricture 606794170 Active 2021 Amara Casey [place] - [facility] & [place] 2 10:18:51 Gastro-esop hageal reflux disease with esophagitis 992583953 Active 2021 Amara [place] [facility] & [place] 2 10:18:51 Dysphagia 41272832 Active 2021 Amara [place] 2 10:18:51 Irritable bowel syndrome characteriz ed by constipatio n 703151667 Active 2021 Amara [place] & [place] 2 10:18:51 Gastric ulcer 281648411 Active 2021 Amara [place] 2 10:18:51 Recurrent major depression 89742077 Active Amara [place] & [place] 2 10:18:51 Preinfarcti on syndrome 3193556 Active Amara [place] [facility] & [place] 2 10:18:51 Cardiovascu lar stress test abnormal 732000169 Active Amara [place] [facility] & [place] 2 10:18:51 Chest pain 22021977 Active Amara [place] [facility] & [place] 2 10:18:51 Chronic post-trauma tic stress disorder 134603902 Active Amara [place] [facility] [place] 2 10:18:51 Right upper quadrant pain 015762225 Active 2021 Americo Salazar MD [address] [place] [address],[address], [place], [address], [place] - [facility] [place] & [place] 2 13:05:46 Gastropares is syndrome 731886180 Active 2022 Americo Salazar MD [address] [place] [address],[address], [place], [address], [place] [facility] [place] & [place] 3 06:40:23 Gastritis 5822622 Active 2022 Americo Salazar MD [address] [place] [address],[address], [place], [address], [place] [facility] [place] & [place] 3 06:40:49 Mild intermitten t asthma 527980973 Active 2022 Cisco Durant MD [address] [place] [address],[address], [place], [address], [place] [facility] [place] & [place] 3 23:08:15 Chronic bronchitis 08657064 Active 2022 Cisco Durant MD [address] [place] [address],[address], [place], [address], [place] [facility] [place] & [place] 3 09:11:24 Acute bronchitis 23803128 Active 2023 Crystal Earlywine null[place] [facility] 4 11:10:11 Mild persistent asthma 466533341 Active 2023 Cisco Durant MD [address] [place] [address],[address], [place], [address], [place] [facility] [place] & [place] 4 09:22:42 Problem Notes None recorded. Procedures Surgical History Date Name Laterality Status Provider Name and Address Organization Details Recorded Time 10/25/19 Gastric emptying imag study completed Cruz MONGE - [facility] - [place] & [place] 11/01/2022 12:43:55 09/21/20 endoscopy and biopsy of upper gastrointestinal tract completed Mary MONGE - [facility] - [place] & [place] 10/31/2022 10:25:25 07/08/20 22 EGD/Endoscopy completed Cruz MONGE - [facility] - [place] & [place] 09/08/2022 12:54:54 10/09/19 22 Colonoscopy completed Cruz MONGE - [facility] - [place] & [place] 07/08/2022 14:21:55 ultrasonography of liver completed Mary Melchor [facility] - [place] & [place] 10/31/2022 10:19:02 Hernia Repair completed Jina Melchor [facility] - [place] & [place] 07/05/2022 08:05:31 cardiac catheterization completed Jina Melchor [facility] - [place] & [place] 07/05/2022 08:05:45 colposcopy completed Jina Melchor [facility] - [place] & [place] 07/05/2022 08:06:04 Cholecystectomy completed Jina MONGE - [facility] - [place] & [place] 07/05/2022 08:06:16 salpingo-oophorecto my completed Jina Melchor [facility] - [place] & [place] 07/05/2022 08:06:48 Imaging Results Imaging Date Name Status LastModified by Organization Details LastModified Time 12/19/2023 LDCT, chest, for lung cancer screening completed [place] [address] [place], [address], 12/29/2023 12:01:42 12/19/2023 LDCT, chest, for lung cancer screening completed [facility] (Centralized Scheduling) [place], [address], 01/02/2024 09:35:55 04/24/2024 complete PFT w/ post bronchodilator spirometry* completed [address] Central Scheduling [address] [place] [address] [place], [address], 04/24/2024 07:40:43 12/25/2024 LDCT, chest, for lung cancer screening completed [address] [place], [address], 12/30/2024 15:59:29 12/23/2024 LDCT, chest, for lung cancer screening completed [address] (Centralized Scheduling) [address] [place] [address] [place], [address], 01/15/2025 10:45:59 12/23/2024 LDCT, chest, for lung cancer screening completed [address] (Centralized Scheduling) [address] [place] [address] [place], [address], 01/20/2025 11:40:40 Procedure Notes None recorded. Medical Equipment None Reported. Allergies Allergen ID Allergen Name Allergen Category Reaction Reaction Severity Criticality Documentation Date Start Date Code Code System Note Provider Name and Address Organization Details Recorded Time 86479 lamotrigi ne medicatio n Not available Not available Not available 07/05/20222019 18210 RxNorm SALEEM Robins [facility] & [place] 2 10:18:44 90386 Lamictal medicatio n Not available Not available Not available 07/05/20222008 66692 2 RxNorm SALEEM Zapien [facility] & [place] 2 08:12:37 Medications Name Sig Start Date [...] Not Available Not Available No t Available [place] 10 mg-325 mg tablet Take one every [...] Available Not Available Nasonex 50 mcg/actuati on [place] spray 2 sprays in each nostril by [...] active Not Available Not Available Not Avai labshahid Guzman,Ult ra Thin use as directed for 30 [...] Not Available Not Available No t Available Space Monkey Blood Glucose System kit Please dispense lancets [...] Available UltiCare Pen Needle 32 gauge x /32 USE DIRECTED TO INJECT LANTUS DAILY 12/29 [...] Available Not Available Not Available Dexcom G6 Supervisor Safety Deposit USE DIRECTED 02/21 completed Not Available Not [...] saturation in Arterial blood by Pulse oximetry Heart rate Respiratory rate Systolic blood pressure Diastolic blood pressure Provider Name and Address Organization Details Last Updated DateTime 4 160.02 cm 32.3 kg/m2 15906.2 5 g 97 % 97 % 67 /min 12 /min 140 mm[Hg] 100 mm[Hg] Dawn Dupree [place] - [facility] - [place] & [place] 4 11:44:43 Date Recorded Body height Body mass index (BMI) Body weight Body temperature Oxygen saturation Oxygen saturation in Arterial blood by Pulse oximetry Heart rate Respiratory rate Systolic blood pressure Diastolic blood pressure Provider Name and Address Organization Details Last Updated DateTime 4 160.02 cm 31.8 kg/m2 64333.4 7 g 97.7 [degF] 97 % 97 % 65 /min 14 /min 118 mm[Hg] 78 mm[Hg] [facility] [place] 4 11:02:33 Date Recorded Body height Body mass index (BMI) Body weight Body temperature Oxygen saturation Oxygen saturation in Arterial blood by Pulse oximetry Respiratory rate Systolic blood pressure Diastolic blood pressure Provider Name and Address Organization Details Last Updated DateTime 4 160.02 cm 32.9 kg/m2 25032.1 8 g 97.8 [degF] 98 % 98 % 12 /min 122 mm[Hg] 68 mm[Hg] Dawn Kaur SALEEM Melchor [facility] & [place] 4 09:28:11 Date Recorded Heart rate Provider Name an d Address Organization Details Last Updated DateTime 05/15/2024 63 /min Cisco wolff MD [address] [place] [address],[address], [place], [address] & [place] 05/15/2024 09:31:10 Date Recorded Body height Body mass index (BMI) Body weight Oxygen saturation Oxygen saturation in Arterial blood by Pulse oximetry Respiratory rate Body temperature Systolic blood pressure Diastolic blood pressure Provider Name and Address Organization Details Last Updated DateTime 5 160.02 cm 36.1 kg/m2 06936.8 4 g 97 % 97 % 14 /min 97.7 [degF] 128 mm[Hg] 68 mm[Hg] [facility] SALEEM [facility] & [place] 5 14:08:42 Date Recorded Heart rate Provider Name an d Address Organization Details Last Updated DateTime 12/12/2024 65 /min Cisco wolff MD [address] [place] [address],[address], [place], [address] S[facility] [place] 12/12/2024 14:19:02 Date Recorded Body height Body mass index (BMI) Body weight Body temperature Oxygen saturation Oxygen saturation in Arterial blood by Pulse oximetry Respiratory rate Systolic blood pressure Diastolic blood pressure Provider Name and Address Organization Details Last Updated DateTime 160.02 cm 34.4 kg/m2 95107.9 2 g 97.4 [degF] 98 % 98 % 12 /min 110 mm[Hg] 68 mm[Hg] Dawn Melchor MUMTAZ [facility] & [place] 11:50:42 Date Recorded Heart rate Provider Name an d Address Organization Details Last Updated DateTime 01/20/2025 67 /min Cisco wolff MD [address] [place] [address],[address], [place], [address], SALEEM HERRERA [facility] [place] 01/20/2025 11:53:55 Social History Question Answer Notes LastModified by Organizat ion Details LastModified Time Tobacco Smoking Status Former Smoker 1 PPD x 33 years Dawn keating, SLAEEM Melchor [facility] & [place] 02/15/2023 10:00:00 Do You Have An Advance Directive? No [email or web address] Information not available 07/05/2022 If You Are , What Was Your Level Of Alcohol Consumption Prior To ? Occasional [email or web address] Information not available 02/23/2023 Are You Blind Or Do You Have Difficulty Seeing? No Information not available 07/08/2022 What Is Your Level Of Caffeine Consumption? Moderate Information not available 02/23/2023 What Type Of Diet Are You Following? DIABETIC Low Salt [email or web address] Information not available 02/23/2023 Which Illicit Or Recreational Drugs Have You Used? Marijuana Information not available 02/23/2023 What Was The Date Of Your Most Recent Tobacco Screening? 07/04/2022 Information not available 07/08/2022 How Many Children Do You Have? 2 [email or web address] Information not available 02/23/2023 What Is Your Relationship Status? Single [email or web address] Information not available 02/23/2023 How Much Tobacco [...] anxious, or unable to sleep at night)? [id number] Information not available 07/08/2022 Family History Relationship Description Onset Age of this Age Resolved Age Notes LastModified by Organization Details LastModified Time Maternal Grandmother Heart disease [email or web address] available 2021 14:16:03 Maternal Grandfather Familial prostate cancer [email or web address] Not available 2024 11:43:59 Medical History Condition Response Coronary Artery Disease Y None N Gout N Colon Cancer N Kidney Stones Y Hyperthyroidism N Depression Y COPD Y Hypothyroidism N Diverticulitis/Diverticulosis Y Anxiety Disorder Y Obesity Y Arthritis Y Cancer N Stroke N High Cholesterol Y Liver Disease N Psychiatric/Mental Health Condition Y Headaches Y Kidney Disease N Kidney or Bladder Problems Y GI Problems Y Osteoporosis/Osteopenia Y Colon Polyps Y Heart Attack (MS) Y Diabetes Y Bleeding Disorder N Seizures/Epilepsy N Tuberculosis N Congestive Heart Failure (CHF) Y Hyperlipidemia Y Back Problems Y Asthma Y Sleep Apnea Y GERD/Reflux Y Hepatitis N Cirrhosis N Heart Disease Y Hypertension Y Gynecological History Statement/Question Response Menses Monthly N Duration of Flow (days) 7 Current Control Method None Flow Moderate Date of LMP 06/17/2022 Sexually Active? N Obstetrics History GPAL:G 0 P 0 0 0 0 Immunizations Vaccine Type Date Status Note Provider Nam e and Address Organization Details Recorded Time influenza, unspecified formulation 9 completed Not Available [facility] 08/01/2022 13:43:53 Past Encounters Encounter ID Performer Location Encounter Start Date Encounter Closed Date Diagnosis/Indication Diagnosis SNOMED-CT Code Diagnosis ICD10 Code Diagnosis Note [id number] MD [facility] [address] [place] [address] 07/05/2022 10:08:54 07/05/2022 10:18:55 Postoperative visit 480246099 Z09 [id number] Americo Salazar MD [facility] [address] [place], [place] [address] 07/08/2022 13:19:51 07/12/2022 12:54:14 Benign esophageal stricture 620495122 K22.2 minor esophageal stricture noted recent EGD, biopsies benign, dilated to 18 mm. The patient reports that she still has intermitte nt symptoms of dysphagia, however it appears the patient never increased her proton pump inhibitor as we had suggested. Will increase her PPI see below, and then reassess if symptoms persist despite appropriat e PPI dose Gastro-eso phageal reflux disease with esophagitis 573915938 K21.00 persistent reflux symptomato logy, increase omeprazole to 40 mg twice a day Dysphagia 79410807 R13.1 0 persistent , possibly related to inadequate acid suppressio n, increase PPI Irritable bowel syndrome characterized by constipation 167756492 K58.1 Symptomati clly improved but not resolved, continue Linzess. Gastric ulcer 231094236 K25.3 Gastric ulcer noted as an incidental finding on recent EGD, likely nonsteroid al related. Nonsteroid al stopped, continue PPI therapy follow-up EGD 1 month [id number] Edward Wilson MD [facility] [address] [place] [address] 8 08/02/2022 10:05:55 08/02/2022 10:30:54 Postoperative visit [id number] Z09 the patient may resume her usual activity. She is referred back to her PCP for routine care. [id number] Americo Salazar MD [facility] [address] [place] [id number] 09/08/2022 12:31:31 09/08/2022 14:18:48 Benign esophageal stricture 220993414 K22.2 minor esophageal stricture noted recent EGD, biopsies benign, dilated to 18 mm. On current dose of pantoprazo le no dysphagia. Dysphagia 81700280 R13.1 0 Asymptomat ic Gastro-eso phageal reflux disease with esophagitis 988675904 K21.00 persistent reflux symptomato logy, increase omeprazole to 40 mg twice a day, Believe the patient's recent diabetic medication changes have contribute d to her increasing reflux symptomato logy. Hopefully we can continue to overcome this with medical therapy if not she may need to consider an alternativ e to Ozempic Right uppe r quadrant pain 423085635 R10.11 possibly musculoske letal in nature, will obtain a right upper quadrant ultrasound to rule out the possibilit y of underlying hepatic issues. Recent LFTs essentiall y unremarkab le. Gastric ulcer 758616394 K25.3 Gastric ulcer noted as an incidental finding on recent EGD, likely nonsteroid al related. Nonsteroid al stopped, continue PPI therapy follow-up EGD Plavix 7 day hold preprocedu re [id number] Americo Salazar MD [facility] [address] [place] [address],[facility] [address] [place] [address] 11/01/2022 12:18:50 11/01/2022 13:30:29 Dysphagia 14357760 R13.10 Asymptomat ic Other than noting occasional ly liquids seem to hesitate. Will monitor Benign eso phageal stricture 993916157 K22.2 minor esophageal stricture noted recent EGD, biopsies benign, dilated to 18 mm. On current dose of pantoprazo le no dysphagia. Gastro-eso phageal reflux disease with esophagitis 183473180 K21.00 reflux symptoms have improved with b.i.d. PPI, the patient's recent increase symptoms are likely related to Ozempic , we are seeing if we can overcome this with dietary modificati on. If not this medicine may need to be changed. Gastropare sis syndrome 201774869 K31.84 The patient has been started on a gastropare sis diet, Written informatio n provided today, dietary referral has been placed. The patient has seen some improvemen t with her initial changes in diet. Gastritis 8230128 K29.70 [id number] MD [facility] [address] [place] [address] [address] [place] [address] 11/21/2022 08:51:42 11/21/2022 09:06:56 Mild intermittent asthma 571784875 J45.20 Chronic ob structive pulmonary disease 23703836 J44.9 Chronic bronchitis 02816 004 J42 [id number] MD [facility] [address] [place] [id number] 02/15/2023 09:31:50 02/15/2023 09:57:53 Mild intermittent asthma 946646807 J45.20 Chronic ob structive pulmonary disease 45246325 J44.9 Chronic bronchitis 19679 004 J42 [id number] Americo Salazar MD [facility] [address] [place] [address],[facility] [place] [address] 02/23/2023 12:55:49 02/23/2023 14:00:35 Gastroparesis syndrome 595844401 K31.84 The patient's gastropare sis continues to be a significan t problem for this patient with abdominal bloating and nausea. This is almost certainly exacerbate d by Ozempic. We recommend that before we consider additional treatments for her gastropare sis, that she discuss with her treating primary care provider an alternativ e to Ozempic for her diabetes management .We will allow the patient to meet with her primary provider, and we will see the patient back hopefully off Ozempic to reassess [id number] MD [facility] [address] [place] [address] [address] 07/26/2023 09:42:24 07/26/2023 10:07:18 Mild intermittent asthma 329265634 J45.20 Chronic ob structive pulmonary disease 24877024 J44.9 Chronic bronchitis 71479 004 J42 [id number] MD [facility] [address] [place] [address] [address] 01/02/2024 11:30:34 01/02/2024 11:57:38 Mild intermittent asthma 146080694 J45.20 Chronic ob structive pulmonary disease 47469669 J44.9 Chronic bronchitis 22692 004 J42 [id number] MD [facility] [address] [place] [address] [address] 04/29/2024 10:51:27 04/29/2024 11:12:23 Mild intermittent asthma 772545257 J45.20 Chronic ob structive pulmonary disease 24656010 J44.9 Chronic bronchitis 53850 004 J42 Acute bronchitis 2701326 2 J20.9 [id number] MD [facility] [address] [facility] [address] [place], [place] [phone] 05/15/2024 09:16:59 05/15/2024 09:31:04 Chronic obstructive pulmonary disease 02489818 J44.9 Chronic bronchitis 91223 004 J42 Mild persi stent asthma 632832894 J45.30 [id number] MD [facility] [address] [facility] [place] [id number] 12/12/2024 13:51:37 12/12/2024 14:14:30 Chronic obstructive pulmonary disease 93202685 J44.9 Chronic bronchitis 87129 004 J42 Mild persi stent asthma 870317941 J45.30 Acute bronchitis 5169335 2 J20.9 [id number] MD [facility] [address] [facility] [place] [id number] 01/20/2025 11:41:46 01/20/2025 11:54:11 Chronic obstructive pulmonary disease 69152468 J44.9 Chronic bronchitis 73843 004 J42 Mild persi stent asthma 414533668 J45.30 Health Concerns Section Related Observation LastModified by Organization Detai ls LastModified Time None Recorded Concern Status LastModified by Organization Details LastModified Time None Recorded Advance Directives Directive N: Payers Insurance Date Sequence Insurance Name Policy Number Policy Burnette Covered Member ID Burnette Member ID Guarantor Name 01/18/2025 2 [facility] - DUAL COMPLETE - DUAL ELIGIBLE - [place] (MEDICARE-MEDICA ID REPLACEMENT HMO) IGNACIO Yanes [id number] Rhett Yanes 12/12/2024 1 [employer] (MEDICARE REPLACEMENT/ADVA NTAGE - PPO) Rhett Yanes [id number] Rhett Yanes 11/11/2024 1 [facility] (PPO) Rhett Yanes [id number] Rhett Yanes 11/11/2024 1 [facility] Rhett Yanes [id number] Rhett Yanes 01/12/2025 1 [place] [place] FFS/TRADITIONAL Rhett Yanes [id number] Rhett Yanes 11/11/2024 2 [facility] ([place] REPLAC[place] - HMO) [facility] Rhett Yanes [id number] Rhett Yanes Notes Date Note Type Note Provider Name and Address Organization Details Recorded Time 4 text/html 48-year-old female with history of obesity, fibromyalgia, decreased ejection fraction 45-50%, hypertension and diabetes. Patient had COVID-19 in July 2021.Medications in the past have included Spiriva, prednisone, Omnicef, Symbicort,albuterol MDI or albuterol nebs, incentive spirometry, pep flutter valve, Mucinex and Singulair. She also has a history of COPD , gastroparesis and a history of tobacco abuse. She denies snoring or witnessed apneas. Patient instructed to follow-up with her primary care provider and/or general assignment reporter immediately for elevated blood pressure, she voiced understanding and stated she would, she states she will call Dr. Pina's office today.Modified Wells criteria 0. [place] of 2. Patient again was warned no driving motorized vehicles or operating heavy machinery while fatigued, sleepy or drowsy, she voiced understanding. She does not get sleepy or fall asleep while driving. She has lost weight with diet modification and again declines CPAP. I told the patient untreated sleep apnea could result in immediate ill health, sickness, and , she again voiced understanding and declines CPAP. She denies associated fever, chills, night sweats, hemoptysis,pleurisy, chest pain, orthopnea, PND, palpitations, dizziness or chest pressure. She voices no cardiopulmonary complaints, no GI complaints, and no neurologic complaints. States she is doing really well presently from a cardiopulmonary standpoint. She has over 30 pack-year history of smoking, quit 2021 she states. She is doing really well since she quit smoking. She is on above medications as well as Spiriva. She takes Atrovent 2 puffs later in the evening. Rarely uses her albuterol inhaler or nebulizer.The patient voices no cardiopulmonary complaints, no GI complaints, no neurologic complaints today. Chest x-ray November 21, 2022: No evidence of acute cardiopulmonary disease. Her previous spirometry done October 08, 2020 revealed an FEV1 of 1.86 or 66% predicted, FEV1 FVC ratio of 77%, FVC of 2.37 or 67% predicted. Chest x-ray done at [facility] August 2021 was unremarkable. Dyspnea with exertion, mild in severity. Quality and context sputum is clear, thin and mucousy . In the past she has received Rocephin, Keflex and Omnicef per primary care doctor , Jaden Judd, with improvement. She is on Mucinex with improvement. She states she quit smoking. Most likely with chronic bronchitis, continue pep flutter valve use and incentive spirometry. LOW-DOSE CT SCAN OF CHEST DECEMBER 19, 2023 BELOW:COMPARISON: CT chest, 2021 and 03/03/2021TECHNIQUE: Low-dose protocol CT (LDCT) images of the chest are obtained from the lung apicesto the lung bases without intravenous contrast for lung cancer screening. Syrmo's Auto mA automated exposure control was utilized [...] low-dose screening CTLRCAT2 - BENIGN APPEARANCE OR [id number] - ANNUAL SCREENING IN 12 MONTHS*Recommendations for follow up/management of pulmonary nodules will be based on the [facility] criteriaTranscribed Date: 12/19/2023 4:42 PMTranscribed By: Kaitlin SinghferReported by: Kaitlin SinghferSigned by: Edwige SinghDateSigned: 024 4:42CT CHEST DONE 2021 BELOW:COMPARISON: CTA chest, 03/03/2021TECHNIQUE: 2.5 mm axial images through the chest were obtained following rapid bolusadministration of IV contrast. This data was used to perform 2-D and 3-D MIP reconstructions inthe coronal and sagittal planes. Syrmo's Auto mA automated exposure control was utilized [...] pulmonary nodules will be based on the [facility] criteriaNOTE: Any incidentally noted liver lesions equal [...] over most recent CT scan of chest in detail with the patient, I answered all of the patient's questions, the patient voiced understanding and she had no further questions.The patient declines any further pulmonary/thoracic diagnostic procedures at the present time for abnormalities noted on most recent CT scan of chest , however she is in agreement to a repeat CT scan of chest in 1 year.Patient instructed to follow-up with primary care provider and/or general assignment reporter for coronary stents as well as trace anterior pericardial effusion as both of these could result in immediate ill health, sickness, and , she voiced understanding and stated she would. I gave her a copy of her most recent CT scan of chest to take her general assignment reporter Dr. Pina.The patient was warned no driving motorized vehicles or operating heavy machinery while fatigued, sleepy or drowsy, the patient voiced understanding and she stated she would not.Patient was instructed to read the side effect package profile very carefully on all medications prescribed, and to stop medications immediately and go to ER if the patient has any problems, she voiced understanding. Patient was instructed to go over side effects /adverse effects / drug interactions with all of the prescribed and oyiv-xwm-xalqpor medications with a pharmacist, she again voiced understanding. The patient was instructed to go to ER if she worsens, she again voiced understanding. Cisco Durant MD [address], [place], [address], [facility] [place] [facility] [place] 01/02/2024 12:02:20 4 text/html 48-year-old female with history of obesity, fibromyalgia, decreased ejection fraction 45-50%, hypertension and diabetes. Patient had COVID-19 in July 2021.Complains of cough productive sputum yellowish over the last 3-4 days. No fever, chills, night sweats, hemoptysis, pleurisy, chest pain, chest pressure, orthopnea, PND, syncope, palpitations or dizziness. Denies wheeze. Denies dyspnea.She declines a chest x-ray to rule out pneumonia and/or other lung disorders. She declines antibiotics today as she is on clindamycin for a wound.She states she has lost weight due to diet modification and gastroparesis.Medications in the past have included Spiriva, prednisone, Omnicef, Symbicort, albuterol MDI, Atrovent and albuterol nebs, incentive spirometry, pep flutter valve, Mucinex and Singulair. She also has a history of COPD , gastroparesis and a history of tobacco abuse. She denies snoring or witnessed apneas.Modified Wells criteria 0. [place] of 1. The patient again was warned no driving motorized vehicles or operating heavy machinery while fatigued, sleepy or drowsy, she again today voiced understanding. She does not get sleepy or fall asleep while driving. She has lost weight with diet modification and she again declines CPAP. I again told the patient untreated sleep apnea could result in immediate ill health, sickness, and , she again voiced understanding and declines CPAP.She denies associated fever, chills, night sweats, hemoptysis, pleurisy, chest pain, orthopnea, PND, palpitations, dizziness or chest pressure.She voices no other cardiopulmonary complaints, no GI complaints, and no neurologic complaints. She has over 30 pack-year history of smoking, and she quit 2021 she states. She is doing really well since she quit smoking. She takes Atrovent 2 puffs once a day later in the evening. Rarely uses her albuterol inhaler or nebulizers.The patient voices no other cardiopulmonary complaints, no GI complaints, no neurologic complaints today.I went over most recent PFTs with the patient, I answered all of her questions, she voiced understanding and she had no further questions. PULMONARY FUNCTION TEST APRIL 24, 2024: FEV1 [...] and Omnicef per primary care doctor , Jaden Judd, with improvement. She is on Mucinex with improvement. She states she quit smoking. Most likely with chronic bronchitis, continue pep flutter valve use and incentive spirometry. LOW-DOSE CT SCAN OF CHEST DECEMBER 19, 2023 BELOW:COMPARISON: CT chest, 2021 and 03/03/2021TECHNIQUE: Low-dose protocol CT (LDCT) images of the chest are obtained from the lung apicesto the lung bases without intravenous contrast for lung cancer screening. Syrmo's Auto mA automated exposure control was utilized [...] low-dose screening CTLRCAT2 - BENIGN APPEARANCE OR [id number] - ANNUAL SCREENING IN 12 MONTHS*Recommendations for follow up/management of pulmonary nodules will be based on the [facility] criteriaTranscribed Date: 12/19/2023 4:42 PMTranscribed By: Kaitlin SinghferReported by: Edwige SinghSigned by: Edwige SinghDateSigned: 024 4:42 CT CHEST DONE 2021 BELOW:COMPARISON: CTA chest, 03/03/2021TECHNIQUE: 2.5 mm axial images through the chest were obtained following rapid bolusadministration of IV contrast. This data was used to perform 2-D and 3-D MIP reconstructions inthe coronal and sagittal planes. Syrmo's Auto mA automated exposure control was utilized [...] pulmonary nodules will be based on the [facility] criteriaNOTE: Any incidentally noted liver lesions equal [...] to follow-up with primary care provider and/or general assignment reporter for coronary stents as well as trace anterior pericardial effusion as both of these could result in immediate ill health, sickness, and , she voiced understanding and stated she would. I gave her a copy of her most recent CT scan of chest to take her general assignment reporter Dr. Pina.The patient was warned no driving [...] interactions with all of the prescribed and kzfs-mhf-bivuzqg medications with a pharmacist, she again voiced understanding. The patient was instructed to go to ER if she does not improve or if she worsens, she again today voiced understanding.For acute bronchitis I added doxycycline 100 mg p.o. b.i.d. for 5 days, and probiotic 1 p.o. daily for 10 days. She does not wish to take antibiotics presently, she states if her sputum does not clear up on clindamycin that she is on for the next 3 days (total of 10 days) then she will take the doxycycline once she is off the clindamycin. I told her all antibiotics could result in immediate ill health, sickness, , she voiced understanding. Also pneumonia, bronchitis, and / or other lung disorders could result in immediate ill health, sickness, . 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 I told her antibiotics certainly can increase risk of C diff and result in immediate ill health, lifelong sickness, and , she again voiced understanding. Cisco Durant MD [address] [facility],[address], [place], [address], [place] [facility] [place] [facility] [place] 04/29/2024 11:24:03 4 text/html 48-year-old female with history of obesity, fibromyalgia, decreased ejection fraction 45-50%, hypertension and diabetes. Patient had COVID-19 in July 2021.Quality and context sputum is clear, thin, mucousy and rare. She voices no cardiopulmonary complaints today. She denies fever, chills, night sweats, hemoptysis, pleurisy, chest pain, chest pressure, orthopnea, PND, syncope, palpitations or dizziness. Denies wheeze. Denies dyspnea.She declined a chest x-ray to rule out pneumonia and/or other lung disorders.She states she has lost weight due to diet modification and gastroparesis.Medications in the past have included Spiriva, prednisone, Omnicef, Symbicort, albuterol MDI, Atrovent and albuterol nebs, incentive spirometry, pep flutter valve, Mucinex and Singulair. She also has a history of COPD , gastroparesis and a history of tobacco abuse. She denies snoring or witnessed apneas.Modified Wells criteria 0. [place] of 2. The patient again was warned no driving motorized vehicles or operating heavy machinery while fatigued, sleepy or drowsy, she again today voiced understanding. She does not get sleepy or fall asleep while driving. She has lost weight with diet modification and she again declines CPAP. I again told the patient untreated sleep apnea could result in immediate ill health, sickness, and , she again voiced understanding and declines CPAP. Dyspnea, timing with extreme exertion, minimal in severity, feels like she is back to baseline.She denies associated fever, chills, night sweats, hemoptysis, pleurisy, chest pain, orthopnea, PND, palpitations, dizziness or chest pressure.She voices no cardiopulmonary complaints, no GI complaints, and no neurologic complaints. She has over 30 pack-year history of smoking, and she quit 2021 she states. She is doing really well since she quit smoking. She takes Atrovent 2 puffs once a day later in the evening. Rarely uses her albuterol inhaler or nebulizers.The patient voices no other cardiopulmonary complaints, no GI [...] and Omnicef per primary care doctor , Jaden Judd, with improvement. She is on Mucinex with improvement. She states she quit smoking. Most likely with chronic bronchitis, continue pep flutter valve use and incentive spirometry. LOW-DOSE CT SCAN OF CHEST DECEMBER 19, 2023 BELOW:COMPARISON: CT chest, 2021 and 03/03/2021TECHNIQUE: Low-dose protocol CT (LDCT) images of the chest are obtained from the lung apicesto the lung bases without intravenous contrast for lung cancer screening. Syrmo's Auto mA automated exposure control was utilized [...] low-dose screening CTLRCAT2 - BENIGN APPEARANCE OR [id number] - ANNUAL SCREENING IN 12 MONTHS*Recommendations for follow up/management of pulmonary nodules will be based on the [facility] criteriaTranscribed Date: 12/19/2023 4:42 PMTranscribed By: Kaitlin SinghferReported by: Kaitlin SinghferSigned by: Edwige SinghDateSigned: 024 4:42 CT CHEST DONE 2021 BELOW:COMPARISON: CTA chest, 03/03/2021TECHNIQUE: 2.5 mm axial images through the chest were obtained following rapid bolusadministration of IV contrast. This data was used to perform 2-D and 3-D MIP reconstructions inthe coronal and sagittal planes. Syrmo's Auto mA automated exposure control was utilized [...] pulmonary nodules will be based on the [facility] criteriaNOTE: Any incidentally noted liver lesions equal to or less than 5 mm, cystic lesions in the kidneysless than 1 cm, and/or adrenal lesions equal to or less than 1 cm, generally are considered highlylikely to be benign and no additional evaluation is recommended, unless specifically mentioned inthe impression.Transcribed Date: 2021 1:09 PMTranscribed By: Edwige SinghReported by: Edwige SinghSigned by: Edwige SinghDateSigned: 022 1:09 This note [...] to follow-up with primary care provider and/or general assignment reporter for coronary stents as well as trace anterior pericardial effusion as both of these could result in immediate ill health, sickness, and , she voiced understanding and stated she would. I gave her a copy of her most recent CT scan of chest to take her general assignment reporter Dr. Pina.The patient was warned no driving [...] interactions with all of the prescribed and zhhf-iqa-llpvbrd medications with a pharmacist, she again voiced understanding. The patient was instructed to go to ER if she does not continue to improve or if she worsens, she again today voiced understanding.For acute bronchitis I previously added doxycycline 100 mg p.o. b.i.d. for 5 days, and probiotic 1 p.o. daily for 10 days. She did not wish to take antibiotics , she stated if her sputum does not clear up on clindamycin that she is on for the next 3 days (total of 10 days) then she would take the doxycycline once she is off the clindamycin. I told her all antibiotics could result in immediate ill health, sickness, , she voiced understanding. Also pneumonia, bronchitis, and / or other lung disorders could result in immediate ill health, sickness, .She did not have to take the doxycycline as she is improved from respiratory standpoint. 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 I told her antibiotics certainly can increase risk of C diff and result in immediate ill health, lifelong sickness, and , she again voiced understanding. Cisco Durant MD [address] [facility],[address], [place], [address], [facility] - [facility] - [place] 05/15/2024 09:36:41 5 text/html 49-year-old female with history of [...] snoring or witnessed apneas.Modified Wells criteria 0. [place] of 0. The patient again was warned [...] and Omnicef per primary care doctor , Jaden Judd, with improvement. She is on Mucinex [...] without intravenous contrast for lung cancer screening. Syrmo's Auto mA automated exposure control was utilized [...] low-dose screening CTLRCAT2 - BENIGN APPEARANCE OR [id number] - ANNUAL SCREENING IN 12 MONTHS*Recommendations for follow up/management of pulmonary nodules will be based on the [facility] criteriaTranscribed Date: 12/19/2023 4:42 PMTranscribed By: Kaitlin SinghferReported by: Kaitlin SinghferSigned by: Edwige SinghDateSigned: 024 4:42 CT CHEST DONE 2021 BELOW:COMPARISON: CTA chest, 03/03/2021TECHNIQUE: 2.5 mm axial images through the chest were obtained following rapid bolusadministration of IV contrast. This data was used to perform 2-D and 3-D MIP reconstructions inthe coronal and sagittal planes. Syrmo's Auto mA automated exposure control was utilized [...] pulmonary nodules will be based on the [facility] criteriaNOTE: Any incidentally noted liver [...] to follow-up with primary care provider and/or general assignment reporter for coronary stents as well as trace anterior pericardial effusion as both of these could result in immediate ill health, sickness, and , she voiced understanding and stated she would. I gave her a copy of her most recent CT scan of chest to take her general assignment reporter Dr. Pina.The patient was warned no driving [...] interactions with all of the prescribed and tcgm-kqk-ludanzm medications with her pharmacist, she again voiced understanding. 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 I told her antibiotics certainly can increase risk of C diff and result in immediate ill health, lifelong sickness, and , she again voiced understanding.I told the patient I will be retiring February 2025, the patient voiced understanding.The patient was instructed to follow-up with their primary care provider and/or a care management associate/sleep physician for all their future pulmonary needs/ issues/meds and all of their sleep needs/issues/meds, the patient voiced understanding. The patient was also instructed to follow-up with their primary care provider and/ or a care management associate for all recommended future CT scans of the chest, the patient voiced understanding. I told the patient their lack of follow-up with recommended future CT scans of chest could result in future ill health, sickness, , the patient again voiced understanding.She voiced understanding of all the above. Cisco Durant MD [address] [facility],[address], [place], [address], [place] - [facility] [place] 12/12/2024 14:20:21 5 text/html 49-year-old female with history of [...] snoring or witnessed apneas.Modified Wells criteria 0. [place] of 1. She again was warned no [...] and Omnicef per primary care doctor , Jaden Judd, with improvement. She is on Mucinex [...] of : 1975 Age 49 yearsPatient ID: [id number]: CT CHEST LDCT LUNG SCREENReferringPhysician: Francisco Durant [...] incidental findings do not requirededicated imaging follow-up. [id number].Coronal and sagittal MIPS were reconstructed from the [...] August 2022 can be found [email or web address] ectronically signed by: Angela Singh MD 12/25/2024 07:01 PM EDT Workstation:[id number] anscribed Date: 12/25/2024 6:39 PMTranscribed By:Reported by: ANGELA SINGHSigned by: ANGELA SINGHDateSigned:12/26/19 6:39 LOW-DOSE CT SCAN OF CHEST DECEMBER 19, 2023 BELOW:COMPARISON: CT chest, 2021 and 03/03/2021TECHNIQUE: Low-dose protocol CT (LDCT) images of the chest are obtained from the lung apicesto the lung bases without intravenous contrast for lung cancer screening. Syrmo's Auto mA automated exposure control was utilized [...] low-dose screening CTLRCAT2 - BENIGN APPEARANCE OR [id number] - ANNUAL SCREENING IN 12 MONTHS*Recommendations for follow up/management of pulmonary nodules will be based on the [facility] criteriaTranscribed Date: 12/19/2023 4:42 PMTranscribed By: Kaitlin SinghferReported by: Kaitlin SinghferSigned by: Edwige SinghDateSigned: 024 4:42 CT CHEST DONE 2021 BELOW:COMPARISON: CTA chest, 03/03/2021TECHNIQUE: 2.5 mm axial images through the chest were obtained following rapid bolusadministration of IV contrast. This data was used to perform 2-D and 3-D MIP reconstructions inthe coronal and sagittal planes. Syrmo's Auto mA automated exposure control was utilized [...] pulmonary nodules will be based on the [facility] criteriaNOTE: Any incidentally noted liver lesions equal to or less than 5 mm, cystic lesions in the kidneysless than 1 cm, and/or adrenal lesions equal to or less than 1 cm, generally are considered highlylikely to be benign and no additional evaluation is recommended, unless specifically mentioned inthe impression.Transcribed Date: 2021 1:09 PMTranscribed By: Edwige SinghReported by: Edwige SinghSigned by: Edwige SinghDateSigned: 022 1:09 This note [...] her primary care provider referral to another care management associate she states.The patient declines any further pulmonary/thoracic diagnostic procedures at the present time for abnormalities noted on most recent CT scan of chest , however she is in agreement to a repeat CT scan of chest in 1 year or December 2025 , as per radiologist recommendations.Patient instructed to follow-up with primary care provider and/or general assignment reporter for coronary stents as well as trace anterior pericardial effusion as both of these could result in immediate ill health, sickness, and , she voiced understanding and stated she would. I gave her a copy of her most recent CT scan of chest to take her general assignment reporter Dr. Pina.The patient was warned no driving [...] interactions with all of the prescribed and ervd-hlr-qrscfjy medications with her pharmacist, she again voiced understanding. 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 I told her antibiotics certainly can increase risk of C diff and result in immediate ill health, lifelong sickness, and , she again voiced understanding.Side effects of inhalers/neblizers/Singul air were explained to the patient and include but not limited: , high blood pressure, anaphylaxis, headache, seizures, swelling, high blood sugars, muscle weakness, dizziness, fatigue, cataract formation, MS, CVA, life-threatening arrhythmia, osteoporosis, slow wound healing, [...] with their primary care provider and/or a care management associate/sleep physician for all their future pulmonary needs/ issues/meds and all of their sleep needs/issues/meds, the patient voiced understanding. The patient was also instructed to follow-up with their primary care provider and/ or a care management associate for all recommended future CT scans of the chest, the patient voiced understanding. I told the patient their lack of follow-up with recommended future CT scans of chest could result in future ill health, sickness, , the patient again voiced understanding.She voiced understanding of all the above. Cisco Durant MD [address] [facility],[address], [place], [address], [place] [facility] [place] 01/20/2025 12:04:05 OBGyn Episode No OBEpisode recorded.
--- NOTE | 2025-02-25 00:21 | ECG_ITS ---
APPROVED REPORT Exam: Resting ECG HR:71 bpm ECG Measurements Heart Rate 71 AXES NE 134 P 40 QRSd 121 QRS -17 QT 426 T 99 QTc 448 Conclusion SINUS RHYTHM POSSIBLE LEFT ATRIAL ENLARGEMENT [-0.1mV P-WAVE IN V1/V2] SEPTAL MYOCARDIAL INFARCTION , PROBABLY OLD [40+ ms Q WAVE IN V1/V2] No STEMI Electronically signed by : RICHARD AGARWAL, 02/25/2025 06:53:48
--- NOTE | 2025-02-25 00:51 | XR_ITS ---
PROCEDURE INFORMATION: Exam: XR Chest Exam date and time: 02/25/2025 1:20 AM Age: 49 years old Clinical indication: Pain; Chest pressure; Additional info: Ruq pain epigastric radiating to back TECHNIQUE: Imaging protocol: Radiologic exam of the chest. Views: 2 views. COMPARISON: CT ANGIO CHEST PE PROTOCOL 12/06/2024 1:51 PM FINDINGS: Lungs: Unremarkable. No consolidation. Pleural spaces: Unremarkable. No pleural effusion. No pneumothorax. Heart/Mediastinum: Unremarkable. No cardiomegaly. Bones/joints: Unremarkable. IMPRESSION: No acute findings.
--- NOTE | 2025-02-25 00:55 | CT_ITS ---
PROCEDURE INFORMATION: Exam: CT Abdomen And Pelvis Without Contrast Exam date and time: 02/25/2025 1:36 AM Age: 49 years old Clinical indication: Abdominal pain; Epigastric; Additional info: Epigastric ruq pain radiating to back, n/v/d TECHNIQUE: Imaging protocol: Computed tomography of the abdomen and pelvis without contrast. Radiation optimization: All CT scans at this facility use at least one of these dose optimization techniques: automated exposure control; mA and/or kV adjustment per patient size (includes targeted exams where dose is matched to clinical indication); or iterative reconstruction. COMPARISON: CT ANGIO ABDOMEN PELVIS 12/06/2024 1:51 PM FINDINGS: Liver: Mild fatty infiltration. No mass. Gallbladder and biliary ducts: Surgically absent gallbladder. No biliary ductal dilatation. Pancreas: Normal. No ductal dilation. Spleen: Normal. No splenomegaly. Adrenal glands: Normal. No mass. Kidneys and ureters: 0.5 cm nonobstructive left renal calculus. No hydronephrosis Stomach and bowel: Sigmoid colonic diverticula without pericolonic fat stranding. Nonobstructive pattern. Appendix: No evidence of appendicitis. Intraperitoneal space: Unremarkable. No free air. No significant fluid collection. Vasculature: Mild atherosclerotic calcification of aortoiliac arteries without aneurysm. Lymph nodes: Unremarkable. No enlarged lymph nodes. Urinary bladder: Unremarkable as visualized. Reproductive: Unremarkable as visualized. Bones/joints: Unremarkable. No acute fracture. Soft tissues: Unremarkable. IMPRESSION: 1. No acute findings. 2. Mild fatty liver infiltration. 3. Nonobstructive left renal calculus. 4. Sigmoid colonic diverticulosis
--- NOTE | 2025-02-25 00:56 | [facility].EDGENADL ---
Discharge Plan Disposition Patient Disposition: Admitted Prescriptions Prescriptions: No Action budesonide-formoterol [Symbicort] 160-4.5 mcg/actuation HFA aerosol inhaler 2 puff INHALATION BID Qty: 10.2 0RF metoclopramide HCl [Reglan] 5 mg tablet 5 mg PO QACHS Qty: 120 0RF buspirone 15 mg tablet 15 mg PO TID Rx Instructions: Take 1 tablet by mouth three times a day Atrovent HFA 17 mcg/actuation HFA aerosol inhaler 2 puff inhalation QID Patient Comments: INHALE TWO (2) PUFFS BY MOUTH FOUR (4) TIMES DAILY Linzess 290 mcg capsule 290 mcg PO DAILY Qty: 90 3RF ergocalciferol (vitamin D2) 1,250 mcg (50,000 unit) capsule 1,250 mcg PO DIRECTED Patient Comments: TAKE ONE (1) CAPSULE (50 000 UNIT) BY ORAL ROUTE TWICE WEEKLY Rx Instructions: 1 capsule by mouth twice weekly cyanocobalamin (vitamin B-12) 1,000 mcg/mL solution 1,000 mcg SQ QMONTH trazodone 150 mg tablet 150 mg PO HSP PRN (Reason: Sleep) Patient Comments: TAKE ONE (1) TABLET EVERY DAY BY ORAL ROUTE AT BEDTIME. gabapentin 400 mg capsule 400 mg PO TID escitalopram oxalate 20 mg tablet 20 mg PO DAILY (DME) Insulin Syringe MicroFine 1 mL 27 gauge x 5/8 syringe See Rx Instructions .ROUTE .MEDSUPPLY Qty: 50 Patient Comments: USE DIRECTED WITH B-12 INJECTION Rx Instructions: As directed omeprazole 40 mg capsule,delayed release(DR/EC) 40 mg PO DAILY Patient Comments: TAKE ONE (1) CAPSULE BY MOUTH EVERY DAY ezetimibe [Zetia] 10 mg tablet 10 mg PO DAILY Qty: 90 3RF (DME) BD SafetyGlide Syringe 3 mL 25 x 5/8 syringe See Rx Instructions .ROUTE .MEDSUPPLY Qty: 1 Patient Comments: USE DIRECTED WITH B-12 Rx Instructions: As directed montelukast 10 mg tablet 10 mg PO DAILY Patient Comments: TAKE ONE (1) TABLET EVERY DAY BY ORAL ROUTE DIRECTED FOR 30 DAYS. (DME) Dexcom G7 Sensor Device See Rx Instructions .ROUTE .MEDSUPPLY Qty: 1 Patient Comments: USE DIRECTED PER 10 DAYS Rx Instructions: As directed carvedilol [Coreg] 3.125 mg tablet 3.125 mg PO BID Qty: 60 2RF Rx Instructions: must administer with a meal/food furosemide 40 mg tablet 40 mg PO DAILY Qty: 90 3RF ranolazine 1,000 mg tablet extended release 12 hr 1,000 mg PO BID Qty: 180 3RF Patient Comments: TAKE 1 TABLET BY MOUTH TWICE DAILY metformin 1,000 mg tablet extended release 24hr 1,000 mg PO BID Patient Comments: TAKE ONE (1) TABLET BY MOUTH TWICE DAILY albuterol sulfate 2.5 mg /3 mL (0.083 %) solution for nebulization 2.5 mg inhalation Q6HP PRN (Reason: Shortness Of Breath Or Wheezing) Patient Comments: USE ONE (1) VIAL (3ML) BY NEBULIZATION NEEDED EVERY SIX (6) HOURS nitroglycerin 0.4 mg Tablet, Sublingual 0.4 mg SUBLINGUAL Q5M PRN (Reason: Chest Pain) Rx Instructions: do not exceed 3 doses per episode insulin lispro [Humalog U-100 Insulin] 100 unit/mL solution See Rx Instructions .ROUTE .COMPLEX Patient Comments: INJECT ONE (1) SLIDING SCALE DOSE BY SUBCUTANEOUS ROUTE. MAX OF 80 UNITS PER DAY Rx Instructions: INJECT ONE (1) SLIDING SCALE DOSE BY SUBCUTANEOUS ROUTE. MAX OF 80 UNITS PER DAY albuterol sulfate [Ventolin HFA] 90 mcg/actuation Hfa Aerosol Inhaler 2 puff INHALATION Q4HP PRN (Reason: Shortness Of Breath Or Wheezing) fluticasone propionate 50 mcg/actuation spray,suspension 1 spray INTRANASAL DAILY Patient Comments: INHALE ONE (1) SPRAY IN EACH NOSTRIL BY INTRANASAL ROUTE ONCE DAILY clopidogrel 75 mg tablet 75 mg PO DAILY Rx Instructions: Take 1 tablet by mouth once daily tiotropium bromide [Spiriva with HandiHaler] 18 mcg capsule, w/inhalation device 1 cap inhalation DAILY Rx Instructions: INHALE CONTENTS OF ONE CAPSULE VIA HANDIHALER ONCE DAILY FOR COPD sacubitril-valsartan [Entresto] 97-103 mg tablet 1 tab PO BID Rx Instructions: Take 1 tablet by mouth twice daily Referrals Follow up/Referrals: Jaden Cheek APRN [Primary Care Provider] - See instructions Clinical Impressions Clinical Impression: DAMIÁN (acute kidney injury), Abdominal pain, UTI (urinary tract infection) Instructions Patient Instructions: DI for Acute Abdominal Pain Print Language Print Language: Mongolian Discharge ED Provider: Su Jones Adult HPI General Chief complaint: Abdominal Pain Stated complaint: Dehydrated; UTI Possible Pancreatitis Time Seen by Provider: 02/25/25 00:35 Mode of Arrival: Ambulatory Source of Information: Patient Description of Symptoms (Recalled from ER Triage Doc. by RN): Pt presents to ED for N/V & abd pain X 4 days. Pt states she went to PCP today & dx w/ UTI. Pt was unable to potato picker abx as pharmacy was closed. Pt states her PCP thinks she may have pancreatitis. Pt is A&O*4 and rates pain 5/10. History of Present Illness HPI narrative: 49-year-old female with history of gastroparesis from [facility], diabetes type 2 on insulin pump, CHF, CAD presents to the ER with complaints of nausea, vomiting, diarrhea, abdominal pain. Patient reports symptoms started 4 days ago. She demonstrates of the right upper quadrant and midepigastric area radiating to the back. Patient reports she saw her PCP today and was told she may have pancreatitis and was diagnosed with UTI. She states at the time she got out of her PCPs office she was unable to get to the pharmacy intact to potato picker antibiotics. Patient reports inability to tolerate anything by mouth and believes she is dehydrated. She denies chest pain or difficulty breathing, no fevers or chills, no numbness, tingling, or weakness. No other complaints or concerns. Related Data Home Medications ?Medication ?Instructions ?Recorded ?Confirmed ergocalciferol (vitamin D2) 1,250 1,250 mcg PO DIRECTED Supplement 11/03/21 02/10/25 mcg (50,000 unit) capsule cyanocobalamin (vitamin B-12) 1,000 mcg SQ QMONTH 05/11/23 02/10/25 1,000 mcg/mL injection solution trazodone 150 mg tablet 150 mg PO HSP PRN Sleep 06/27/23 02/10/25 escitalopram oxalate 20 mg tablet 20 mg PO DAILY 12/28/23 02/10/25 gabapentin 400 mg capsule 400 mg PO TID 12/28/23 02/10/25 ipratropium bromide 17 2 puff inhalation QID 08/12/24 02/10/25 mcg/actuation HFA aerosol inhaler (Atrovent HFA) buspirone 15 mg tablet 15 mg PO TID 10/08/24 02/10/25 insulin syringe-needle U-100 1 mL #50 ea 10/23/24 02/10/25 27 gauge x 5/8 (Insulin Syringe MicroFine) omeprazole 40 mg capsule,delayed 40 mg PO DAILY 10/23/24 02/10/25 release albuterol sulfate 2.5 mg/3 mL 2.5 mg inhalation Q6HP PRN 12/06/24 02/10/25 (0.083 %) solution for nebulization Shortness Of Breath Or Wheezing albuterol sulfate 90 mcg/actuation 2 puff inhalation Q4HP PRN 12/06/24 02/10/25 aerosol inhaler (Ventolin HFA) Shortness Of Breath Or Wheezing clopidogrel 75 mg tablet 75 mg PO DAILY 12/06/24 02/10/25 fluticasone propionate 50 1 spray intranasal DAILY 12/06/24 02/10/25 mcg/actuation nasal spray,suspension insulin lispro 100 unit/mL See Rx Instructions .Route .COMPLEX 12/06/24 02/10/25 subcutaneous solution (Humalog U-100 Insulin) metformin 1,000 mg tablet,extended 1,000 mg PO BID 12/06/24 02/10/25 release 24hr (osmotic) nitroglycerin 0.4 mg sublingual 0.4 mg sublingual Q5M PRN Chest 12/06/24 02/10/25 tablet Pain sacubitril 97 mg-valsartan 103 mg 1 tab PO BID 12/06/24 02/10/25 tablet (Entresto) tiotropium bromide 18 mcg capsule 1 cap inhalation DAILY Copd 12/06/24 02/10/25 with inhalation device (Spiriva with HandiHaler) blood-glucose sensor (Dexcom G7 #1 ea 02/04/25 02/10/25 Sensor device) montelukast 10 mg tablet 10 mg PO DAILY 02/04/25 02/10/25 syringe with needle 3 mL 25 x 5/8 #1 ea 02/04/25 02/10/25 (BD SafetyGlide Syringe) Previous Rx's ?Medication ?Instructions ?Recorded budesonide-formoterol HFA 160 2 puff inhalation BID COPD #10.2 01/10/22 mcg-4.5 mcg/actuation aerosol grams inhaler (Symbicort) furosemide 40 mg tablet 40 mg PO DAILY #90 tabs 06/25/24 ranolazine 1,000 mg 1,000 mg PO BID #180 tabs 06/25/24 tablet,extended release,12 hr metoclopramide HCl 5 mg tablet 5 mg PO QACHS #120 tabs 07/01/24 (Reglan) linaclotide 290 mcg capsule 290 mcg PO DAILY #90 caps 10/08/24 (Linzess) ezetimibe 10 mg tablet (Zetia) 10 mg PO DAILY #90 tabs 10/23/24 carvedilol 3.125 mg tablet (Coreg) 3.125 mg PO BID #60 tabs 02/04/25 Allergies Allergy/AdvReac Type Severity Reaction Status Date / Time atorvastatin (From Lipitor) AdvReac Severe Unknown Verified 02/10/25 11:15 allergy reaction isosorbide AdvReac Severe Headache Verified 02/10/25 11:15 pravastatin AdvReac Severe Joint Pain Verified 02/10/25 11:15 rosuvastatin (From Crestor) AdvReac Severe Joint Pain Verified 02/10/25 11:15 semaglutide (From Ozempic) AdvReac Severe Other Verified 02/10/25 11:15 PFSH PFSH Disclaimer: The information contained in this section may have been updated after the patient was seen, as this information can be updated by other users. Medical History Urinary tract infection Sleep apnea History of COVID-19 Irritable bowel syndrome (IBS) Gastroparesis Edema Obesity Frequent falls 10/31/23- recent fall, was seen in ER and had MRI Right foot, no fx, only soft tissue swelling noted. Right foot drop Low back pain Diabetic ulcer of foot associated with diabetes mellitus due to underlying condition, limited to breakdown of skin Hypertriglyceridemia Dyspnea Abnormal electrocardiography CAD (coronary artery disease) Tobacco dependence syndrome Hyperlipidemia Nerve pain Tobacco use Hypertension Diabetes mellitus Fatigue Anxiety Depression Surgical History History of surgery on arm RIGHT History of cholecystectomy History of hernia surgery History of tubal ligation Stented coronary artery Family History Other No significant family history Social History (Updated 02/10/25 @ 11:20 by Ciara Ryan MA) Smoking Status: Unknown if ever smoked alcohol intake: never substance use type: marijuana current occupational status: disabled Travel in the last 8 weeks?: None household members: family and children housing: house caffeine: No Other Medical History Have you received the Flu Vaccine for this season: No Have you received the Pneumonia Vaccine: Yes ROS Obtained: Yes Systems reviewed as appropriate & no additional complaints except as documented Per HPI Physical Exam General General appearance: alert, in no apparent distress and obese Comment: Ill-appearing but not an extremis Head Head exam: atraumatic and normocephalic Eye Eye exam: Present PERRL and EOMI ENT ENT exam: Present mucous membranes moist Neck Neck exam: Present normal inspection and full ROM Chest Chest inspection: Present symmetric chest wall rise Respiratory Respiratory exam: Present normal lung sounds bilaterally; Absent respiratory distress, wheezes or stridor Cardiovascular Cardiovascular exam: Present regular rate and normal rhythm Abdominal Exam Abdominal exam: Present soft and tenderness (Epigastric, right upper quadrant, suprapubic); Absent distention, guarding, rebound or rigidity Comment: Insulin pump attached to left lower quadrant Extremities Exam Extremities exam: Present full ROM Back Exam Back exam: Absent tenderness, CVA tenderness (R) or CVA tenderness (L) Neurological Exam Neurological exam: Present alert and oriented X3; Absent motor sensory deficit Psychiatric Psychiatric exam: Present normal affect and normal mood Skin Skin exam: Present warm and dry Medical Decision Making Medical Records Medical records reviewed: Yes I reviewed the patient's medical records. Screening: Per USPSTF and CDC recommendations, given the prevalence of disease in our region, it is our hospital?s policy to screen for HIV and viral Hepatitis for all patients aged 18 and over and those with ongoing risk factors. Kurt Inquiry Pt receiving controlled substance: No Vital Signs: 02/25/25 00:00 02/25/25 00:02 02/25/25 00:18 Temperature 98.9 F 98.4 F Temperature Source Oral Oral Pulse Rate 70 71 Pulse Rate [Left] 75 Respiratory Rate 16 18 Blood Pressure 93/65 L 101/73 L Blood Pressure [Right Arm] 99/61 L Blood Pressure Mean Blood Pressure Mean [Right Arm] 73 Blood Pressure Source Automatic Cuff Blood Pressure Position Sitting 02 Sat by Pulse Oximetry 95 95 95 Oxygen Delivery Method Room Air Room Air 02/25/25 01:05 02/25/25 02:00 Temperature Temperature Source Pulse Rate 71 68 Pulse Rate [Left] Respiratory Rate Blood Pressure 101/73 L 95/58 L Blood Pressure [Right Arm] Blood Pressure Mean 70 Blood Pressure Mean [Right Arm] Blood Pressure Source Blood Pressure Position 02 Sat by Pulse Oximetry 94 L 92 L Oxygen Delivery Method Room Air Lab Data Lab Results 02/25/25 00:10: WBC 7.6, RBC 4.32, Hgb 14.2, Hct 41.5, MCV 96.1, MCH 32.9 H, MCHC 34.2, RDW 12.7, Plt Count 274, MPV 10.4, Neut % (Auto) 60.4, Lymph % (Auto) 29.5, Dawson % (Auto) 7.1, Eos % (Auto) 2.1, Baso % (Auto) 0.5, Neut # (Auto) 4.6, Lymph # (Auto) 2.3, Dawson # (Auto) 0.5, Eos # (Auto) 0.2, Baso # (Auto) 0.0, PT 11.6, INR 1.05, Sodium 136, Potassium 3.3 L, Chloride 96 L, Carbon Dioxide 31 H, Anion Gap 12.3, BUN 38 H, Creatinine 2.60 H, Estimated Creat Clear 34, Estimated GFR 19 L*, Est GFR ( Amer) 23 L, Glucose 111 H, Lactate 0.9, Calcium 8.4, Total Bilirubin 0.4, AST 26, ALT 17, Alkaline Phosphatase 53, Troponin I < 0.01, Total Protein 7.6, Albumin 4.6, Globulin 3.0, Albumin/Globulin Ratio 1.5, Lipase 78, Serum HCG, Qual Negative 02/25/25 01:06: Urine Color Yellow, Urine Appearance Clear, Urine pH 6.0, Ur Specific [place] 1.020, Urine Protein 1+ A, Urine Glucose (UA) Negative, Urine Ketones Negative, Urine Blood Negative, Urine Nitrate Negative, Urine Bilirubin Negative, Urine Urobilinogen 0.2, Ur Leukocyte Esterase Trace, Urine WBC 20-50, Ur Squamous Epith Cells 3-5, Urine Bacteria Trace, Hyaline Casts 3-5 02/25/25 00:10 02/25/25 00:10 Orders (Tests/Meds): ED MEDICATIONS Discontinued Medications Generic Name Dose Route Start Last Admin Trade Name Freq PRN Reason Stop Dose Admin Lactated Ringer's 1,000 mls @ 999 mls/hr 02/25/25 00:51 02/25/25 01:10 Lactated Ringer's 1000 Ml Bag IV 02/25/25 01:51 999 mls/hr .Q1H1M ONE Administration Ceftriaxone Sodium 1 gm/ 50 mls @ 100 mls/hr 02/25/25 02:40 02/25/25 03:15 Sodium Chloride IV 02/25/25 03:09 100 mls/hr ONCE ONE Administration Morphine Sulfate 4 mg 02/25/25 00:51 02/25/25 01:10 Morphine 4mg/Ml Syringe IV 02/25/25 00:52 4 mg ONCE ONE Administration Ondansetron HCl 4 mg 02/25/25 00:51 02/25/25 01:10 Ondansetron 4mg/2ml Vial IV 02/25/25 00:52 4 mg ONCE ONE Administration ORDERS Category Date Time Status CT abdomen pelvis wo con Stat Cat Scan 02/25/25 00:55 Completed XR chest 2V Stat Exams 02/25/25 00:51 Completed Complete Blood Count Auto Diff Stat Lab 02/25/25 00:10 Completed Comprehensive Metabolic Panel Stat Lab 02/25/25 00:10 Completed Diarrhea 6-11 Panel, Cdiff PCR Stat Lab 02/25/25 00:55 Ordered HCG Qualitative, Serum Stat Lab 02/25/25 00:10 Completed Lactic Acid Stat Lab 02/25/25 00:10 Completed Lipase Stat Lab 02/25/25 00:10 Completed Prothrombin Time INR Stat Lab 02/25/25 00:10 Completed Troponin I Q3H Lab 02/25/25 04:00 Ordered Troponin I Q3H Lab 02/25/25 07:00 Ordered Troponin I Stat Lab 02/25/25 00:10 Completed Urinalysis and Microscopic Stat Lab 02/25/25 01:06 Completed Urine Culture Stat Micro 02/25/25 01:06 Received Medical Decision Narrative: In summary, this 49-year-old female with comorbidities described in the HPI presents to the emergency department today with epigastric and right upper quadrant pain radiating to the back, nausea, vomiting, diarrhea, patient also reportedly has a UTI according to what she was told by her PCP but she does not report dysuria or hematuria. On initial evaluation patient is borderline hypotensive but hemodynamically stable, afebrile, tenderness palpation in the epigastric, right upper quadrant, suprapubic areas with no rebound or guarding, no CVA tenderness. Differential diagnosis includes but is not limited to viral syndrome, pancreatitis, I considered biliary pathology but patient has already had cholecystectomy, consider the possibility of transaminitis, hepatitis, urinary tract infection, pyelonephritis, bowel obstruction, infectious diarrhea, among others. Patient does report that her emesis has been nonbloody, nonbilious and that her diarrhea is nonbloody, nonmelanotic. I also considered the possibility of atypical presentation of ACS though I have low suspicion for this. Based on these concerns, I ordered serum labs, cardiac workup, CT imaging, urine studies. ECG personally interpreted demonstrates normal sinus rhythm, rate 71, normal axis, normal [place] and QTc, no STEMI. Patient received IV fluids, morphine, Zofran initially for treatment. Labs personally reviewed demonstrate no leukocytosis or anemia, platelets normal, PT/INR normal, CMP with mild hypokalemia, significant kidney dysfunction which is new from previous creatinine now 2.6 up from 0.8 at the end of January, troponin undetectably low less than 0.01, lipase normal at 78 reassuring against pancreatitis, UA questionable for findings of infection with the presence of protein, numerous WBCs, contaminated with squamous cells but trace bacteria. Given her abdominal findings and complaints including suprapubic tenderness, will treat for UTI with Rocephin. Lactic 0.9 which is reassuring. Chest x-ray personally interpreted does not demonstrate acute intrathoracic abnormality, see radiology read for interpretation. CT abdomen pelvis personally interpreted does not demonstrate findings of bowel obstruction, ureteral stone, pyelonephritis, or other acute intra-abdominal pathology. Radiology read comments on mild fatty liver infiltration and nonobstructive left renal calculus. I do not believe this calculus is contributing to patient's symptoms. On reassessment patient reports her symptoms are slightly better but not significantly. We discussed the results of her workup including her significant kidney dysfunction. I recommended admission to the hospital for IV fluids and close monitoring of her kidney function as well as treatment of UTI. She is agreeable to this. I discussed this case with the hospitalist. We discussed that I do believe patient is appropriate for admission to this facility since she is still making urine, has no hyperkalemia, and this is likely related to her significant volume losses with continued vomiting and diarrhea. Patient was graciously accepted to the hospitalist service for management of DAMIÁN and UTI in stable condition. Critical Care Critical Care Time Critical Care Time: No
[2025-02-25 01:04] LABS: Albumin Level 4.6 g/dl (3.5-5.0); Chloride 96 mmol/L (98-107); Potassium 3.3 mmoL/L (3.5-5.1); Sodium 136 mmol/L (136-145)
[2025-02-25 01:07] LABS: Alanine Aminotransferase 17 U/L (12-78); Albumin/Globulin Ratio 1.5 (1.1-1.8); Alkaline Phosphatase 53 U/L (38-126); Anion Gap 12.3 mEq/L (5-15); Aspartate Amino Transferase 26 U/L (14-36); Basophils % 0.5 % (0.1-2.0); Bilirubin,Total 0.4 mg/dl (0.2-1.3); Blood Urea Nitrogen 38 mg/dl (7-17); Calcium 8.4 mg/dl (8.4-10.2); Carbon Dioxide 31 mmol/L (22.0-30.0); Creatinine Clearance Estimated 34 mL/min (50-200); Eosinophils # 0.2 Kmm3 (0.0-0.4); Eosinophils % 2.1 % (0.1-12.0); Estimated Glomerular Filt Rate 19 ml/min (>60); GFR (African American) 23 ML/MIN (>60); Glucose 111 mg/dl (74-100); Hematocrit 41.5 % (37.0-47.0); Hemoglobin 14.2 g/dL (12.2-16.2); Immature Granulocytes # 0.03 10^3uL; Immature Granulocytes % 0.4 %; Lipase 78 U/L (23-300); Lymphocytes # 2.3 K/mm3 (0.7-4.5); Lymphocytes % 29.5 % (10-50); Mean Corpuscular HGB Conc 34.2 g/dL (31.8-35.4); Mean Corpuscular Hemoglobin 32.9 pg (27.0-31.2); Mean Corpuscular Volume 96.1 fl (81-99); Mean Platelet Volume 10.4 fl (7.4-10.4); Monocytes # 0.5 K/mm3 (0.1-1.0); Monocytes % 7.1 % (1.7-9.3); Neutrophils # 4.6 K/mm3 (1.8-7.8); Neutrophils % 60.4 % (37.0-80.0); Nucleated Red Blood Cells # 0 10^3/uL; Nucleated Red Blood Cells % 0 %; Platelet Count 274 K/mm3 (142-424); Red Blood Count 4.32 M/mm3 (4.20-5.40); Red Cell Distribution Width 12.7 % (11.5-17.5); Red Cell Distribution Width-SD 44.6 fL; Total Protein,Serum 7.6 g/dl (6.3-8.2); White Blood Count 7.6 K/mm3 (4.8-10.8)
[2025-02-25 01:09] LABS: Microscopic, Urine URINE MICROSCOPIC (MICROSCOPIC)
[2025-02-25] MEDS: MORPHINE 4MG/ML SYRINGE 4 MG IV (01:10)
[2025-02-25] MEDS: ONDANSETRON 4MG/2ML VIAL 4 MG IV (01:10)
[2025-02-25] MEDS: LACTATED RINGERS 1000ML 1,000 ML 999 ML IV (01:10)
[2025-02-25 01:11] LABS: Appearance,Urine CLEAR (Clear); Bilirubin,Urine Negative (Negative); Blood, Urine Negative (Negative); Color,Urine YELLOW (Yellow); Glucose,Urine (UA) Negative (Negative); Ketones,Urine Negative (Negative); Leukocyte Esterase,Urine TRACE (Negative); Nitrate,Urine Negative (Negative); Protein,Urine 1+ (Negative); Urobilinogen,Urine 0.2 EU/dl (0.2)
[2025-02-25 01:14] LABS: HCG Qualitative, Serum Negative (Negative); INR 1.05 (0.9-1.1); Prothrombin Time 11.6 seconds (10.1-12.5)
[2025-02-25 01:15] LABS: Lactic Acid 0.9 mmol/L (0.7-2.1)
[2025-02-25 01:19] LABS: WBC,Urine 20-50 #/hpf (0-3)
[2025-02-25 01:20] LABS: Bacteria,Urine Trace /lpf
[2025-02-25 01:20] LABS: Troponin I < 0.01 ng/ml (0.00-0.034)
--- NOTE | 2025-02-25 01:40 | PC.NURSE ---
Pt just returned from radiology
[2025-02-25] MEDS: CEFTRIAXONE 1 GM 1 GM in 0.9 % SODIUM CHLORIDE 50 ML IV (03:15)
[2025-02-25 04:14] LABS: Adenovirus F 40/41, stool Not Detected (NotDetected); Astrovirus Not Detected (NotDetected); Campylobacter Not Detected (NotDetected); Clostridium Difficile A/B, PCR Not Detected (NotDetected); Cryptosporidium Not Detected (NotDetected); Cyclospora Cayetanesis Not Detected (NotDetected); Entamoeba histolytica Not Detected (NotDetected); Enteroaggregative E coli Not Detected (NotDetected); Enteropathogenic E coli Not Detected (NotDetected); Enterotoxigenic E coli Not Detected (NotDetected); Giardia lamblia Not Detected (NotDetected); Norovirus Not Detected (NotDetected); Plesimonas Shigalloides, PCR Not Detected (NotDetected); Rotavirus A Not Detected (NotDetected); Salmonella, PCR Not Detected (NotDetected); Sapovirus Not Detected (NotDetected); Shiga-like toxin E coli Not Detected (NotDetected); Shigella Enterovasive E coli Not Detected (NotDetected); Vibrio Cholerae Not Detected (NotDetected); Vibrio, PCR Not Detected (NotDetected); Yersinia Entercolitica, PCR Not Detected (NotDetected)
--- NOTE | 2025-02-25 04:21 | PC.NURSE ---
Patient arrived to floor via wheelchair from ED at 04:19.
[2025-02-25] MEDS: 0.9 % SODIUM CHLORIDE 1000ML 1,000 ML 100 ML IV (04:24)
[2025-02-25 04:32] LABS: Troponin I < 0.01 ng/ml (0.00-0.034)
[2025-02-25] MEDS: MORPHINE 2MG/ML SYRINGE 2 MG IV ×2 (04:41→08:50)
--- NOTE | 2025-02-25 05:10 | P.HP_ITS ---
<Statement entered by Dirk Bell MD - 03/03/25 16:59> Personally evaluated the patient and agree with the plan of care as outlined by the [employer]. History of Present Illness *Admission Date: 02/25/25 *Reason for visit:: Vomiting diarrhea *History of present illness: This is a 49-year-old female with a past medical history of poorly controlled diabetes, systolic heart failure, gastroparesis, obesity, CAD, tobacco use who presents emergency department today with complaints of vomiting and diarrhea. She reports abdominal discomfort diffusely for the last several days. Saw her PCP who was concerned about pancreatitis. States that she developed worse vomiting and diarrhea over the last day or 2. States that her belly pain is crampy in nature and is located in the epigastrium. Has a history of cholecystectomy. Denies any recent sick contacts. Denies eating any bad food recently. Denies any other family numbers having gastric illness Emergency Department workup notable for creatinine of 2.6 which is above patient's baseline of 0.8. She does endorse still making urine. Urinalysis with trace bacteria and 20-50 white cells. Given her diarrhea and vomiting and DAMIÁN she is admitted to hospitalist service. [facility] Disclaimer: The information contained in this section may have been updated after the patient was seen, as this information can be updated by other users. Medical History Urinary tract infection Sleep apnea History of COVID-19 Irritable bowel syndrome (IBS) Gastroparesis Edema Obesity Frequent falls 10/31/23- recent fall, was seen in ER and had MRI Right foot, no fx, only soft tissue swelling noted. Right foot drop Low back pain Diabetic ulcer of foot associated with diabetes mellitus due to underlying condition, limited to breakdown of skin Hypertriglyceridemia Dyspnea Abnormal electrocardiography CAD (coronary artery disease) Tobacco dependence syndrome Hyperlipidemia Nerve pain Tobacco use Hypertension Diabetes mellitus Fatigue Anxiety Depression Surgical History History of surgery on arm RIGHT History of cholecystectomy History of hernia surgery History of tubal ligation Stented coronary artery Family History Other No significant family history Social History (Updated 02/25/25 @ 04:37 by Amanda Miles RN) Smoking Status: Former smoker tobacco type: cigarettes packs per day: 1 alcohol intake: never substance use type: marijuana current occupational status: disabled Travel in the last 8 weeks?: None household members: family and children housing: house caffeine: No Other Medical History Have you received the Flu Vaccine for this season: No Have you received the Pneumonia Vaccine: No Review of Systems Review of Systems Review of systems:: pertinent systems reviewed and negative unless documented below Review of systems (narrative): Negative except for HPI Meds Home Medications and Allergies Home Medications ?Medication ?Instructions ?Recorded ?Confirmed ?Type ergocalciferol (vitamin D2) 1,250 1,250 mcg PO DIRECTED Supplement 11/03/21 02/25/25 History mcg (50,000 unit) capsule budesonide-formoterol HFA 160 2 puff inhalation BID COPD #10.2 01/10/22 02/25/25 Rx mcg-4.5 mcg/actuation aerosol grams inhaler (Symbicort) cyanocobalamin (vitamin B-12) 1,000 mcg SQ QMONTH 05/11/23 02/25/25 History 1,000 mcg/mL injection solution trazodone 150 mg tablet 150 mg PO HS 06/27/23 02/25/25 History escitalopram oxalate 20 mg tablet 20 mg PO DAILY 12/28/23 02/25/25 History gabapentin 400 mg capsule 400 mg PO TID 12/28/23 02/25/25 History furosemide 40 mg tablet 40 mg PO DAILY #90 tabs 06/25/24 02/25/25 Rx ranolazine 1,000 mg 1,000 mg PO BID #180 tabs 06/25/24 02/25/25 Rx tablet,extended release,12 hr ipratropium bromide 17 2 puff inhalation QID 08/12/24 02/25/25 History mcg/actuation HFA aerosol inhaler (Atrovent HFA) buspirone 15 mg tablet 15 mg PO TID 10/08/24 02/25/25 History linaclotide 290 mcg capsule 290 mcg PO DAILY #90 caps 10/08/24 02/25/25 Rx (Linzess) ezetimibe 10 mg tablet (Zetia) 10 mg PO DAILY #90 tabs 10/23/24 02/25/25 Rx insulin syringe-needle U-100 1 mL #50 ea 10/23/24 02/25/25 History 27 gauge x 5/8 (Insulin Syringe MicroFine) omeprazole 40 mg capsule,delayed 40 mg PO DAILY 10/23/24 02/25/25 History release albuterol sulfate 2.5 mg/3 mL 2.5 mg inhalation Q6HP PRN 12/06/24 02/25/25 History (0.083 %) solution for nebulization Shortness Of Breath Or Wheezing albuterol sulfate 90 mcg/actuation 2 puff inhalation Q4HP PRN 12/06/24 02/25/25 History aerosol inhaler (Ventolin HFA) Shortness Of Breath Or Wheezing clopidogrel 75 mg tablet 75 mg PO DAILY 12/06/24 02/25/25 History fluticasone propionate 50 1 spray intranasal DAILY 12/06/24 02/25/25 History mcg/actuation nasal spray,suspension insulin lispro 100 unit/mL See Protocol SQ ACHS 12/06/24 02/25/25 History subcutaneous solution (Humalog U-100 Insulin) metformin 1,000 mg tablet,extended 1,000 mg PO BID 12/06/24 02/25/25 History release 24hr (osmotic) nitroglycerin 0.4 mg sublingual 0.4 mg sublingual Q5M PRN Chest 12/06/24 02/25/25 History tablet Pain sacubitril 97 mg-valsartan 103 mg 1 tab PO BID 12/06/24 02/25/25 History tablet (Entresto) tiotropium bromide 18 mcg capsule 1 cap inhalation DAILY Copd 12/06/24 02/25/25 History with inhalation device (Spiriva with HandiHaler) blood-glucose sensor (Dexcom G7 #1 ea 02/04/25 02/25/25 History Sensor device) montelukast 10 mg tablet 10 mg PO DAILY 02/04/25 02/25/25 History syringe with needle 3 mL 25 x 5/8 #1 ea 02/04/25 02/25/25 History (BD SafetyGlide Syringe) carvedilol 3.125 mg tablet (Coreg) 12.5 mg PO DAILY 02/25/25 02/25/25 History New Prescriptions to Start Prescriptions: Allergies Allergy/AdvReac Type Severity Reaction Status Date / Time atorvastatin (From Lipitor) AdvReac Severe Unknown Verified 02/10/25 11:15 allergy reaction isosorbide AdvReac Severe Headache Verified 02/10/25 11:15 pravastatin AdvReac Severe Joint Pain Verified 02/10/25 11:15 rosuvastatin (From Crestor) AdvReac Severe Joint Pain Verified 02/10/25 11:15 semaglutide (From Ozempic) AdvReac Severe Other Verified 02/10/25 11:15 Exam Data for Last 24 hours Vital signs and Labs for Last 24 Hours: Temp Pulse Resp BP Pulse Ox O2 Del Method O2 Flow Rate 98.5 F 74 16 108/77 L 92 L Nasal Cannula 2 02/25/25 04:08 02/25/25 04:08 02/25/25 04:08 02/25/25 04:08 02/25/25 02:00 02/25/25 04:08 02/25/25 04:08 Laboratory Results - last 24 hr 02/25/25 00:10: WBC 7.6, RBC 4.32, Hgb 14.2, Hct 41.5, MCV 96.1, MCH 32.9 H, MCHC 34.2, RDW 12.7, Plt Count 274, MPV 10.4, Neut % (Auto) 60.4, Lymph % (Auto) 29.5, [place] % (Auto) 7.1, Eos % (Auto) 2.1, Baso % (Auto) 0.5, Neut # (Auto) 4.6, Lymph # (Auto) 2.3, [place] # (Auto) 0.5, Eos # (Auto) 0.2, Baso # (Auto) 0.0, PT 11.6, INR 1.05, Sodium 136, Potassium 3.3 L, Chloride 96 L, Carbon Dioxide 31 H, Anion Gap 12.3, BUN 38 H, Creatinine 2.60 H, Estimated Creat Clear 34, Estimated GFR 19 L*, Est GFR ( Amer) 23 L, Glucose 111 H, Lactate 0.9, Calcium 8.4, Total Bilirubin 0.4, AST 26, ALT 17, Alkaline Phosphatase 53, Troponin I < 0.01, Total Protein 7.6, Albumin 4.6, Globulin 3.0, Albumin/Globulin Ratio 1.5, Lipase 78, Serum HCG, Qual Negative 02/25/25 01:06: Urine Color Yellow, Urine Appearance Clear, Urine pH 6.0, Ur Specific [place] 1.020, Urine Protein 1+ A, Urine Glucose (UA) Negative, Urine Ketones Negative, Urine Blood Negative, Urine Nitrate Negative, Urine Bilirubin Negative, Urine Urobilinogen 0.2, Ur Leukocyte Esterase Trace, Urine WBC 20-50, Ur Squamous Epith Cells 3-5, Urine Bacteria Trace, Hyaline Casts 3-5 02/25/25 03:59: Troponin I < 0.01 I & O for Last 24 hours: Intake & Output 02/22/25 02/23/25 02/24/25 02/25/25 23:59 23:59 23:59 23:59 Weight 84.368 kg Constitutional Constitutional: no acute distress *Routine HEENT Exam Head: Present normocephalic Eye: Present EOMI and PERRL ENT: Present mucous membranes moist *Routine Neck Exam Neck: Present supple; Absent lymphadenopathy *Routine Respiratory Exam Respiratory: Present CTA bilaterally *Routine Cardiovascular Exam Cardiovascular: Present RRR *Routine Abdominal Exam Abdominal: Present soft, normoactive bowel sounds and tenderness (Diffuse tenderness TTP) *Routine Rectal Exam Rectal:: deferred *Routine Genitalia Exam Genitalia:: deferred *Routine Extremities Exam Extremities: Absent cyanosis, clubbing or edema *Routine Skin Exam Skin: Present warm; Absent rash *Routine Neurological Exam Neurological: Present alert and oriented X3 Assessment and Plan *Assessment and plan (1) UTI (urinary tract infection): Status: Acute Category: Medical Code(s): N39.0 - Urinary tract infection, site not specified (2) DAMIÁN (acute kidney injury): Status: Acute Category: Medical Code(s): N17.9 - Acute kidney failure, unspecified (3) Abdominal pain: Status: Acute Category: Medical Code(s): R10.9 - Unspecified abdominal pain (4) Gastroparesis: Status: Acute Category: Medical Code(s): K31.84 - Gastroparesis (5) Vomiting and diarrhea: Status: Acute Category: Medical Code(s): R11.10 - Vomiting, unspecified; R19.7 - Diarrhea, unspecified Plan #DAMIÁN Creatinine of 2.6 with a baseline of 0.8. Patient still making urine. This is likely prerenal in nature given significant decrease in oral intake and profuse vomiting and diarrhea. Does have a history of systolic heart failure, will continue to provide maintenance IV fluids judiciously. Monitor respiratory Avoid nephrotoxic medication #Urinary tract infection Continue Rocephin Follow-up urine culture #Abdominal pain. Continue pain medication as needed Epigastric in nature. Lipase negative, CT without abnormality #Vomiting and diarrhea Denies any sick contacts. Does have prior history of C. difficile patient reports years ago. 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 Diarrhea panel sent and pending
--- NOTE | 2025-02-25 05:13 | PC.NURSE ---
patient has a pill pack in purse - unable to use because not in rx bottles
--- NOTE | 2025-02-25 05:14 | PC.NURSE ---
patient decreased from 2L NC to 1L NC - pulse ox on for monitoring r/t desating in ED
[2025-02-25 05:16] LABS: POC Glucose,Bedside 102 (70-110)
[2025-02-25 07:00] LABS: Basophils % 0.5 % (0.1-2.0); Eosinophils # 0.2 Kmm3 (0.0-0.4); Eosinophils % 3.1 % (0.1-12.0); Immature Granulocytes # 0.01 10^3uL; Immature Granulocytes % 0.2 %; Lymphocytes # 2.4 K/mm3 (0.7-4.5); Lymphocytes % 36.6 % (10-50); Mean Corpuscular HGB Conc 33.9 g/dL (31.8-35.4); Mean Corpuscular Hemoglobin 32.7 pg (27.0-31.2); Mean Corpuscular Volume 96.5 fl (81-99); Mean Platelet Volume 10.8 fl (7.4-10.4); Monocytes # 0.5 K/mm3 (0.1-1.0); Monocytes % 7.9 % (1.7-9.3); Neutrophils # 3.4 K/mm3 (1.8-7.8); Neutrophils % 51.7 % (37.0-80.0); Nucleated Red Blood Cells # 0 10^3/uL; Nucleated Red Blood Cells % 0 %; Platelet Count 244 K/mm3 (142-424); Red Blood Count 3.73 M/mm3 (4.20-5.40); Red Cell Distribution Width 12.5 % (11.5-17.5); Red Cell Distribution Width-SD 44.1 fL; White Blood Count 6.5 K/mm3 (4.8-10.8)
[2025-02-25 07:07] LABS: Blood Urea Nitrogen 37 mg/dl (7-17); Carbon Dioxide 29 mmol/L (22.0-30.0); Chloride 99 mmol/L (98-107); Creatinine Clearance Estimated 56 mL/min (50-200); Estimated Glomerular Filt Rate 34 ml/min (>60); GFR (African American) 41 ML/MIN (>60); Glucose 86 mg/dl (74-100); Magnesium 1.2 mg/dl (1.6-2.3); Phosphorous 3.5 mg/dl (2.5-4.5); Sodium 135 mmol/L (136-145)
[2025-02-25 07:38] LABS: Hemoglobin 12.2 g/dL (12.2-16.2)
--- NOTE | 2025-02-25 07:54 | PC.NURSE ---
critical lab report received from fanny potassium 3.0. notified.
[2025-02-25 08:09] LABS: Troponin I < 0.01 ng/ml (0.00-0.034)
--- NOTE | 2025-02-25 11:59 | EXP.DC.SUM ---
General Admission date:: 02/25/25 HPI HPI HPI: This is a 49-year-old female with a past medical history of poorly controlled diabetes, systolic heart failure, gastroparesis, obesity, CAD, tobacco use who presents emergency department today with complaints of vomiting and diarrhea. She reports abdominal discomfort diffusely for the last several days. Saw her PCP who was concerned about pancreatitis. States that she developed worse vomiting and diarrhea over the last day or 2. States that her belly pain is crampy in nature and is located in the epigastrium. Has a history of cholecystectomy. Denies any recent sick contacts. Denies eating any bad food recently. Denies any other family numbers having gastric illness Emergency Department workup notable for creatinine of 2.6 which is above patient's baseline of 0.8. She does endorse still making urine. Urinalysis with trace bacteria and 20-50 white cells. Given her diarrhea and vomiting and DAMIÁN she is admitted to hospitalist service. Hospital Course Hospital Course Hospital Course: Junior Yanes is a 49-year-old female who presented with nausea/vomiting/diarrhea and was admitted for DAMIÁN, UTI. #Nausea/vomiting/diarrhea #DAMIÁN #UTI ? Diarrhea panel, lipase normal. CT without acute findings. ? UA grossly abnormal, urine culture pending. ? Clinically improved with IV antibiotics for UTI. ? Initial creatinine 2.6, baseline 0.8. Improved with IV fluid resuscitation to 1.6. ? Discharged with cefdinir. Will follow-up with PCP within 1 week. Exam Data for Last 24 hours Vital signs and Labs for Last 24 Hours: Temp Pulse Resp BP Pulse Ox O2 Del Method O2 Flow Rate 97.9 F 69 16 125/72 96 Nasal Cannula 1 02/25/25 08:00 02/25/25 08:00 02/25/25 08:00 02/25/25 08:00 02/25/25 08:00 02/25/25 09:00 02/25/25 08:00 Laboratory Results - last 24 hr 02/25/25 00:10: WBC 7.6, RBC 4.32, Hgb 14.2, Hct 41.5, MCV 96.1, MCH 32.9 H, MCHC 34.2, RDW 12.7, Plt Count 274, MPV 10.4, Neut % (Auto) 60.4, Lymph % (Auto) 29.5, Garvin % (Auto) 7.1, Eos % (Auto) 2.1, Baso % (Auto) 0.5, Neut # (Auto) 4.6, Lymph # (Auto) 2.3, Garvin # (Auto) 0.5, Eos # (Auto) 0.2, Baso # (Auto) 0.0, PT 11.6, INR 1.05, Sodium 136, Potassium 3.3 L, Chloride 96 L, Carbon Dioxide 31 H, Anion Gap 12.3, BUN 38 H, Creatinine 2.60 H, Estimated Creat Clear 34, Estimated GFR 19 L*, Est GFR ( Amer) 23 L, Glucose 111 H, Lactate 0.9, Calcium 8.4, Total Bilirubin 0.4, AST 26, ALT 17, Alkaline Phosphatase 53, Troponin I < 0.01, Total Protein 7.6, Albumin 4.6, Globulin 3.0, Albumin/Globulin Ratio 1.5, Lipase 78, Serum HCG, Qual Negative 02/25/25 01:06: Urine Color Yellow, Urine Appearance Clear, Urine pH 6.0, Ur Specific [place] 1.020, Urine Protein 1+ A, Urine Glucose (UA) Negative, Urine Ketones Negative, Urine Blood Negative, Urine Nitrate Negative, Urine Bilirubin Negative, Urine Urobilinogen 0.2, Ur Leukocyte Esterase Trace, Urine WBC 20-50, Ur Squamous Epith Cells 3-5, Urine Bacteria Trace, Hyaline Casts 3-5 02/25/25 03:59: Troponin I < 0.01 02/25/25 04:07: Stl C. cayetanensis PCR Not detected, Stool Rotavirus (PCR) Not detected, Stl Adenov F 40/41 PCR Not detected, Stool Astrovirus (PCR) Not detected, Stool Campylobacter PCR Not detected, Stl C.difficile Tox PCR Not detected, Stool Cryptosporidium PCR Not detected, Stl E.coli Shiga Tox PCR Not detected, Stool E coli O157 PCR Not detected, Stl Enterotoxigenic E PCR Not detected, Stool EPEC (PCR) Not detected, Stool EAEC (PCR) Not detected, Stl E. histolytica PCR Not detected, Stool Giardia Lamblia PCR Not detected, Stool Salmonella PCR Not detected, Stool Sapovirus (PCR) Not detected, Stl P. shigelloides PCR Not detected, Stl Shigella/EIEC PCR Not detected, St Y.enterocolitica PCR Not detected, Stool Vibrio (PCR) Not detected, Stl Vibrio cholerae PCR Not detected, Stl Norovirus GI/GII PCR Not detected 02/25/25 04:55: POC Glucose 102 02/25/25 05:18: WBC 6.5, RBC 3.73 L, Hgb 12.2 D, Hct 36.0 L, MCV 96.5, MCH 32.7 H, MCHC 33.9, RDW 12.5, Plt Count 244, MPV 10.8 H, Neut % (Auto) 51.7, Lymph % (Auto) 36.6, Garvin % (Auto) 7.9, Eos % (Auto) 3.1, Baso % (Auto) 0.5, Neut # (Auto) 3.4, Lymph # (Auto) 2.4, Garvin # (Auto) 0.5, Eos # (Auto) 0.2, Baso # (Auto) 0.0, Sodium 135 L, Potassium 3.0 L, Chloride 99, Carbon Dioxide 29, Anion Gap 10.0, BUN 37 H, Creatinine 1.60 H D, Estimated Creat Clear 56, Estimated GFR 34 L, Est GFR ( Amer) 41 L D, Glucose 86 D, Calcium 8.0 L, Phosphorus 3.5, Magnesium 1.2 L 02/25/25 07:23: Troponin I < 0.01 I & O for Last 24 hours: Intake & Output 02/22/25 02/23/25 02/24/25 02/25/25 23:59 23:59 23:59 23:59 Output Total 0 / 0 Balance 0 / 0 Weight 85.474 kg Constitutional Constitutional: no acute distress *Routine HEENT Exam Head: Present normocephalic Eye: Present EOMI and PERRL ENT: Present mucous membranes moist *Routine Neck Exam Neck: Present supple; Absent lymphadenopathy *Routine Respiratory Exam Respiratory: Present CTA bilaterally *Routine Cardiovascular Exam Cardiovascular: Present RRR *Routine Abdominal Exam Abdominal: Present soft and normoactive bowel sounds; Absent tenderness *Routine Extremities Exam Extremities: Absent cyanosis, clubbing or edema *Routine Skin Exam Skin: Present warm; Absent rash *Routine Neurological Exam Neurological: Present alert and oriented X3 Results Data Completed and Pending Labs on day of discharge: Labs from last 24 hours 02/25/25 02/25/25 02/25/25 07:23 05:18 04:55 WBC 6.5 RBC 3.73 L Hgb 12.2 D Hct 36.0 L MCV 96.5 MCH 32.7 H MCHC 33.9 RDW 12.5 Plt Count 244 MPV 10.8 H Neut % (Auto) 51.7 Lymph % (Auto) 36.6 Garvin % (Auto) 7.9 Eos % (Auto) 3.1 Baso % (Auto) 0.5 Neut # (Auto) 3.4 Lymph # (Auto) 2.4 Garvin # (Auto) 0.5 Eos # (Auto) 0.2 Baso # (Auto) 0.0 PT INR Sodium 135 L Potassium 3.0 L Chloride 99 Carbon Dioxide 29 Anion Gap 10.0 BUN 37 H Creatinine 1.60 H D Estimated Creat Clear 56 Estimated GFR 34 L Est GFR ( Amer) 41 L D Glucose 86 D POC Glucose 102 Lactate Calcium 8.0 L Phosphorus 3.5 Magnesium 1.2 L Total Bilirubin AST ALT Alkaline Phosphatase Troponin I < 0.01 Total Protein Albumin Globulin Albumin/Globulin Ratio Lipase Serum HCG, Qual Urine Color Urine Appearance Urine pH Ur Specific [place] Urine Protein Urine Glucose (UA) Urine Ketones Urine Blood Urine Nitrate Urine Bilirubin Urine Urobilinogen Ur Leukocyte Esterase Urine WBC Ur Squamous Epith Cells Urine Bacteria Hyaline Casts Stl C. cayetanensis PCR Stool Rotavirus (PCR) Stl Adenov F 40/41 PCR Stool Astrovirus (PCR) Stool Campylobacter PCR Stl C.difficile Tox PCR Stool Cryptosporidium PCR Stl E.coli Shiga Tox PCR Stool E coli O157 PCR Stl Enterotoxigenic E PCR Stool EPEC (PCR) Stool EAEC (PCR) Stl E. histolytica PCR Stool Giardia Lamblia PCR Stool Salmonella PCR Stool Sapovirus (PCR) Stl P. shigelloides PCR Stl Shigella/EIEC PCR St Y.enterocolitica PCR Stool Vibrio (PCR) Stl Vibrio cholerae PCR Stl Norovirus GI/GII PCR 02/25/25 02/25/25 02/25/25 04:07 03:59 01:06 WBC RBC Hgb Hct MCV MCH MCHC RDW Plt Count MPV Neut % (Auto) Lymph % (Auto) Garvin % (Auto) Eos % (Auto) Baso % (Auto) Neut # (Auto) Lymph # (Auto) Garvin # (Auto) Eos # (Auto) Baso # (Auto) PT INR Sodium Potassium Chloride Carbon Dioxide Anion Gap BUN Creatinine Estimated Creat Clear Estimated GFR Est GFR ( Amer) Glucose POC Glucose Lactate Calcium Phosphorus Magnesium Total Bilirubin AST ALT Alkaline Phosphatase Troponin I < 0.01 Total Protein Albumin Globulin Albumin/Globulin Ratio Lipase Serum HCG, Qual Urine Color Yellow Urine Appearance Clear Urine pH 6.0 Ur Specific [place] 1.020 Urine Protein 1+ A Urine Glucose (UA) Negative Urine Ketones Negative Urine Blood Negative Urine Nitrate Negative Urine Bilirubin Negative Urine Urobilinogen 0.2 Ur Leukocyte Esterase Trace Urine WBC 20-50 Ur Squamous Epith Cells 3-5 Urine Bacteria Trace Hyaline Casts 3-5 Stl C. cayetanensis PCR Not detected Stool Rotavirus (PCR) Not detected Stl Adenov F 40/41 PCR Not detected Stool Astrovirus (PCR) Not detected Stool Campylobacter PCR Not detected Stl C.difficile Tox PCR Not detected Stool Cryptosporidium PCR Not detected Stl E.coli Shiga Tox PCR Not detected Stool E coli O157 PCR Not detected Stl Enterotoxigenic E PCR Not detected Stool EPEC (PCR) Not detected Stool EAEC (PCR) Not detected Stl E. histolytica PCR Not detected Stool Giardia Lamblia PCR Not detected Stool Salmonella PCR Not detected Stool Sapovirus (PCR) Not detected Stl P. shigelloides PCR Not detected Stl Shigella/EIEC PCR Not detected St Y.enterocolitica PCR Not detected Stool Vibrio (PCR) Not detected Stl Vibrio cholerae PCR Not detected Stl Norovirus GI/GII PCR Not detected 02/25/25 00:10 WBC 7.6 RBC 4.32 Hgb 14.2 Hct 41.5 MCV 96.1 MCH 32.9 H MCHC 34.2 RDW 12.7 Plt Count 274 MPV 10.4 Neut % (Auto) 60.4 Lymph % (Auto) 29.5 Garvin % (Auto) 7.1 Eos % (Auto) 2.1 Baso % (Auto) 0.5 Neut # (Auto) 4.6 Lymph # (Auto) 2.3 Garvin # (Auto) 0.5 Eos # (Auto) 0.2 Baso # (Auto) 0.0 PT 11.6 INR 1.05 Sodium 136 Potassium 3.3 L Chloride 96 L Carbon Dioxide 31 H Anion Gap 12.3 BUN 38 H Creatinine 2.60 H Estimated Creat Clear 34 Estimated GFR 19 L* Est GFR ( Amer) 23 L Glucose 111 H POC Glucose Lactate 0.9 Calcium 8.4 Phosphorus Magnesium Total Bilirubin 0.4 AST 26 ALT 17 Alkaline Phosphatase 53 Troponin I < 0.01 Total Protein 7.6 Albumin 4.6 Globulin 3.0 Albumin/Globulin Ratio 1.5 Lipase 78 Serum HCG, Qual Negative Urine Color Urine Appearance Urine pH Ur Specific [place] Urine Protein Urine Glucose (UA) Urine Ketones Urine Blood Urine Nitrate Urine Bilirubin Urine Urobilinogen Ur Leukocyte Esterase Urine WBC Ur Squamous Epith Cells Urine Bacteria Hyaline Casts Stl C. cayetanensis PCR Stool Rotavirus (PCR) Stl Adenov F 40/ PCR Stool Astrovirus (PCR) Stool Campylobacter PCR Stl C.difficile Tox PCR Stool Cryptosporidium PCR Stl E.coli Shiga Tox PCR Stool E coli O157 PCR Stl Enterotoxigenic E PCR Stool EPEC (PCR) Stool EAEC (PCR) Stl E. histolytica PCR Stool Giardia Lamblia PCR Stool Salmonella PCR Stool Sapovirus (PCR) Stl P. shigelloides PCR Stl Shigella/EIEC PCR St Y.enterocolitica PCR Stool Vibrio (PCR) Stl Vibrio cholerae PCR Stl Norovirus GI/GII PCR DS: Diagnosis Discharge Diagnosis (1) UTI (urinary tract infection): Status: Acute Code(s): N39.0 - Urinary tract infection, site not specified (2) DAMIÁN (acute kidney injury): Status: Acute Code(s): N17.9 - Acute kidney failure, unspecified (3) Abdominal pain: Status: Acute Code(s): R10.9 - Unspecified abdominal pain (4) Gastroparesis: Status: Acute Code(s): K31.84 - Gastroparesis (5) Vomiting and diarrhea: Status: Acute Code(s): R11.10 - Vomiting, unspecified; R19.7 - Diarrhea, unspecified Meds Home Medications and Allergies Home Medications ?Medication ?Instructions ?Recorded ?Confirmed ?Type ergocalciferol (vitamin D2) 1,250 1,250 mcg PO DIRECTED Supplement 11/03/21 03/06/25 History mcg (50,000 unit) capsule budesonide-formoterol HFA 160 2 puff inhalation BID COPD #10.2 01/10/22 03/06/25 Rx mcg-4.5 mcg/actuation aerosol grams inhaler (Symbicort) cyanocobalamin (vitamin B-12) 1,000 mcg SQ MONTHLY 05/11/23 03/06/25 History 1,000 mcg/mL injection solution trazodone 150 mg tablet 150 mg PO HS 06/27/23 03/06/25 History escitalopram oxalate 20 mg tablet 20 mg PO DAILY 12/28/23 03/06/25 History gabapentin 400 mg capsule 400 mg PO TID 12/28/23 03/06/25 History furosemide 40 mg tablet 40 mg PO DAILY #90 tabs 06/25/24 03/06/25 Rx ranolazine 1,000 mg 1,000 mg PO BID #180 tabs 06/25/24 03/06/25 Rx tablet,extended release,12 hr ipratropium bromide 17 2 puff inhalation QID 08/12/24 03/06/25 History mcg/actuation HFA aerosol inhaler (Atrovent HFA) buspirone 15 mg tablet 15 mg PO TID 10/08/24 03/06/25 History linaclotide 290 mcg capsule 290 mcg PO DAILY #90 caps 10/08/24 03/06/25 Rx (Linzess) ezetimibe 10 mg tablet (Zetia) 10 mg PO DAILY #90 tabs 10/23/24 03/06/25 Rx insulin syringe-needle U-100 1 mL #50 ea 10/23/24 03/06/25 History 27 gauge x 5/8 (Insulin Syringe MicroFine) omeprazole 40 mg capsule,delayed 40 mg PO DAILY 10/23/24 03/06/25 History release albuterol sulfate 2.5 mg/3 mL 2.5 mg inhalation Q6HP PRN 12/06/24 03/06/25 History (0.083 %) solution for nebulization Shortness Of Breath Or Wheezing albuterol sulfate 90 mcg/actuation 2 puff inhalation Q4HP PRN 12/06/24 03/06/25 History aerosol inhaler (Ventolin HFA) Shortness Of Breath Or Wheezing clopidogrel 75 mg tablet 75 mg PO DAILY 12/06/24 03/06/25 History fluticasone propionate 50 1 spray intranasal DAILY 12/06/24 03/06/25 History mcg/actuation nasal spray,suspension insulin lispro 100 unit/mL See Protocol SQ ACHS 12/06/24 03/06/25 History subcutaneous solution (Humalog U-100 Insulin) metformin 1,000 mg tablet,extended 1,000 mg PO BID 12/06/24 03/06/25 History release 24hr (osmotic) nitroglycerin 0.4 mg sublingual 0.4 mg sublingual Q5M PRN Chest 12/06/24 03/06/25 History tablet Pain sacubitril 97 mg-valsartan 103 mg 1 tab PO BID 12/06/24 03/06/25 History tablet (Entresto) Held on 02/25/25. Instructions: Resume on 03/04/25. Hold this medication until you see your PCP within 1 week for repeat blood work as it can further affect your kidney function.. tiotropium bromide 18 mcg capsule 1 cap inhalation DAILY 12/06/24 03/06/25 History with inhalation device (Spiriva with HandiHaler) blood-glucose sensor (Dexcom G7 #1 ea 02/04/25 03/06/25 History Sensor device) montelukast 10 mg tablet 10 mg PO HS 02/04/25 03/06/25 History syringe with needle 3 mL 25 x 5/8 #1 ea 02/04/25 03/06/25 History (BD SafetyGlide Syringe) carvedilol 3.125 mg tablet (Coreg) 3.125 mg PO BID 02/25/25 03/06/25 History New Prescriptions to Start Prescriptions: Allergies Allergy/AdvReac Type Severity Reaction Status Date / Time atorvastatin (From Lipitor) AdvReac Severe Unknown Verified 03/06/25 09:59 allergy reaction isosorbide AdvReac Severe Headache Verified 03/06/25 09:59 pravastatin AdvReac Severe Joint Pain Verified 03/06/25 09:59 rosuvastatin (From Crestor) AdvReac Severe Joint Pain Verified 03/06/25 09:59 semaglutide (From Ozempic) AdvReac Severe Other Verified 03/06/25 09:59 Discharge Plan Disposition Patient Disposition: Home, Self-Care Condition: Fair Follow up Plan Follow up with: Jaden Cheek APRN [Primary Care Provider, Medical] - 03/13/25 10:00 am Prescriptions/Medication Reconciliation: Continued budesonide-formoterol [Symbicort] 160-4.5 mcg/actuation HFA aerosol inhaler 2 puff INHALATION BID Qty: 10.2 0RF buspirone 15 mg tablet 15 mg PO TID Rx Instructions: Take 1 tablet by mouth three times a day Atrovent HFA 17 mcg/actuation HFA aerosol inhaler 2 puff inhalation QID Patient Comments: INHALE TWO (2) PUFFS BY MOUTH FOUR (4) TIMES DAILY Linzess 290 mcg capsule 290 mcg PO DAILY Qty: 90 3RF ergocalciferol (vitamin D2) 1,250 mcg (50,000 unit) capsule 1,250 mcg PO DIRECTED Patient Comments: TAKE ONE (1) CAPSULE (50 000 UNIT) BY ORAL ROUTE TWICE WEEKLY Rx Instructions: 1 capsule by mouth twice weekly cyanocobalamin (vitamin B-12) 1,000 mcg/mL solution 1,000 mcg SQ MONTHLY trazodone 150 mg tablet 150 mg PO HS Patient Comments: TAKE ONE (1) TABLET EVERY DAY BY ORAL ROUTE AT BEDTIME. gabapentin 400 mg capsule 400 mg PO TID escitalopram oxalate 20 mg tablet 20 mg PO DAILY (DME) Insulin Syringe MicroFine 1 mL 27 gauge x 5/8 syringe See Rx Instructions .ROUTE .MEDSUPPLY Qty: 50 Patient Comments: USE DIRECTED WITH B-12 INJECTION Rx Instructions: As directed omeprazole 40 mg capsule,delayed release(DR/EC) 40 mg PO DAILY Patient Comments: TAKE ONE (1) CAPSULE BY MOUTH EVERY DAY ezetimibe [Zetia] 10 mg tablet 10 mg PO DAILY Qty: 90 3RF (DME) BD SafetyGlide Syringe 3 mL 25 x 5/8 syringe See Rx Instructions .ROUTE .MEDSUPPLY Qty: 1 Patient Comments: USE DIRECTED WITH B-12 Rx Instructions: As directed montelukast 10 mg tablet 10 mg PO HS Patient Comments: TAKE ONE (1) TABLET EVERY DAY BY ORAL ROUTE DIRECTED FOR 30 DAYS. (DME) Dexcom G7 Sensor Device See Rx Instructions .ROUTE .MEDSUPPLY Qty: 1 Patient Comments: USE DIRECTED PER 10 DAYS Rx Instructions: As directed furosemide 40 mg tablet 40 mg PO DAILY Qty: 90 3RF ranolazine 1,000 mg tablet extended release 12 hr 1,000 mg PO BID Qty: 180 3RF Patient Comments: TAKE 1 TABLET BY MOUTH TWICE DAILY metformin 1,000 mg tablet extended release 24hr 1,000 mg PO BID Patient Comments: TAKE ONE (1) TABLET BY MOUTH TWICE DAILY albuterol sulfate 2.5 mg /3 mL (0.083 %) solution for nebulization 2.5 mg inhalation Q6HP PRN (Reason: Shortness Of Breath Or Wheezing) Patient Comments: USE ONE (1) VIAL (3ML) BY NEBULIZATION NEEDED EVERY SIX (6) HOURS nitroglycerin 0.4 mg Tablet, Sublingual 0.4 mg SUBLINGUAL Q5M PRN (Reason: Chest Pain) Rx Instructions: do not exceed 3 doses per episode insulin lispro [Humalog U-100 Insulin] 100 unit/mL solution See Protocol SQ ACHS Protocol: Insulin Corrective Low-Dose Regimen Condition: Fingerstick Blood Glucose Dose/Route: Insulin Units Condition: 151-200 mg/dl Dose/Route: 2 unit/SQ Condition: 201-250 mg/dl Dose/Route: 4 units/SQ Condition: 251-300 mg/dl Dose/Route: 6 units/SQ Condition: 301-350 mg/dl Dose/Route: 8 units/SQ Condition: 351-400 mg/dl Dose/Route: 10 units/SQ Condition: 401-450 mg/dl Dose/Route: 12 units/SQ Condition: > 450 mg/dl Dose/Route: CALL MD Protocol Text: Low Intensity Sliding Scale Insulin Patient Comments: INJECT ONE (1) SLIDING SCALE DOSE BY SUBCUTANEOUS ROUTE. MAX OF 80 UNITS PER DAY Rx Instructions: INJECT ONE (1) SLIDING SCALE DOSE BY SUBCUTANEOUS ROUTE. MAX OF 80 UNITS PER DAY albuterol sulfate [Ventolin HFA] 90 mcg/actuation Hfa Aerosol Inhaler 2 puff INHALATION Q4HP PRN (Reason: Shortness Of Breath Or Wheezing) fluticasone propionate 50 mcg/actuation spray,suspension 1 spray INTRANASAL DAILY Patient Comments: INHALE ONE (1) SPRAY IN EACH NOSTRIL BY INTRANASAL ROUTE ONCE DAILY clopidogrel 75 mg tablet 75 mg PO DAILY Rx Instructions: Take 1 tablet by mouth once daily tiotropium bromide [Spiriva with HandiHaler] 18 mcg capsule, w/inhalation device 1 cap inhalation DAILY Rx Instructions: INHALE CONTENTS OF ONE CAPSULE VIA HANDIHALER ONCE DAILY FOR COPD carvedilol [Coreg] 3.125 mg tablet 3.125 mg PO BID Rx Instructions: must administer with a meal/food Held Entresto 97-103 mg tablet 1 tab PO BID Hold Instructions: Resume on 03/04/25. Hold this medication until you see your PCP within 1 week for repeat blood work as it can further affect your kidney function.. Rx Instructions: Take 1 tablet by mouth twice daily Problem Reconciliation Problems Reviewed?: Yes Patient Discharge Instructions Patient Instructions: Acute Kidney Injury Print Language: Icelandic Providers Primary Care Provider: Jaden Cheek Admit Provider: Renard Holm Attending Provider: Renard Holm
--- NOTE | 2025-02-27 10:46 | SW/DCPLANNER ---
Spoke with patient on the phone. Patient stated that she still has vomiting and diarrhea. Patient stated that she is aware of her upcoming appointment. Patient stated that she was not prescribed any new medicine. Patient stated that she has no concerns or questions at this time. [place]
== END 2025-02-25 14:00 | disposition home or self-care (01) ==
LOC: ER 02-25 03:24 → 2ND 02-25 03:29
PROVIDERS: Nurse Practitioner Acute Care; Admitting Provider Internal Medicine Adolescent Medicine; Emergency Provider Emergency Medicine; PCP Nurse Practitioner Family; Visit Provider Internal Medicine Adolescent Medicine
DX: N17.9 Acute kidney failure, unspecified (principal); N39.0 Urinary tract infection, site not specified; K31.84 Gastroparesis; R19.7 Diarrhea, unspecified; F41.9 Anxiety disorder, unspecified; I25.10 Atherosclerotic heart disease of native coronary artery without angina pectoris; F32.A Depression, unspecified; E11.43 Type 2 diabetes mellitus with diabetic autonomic (poly)neuropathy; E78.1 Pure hyperglyceridemia; G47.30 Sleep apnea, unspecified; Z90.49 Acquired absence of other specified parts of digestive tract; Z98.890 Other specified postprocedural states; Z98.51 Tubal ligation status; Z95.5 Presence of coronary angioplasty implant and graft; Z87.891 Personal history of nicotine dependence; Z79.899 Other long term (current) drug therapy; Z88.8 Allergy status to other drugs, medicaments and biological substances; Z79.84 Long term (current) use of oral hypoglycemic drugs; Z79.02 Long term (current) use of antithrombotics/antiplatelets; I11.0 Hypertensive heart disease with heart failure; I50.20 Unspecified systolic (congestive) heart failure; R94.31 Abnormal electrocardiogram [ECG] [EKG]; R07.89 Other chest pain; N20.0 Calculus of kidney; K57.30 Diverticulosis of large intestine without perforation or abscess without bleeding; K76.0 Fatty (change of) liver, not elsewhere classified
CPT/HCPCS: 36415; 71046; 74176; 80048; 80053; 81001; 82962; 83605; 83690; 83735; 84100; 84484; 84703; 85025; 85610; 87086; 87506; 93005; 99285; G0378; J0696; J2270; J2405; J7030; J7120

== ENCOUNTER 2025-03-06 10:26 | Outpatient (CLI) | payer MEDICARE, SELFPAY ==
[2025-03-06 11:44] LABS: Chloride 103 mmol/L (98-107)
[2025-03-06 11:45] LABS: Potassium 4.7 mmoL/L (3.5-5.1); Sodium 143 mmol/L (136-145)
[2025-03-06 11:48] LABS: Anion Gap 8.7 mEq/L (5-15); Blood Urea Nitrogen 15 mg/dl (7-17); Calcium 9.4 mg/dl (8.4-10.2); Carbon Dioxide 36 mmol/L (22.0-30.0); Estimated Glomerular Filt Rate 76 ml/min (>60); GFR (African American) 92 ML/MIN (>60); Glucose 105 mg/dl (74-100)
== END 2025-03-06 23:59 | disposition home or self-care (01) ==
LOC: LAB 10:27
PROVIDERS: PCP Nurse Practitioner Family; Visit Provider Physician Assistant
DX: I25.118 Atherosclerotic heart disease of native coronary artery with other forms of angina pectoris (principal)
CPT/HCPCS: 36415; 80048

== ENCOUNTER 2025-05-19 08:51 | Outpatient (CLI) | payer MEDICARE, MEDICAID, SELFPAY ==
--- OUTSIDE RECORDS SUMMARY | 2025-05-19 08:53 | XMS_ITS | Clinical Summary ---
Author Organization [facility] Address [address] [place] [address] Care Team Providers Care Electric Transfer Operator Name Role Phone Jaden Cheek HOSPITAL ACCOUNT MANAGER Primary Care Provider [phone]- [phone] Allergies Active Allergy Reactions Criticality Noted Date Comments Atorvastatin Swelling High 09/19/2017 Lamotrigine Unknown - Patient st ates they do not know rxn details Low 06/06/2022 Moxifloxacin Rash Low 12/15/2011 Medications budesonide-form oterol (Symbicort) 160-4.5 MCG/ACT inhaler Inhale 2 puffs 2 (two) times a day. Rinse mouth with water after use to reduce aftertaste and incidence of candidiasis. Do not swallow. Active cetirizine (ZyrTEC) 10 MG tablet Take 1 tablet (10 mg) by mouth 1 (one) time each day. Active clopidogrel (Plavix) 75 MG tablet Take by mouth 1 (one) time each day. Active ergocalciferol (Vitamin D-2) 1.25 MG (08448 UT) capsule Take 1 capsule (50,000 Units) by mouth 1 (one) time per week. Active ipratropium (Atrovent) 17 MCG/ACT inhaler Inhale 2 puffs 4 (four) times a day. Active tiZANidine (Zanaflex) 2 MG tablet Take 2 mg by mouth every 6 (six) hours if needed. Active metFORMIN (Glucophage) 500 MG tablet Take 1 tablet (500 mg) by mouth 2 (two) times a day with meals. Active furosemide (Lasix) 20 MG tablet Take by mouth 1 (one) time each day. Active aspirin 81 MG EC tablet Take 81 mg by mouth 1 (one) time each day. Active spironolactone (Aldactone) 25 MG tablet Take 2 tablets (50 mg) by mouth 2 (two) times a day. Active Multiple Vitamin (multivitamin) tablet Take 1 tablet by mouth 1 (one) time each day. Active b complex vitamins capsule Take 1 capsule by mouth 1 (one) time each day. Active albuterol (2.5 MG/3ML) 0.083% nebulizer solution USE VIA NEBULIZER THREE (3) ML NEEDED EVERY SIX (6) HRS 07/28/20 22 Active ProAir HFA 108 (90 Base) MCG/ACT inhaler INHALE TWO (2) PUFF(S) BY MOUTH EVERY FOUR (4) HOURS 06/28/20 Active gabapentin (Neurontin) 400 MG capsule 09/05/20 22 Active isosorbide mononitrate ER (Imdur) 30 MG 24 hr tablet Take 30 mg by mouth 1 (one) time each day. 08/09/20 22 Active omeprazole (PriLOSEC) [address] capsule TAKE ONE (1) CAPSULE TWICE A DAY BY MOUTH FOR 30 DAYS. 07/08/20 22 Active Entresto 97-103 MG tablet 09/11/20 22 Active Lantus SoloStar 100 UNIT/ML injection pen INJECT SUBCUTANEOUSLY 40 UNITS EVERY DAY 05/13/20 22 Active Spiriva HandiHaler 18 MCG inhalation capsule INHALE CONTENTS OF ONE CAPSULE VIA HANDIHALER ONCE DAILY FOR COPD 08/01/20 22 Active traZODone (Desyrel) 100 MG tablet TAKE ONE (1) TABLET BY MOUTH NEEDED AT BEDTIME. 08/25/20 22 Active Continuous Blood Gluc Sensor (Dexcom G6 Sensor) [facility] [place] 09/08/20 22 Active Continuous Blood Gluc Transmit (Dexcom G6 transmitter) [facility] [place] 09/06/20 22 Active nitroglycerin (Nitrostat) 0.4 MG SL tablet TAKE 1 TABLET BY SUBLINGUAL ROUTE EVERY FIVE (5) MINUTES FOR THREE (3) DOSES AND CALL 911 02/15/20 23 Active carvedilol (Coreg) 25 MG tablet 11/30/19 24 Active Farxiga 5 MG tablet 07/03/20 23 Active diclofenac (Voltaren) 1 % topical gel 02/15/20 23 Active escitalopram (Lexapro) 20 MG tablet Take 1 tablet (20 mg) by mouth. 11/20/19 24 Active fluticasone (Flonase) 50 MCG/ACT nasal spray INHALE ONE (1) SPRAY IN EACH NOSTRIL EVERY DAY FOR SINSUS. 10/24/19 Active medroxyPROGESTE Blue (Provera) 10 MG tablet TAKE ONE TABLET EVERY NIGHT AT BEDTIME ON FIRST 10 DAYS OF JULY, OCTOBER, JANUARY, AND APRIL. 07/11/20 Active montelukast (Singulair) 10 MG tablet TAKE ONE (1) TABLET EVERY DAY BY ORAL ROUTE DIRECTED FOR 30 DAYS. 07/26/20 Active Immunizations Immunization Administration Dates Next Due Hep B, adult 02/21/2007 Influenza, Unspecified 10/09/2018 TD (adult), 2 Lf tetanus tox oid, preservative free, adsorbed 05/25/2000 Td (adult) 09/24/2023 Tdap 05/14/2013 Family History Medical History Relation Name Comments Skin cancer Father Hyperlipidemia Mother Osteoporosis Mother Relation Name Status Comments Father Alive Mother Alive Social History Tobacco Use Types Packs/Day Years Used Date Smoking Tobacco: Former Cigarettes Q uit: 06/09/2022 Passive Smoke Exposure: Past Smokeless Tobacco: Never Tobacco Cessation:Counseling Given: Not Answered Alcohol Use Standard Drinks/Week Comments Not Currently 0 (1 standard drink = 0.6 oz pur e alcohol) Comments No Sex and Gender Information Value Date Recorded Sex Assigned at Not on file Legal Sex Female 8:37 PM EDT Gender Identity Not on file Sexual Orientation Not on file Last Filed Vital Signs Vital Sign Reading Time Taken Comments Blood Pressure 145/91 12/01/2023 12:14 PM EST Pulse 72 12/01/2023 12:14 PM EST Temperature - - Respiratory Rate 16 12/01/2023 12:14 PM EST Oxygen Saturation 97% 12/01/2023 12:14 PM EST Inhaled Oxygen Concentration - - Weight 85.8 kg (189 lb 3.2 oz) 12/01/2023 12:14 PM EST Height 160 cm (5' 3 ) 12/27/2021 12:41 PM EDT Body Mass Index 33.52 12/27/2021 12:41 PM EDT Plan of Treatment Health Maintenance Due Date Last Done Comments [facility]-Depression Screening 1973 [facility]-HIV Screening 1973 [facility]-Hepatitis C Screening 1973 [facility]-Medicare Annual Wellness (AWV) 1973 [facility]-/Child/Adol SDOH Screenings 1973 [facility]- SDOH Screenings 1991 [facility]-Adult SDOH Screenings 1991 [facility]-Pap Smear 1994 [facility]-Cervical Cancer Screening 2003 [facility]-HPV/Cotest 2003 [facility]-Hepatitis B Vaccines (2 of 3 - 19+ 3-dose series) 03/21/2007 02/21/2007 CT Colonography 2018 Colonoscopy 2018 FIT-DNA 2018 FIT 2018 FOBT 2018 Sigmoidoscopy 2018 [facility]-Colorectal Cancer Screening 2018 [facility]-Breast Cancer Screening 2023 [facility]-Pneumococcal Vaccine: 50 + Years (1 of 1 - PCV) 2023 [facility]-Zoster Vaccines (1 of 2) 2023 [id number] Vaccine (1 - season) 2024 [facility]-Influenza Vaccine (#1) 2025 10/09/2018 [facility]-DTaP,Tdap,and Td Vaccine s (3 - Td or Tdap) 09/24/2033 09/24/2023, 05/14/2013, 05/25/2000 [facility]-Obesity Intervention Completed 024, 09/12/2022 HPV Vaccines Aged Out No longer eligi ble based on patient's age to complete this topic [facility]-HIB Vaccines Aged Out No longer e ligible based on patient's age to complete this topic [facility]-Hepatitis A Vaccines Aged Out No longer eligible based on patient's age to complete this topic [facility]-IPV Vaccines Aged Out No longer e ligible based on patient's age to complete this topic [facility]-Rotavirus Vaccines Aged Out No lo nger eligible based on patient's age to complete this topic Insurance [place] [id number] MEDICAID-[place] AN[place]M MEDICARE Care Teams Electric Transfer Operator Relationship Specialty Start Date End Date Jaden Cheek APRN [address] [place] [id number] PCP - General 12/23/21
--- OUTSIDE RECORDS SUMMARY | 2025-05-19 08:53 | XMS_ITS | Clinical Summary ---
Author Organization [facility] Address [address] [place] [address] Phone Care Team Providers Care Welder Machine Operator Name Role Phone Brinda Sampson MD, [place] Primary Care Provider + Allergies Active Allergy Reactions Criticality Noted Date Comments Moxifloxacin Rash 12/15/2011 Atorvastatin Swelling 09/19/2017 Medications metFORMIN (GLUCOPHAGE) 500 mg Oral Tablet Take 500 mg by mouth 2 times daily. Active CALCIUM CARBONATE/VITAM IN D3 (CALTRATE 600 + D ORAL) Take 600 mg by mouth 2 times daily with meals as needed. Active albuterol (PROVENTIL HFA; VENTOLIN HFA) INHALER Inhale 2 Puffs into the lungs 0800, 1200, 1600, 2000. Active cyanocobalamin 100 mcg Oral Tablet Take by mouth daily. Active ascorbic acid, vitamin C, (VITAMIN C) 100 mg Oral Tablet Take 100 mg by mouth daily. Active aspirin 81 mg Oral Tablet, Delayed Release (E.C.) Take 1 Tab by mouth daily. 90 Tab 3 07/07/2017 Active nitroGLYCERIN (NITROSTAT) 0.4 mg SL Tablet, Sublingual Place 1 Tab under the tongue every 5 minutes as needed for Chest pain. 25 Tab 1 07/07/2017 Active Black Cohosh 40 mg Oral Tablet Take 400 mg by mouth. Takes 2 every morning Active multivit/iron/F A/K/herb no.244 (ALIVE WOMEN'S ENERGY ORAL) Take by mouth daily. Active fUROsemide (LASIX) 40 mg Oral Tablet Take 40 mg by mouth daily. Active sitagliptin phos/metformin HCl (JANUMET ORAL) Take by mouth 2 times daily. Active lisinopril (PRINIVIL;ZESTR IL) 5 mg Oral Tablet Take 1 Tab by mouth daily. 90 Tab 1 10/22/2018 Active clopidogrel (PLAVIX) 75 mg Oral Tablet Take 1 Tab by mouth daily. 90 Tab 1 11/27/2018 Active metoprolol succinate (TOPROL-XL) 25 mg Oral Tablet Sustained Release 24 hr Take 0.5 Tabs by mouth daily. 45 Tab 1 02/14/2019 Active fenofibrate (TRICOR) 145 mg Oral Tablet TAKE 1 TABLET BY MOUTH EVERY DAY 90 Tab 1 05/09/2019 Active paroxetine HCl (PAXIL ORAL) Take by mouth. Active PARoxetine (PAXIL) 20 mg Oral Tablet Take by mouth daily. Active rosuvastatin (CRESTOR) 20 mg Oral Tablet TAKE ONE (1) TABLET BY MOUTH EVERY DAY 30 Tab 04/14/2020 Active Active Problems Problem Noted Date Diagnosed Date S/P angioplasty with stent 04/27/2018 Unstable angina 04/26/2018 HERNANDEZ (dyspnea on exertion) 04/26/2018 Chest pain 04/25/2018 Overview (04/26/2018): Added automatically from request for surgery [id number] Other hyperlipidemia 03/27/2018 LV dysfunction 08/01/2017 Coronary artery disease invo lving [place] coronary artery of [place] heart 08/01/2017 Ischemic cardiomyopathy 07/06/2017 ST elevation myocardial infa rction involving left anterior descending (LAD) coronary artery Surgical History Surgery Date Site/Laterality Comments ABDOMEN SURGERY Hernia repair HERNIA REPAIR umbilical TUBAL LIGATION UPPER GASTROINTESTINAL ENDOSCOPY COLONOSCOPY CHOLECYSTECTOMY, LAPAROSCOPIC 11/29/2012 N/A LAPAROSCOPIC CHOLECYSTECTOMY ; Surgeon: Catherine Soliz MD; Location: [facility] MAIN OR; Service: General CARDIAC CATHETERIZATION CORONARY ANGIOPLASTY Medical History Medical History Date Comments Hypertension Diabetes mellitus (HCC) Diverticulosis Fibromyalgia Pulmonary fibrosis (HCC) Heartburn Irritable bowel syndrome Liver disease ? fatty liver Arthritis hands, knees, l. hip, lower back Ulcer Headache(784.0) Ischemic cardiomyopathy 07/06/2017 LV dysfunction 08/01/2017 CAD (coronary artery disease) Hyperlipidemia Social History Tobacco Use Types Packs/Day Years Used Date Smoking Tobacco: Former Cigarettes 0.5 27.3 0 04/26/1985 - 08/06/2012 Smokeless Tobacco: Never Comments:quit for about 2 ye ars in 2011 Alcohol Use Standard Drinks/Week Comments No 0 (1 standard drink = 0.6 oz pur e alcohol) Comments No Sex and Gender Information Value Date Recorded Sex Assigned at Not on file Legal Sex Female 11:05 PM EDT Gender Identity Not on file Sexual Orientation Not on file Obstetrics History Last Filed Vital Signs Vital Sign Reading Time Taken Comments Blood Pressure 104/70 06/04/2019 2:31 PM EDT Pulse 66 06/04/2019 2:31 PM EDT Temperature 37.5 C (99.5 F) 04/27/2018 8:09 AM EDT Respiratory Rate 18 04/27/2018 8:09 AM EDT Oxygen Saturation 96% 04/27/2018 8:09 AM EDT Inhaled Oxygen Concentration - - Weight 91.7 kg (202 lb 3.2 oz) 06/04/2019 2:31 P M EDT Height 160 cm (5' 3 ) 06/04/2019 2:31 PM EDT Body Mass Index 35.82 06/04/2019 2:31 PM EDT Plan of Treatment Health Maintenance Due Date Last Done Comments Annual Wellness Exam 1976 DTaP/TDaP/Td (1 - Tdap) 1992 Hepatitis B Vaccine (1 of 3 - 19+ 3-dose series) 1992 Pneumococcal Vaccine 50+ (1 of 2 - PCV) 1992 Cervical Cancer Screening 1994 Pap Smear 1994 HPV/Pap Cotest 2003 Breast Cancer Screening 2013 Cologuard 2018 Colon Cancer Screening 2018 Colonoscopy 2018 FIT 2018 Sigmoidoscopy 2018 Virtual Colonography 2018 Zoster (1 of 2) 2023 COVID-19 Vaccine (1 - 2023-2 5 season) 2024 Influenza Vaccine (#1) 2025 Meningococcal B Vaccine Aged Out No l onger eligible based on patient's age to complete this topic Medical Devices Implanted Type Area Bag End Sewer Device Identifier Shelf Expiration Date Model / Serial / Lot Stent Synergy(Mr) Everolimus-Elut ing 3.50mm X 38mm - [id number] Implanted:Qty: 1 on 07/03/2017 by Kay Salazar MD at [facility] Explanted:at [facility] (Quantity not on file) [employer]:CARDIAC RHYTHM MGMT [id number] / / [id number] Stent Xience Alpine Drug Eluting 3.5mm X 33mm - [id number] Implanted:Qty: 1 on 04/26/2018 by Kay Salazar MD at [facility] [employer] LAB:VASC DEV [id number] / / [id number] Insurance COMMERCIAL GENERIC COMMERCIAL GENERIC Advance Directives For more information, please contact: [phone] * Full Code (Latest Code Status on File) Date Activated Date Inactivated Comments 04/25/2018 9:11 PM 04/27/2018 2:32 PM Care Teams Welder Machine Operator Relationship Specialty Start Date End Date Forrest Parry MD [address] [place] [phone] PCP - General Family Medicine 08/24/15
--- NOTE | 2025-05-19 09:30 | CA_ITS ---
APPROVED REPORT EXAM: Comprehensive 2D, Doppler, and color-flow Echocardiogram Director Online Marketing: Dawn Mcmillan RVT Ht: 5 ft 4 in Wt: 187lbs BSA: 1.90 BP: 120/79 mmHg Indications: CHEST PAIN,SHORTNESS OF BREATH 2D Dimensions IVSd 1.67 cm F: 0.6-1.0 LVEF (Visual) 47.90 % PWd 0.84 cm F: 0.6 - 1.0 LVDd 5.27 cm F: 3.9 - 5.3 LVDs 3.99 cm F: 2.2 - 3.5 M-Mode Dimensions LA Diam 3.86 cm (1.9-4.0) TAPSE 1.94 (<1.7) LV Diastology E Decel Time 263 (160-240 msec) E/A Ratio 0.7 Aortic Valve GATO Index 1.77 cm2/m2 AoV Peak Cash. 128.0 (50-130 cm/s) AO Peak GR. 6.60 mmHg AO Mean GR. 4.40 (<5 mmHg) AO VTI 24.8 (18-25 cm) GATO (VTI) 3.45 (2.5-4.5 cm2) Mitral Valve MV E Max Cash. 77.0 (40-130 cm/s) MV A Velocity 108.0 (40-130 cm/s) E/A Ratio 0.71 MV PHT 77.0 ms Pulmonary Valve PV Peak Velocity 65.0 (50-150 cm/s) Left Ventricle The left ventricle is normal size. Left ventricular systolic function is mildly reduced. There is increased left ventricular wall thickness. There is moderate hypokinesis of the anterior LV wall. Grade 1 diastolic dysfunction is present. LVEF is 45% Right Ventricle The right ventricle is normal size. The right ventricular systolic function is normal. Atria The left atrium is mildly dilated. The right atrium is mildly dilated. There is no color Doppler evidence of interatrial shunt. Aortic Valve The aortic valve is mildly thickened. There is no hemodynamically significant aortic valvular stenosis. Trace aortic regurgitation is present. Mitral Valve The mitral valve is normal in structure. No evidence of mitral valve stenosis. Trace mitral regurgitation is present. Tricuspid Valve The tricuspid valve leaflets are thin and pliable. Trace tricuspid regurgitation. There is insufficient TR jet to estimate RVSP. Pulmonic Valve The pulmonary valve is grossly normal in structure. Trace pulmonic valve regurgitation is present. Great Vessels The aortic root is normal in size. IVC is normal in size and collapses >50% with inspiration. Pericardium There is no pericardial effusion. Other Information Study Quality: Fair Conclusion Mildly reduced LV systolic function (LVEF 45%). Moderate hypokinesis of the anterior LV wall. Biatrial dilation. No significant valvular stenosis or regurgitation. Electronically signed by : Emma Duarte MD 05/19/2025 10:01:52
== END 2025-05-19 23:59 | disposition home or self-care (01) ==
LOC: RT 08:51
PROVIDERS: PCP Nurse Practitioner Family; Visit Provider Physician Assistant
DX: I11.0 Hypertensive heart disease with heart failure (principal); I50.20 Unspecified systolic (congestive) heart failure; I25.10 Atherosclerotic heart disease of native coronary artery without angina pectoris; I25.5 Ischemic cardiomyopathy; R93.1 Abnormal findings on diagnostic imaging of heart and coronary circulation
CPT/HCPCS: 93306

== ENCOUNTER 2025-06-05 10:51 | Emergency (ER) | payer MEDICARE, MEDICAID, SELFPAY ==
[2025-06-05] VITALS (7 sets, daily range): BP systolic 140–167; BP diastolic 79–99; PULSE 61–70; RESP 13–20; TEMP 36.7; O2SAT 95–98; BMI 33.3
--- NOTE | 2025-06-05 10:56 | ECG_ITS ---
APPROVED REPORT Exam: Resting ECG HR:60 bpm ECG Measurements Heart Rate 60 AXES VT 149 P 50 QRSd 114 QRS -23 QT 417 T 106 QTc 417 Conclusion Normal sinus TWI in I/aVL Normal intervals NO STEMI Electronically signed by : Mayank Martin, 06/05/2025 17:02:27
[2025-06-05 11:05] LABS: POC Glucose,Bedside 252 gm/dL (70-110)
--- OUTSIDE RECORDS SUMMARY | 2025-06-05 11:07 | XMS_ITS | Clinical Summary ---
Author Organization [facility] Address [address] [place] [address] Phone Care Team Providers Care Pond Sawyer Name Role Phone Brinda Sampson MD, [place] Primary Care Provider + Allergies Active Allergy [...] (04/26/2018): Added automatically from request for surgery [id number] Other hyperlipidemia 03/27/2018 LV dysfunction 08/01/2017 Coronary artery disease invo lving [place] coronary artery of [place] heart 08/01/2017 Ischemic cardiomyopathy 07/06/2017 ST elevation myocardial infa rction involving left anterior descending (LAD) coronary artery Surgical History Surgery Date Site/Laterality Comments ABDOMEN SURGERY Hernia repair HERNIA REPAIR umbilical TUBAL LIGATION UPPER GASTROINTESTINAL ENDOSCOPY COLONOSCOPY CHOLECYSTECTOMY, LAPAROSCOPIC 11/29/2012 N/A LAPAROSCOPIC CHOLECYSTECTOMY ; Surgeon: Catherine Soliz MD; Location: [facility] MAIN OR; Service: General CARDIAC CATHETERIZATION [...] this topic Medical Devices Implanted Type Area Friend Of The Court Device Identifier Shelf Expiration Date Model / Serial / Lot Stent Synergy(Mr) Everolimus-Elut ing 3.50mm X 38mm - [id number] Implanted:Qty: 1 on 07/03/2017 by Kay Salazar MD at [facility] Explanted:at [facility] (Quantity not on file) [employer]:CARDIAC RHYTHM MGMT [id number] / / [id number] Stent Xience Alpine Drug Eluting 3.5mm X 33mm - [id number] Implanted:Qty: 1 on 04/26/2018 by Kay Salazar MD at [facility] [employer] LAB:VASC DEV [id number] / / [id number] Insurance COMMERCIAL GENERIC COMMERCIAL GENERIC Advance Directives For more information, please contact: [phone] * Full Code (Latest Code Status on File) Date Activated Date Inactivated Comments 04/25/2018 9:11 PM 04/27/2018 2:32 PM Care Teams Pond Sawyer Relationship Specialty Start Date End Date Forrets Parry MD [address] [place] [id number] PCP - General Family Medicine 08/24/15
--- OUTSIDE RECORDS SUMMARY | 2025-06-05 11:07 | XMS_ITS | Clinical Summary ---
Author Organization [facility] Address [address] [place] [address] Care Team Providers Care Hardware Designer Name Role Phone Jaden Cheek AIRPORT OPERATIONS MANAGER Primary Care Provider +1- [phone] Allergies Active Allergy Reactions Criticality Noted Date [...] day. Active ergocalciferol (Vitamin D-2) 1.25 MG (50551 UT) capsule Take 1 capsule (50,000 Units) [...] Continuous Blood Gluc Sensor (Dexcom G6 Sensor[place] [facility] [place]08[place] 22 Active Continuous Blood Gluc Transmit (Dexcom G6 transmitter) [facility] [place]/06/20 22 Active nitroglycerin (Nitrostat) 0.4 MG [...] 2023 [facility]-Zoster Vaccines (1 of 2) 2023 [id number] Vaccine (1 - season) 2024 [facility]-Influenza Vaccine [...] to complete this topic Insurance [place] VER[place] [id number] [place] MEDICARE Care Teams Hardware Designer Relationship Specialty Start Date End Date Jaden Cheek APRN [address] [place] [id number] PCP - General 12/23/21
[2025-06-05 11:11] LABS: Coronavirus 19, PCR Not Detected (NotDetected); Influenza A, PCR Not Detected (NotDetected); Influenza B, PCR Not Detected (NotDetected)
[2025-06-05 11:12] LABS: Hematocrit 41.8 % (37.0-47.0); Hemoglobin 14.0 g/dL (12.2-16.2); Immature Granulocytes % 0.6 %; Mean Corpuscular HGB Conc 33.5 g/dL (31.8-35.4); Mean Corpuscular Hemoglobin 31.9 pg (27.0-31.2); Mean Corpuscular Volume 95.2 fl (81-99); Nucleated Red Blood Cells % 0 %; Platelet Count 315 K/mm3 (142-424); Red Blood Count 4.39 M/mm3 (4.20-5.40); Red Cell Distribution Width-SD 46.2 fL; White Blood Count 7.3 K/mm3 (4.8-10.8)
[2025-06-05 11:15] LABS: Albumin Level 4.4 g/dl (3.5-5.0); Chloride 103 mmol/L (98-107); Sodium 138 mmol/L (136-145)
[2025-06-05 11:16] LABS: Potassium 3.8 mmoL/L (3.5-5.1)
[2025-06-05 11:18] LABS: Alanine Aminotransferase 20 U/L (12-78); Albumin/Globulin Ratio 1.4 (1.1-1.8); Alkaline Phosphatase 53 U/L (38-126); Anion Gap 11.8 mEq/L (5-15); Aspartate Amino Transferase 36 U/L (14-36); Bilirubin,Total 0.7 mg/dl (0.2-1.3); Blood Urea Nitrogen 16 mg/dl (7-17); Carbon Dioxide 27 mmol/L (22.0-30.0); Creatine Kinase 48 U/L (30-135); Creatinine,Serum 0.80 mg/dl (0.52-1.04); Estimated Glomerular Filt Rate 76 ml/min (>60); GFR (African American) 92 ML/MIN (>60); Globulin 3.1 g/dL (1.3-3.2); Total Protein,Serum 7.5 g/dl (6.3-8.2)
[2025-06-05 11:19] LABS: Calcium 9.3 mg/dl (8.4-10.2); Glucose 245 mg/dl (74-100); Lipase 93 U/L (23-300)
[2025-06-05 11:22] LABS: VBG HCO3 27.4 mmol/L (23-30); VBG PCO2 45.6 mmol/L (35-51); VBG PH 7.40 mmol/L (7.31-7.41); VBG PO2 56.6 mmol/L (28-40)
[2025-06-05 11:24] LABS: Lactate Venous 2.2 mmol/L (0.4-2.0)
[2025-06-05 11:26] LABS: Acetone, Serum (Rapid) None Detected (None Detect)
--- NOTE | 2025-06-05 11:26 | HMH.EDGENADL ---
Discharge Plan Disposition Patient Disposition: Home, Self-Care Condition: Good Prescriptions Prescriptions: No Action budesonide-formoterol [Symbicort] 160-4.5 mcg/actuation HFA aerosol inhaler 2 puff INHALATION BID Qty: 10.2 0RF buspirone 15 mg tablet 15 mg PO TID Rx Instructions: Take 1 tablet by mouth three times a day Atrovent HFA 17 mcg/actuation HFA aerosol inhaler 2 puff inhalation QID Patient Comments: INHALE TWO (2) PUFFS BY MOUTH FOUR (4) TIMES DAILY Linzess 290 mcg capsule 290 mcg PO DAILY Qty: 90 3RF valsartan 40 mg tablet 40 mg PO DAILY Qty: 30 5RF ergocalciferol (vitamin D2) 1,250 mcg (50,000 unit) capsule 1,250 mcg PO DIRECTED Patient Comments: TAKE ONE (1) CAPSULE (50 000 UNIT) BY ORAL ROUTE TWICE WEEKLY Rx Instructions: 1 capsule by mouth twice weekly cyanocobalamin (vitamin B-12) 1,000 mcg/mL solution 1,000 mcg SQ MONTHLY trazodone 150 mg tablet 150 mg PO HS Patient Comments: TAKE ONE (1) TABLET EVERY DAY BY ORAL ROUTE AT BEDTIME. gabapentin 400 mg capsule 400 mg PO TID escitalopram oxalate 20 mg tablet 20 mg PO DAILY (DME) Insulin Syringe MicroFine 1 mL 27 gauge x 5/8 syringe See Rx Instructions .ROUTE .MEDSUPPLY Qty: 50 Patient Comments: USE DIRECTED WITH B-12 INJECTION Rx Instructions: As directed omeprazole 40 mg capsule,delayed release(DR/EC) 40 mg PO DAILY Patient Comments: TAKE ONE (1) CAPSULE BY MOUTH EVERY DAY ezetimibe [Zetia] 10 mg tablet 10 mg PO DAILY Qty: 90 3RF (DME) BD SafetyGlide Syringe 3 mL 25 x 5/8 syringe See Rx Instructions .ROUTE .MEDSUPPLY Qty: 1 Patient Comments: USE DIRECTED WITH B-12 Rx Instructions: As directed montelukast 10 mg tablet 10 mg PO HS PRN (Reason: allergy symptoms ) Patient Comments: TAKE ONE (1) TABLET EVERY DAY BY ORAL ROUTE DIRECTED FOR 30 DAYS. (DME) Dexcom G7 Sensor Device See Rx Instructions .ROUTE .MEDSUPPLY Qty: 1 Patient Comments: USE DIRECTED PER 10 DAYS Rx Instructions: As directed (DME) syringe with needle [BD SafetyGlide Syringe] 3 mL 23 x 1 syringe See Rx Instructions .ROUTE .MEDSUPPLY Qty: 800 Patient Comments: USE DIRECTED WITH B-12 Rx Instructions: As directed (DME) Omnipod 5 G6-G7 Pods (Gen 5) Cartridge See Rx Instructions .ROUTE .MEDSUPPLY Qty: 5 Patient Comments: USE DIRECTED EVERY TWO (2) DAYS Rx Instructions: As directed dicyclomine 10 mg capsule 10 mg PO QID PRN (Reason: abdominal pain) Qty: 120 2RF carvedilol [Coreg] 3.125 mg tablet 3.125 mg PO BID Qty: 180 4RF Rx Instructions: must administer with a meal/food furosemide 40 mg tablet 40 mg PO DAILY Qty: 90 3RF ranolazine 1,000 mg tablet extended release 12 hr 1,000 mg PO BID Qty: 180 3RF Patient Comments: TAKE 1 TABLET BY MOUTH TWICE DAILY albuterol sulfate 2.5 mg /3 mL (0.083 %) solution for nebulization 2.5 mg inhalation Q6HP PRN (Reason: Shortness Of Breath Or Wheezing) Patient Comments: USE ONE (1) VIAL (3ML) BY NEBULIZATION NEEDED EVERY SIX (6) HOURS nitroglycerin 0.4 mg Tablet, Sublingual 0.4 mg SUBLINGUAL Q5M PRN (Reason: Chest Pain) Rx Instructions: do not exceed 3 doses per episode fluticasone propionate 50 mcg/actuation spray,suspension 1 spray INTRANASAL DAILY Patient Comments: INHALE ONE (1) SPRAY IN EACH NOSTRIL BY INTRANASAL ROUTE ONCE DAILY tiotropium bromide [Spiriva with HandiHaler] 18 mcg capsule, w/inhalation device 1 cap inhalation DAILY Rx Instructions: INHALE CONTENTS OF ONE CAPSULE VIA HANDIHALER ONCE DAILY FOR COPD metformin 500 mg tablet extended release 24 hr 1,000 mg PO BIDWMEAL Patient Comments: TAKE TWO (2) TABLETS BY MOUTH TWICE DAILY spironolactone 25 mg Tablet 25 mg PO DAILY 30 Days Qty: 30 0RF clopidogrel [Plavix] 75 mg tablet 75 mg PO DAILY 30 Days Qty: 30 0RF Referrals Follow up/Referrals: Jaden Cheek APRN [Primary Care Provider, Medical] - See instructions Activity Restrictions/Add. Instructions Additional Instructions/Restrictions: Please follow up with primary care. If you have any new or worsening symptoms please return. Clinical Impressions Clinical Impression: Malaise, Tremulousness Print Language Print Language: Ecuadorean Discharge ED Provider: Mayank Martin Adult HPI General Chief complaint: Weakness Stated complaint: general illness Time Seen by Provider: 06/05/25 10:57 Mode of Arrival: EMS Source of Information: Patient Description of Symptoms (Recalled from ER Triage Doc. by RN): pt is here bc she woke up not feeling right this morning after being discharged from hospital yesterday, pt still had on hospital bracelet and heart cath dressing. pt denies any pain or cp or soa and urinary problems states she just dont feel right History of Present Illness HPI narrative: This is a 49-year-old female patient, with past medical history of truncal obesity, type 2 diabetes, and unstable angina, who is presenting to the emergency department today for evaluation of very vague nonspecific complaints. The patient was seen here earlier this week and was experiencing chest pain at that time. She had a CT PE study that was negative. At she still had persistent chest pain and was admitted to the hospital for unstable angina. She was evaluated by cardiology who ultimately performed a left heart catheterization. I found that she had a slightly reduced ejection fraction and severely elevated left ventricular end-diastolic pressure. They did note mid and distal LAD disease that was not amenable to stenting and ultimately recommended maximizing her antianginal medications. The patient was medically optimized in the hospital and was discharged home today. After returning home she stated that she began feeling a sensation of malaise and overall warmth and burning within her body. This ultimately prompted her return to the emergency department today. She is not currently experiencing new chest pain or shortness of breath. No abdominal pain. No nausea or vomiting. No urinary symptoms. No fevers. Related Data Home Medications ?Medication ?Instructions ?Recorded ?Confirmed ergocalciferol (vitamin D2) 1,250 1,250 mcg PO DIRECTED Supplement 11/03/21 06/03/25 mcg (50,000 unit) capsule cyanocobalamin (vitamin B-12) 1,000 mcg SQ MONTHLY 05/11/23 06/03/25 1,000 mcg/mL injection solution trazodone 150 mg tablet 150 mg PO HS 06/27/23 06/03/25 escitalopram oxalate 20 mg tablet 20 mg PO DAILY 12/28/23 06/03/25 gabapentin 400 mg capsule 400 mg PO TID 12/28/23 06/03/25 ipratropium bromide 17 2 puff inhalation QID 08/12/24 06/03/25 mcg/actuation HFA aerosol inhaler (Atrovent HFA) buspirone 15 mg tablet 15 mg PO TID 10/08/24 06/03/25 insulin syringe-needle U-100 1 mL #50 ea 10/23/24 06/03/25 27 gauge x 5/8 (Insulin Syringe MicroFine) omeprazole 40 mg capsule,delayed 40 mg PO DAILY 10/23/24 06/03/25 release albuterol sulfate 2.5 mg/3 mL 2.5 mg inhalation Q6HP PRN 12/06/24 06/03/25 (0.083 %) solution for nebulization Shortness Of Breath Or Wheezing fluticasone propionate 50 1 spray intranasal DAILY 12/06/24 06/03/25 mcg/actuation nasal spray,suspension nitroglycerin 0.4 mg sublingual 0.4 mg sublingual Q5M PRN Chest 12/06/24 06/03/25 tablet Pain tiotropium bromide 18 mcg capsule 1 cap inhalation DAILY 12/06/24 06/03/25 with inhalation device (Spiriva with HandiHaler) blood-glucose sensor (Organics Rxcom G7 #1 ea 02/04/25 06/03/25 Sensor device) montelukast 10 mg tablet 10 mg PO HS PRN allergy symptoms 02/04/25 06/03/25 syringe with needle 3 mL 25 x 5/8 #1 ea 02/04/25 06/03/25 (BD SafetyGlide Syringe) insulin pump cart,auto,BT,G6/7 #5 ea 05/06/25 06/03/25 (Omnipod 5 G6-G7 Pods (Gen 5) subcutaneous cartridge) syringe with needle 3 mL 23 x 1 #800 ea 05/06/25 06/03/25 (BD SafetyGlide Syringe) metformin 500 mg tablet,extended 1,000 mg PO BIDWMEAL 06/03/25 06/03/25 release 24 hr Previous Rx's ?Medication ?Instructions ?Recorded budesonide-formoterol HFA 160 2 puff inhalation BID COPD #10.2 01/10/22 mcg-4.5 mcg/actuation aerosol grams inhaler (Symbicort) linaclotide 290 mcg capsule 290 mcg PO DAILY #90 caps 10/08/24 (Linzess) ezetimibe 10 mg tablet (Zetia) 10 mg PO DAILY #90 tabs 10/23/24 valsartan 40 mg tablet 40 mg PO DAILY #30 tabs 03/12/25 carvedilol 3.125 mg tablet (Coreg) 3.125 mg PO BID #180 tabs 04/10/25 dicyclomine 10 mg capsule 10 mg PO QID PRN abdominal pain 04/23/25 #120 caps furosemide 40 mg tablet 40 mg PO DAILY #90 tabs 05/02/25 ranolazine 1,000 mg 1,000 mg PO BID #180 tabs 05/06/25 tablet,extended release,12 hr clopidogrel 75 mg tablet (Plavix) 75 mg PO DAILY 30 days #30 tabs 06/04/25 spironolactone 25 mg tablet 25 mg PO DAILY 30 days #30 tabs 06/04/25 Allergies Allergy/AdvReac Type Severity Reaction Status Date / Time atorvastatin (From Lipitor) AdvReac Severe Unknown Verified 05/06/25 10:45 allergy reaction isosorbide AdvReac Severe Headache Verified 05/06/25 10:45 pravastatin AdvReac Severe Joint Pain Verified 05/06/25 10:45 rosuvastatin (From Crestor) AdvReac Severe Joint Pain Verified 05/06/25 10:45 semaglutide (From Ozempic) AdvReac Severe Other Verified 05/06/25 10:45 PFSH PFSH Disclaimer: The information contained in this section may have been updated after the patient was seen, as this information can be updated by other users. Medical History History of left heart catheterization Urinary tract infection Sleep apnea History of COVID-19 Irritable bowel syndrome (IBS) Gastroparesis Edema Obesity Frequent falls Right foot drop Low back pain Diabetic ulcer of foot associated with diabetes mellitus due to underlying condition, limited to breakdown of skin Hypertriglyceridemia Dyspnea Abnormal electrocardiography CAD (coronary artery disease) Tobacco dependence syndrome Hyperlipidemia Nerve pain Tobacco use Hypertension Diabetes mellitus Fatigue Anxiety Depression Surgical History History of surgery on arm History of cholecystectomy History of hernia surgery History of tubal ligation Stented coronary artery Family History Other No significant family history Social History Smoking Status: Current every day smoker tobacco type: cigarettes packs per day: 1 alcohol intake: never substance use type: marijuana current occupational status: disabled Travel in the last 8 weeks?: None household members: family and children housing: house caffeine: No Have you lived/traveled outside US in past 30 days?: No Contact w/someone who lives/traveled outside US past 30 days?: No Exposure to someone with infectious disease in past 14 days?: No Do you have a fever (greater than 100.4 F or 38 C)?: No Have you tested positive for COVID-19?: No Exposed to someone with COVID-19 in past 14 days?: No Do you have a sore throat?: No Do you have a cough?: No Do you have any weakness?: No Do you have any diarrhea?: No Are you experiencing any unusual bleeding?: No Do you have any muscle aches/pain?: No Do you have any abdominal pain?: No Are you experiencing loss of taste or smell?: No Other Medical History Have you received the Flu Vaccine for this season: No Have you received the Pneumonia Vaccine: No ROS Obtained: Yes Systems reviewed as appropriate & no additional complaints except as documented Physical Exam General General appearance: other (See MDM) Respiratory Respiratory exam: Present other (See MDM) Cardiovascular Cardiovascular exam: Present other (See MDM) Neurological Exam Neurological exam: Present other (See MDM) Medical Decision Making Medical Records Medical records reviewed: Yes I reviewed the patient's medical records. Screening: Per USPSTF and CDC recommendations, given the prevalence of disease in our region, it is our hospital?s policy to screen for HIV and viral Hepatitis for all patients aged 18 and over and those with ongoing risk factors. Kurt Inquiry Pt receiving controlled substance: No Kurt was queried for this patient: No Vital Signs: 06/05/25 11:00 06/05/25 11:09 06/05/25 11:30 Temperature 98.1 F Temperature Source Oral Pulse Rate 62 Pulse Rate [Left Radial] 70 Respiratory Rate 16 13 16 Blood Pressure 167/99 H 144/86 H Blood Pressure [Right Arm] 167/99 H Blood Pressure Mean [Right Arm] 121 02 Sat by Pulse Oximetry 96 95 Oxygen Delivery Method Room Air 06/05/25 12:00 06/05/25 12:30 06/05/25 13:00 Temperature Temperature Source Pulse Rate 65 61 Pulse Rate [Left Radial] Respiratory Rate 13 17 17 Blood Pressure 145/94 H 153/95 H 150/86 H Blood Pressure [Right Arm] Blood Pressure Mean [Right Arm] 02 Sat by Pulse Oximetry 95 96 Oxygen Delivery Method Lab Data Lab Results 06/05/25 10:30: WBC 7.3 D, RBC 4.39, Hgb 14.0, Hct 41.8, MCV 95.2, MCH 31.9 H, MCHC 33.5, RDW 13.2, Plt Count 315, MPV 10.4, Neut % (Auto) 74.9, Lymph % (Auto) 17.9, Leake % (Auto) 5.2, Eos % (Auto) 1.0, Baso % (Auto) 0.4, Neut # (Auto) 5.4, Lymph # (Auto) 1.3, Leake # (Auto) 0.4, Eos # (Auto) 0.1, Baso # (Auto) 0.0, Sodium 138, Potassium 3.8, Chloride 103, Carbon Dioxide 27, Anion Gap 11.8, BUN 16, Creatinine 0.80, Estimated GFR 76, Est GFR ( Amer) 92, Glucose 245 H, Calcium 9.3, Total Bilirubin 0.7, AST 36 D, ALT 20 D, Alkaline Phosphatase 53, Total Creatine Kinase 48, Troponin I 0.05 H, Total Protein 7.5, Albumin 4.4, Globulin 3.1, Albumin/Globulin Ratio 1.4, Lipase 93, Acetone Level None detected 06/05/25 10:58: POC Glucose 252 H 06/05/25 11:06: SARS-CoV-2 (PCR) Not detected, Influenza Type A (PCR) Not detected, Influenza Type B (PCR) Not detected, RSV (PCR) Not detected, Rhinovirus (PCR) Not detected 06/05/25 11:20: VBG pH 7.40, VBG pCO2 45.6, VBG pO2 56.6 H, VBG HCO3 27.4, VBG Total CO2 28.8 H, VBG O2 Saturation 88.1 H, VBG Base Excess 2.6 H, VBG Lactic Acid 2.2 H 06/05/25 11:30: Urine Color Dark yellow, Urine Appearance Clear, Urine pH 6.0, Ur Specific [place] >= 1.030, Urine Protein 3+ A, Urine Glucose (UA) Trace, Urine Ketones 3+, Urine Blood Negative, Urine Nitrate Negative, Urine Bilirubin Negative, Urine Urobilinogen 1.0, Ur Leukocyte Esterase Negative, Urine RBC None, Urine WBC 5-10, Ur Squamous Epith Cells 5-10, Urine Bacteria Trace 06/05/25 13:00: Troponin I 0.05 H 06/05/25 10:30 06/05/25 10:30 Orders (Tests/Meds): ED MEDICATIONS Discontinued Medications Generic Name Dose Route Start Last Admin Trade Name Freq PRN Reason Stop Dose Admin Lactated Ringer's 1,000 mls @ 999 mls/hr 06/05/25 11:38 06/05/25 11:43 Lactated Ringer's 1000 Ml Bag IV 06/05/25 12:38 999 mls/hr .Q1H1M ONE Administration ORDERS Category Date Time Status Acetone, Serum (Rapid) Stat Lab 06/05/25 10:30 Completed CBC w/Auto Diff [Complete Blood Count Auto Diff] Stat Lab 06/05/25 10:30 Completed CK [Creatine Kinase] Stat Lab 06/05/25 10:30 Completed CMP [Comprehensive Metabolic Panel] Stat Lab 06/05/25 10:30 Completed Lipase Stat Lab 06/05/25 10:30 Completed Mini Respiratory Panel Stat Lab 06/05/25 11:06 Completed POC Glucose,Bedside Routine Lab 06/05/25 10:58 Completed Troponin I Q3H Lab 06/05/25 13:00 Completed Troponin I Q3H Lab 06/05/25 17:15 Ordered Troponin I Stat Lab 06/05/25 10:30 Completed Urinalysis and Microscopic Stat Lab 06/05/25 11:30 Completed Urine Culture Stat Micro 06/05/25 11:37 Received VBG [Venous Blood Gas] Stat RT 06/05/25 11:20 Completed ECG Data Tracing #1: I reviewed this ECG and interpreted as documented below: EKG personally interpreted by me demonstrates normal sinus rhythm with a rate of 60 bpm, left axis, no KS prolongation, narrow QRS, no QTc prolongation. No ST elevation. There are T wave inversions in lead I and lead aVL. Medical Decision Narrative: In summary, this is a 49-year-old female patient who is presenting to the emergency department today for very vague and nonspecific complaints consisting of malaise and overall feeling of burning and warmth within her body. The patient is unable to characterize symptoms further and does not have any additional complaints. Her comorbidities include a past medical history of truncal obesity, diabetes, and unstable angina. Should be noted that the patient was recently mated to the hospital and was diagnosed today after undergoing workup with cardiology with a heart catheterization. This catheterization did find an elevated left ventricular end-diastolic pressure as well as LAD disease that was not amenable to stenting. They ultimately recommended optimization of her antianginal regiment. On initial evaluation of the patient they were resting comfortably in no acute distress and nontoxic in appearance. They are hemodynamically stable, saturating well room air, and are neurologically intact. On physical examination the patient is alert and orient x 3. She is appropriately interactive. She has truncal obesity. Heart and lungs are clear to auscultation bilaterally. Abdomen is benign. She has no lower extremity erythema or edema. Mucous membranes do appear dry. She has normal sensation and motor function in her extremities. Differential diagnosis includes ACS/WA, electrolyte derangement, acute kidney injury, rhabdomyolysis, viral syndrome, diabetic ketoacidosis, urinary tract infection, among others. Workup was initiated with hematologic labs as well as viral swabs and a urinalysis. Family did arrive to the emergency department and stated that the reason they called EMS was because the patient was complaining of severe thirst and she seemed to be acting erratic and was having tremulous movements of her extremities. During this episode she seemed to be cognitively intact. The patient states that she does not remember these tremulous episodes. Family did not describe these as convulsions. They did not describe a postictal period. She did not have any urinary incontinence. Again, on my assessment of the patient she is alert and orient x 4 and is appropriately interactive. Labs personally interpreted by me demonstrate no actionable abnormalities. The patient's initial troponin is 0.05, her delta troponin is also 0.05. I do not feel that myocardial ischemia is explaining her symptoms especially in the setting of a relatively unremarkable cardiac catheterization yesterday. Otherwise she is mildly hyperglycemic with a blood glucose of 250, her blood gas shows a normal pH so I do not feel that she is experiencing DKA. She has no leukocytosis, anemia, or significant electrolyte derangement. Urinalysis shows 5-10 white cells with no nitrates or leukocyte esterase. I do not feel that she is experiencing a urinary tract infection as the cause of her symptoms. I did administer 1 L of lactated Ringer's to the patient while she was in the emergency department. On repeat assessment of the patient she remains at her baseline mental status and states that the sensation she was feeling in her body on arrival is now gone. She has family at the bedside who is able to take her home. Return precautions have been given. At this time all questions have been answered and all parties are agreeable with the decision to discharge home Critical Care Critical Care Time Critical Care Time: No
[2025-06-05 11:30] LABS: Troponin I 0.05 ng/ml (0.00-0.034)
[2025-06-05 11:41] LABS: Microscopic, Urine URINE MICROSCOPIC (MICROSCOPIC)
[2025-06-05] MEDS: LACTATED RINGERS 1000ML 1,000 ML 999 ML IV (11:43)
[2025-06-05 12:01] LABS: Glucose,Urine (UA) TRACE (Negative); Ketones,Urine 3+ (Negative); Leukocyte Esterase,Urine Negative (Negative); PH,Urine 6.0 (5.0-8.5); Protein,Urine 3+ (Negative); Specific Gravity, Urine >= 1.030 (1.005-1.030); Urobilinogen,Urine 1.0 EU/dl (0.2)
[2025-06-05 12:06] LABS: Bilirubin,Urine Negative (Negative)
[2025-06-05 12:07] LABS: Color,Urine Dark Yellow (Yellow)
[2025-06-05 12:34] LABS: Bacteria,Urine Trace /lpf
[2025-06-05 13:27] LABS: Troponin I 0.05 ng/ml (0.00-0.034)
[2025-06-05 15:24] LABS: Reflex Lactic Add Lactic Reflex
== END 2025-06-05 14:20 | disposition home or self-care (01) ==
PROVIDERS: Emergency Provider Student in an Organized Health Care Education/Training Program; PCP Nurse Practitioner Family
DX: R25.1 Tremor, unspecified (principal); R53.81 Other malaise; E78.1 Pure hyperglyceridemia; I10 Essential (primary) hypertension; F41.9 Anxiety disorder, unspecified; F17.210 Nicotine dependence, cigarettes, uncomplicated
CPT/HCPCS: 80053; 81001; 82009; 82550; 82803; 82962; 83690; 84484; 85025; 87086; 87631; 93005; 96360; 96361; 99285; J7120

== ENCOUNTER 2025-06-11 11:53 | Outpatient (CLI) | payer MEDICARE, SELFPAY ==
--- OUTSIDE RECORDS SUMMARY | 2025-06-11 12:08 | XMS_ITS | Clinical Summary ---
Author Organization [facility] Address [address] [place] [address] Care Team Providers Care Fuel Tank Sealer And Tester Name Role Phone Jaden Cheek OLIVE GROWER Primary Care Provider [phone] Allergies Active Allergy Reactions Criticality Noted Date [...] day. Active ergocalciferol (Vitamin D-2) 1.25 MG (78974 UT) capsule Take 1 capsule (50,000 Units) [...] Continuous Blood Gluc Sensor (Dexcom G6 Sensor[place] [facility] [place]08[place] Active Continuous Blood Gluc Transmit (Dexcom G6 transmitter) [facility] [place]/06[place] 22 Active nitroglycerin (Nitrostat) 0.4 MG [...] 2023 [facility]-Zoster Vaccines (1 of 2) 2023 [id number] Vaccine (1 - season) 2024 [facility]-Influenza Vaccine [...] to complete this topic Insurance [place] [id number] MEDICA[place] MEDICARE Care Teams Fuel Tank Sealer And Tester Relationship Specialty Start Date End Date Jaden Cheek APRN [address] [place] [id number] PCP - General 12/23/21
--- OUTSIDE RECORDS SUMMARY | 2025-06-11 12:08 | XMS_ITS | Clinical Summary ---
Author Organization [facility] Address [address] [place] [address] Phone Care Team Providers Care Junior Assistant Manager Name Role Phone Brinda Sampson MD, [place] Primary Care Provider + Allergies Active Allergy [...] (04/26/2018): Added automatically from request for surgery [id number] Other hyperlipidemia 03/27/2018 LV dysfunction 08/01/2017 Coronary artery disease invo lving [place] coronary artery of [place] heart 08/01/2017 Ischemic cardiomyopathy 07/06/2017 ST elevation myocardial infa rction involving left anterior descending (LAD) coronary artery Surgical History Surgery Date Site/Laterality Comments ABDOMEN SURGERY Hernia repair HERNIA REPAIR umbilical TUBAL LIGATION UPPER GASTROINTESTINAL ENDOSCOPY COLONOSCOPY CHOLECYSTECTOMY, LAPAROSCOPIC 11/29/2012 N/A LAPAROSCOPIC CHOLECYSTECTOMY ; Surgeon: Catherine Soliz MD; Location: [facility] MA[facility] OR; Service: General CARDIAC CATHETERIZATION [...] this topic Medical Devices Implanted Type Area Scientific Manager Device Identifier Shelf Expiration Date Model / Serial / Lot Stent Synergy(Mr) Everolimus-Elut ing 3.50mm X 38mm - [id number] Implanted:Qty: 1 on 07/03/2017 by [facility] Explanted:at [facility] (Quantity not on file) [employer]:CARDIAC RHYTHM MGMT [id number] / / [id number] Stent Xience [employer] Drug Eluting 3.5mm X 33mm - [id number] Implanted:Qty: 1 on 04/26/2018 by Kay Salazar MD at [facility] LAB:VASC DEV [id number] / / [id number] Insurance COMMERCIAL GENERIC COMMERCIAL GENERIC Advance Directives For more information, please contact: [phone] * Full Code (Latest Code Status on File) Date Activated Date Inactivated Comments 04/25/2018 9:11 PM 04/27/2018 2:32 PM Care Teams Junior Assistant Manager Relationship Specialty Start Date End Date Forrest Parry MD [address] [place] [phone] PCP - General Family Medicine 08/24/15
[2025-06-11 12:50] LABS: Anion Gap 14.2 mEq/L (5-15); Blood Urea Nitrogen 21 mg/dl (7-17); Calcium 9.5 mg/dl (8.4-10.2); Carbon Dioxide 27 mmol/L (22.0-30.0); Chloride 104 mmol/L (98-107); Creatinine,Serum 0.80 mg/dl (0.52-1.04); Estimated Glomerular Filt Rate 76 ml/min (>60); GFR (African American) 92 ML/MIN (>60); Glucose 131 mg/dl (74-100); Potassium 5.2 mmoL/L (3.5-5.1); Sodium 140 mmol/L (136-145)
== END 2025-06-11 23:59 | disposition home or self-care (01) ==
LOC: LAB 11:54
PROVIDERS: PCP Nurse Practitioner Family; Visit Provider Physician Assistant
DX: I25.10 Atherosclerotic heart disease of native coronary artery without angina pectoris (principal); E78.5 Hyperlipidemia, unspecified; I10 Essential (primary) hypertension
CPT/HCPCS: 36415; 80048

== ENCOUNTER 2025-08-14 08:44 | Day surgery (SDC) | payer MEDICARE, SELFPAY ==
--- NOTE | 2025-08-12 07:25 | EXP.HP ---
History of Present Illness *Admission Date: 08/14/25 *History of present illness: Mrs. Yanes is a 49-year-old female who is here for screening/surveillance colonoscopy. Her last colonoscopy was in [place] (Dr. Americo Salazar) in May 2022. She did have 3 polyps (tubular adenomas x 3) removed and it was recommended that she have a 3-year surveillance interval. The examination is deemed medically necessary for screening/surveillance colonoscopy. The patient has been seen, interviewed and examined prior to the procedure by both myself and the anesthesia provider. [facility] Disclaimer: The information contained in this section may have been updated after the patient was seen, as this information can be updated by other users. Medical History History of left heart catheterization Urinary tract infection Sleep apnea History of COVID-19 Irritable bowel syndrome (IBS) Gastroparesis Edema Obesity Frequent falls Right foot drop Low back pain Diabetic ulcer of foot associated with diabetes mellitus due to underlying condition, limited to breakdown of skin Hypertriglyceridemia Dyspnea Abnormal electrocardiography CAD (coronary artery disease) Tobacco dependence syndrome Hyperlipidemia Nerve pain Tobacco use Hypertension Diabetes mellitus Fatigue Anxiety Depression Surgical History History of surgery on arm History of cholecystectomy History of hernia surgery History of tubal ligation Stented coronary artery Family History Other No significant family history Social History Smoking Status: Former smoker tobacco type: cigarettes packs per day: 1 alcohol intake: current alcohol intake frequency: holidays/special occasions only substance use type: marijuana current occupational status: disabled Travel in the last 8 weeks?: None household members: family and children housing: house caffeine: Yes Have you lived/traveled outside US in past 30 days?: No Contact w/someone who lives/traveled outside US past 30 days?: No Exposure to someone with infectious disease in past 14 days?: No Do you have a fever (greater than 100.4 F or 38 C)?: No Have you tested positive for COVID-19?: No Exposed to someone with COVID-19 in past 14 days?: No Do you have a sore throat?: No Do you have a cough?: No Do you have any weakness?: No Are you experiencing any nausea/vomitting?: No Do you have any diarrhea?: No Are you experiencing any unusual bleeding?: No Do you have any muscle aches/pain?: No Do you have any abdominal pain?: No Are you experiencing loss of taste or smell?: No Other Medical History Have you received the Flu Vaccine for this season: No Have you received the Pneumonia Vaccine: No Review of Systems Review of Systems Review of systems (narrative): Negative *Cardiovascular Comments: Negative *Gastrointestinal Comments: Negative *Genitourinary Comments: Negative *Musculoskeletal Comments: Negative *Neurologic Comments: Negative Meds Home Medications and Allergies Home Medications ?Medication ?Instructions ?Recorded ?Confirmed ?Type ergocalciferol (vitamin D2) 1,250 1,250 mcg PO DIRECTED Supplement 11/03/21 08/14/25 History mcg (50,000 unit) capsule budesonide-formoterol HFA 160 2 puff inhalation BID COPD #10.2 01/10/22 08/14/25 Rx mcg-4.5 mcg/actuation aerosol grams inhaler (Symbicort) cyanocobalamin (vitamin B-12) 1,000 mcg SQ MONTHLY 05/11/23 08/14/25 History 1,000 mcg/mL injection solution trazodone 150 mg tablet 150 mg PO HS 06/27/23 08/14/25 History escitalopram oxalate 20 mg tablet 20 mg PO DAILY 12/28/23 08/14/25 History gabapentin 400 mg capsule 400 mg PO TID 12/28/23 08/14/25 History ipratropium bromide 17 2 puff inhalation QID 08/12/24 08/14/25 History mcg/actuation HFA aerosol inhaler (Atrovent HFA) buspirone 15 mg tablet 15 mg PO TID 10/08/24 08/14/25 History linaclotide 290 mcg capsule 290 mcg PO DAILY #90 caps 10/08/24 08/14/25 Rx (Linzess) ezetimibe 10 mg tablet (Zetia) 10 mg PO DAILY #90 tabs 10/23/24 08/14/25 Rx insulin syringe-needle U-100 1 mL #50 ea 10/23/24 08/06/25 History 27 gauge x 5/8 (Insulin Syringe MicroFine) omeprazole 40 mg capsule,delayed 40 mg PO DAILY 10/23/24 08/14/25 History release albuterol sulfate 2.5 mg/3 mL 2.5 mg inhalation Q6HP PRN 12/06/24 08/14/25 History (0.083 %) solution for nebulization Shortness Of Breath Or Wheezing nitroglycerin 0.4 mg sublingual 0.4 mg sublingual Q5M PRN Chest 12/06/24 08/14/25 History tablet Pain tiotropium bromide 18 mcg capsule 1 cap inhalation DAILY 12/06/24 08/14/25 History with inhalation device (Spiriva with HandiHaler) blood-glucose sensor (Dexcom G7 #1 ea 02/04/25 08/06/25 History Sensor device) syringe with needle 3 mL 25 x 5/8 #1 ea 02/04/25 08/06/25 History (BD SafetyGlide Syringe) valsartan 40 mg tablet 40 mg PO DAILY #30 tabs 03/12/25 08/14/25 Rx carvedilol 3.125 mg tablet (Coreg) 3.125 mg PO BID #180 tabs 04/10/25 08/14/25 Rx furosemide 40 mg tablet 40 mg PO DAILY #90 tabs 05/02/25 08/14/25 Rx insulin pump cart,auto,BT,G6/7 #5 ea 05/06/25 08/06/25 History (Omnipod 5 G6-G7 Pods (Gen 5) subcutaneous cartridge) ranolazine 1,000 mg 1,000 mg PO BID #180 tabs 05/06/25 08/14/25 Rx tablet,extended release,12 hr syringe with needle 3 mL 23 x 1 #800 ea 05/06/25 08/06/25 History (BD SafetyGlide Syringe) metformin 500 mg tablet,extended 1,000 mg PO BIDWMEAL 06/03/25 08/14/25 History release 24 hr clopidogrel 75 mg tablet (Plavix) 75 mg PO DAILY 30 days #30 tabs 06/04/25 08/14/25 Rx evolocumab 140 mg/mL subcutaneous 140 mg SQ Q2W #2 mL 06/11/25 08/14/25 Rx pen injector (Preeti Mar) ondansetron 4 mg disintegrating 4 mg PO NEEDED PRN Nausea And 06/11/25 08/14/25 History tablet Vomiting isosorbide mononitrate 30 mg 30 mg PO DAILY #30 tabs 07/09/25 08/14/25 Rx tablet,extended release 24 hr spironolactone 25 mg tablet 25 mg PO DAILY 30 days #90 tabs 07/09/25 08/14/25 Rx peg 3350-electrolytes 236 240 ml PO Q10M colonscopy #4,000 mL 07/31/25 08/14/25 Rx gram-22.74 gram-6.74 gram-5.86 gram solution (Golytely) insulin lispro 100 unit/mL 0.05 sliding scale dose SQ DAILY 08/06/25 08/14/25 History subcutaneous solution (Humalog U-100 Insulin) New Prescriptions to Start Prescriptions: Allergies Allergy/AdvReac Type Severity Reaction Status Date / Time atorvastatin (From Lipitor) AdvReac Severe Unknown Verified 08/14/25 09:06 allergy reaction isosorbide AdvReac Severe Headache Verified 08/14/25 09:06 pravastatin AdvReac Severe Joint Pain Verified 08/14/25 09:06 rosuvastatin (From Crestor) AdvReac Severe Joint Pain Verified 08/14/25 09:06 semaglutide (From Ozempic) AdvReac Severe Other Verified 08/14/25 09:06 Exam *Routine HEENT Exam Head: Present normocephalic Eye: Present EOMI and PERRL ENT: Present mucous membranes moist *Routine Neck Exam Neck: Present supple *Routine Respiratory Exam Respiratory: Present CTA bilaterally *Routine Cardiovascular Exam Cardiovascular: Present RRR *Routine Abdominal Exam Abdominal: Present soft and normoactive bowel sounds; Absent tenderness *Routine Rectal Exam Rectal:: deferred *Routine Genitalia Exam Genitalia:: deferred *Routine Extremities Exam Extremities: Absent cyanosis, clubbing or edema *Routine Skin Exam Skin: Present warm; Absent rash *Routine Neurological Exam Neurological: Present alert and oriented X3 Assessment and Plan *Assessment and plan (1) Personal history of adenomatous and serrated colon polyps: Status: Acute Category: Medical Code(s): Z86.0101 - Personal history of adenomatous and serrated colon polyps (2) Screening for colon cancer: Status: Acute Category: Medical Code(s): Z12.11 - Encounter for screening for malignant neoplasm of colon Plan A/P: 1. Personal history of adenomatous colon polyps is the preprocedural diagnosis. The patient will be anesthetized/sedated using MAC sedation. The patient has been seen and examined. Cardiac and lung assessment prior to the examination is stable. Proceed with planned screening colonoscopy.
[2025-08-12 13:21] VITALS: BMI 34.5
--- NOTE | 2025-08-14 06:44 | P.PCN_ITS ---
[facility] Procedure Note Date: 08/14/25 Time: 10:57 Procedure Note:: Colonoscopy Procedure Report: Colonoscopy with cold snare polypectomy Endoscopist: Timo Reilly II, MD Referring physician: TERRELL Castro Date of Procedure: August 14, 2025 Equipment: Olympus [id number] adult colonoscope Sedation: MAC sedation Indication: Mrs. Yanes is a 49-year-old female who is here for screening/surveillance colonoscopy. Her last colonoscopy was in [place] (Dr. Americo Salazar) in May 2022. She did have 3 polyps (tubular adenomas x 3) removed and it was recommended that she have a 3-year surveillance interval. This is the patient's 3rd or 4th colonoscopy and she has had colon polyps on most of the examinations. The patient does report mixed alternating constipation with diarrhea. She has had a lot of bloating, gassiness and lower abdominal discomfort. She does take Linzess. She primarily reports incomplete defecation (outlet dysfunction) with excessive wiping. She has been diagnosed with gastroparesis and does take eubl-cdx-sviozui herbal Iberogast. The examination is deemed medically necessary for screening/surveillance colonoscopy. Procedure: Prior to the procedure, a history and physical exam was performed, and patient's medications and allergies were reviewed. The risks, benefits and alternatives of the sedation and procedure were discussed with the patient. All questions were answered and informed consent was obtained. The patient was brought to the procedure room. Patient identification and proposed procedure were verified by the physician and the nurse. The patient was placed in a left lateral decubitus position and the scope was passed under direct vision. Throughout the procedure, the patient's blood pressure, pulse, and oxygen saturations were monitored continuously. The colonoscopy was accomplished without difficulty. The patient tolerated the procedure well. Findings: On digital rectal examination there was normal rectal tone. There were small external tags. The colonoscope was introduced through the anal canal to the rectum and advanced to the cecum. The ileocecal valve and appendiceal orifice were identified. The scope was advanced a short distance into the ileum which appeared grossly normal. The scope was then withdrawn into the colon. The cecum, ascending and transverse colon and mucosa were grossly normal. There were scattered diverticuli throughout the descending and sigmoid colon (LEFT colon). There was a single 3 to 4 mm polyp in the sigmoid colon removed via cold snare polypectomy. The rectum itself was normal. Upon retroflexion within the rectum there were grade 1-2 internal hemorrhoids. The preparation was excellent throughout with [place] Preparation Score of 9. The cecal time was 12 minutes. Impression: 1. Diminutive sigmoid polyp (3 to 4 mm) 2. Left-sided diverticulosis 3. Grade 1-2 internal hemorrhoids Plan: I will follow-up the polyp histology and recommend repeat screening/surveillance colonoscopy again in 7 years. The patient does have outlet dysfunction constipation/IBS?C. We will discuss treatment options and she would benefit from pelvic floor physical therapy.
[2025-08-14 09:04] VITALS: BP 145/89; PULSE 75; RESP 18; TEMP 36.4; O2SAT 95
[2025-08-14] MEDS: LACTATED RINGERS 1000ML 1,000 ML 50 ML IV (09:22)
[2025-08-14 09:24] LABS: POC Glucose,Bedside 140 gm/dL (70-110)
--- NOTE | 2025-08-14 09:30 | P.PNANES_ITS ---
[facility] Disclaimer: The information contained in this section may have been updated after the patient was seen, as this information can be updated by other users. Medical History History of left heart catheterization Urinary tract infection Sleep apnea History of COVID-19 Irritable bowel syndrome (IBS) Gastroparesis Edema Obesity Frequent falls Right foot drop Low back pain Diabetic ulcer of foot associated with diabetes mellitus due to underlying condition, limited to breakdown of skin Hypertriglyceridemia Dyspnea Abnormal electrocardiography CAD (coronary artery disease) Tobacco dependence syndrome Hyperlipidemia Nerve pain Tobacco use Hypertension Diabetes mellitus Fatigue Anxiety Depression Surgical History History of surgery on arm History of cholecystectomy History of hernia surgery History of tubal ligation Stented coronary artery Family History Other No significant family history Social History Smoking Status: Former smoker tobacco type: cigarettes packs per day: 1 alcohol intake: current alcohol intake frequency: holidays/special occasions only substance use type: marijuana current occupational status: disabled Travel in the last 8 weeks?: None household members: family and children housing: house caffeine: Yes Have you lived/traveled outside US in past 30 days?: No Contact w/someone who lives/traveled outside US past 30 days?: No Exposure to someone with infectious disease in past 14 days?: No Do you have a fever (greater than 100.4 F or 38 C)?: No Have you tested positive for COVID-19?: No Exposed to someone with COVID-19 in past 14 days?: No Do you have a sore throat?: No Do you have a cough?: No Do you have any weakness?: No Are you experiencing any nausea/vomitting?: No Do you have any diarrhea?: No Are you experiencing any unusual bleeding?: No Do you have any muscle aches/pain?: No Do you have any abdominal pain?: No Are you experiencing loss of taste or smell?: No [facility] Anesthesia Checklist Patient Identification Patient Identification: Arm Band and Verbal (Name & ) Structural Data Admitted From: Home Planned Operative Procedure/s: colonscopy Consent for Planned Operative Procedure(s) Verified: Yes Verified Documents: Surgical Consent and History and Physical NPO Status Verified Time NPO: 00:00 Additional verifications Anesthesia Reactions: No Hx Blood Transfusions: No Blood Transfusion Reaction: No Previous Colonoscopy: Yes Airway Assessment Mallampati Score:: Class II Dentition: Poor Dentition Neurological Assessment Level of Consciousness: Awake, Alert and Appropriate Hx Seizures: No Numbness or tingling in extremities: No Anesthesia Plan Anesthesia Risk discussed: Yes Anesthesia Plan: Verified ASA Class: III Anesthesia Type: MAC
[2025-08-14 10:58] VITALS: BP 115/73; PULSE 74; RESP 18; O2SAT 93
[2025-08-14 11:08] VITALS: BP 113/82; PULSE 80; RESP 18; TEMP 36.4; O2SAT 94
[2025-08-14 11:18] VITALS: BP 120/79; PULSE 79; RESP 18; O2SAT 93
[2025-08-14 11:29] VITALS: BP 141/98; PULSE 67; RESP 18; O2SAT 98
== END 2025-08-14 11:58 | disposition home or self-care (01) ==
PROVIDERS: PCP Nurse Practitioner Family; Visit Provider Internal Medicine Gastroenterology
PROC: 0DJD8ZZ Inspection of Lower Intestinal Tract, Via Natural or Artificial Opening Endoscopic (ICD-10-PCS; CPT 45378; principal; 2025-08-14 10:30)
DX: Z12.11 Encounter for screening for malignant neoplasm of colon (principal); D12.5 Benign neoplasm of sigmoid colon; K64.0 First degree hemorrhoids; K64.1 Second degree hemorrhoids; K57.30 Diverticulosis of large intestine without perforation or abscess without bleeding; K31.84 Gastroparesis; E11.621 Type 2 diabetes mellitus with foot ulcer; I10 Essential (primary) hypertension; I25.10 Atherosclerotic heart disease of native coronary artery without angina pectoris; E78.1 Pure hyperglyceridemia; K58.9 Irritable bowel syndrome, unspecified; Z87.891 Personal history of nicotine dependence; Z79.02 Long term (current) use of antithrombotics/antiplatelets; Z79.4 Long term (current) use of insulin; Z79.84 Long term (current) use of oral hypoglycemic drugs; Z88.8 Allergy status to other drugs, medicaments and biological substances; Z86.0101 Personal history of adenomatous and serrated colon polyps
CPT/HCPCS: 45385; 82962; 88305; J2003; J2704; J7120

== ENCOUNTER 2025-10-07 12:24 | Outpatient (CLI) | payer MEDICARE, SELFPAY ==
--- OUTSIDE RECORDS SUMMARY | 2025-10-07 12:28 | XMS_ITS | Encounter Summary ---
Author Organization [facility] Address [address] [place] [address] Care Team Providers Care Composition Roll Maker And Cutter Name Role Phone Jaden Cheek PHUC Primary Care Provider [phone]- [phone] Reason for Referral * Consultation (Routine) - Authorized Specialty Diagnoses / Procedures Referred By Olive penny Referred To Contact Oral Surgery Diagnoses Extraction of tooth needed Kieran Sheridan DMD [address] [place], [address] Phone: tel: fax: [facility] emergency room registered nurse [facility] [address] [place] [address] [address] [place] [address] Phone: tel: Referral ID Status Reason Start Date Expiration Date Visits Requested Visits Authorized [id number] Authorized Specialty Services Required 08/15/2025 02/14/2027 1 1 Encounter Details Date Type Department Care Team (Late st Contact Info) Description 08/15/2025 [facility] [address] [place] [address] Kieran Sheridan DMD [address] [place], [address] Extraction of tooth needed (Primary Dx) Social History Tobacco Use Types Packs/Day Years Used Date Smoking Tobacco: Former Cigarettes 0 Q uit: 06/09/2022 Passive Smoke Exposure: Past Smokeless Tobacco: Never Alcohol Use Standard Drinks/Week Comments Not Currently 0 (1 standard drink = 0.6 oz pur e alcohol) Comments No Sex and Gender Information Value Date Recorded Sex Assigned at Not on file Legal Sex Female 8:37 PM EDT Gender Identity Not on file Sexual Orientation Not on file documented as of this encounter Plan of Treatment Scheduled Referrals Name Type Priority Associated Diagnoses Order Schedule Ambulatory referral to Oral Maxillofacial Surgery Outpatient Referral Routine Extraction of tooth needed 1 Occurrences starting 08/15/2025 until 02/16/2027 documented as of this encounter Visit Diagnoses Diagnosis Extraction of tooth needed- Primary documented in this encounter Additional Health Concerns Assessment Noted Time A fall risk assessment has been complete d for the patient 12/01/2023 12:32 PM EST A Body Mass Index follow-up plan has been documented for the patient 12/01/2023 12:52 PM EST documented as of this encounter Care Teams Composition Roll Maker And Cutter Relationship Specialty Start Date End Date Jaden Cheek APRN [address] [place] [address] PCP - General 12/23/21 documented as of this encounter
--- OUTSIDE RECORDS SUMMARY | 2025-10-07 12:28 | XMS_ITS | Encounter Summary ---
Author Organization [facility] Address [address] [place] [address] Care Team Providers Care Content Development Specialist Name Role Phone Jaden Cheek PHUC Primary Care Provider +1- [phone] Reason for Referral * Consultation (Routine) - Authorized Specialty Diagnoses / Procedures Referred By Olive penny Referred To Contact Oral Surgery Diagnoses Extraction of tooth needed Kieran Sheridan DMD [address] [place], [address] Phone: tel: fax: [facility] physician in private practice [facility] [address] [place] [address] [address] [place] [address] Phone: tel: Referral ID Status Reason Start Date Expiration Date Visits Requested Visits Authorized [id number] Authorized Specialty Services Required 08/13/2025 02/12/2027 1 1 Encounter Details Date Type Department Care Team (Late st Contact Info) Description 08/13/2025 Community [facility] Community Practice [address] [place] [address] Kieran Sheridan DMD [address] [place], [address] Extraction of tooth needed (Primary Dx) Social [...] Extraction of tooth needed 1 Occurrences starting 08/13/2025 until 02/14/2027 documented as of this encounter Visit Diagnoses Diagnosis Extraction of tooth needed- Primary documented in this encounter Additional Health Concerns Assessment Noted Time A fall risk assessment has been complete d for the patient 12/01/2023 12:32 PM EST A Body Mass Index follow-up plan has been documented for the patient 12/01/2023 12:52 PM EST documented as of this encounter Care Teams Content Development Specialist Relationship Specialty Start Date End Date Jaden Cheek APRN [address] [place] [address] PCP - General 12/23/21 documented as of this encounter
--- OUTSIDE RECORDS SUMMARY | 2025-10-07 12:28 | XMS_ITS | Clinical Summary ---
Author Organization [facility] Address [address] [place] [address] Phone Care Team Providers Care Annual Giving Director Name Role Phone Brinda Sampson MD, [place] Primary Care Provider + Allergies Active Allergy [...] (04/26/2018): Added automatically from request for surgery [id number] Other hyperlipidemia 03/27/2018 LV dysfunction 08/01/2017 Coronary artery disease invo lving pala coronary artery of pala heart 08/01/2017 Ischemic cardiomyopathy 07/06/2017 ST elevation myocardial infa rction involving left anterior descending (LAD) coronary artery Surgical History Surgery Date Site/Laterality Comments ABDOMEN SURGERY Hernia repair HERNIA REPAIR umbilical TUBAL LIGATION UPPER GASTROINTESTINAL ENDOSCOPY COLONOSCOPY CHOLECYSTECTOMY, LAPAROSCOPIC 11/29/2012 N/A LAPAROSCOPIC CHOLECYSTECTOMY ; Surgeon: Catherine Soliz MD; Location: [facility] MAIN OR; Service: General CARDIAC CATHETERIZATION [...] Zoster (1 of 2) 2023 COVID-19 Vaccine ( - 2024-2 6 season) 2025 Influenza Vaccine (#1) 2025 Meningococcal B Vaccine Aged Out No l onger eligible based on patient's age to complete this topic Medical Devices Implanted Type Area Noxious Weeds And Pest Inspector Device Identifier Shelf Expiration Date Model / Serial / Lot Stent Synergy(Mr) Everolimus-Elut ing 3.50mm X 38mm - [id number] Implanted:Qty: 1 on 07/03/2017 by Kay Salazar MD at [facility] Explanted:at [facility] (Quantity not on file) [employer]:CARDIAC RHYTHM MGMT [id number] / / [id number] Stent Xience Alpine Drug Eluting 3.5mm X 33mm - [id number] Implanted:Qty: 1 on 04/26/2018 by Kay Salazar MD at [facility] MARTINEZ LAB:VASC DEV [id number] / / [id number] Insurance COMMERCIAL GENERIC COMMERCIAL GENERIC Advance Directives For more information, please contact: [phone] * Full Code (Latest Code Status on File) Date Activated Date Inactivated Comments 04/25/2018 9:11 PM 04/27/2018 2:32 PM Care Teams Annual Giving Director Relationship Specialty Start Date End Date Forrest Parry MD [address] [place] [id number] PCP - General Family Medicine 08/24/15
--- OUTSIDE RECORDS SUMMARY | 2025-10-07 12:28 | XMS_ITS | Clinical Summary ---
Author Organization [facility] Address [address] [place] [address] Care Team Providers Care Dye House Supervisor Name Role Phone Jaden Cheek SUMMER INTERN Primary Care Provider +1- [phone] Allergies Active Allergy Reactions Criticality Noted Date [...] day. Active ergocalciferol (Vitamin D-2) 1.25 MG (41825 UT) capsule Take 1 capsule (50,000 Units) [...] Continuous Blood Gluc Sensor (Dexcom G6 Sensor) [facility] 09/08/20 22 Active Continuous Blood Gluc Transmit (Dexcom G6 transmitter) [facility] 09/06/20 22 Active nitroglycerin (Nitrostat) [...] EACH NOSTRIL EVERY DAY FOR SINSUS. 10/24/19 24 Active medroxyPROGESTE Blue (Provera) 10 MG tablet TAKE ONE TABLET EVERY NIGHT AT BEDTIME ON FIRST 10 DAYS OF JULY, OCTOBER, JANUARY, AND APRIL. 07/11/20 Active montelukast (Singulair) 10 MG tablet TAKE ONE (1) TABLET EVERY DAY BY ORAL ROUTE DIRECTED FOR 30 DAYS. 07/26/20 Active Encounters Date Type Department Care Team Description 08/15/2025 [facility] Orders [facility] Practice [address] [place] [address] Kieran Sheridan DMD Extraction of tooth needed (Primary Dx) 08/13/2025 [facility] Practice [address] [place] [address] Kieran Sheridan, JOSEFINA Extraction of tooth needed (Primary Dx) from Last 3 Months Immunizations Immunization Administration Dates Next Due Hep [...] Screening 1973 [facility]-Medicare Annual Wellness (AWV) 1973 [facility]-Infant/Child/Adol SDOH Screenings 1973 [facility]- SDOH Screenings 1991 [...] 2023 [facility]-Zoster Vaccines (1 of 2) 2023 [id number] Vaccine (1 - season) 2025 [facility]-Influenza Vaccine (#1) 2025 10/09/2018 [facility]-DTaP,Tdap,and Td Vaccine s (3 - Td or Tdap) 09/24/2033 09/24/2023, 05/14/2013, 05/25/2000 [facility]-Obesity Intervention Completed 024, 09/12/2022 HPV Vaccines (No Doses Required) Completed [facility]-HIB Vaccines Aged Out No longer e [...] patient's age to complete this topic Insurance MEDICAID-[place] MEDICARE Care Teams Dye House Supervisor Relationship Specialty Start Date End Date Jaden Cheek APRN [address] [place] [id number] PCP - General 12/23/21
[2025-10-07 13:34] LABS: Albumin Level 4.4 g/dl (3.5-5.0); Chloride 95 mmol/L (98-107); Sodium 139 mmol/L (136-145)
[2025-10-07 13:35] LABS: Potassium 4.5 mmoL/L (3.5-5.1)
[2025-10-07 13:37] LABS: Alanine Aminotransferase 21 U/L (12-78); Albumin/Globulin Ratio 1.8 (1.1-1.8); Alkaline Phosphatase 53 U/L (38-126); Anion Gap 15.5 mEq/L (5-15); Aspartate Amino Transferase 26 U/L (14-36); Bilirubin,Total 0.3 mg/dl (0.2-1.3); Blood Urea Nitrogen 21 mg/dl (7-17); Carbon Dioxide 33 mmol/L (22.0-30.0); Creatinine,Serum 1.10 mg/dl (0.52-1.04); Estimated Glomerular Filt Rate 52 ml/min (>60); GFR (African American) 63 ML/MIN (>60); Globulin 2.5 g/dL (1.3-3.2); Total Protein,Serum 6.9 g/dl (6.3-8.2)
[2025-10-07 13:38] LABS: Calcium 9.9 mg/dl (8.4-10.2); Glucose 252 mg/dl (74-100)
== END 2025-10-07 23:59 | disposition home or self-care (01) ==
LOC: LAB 12:26
PROVIDERS: PCP Nurse Practitioner Family; Visit Provider Specialist
DX: I47.10 Supraventricular tachycardia, unspecified (principal); R94.31 Abnormal electrocardiogram [ECG] [EKG]; G93.40 Encephalopathy, unspecified; R25.1 Tremor, unspecified; R55 Syncope and collapse
CPT/HCPCS: 36415; 80053; 93225; 93227